=== PATIENT | female | born 2000 | race Caucasian/White ===

== ENCOUNTER → 2019-01-05 12:54 | Outpatient (CLI) | payer MEDICAID, SELFPAY ==
[2019-01-05 15:17] LABS: hCG Titer Quant., Serum 4311 mIU/mL (1-3)
== END ==
PROVIDERS: Nurse Practitioner Women's Health; Referring Provider Obstetrics & Gynecology; Visit Provider Obstetrics & Gynecology
DX: N91.2 Amenorrhea, unspecified (principal)
CPT/HCPCS: 36415; 84702

== ENCOUNTER → 2019-01-07 14:01 | Outpatient (CLI) | payer MEDICAID, SELFPAY ==
[2014-05-16 05:46] VITALS: BMI 29.7
[2019-01-07 16:06] LABS: hCG Titer Quant., Serum 6073 mIU/mL (1-3)
== END ==
PROVIDERS: Nurse Practitioner Women's Health; Referring Provider Obstetrics & Gynecology; Visit Provider Obstetrics & Gynecology
DX: N91.2 Amenorrhea, unspecified (principal)
CPT/HCPCS: 36415; 84702

== ENCOUNTER → 2019-01-09 14:17 | Outpatient (CLI) | payer MEDICAID, SELFPAY ==
[2019-01-09 16:05] LABS: hCG Titer Quant., Serum 8267 mIU/mL (1-3)
== END ==
PROVIDERS: Referring Provider Nurse Practitioner Women's Health; Visit Provider Nurse Practitioner Women's Health
DX: O20.0 Threatened abortion (principal); Z3A.00 Weeks of gestation of pregnancy not specified
CPT/HCPCS: 36415; 84702

== ENCOUNTER → 2019-01-16 16:04 | Outpatient (CLI) | payer MEDICAID, SELFPAY ==
--- NOTE | 2019-01-16 16:08 | US_ITS ---
STUDY: FIRST TRIMESTER OBSTETRICAL ULTRASOUND REASON FOR EXAM: Female, 18 years old evaluate for dates LMP: 12/01/2018 TECHNIQUE: Transvaginal TECHNICAL QUALITY: Adequate. PRIOR ULTRASOUND: None. FINDINGS: There is visualization of a single gestational sac in a normal intrauterine position. The mean sac diameter (MSD) measures 1.5 cm, indicating an estimated gestational age (EGA) of 6 weeks, 3 days. The gestational sac shape is within normal limits. There is a visualized yolk sac. The yolk sac measures 2 mm. The placenta is non-visualized. There is visualization of a live embryo. The crown-rump length (CRL) measures 0.8 cm, indicating an estimated gestational age (EGA) of 6 weeks, 6 days. There is demonstrated cardiac activity with a heart rate of 128 bpm. The estimated gestation age (EGA) by LMP is 6 weeks, 4 days. The estimated date of delivery (HELENE) by LMP is 09/07/2019. The estimated gestation age (EGA) by US is 6 weeks, 5 days. The estimated date of delivery (HELENE) by US is 09/06/2019. The uterus measures 10.3 x 7.1 x 5.1 cm.. There is no demonstrated uterine fibroid. The cervix is closed. The right ovary measures 4.0 x 2.4 x 2.3 cm.. There is no right ovarian cyst. There is no visualized right adnexal mass or complex lesion. The left ovary measures 4.7 x 2.6 x 1.4 cm.. There is no left ovarian cyst. There is no visualized left adnexal mass or complex lesion. There is a minimal amount of free fluid adjacent to the left ovary. US/Transvaginal w/Preg US IMPRESSION: Single viable intrauterine of approximately 6 weeks 5 days gestational age. A heart rate of 128 bpm is noted. There is a minimal amount of free fluid adjacent to the left ovary. Electronically Signed: Colton Mcqueen MD at 17:21 EDT , Service support ,
== END ==
PROVIDERS: Referring Provider Nurse Practitioner Women's Health; Visit Provider Nurse Practitioner Women's Health
DX: Z34.91 Encounter for supervision of normal pregnancy, unspecified, first trimester (principal)
CPT/HCPCS: 76817

== ENCOUNTER → 2019-02-02 16:49 | Outpatient (CLI) | payer MEDICAID, SELFPAY ==
[2019-02-02 15:10] VITALS: BMI 29.7
[2019-02-02 20:34] LABS: Chlamydia Trachomatis by PCR Negative (Negative); Neisserai gonorrhoeae by PCR Negative (Negative); Probe Check PASS; Sample Adequacy Control PASS; Specimen Processing Control PASS
[2019-02-05 16:47] LABS: HPV Reflexed? NOT INDICATED
== END ==
PROVIDERS: Referring Provider Nurse Practitioner Women's Health; Visit Provider Nurse Practitioner Women's Health
DX: Z12.4 Encounter for screening for malignant neoplasm of cervix (principal); Z34.90 Encounter for supervision of normal pregnancy, unspecified, unspecified trimester
CPT/HCPCS: 87086; 87491; 87591; 88175; G0145

== ENCOUNTER → 2019-02-10 15:14 | Outpatient (CLI) | payer MEDICAID, SELFPAY ==
[2019-02-02 15:10] VITALS: BMI 29.7
[2019-02-10 16:26] LABS: Absolute Lymphocyte Count 2.37 X10^3/uL (0.83-4.51); Absolute Neutrophil Count 5.8 X10^3/uL (2.0-7.7); Basophil# 0.03 X10^3/uL; Basophil% 0.3 % (0-1); Eosinophil# 0.03 X10^3/uL; Eosinophils% 0.3 % (0-5); Hematocrit 40.9 % (37-47); Hemoglobin 14.1 g/dL (12.0-15.0); Lymphocyte # 2.37 X10^3/ul (4.0); Lymphocyte % 27.1 % (19-41); Mean Corp Hgb Conc 34.5 g/dL (32-36); Mean Corpuscular Hgb 29.8 pg (27.0-32.0); Mean Corpuscular Volume 86.5 fL (81-99); Mean Platelet Vol. 9.6 fl (6.2-12.0); Monocyte# 0.51 X10^3/uL; Monocyte% 5.8 % (0-10); NRBC Flagged by Analyzer 0 % (0-5); Neutrophil # 5.76 X10^3/uL (2.7-7.7); Neutrophil % 66.2 % (47-70); Platelet Count 216 K/mm3 (150-450); RBC Distribution Width CV 12.1 % (11.6-14.6); RBC Distribution Width SD 38.5 fl (35.1-43.9); Red Blood Count 4.73 M/mm3 (4.2-5.4); White Blood Count 8.7 K/mm3 (4.4-11.0)
[2019-02-10 17:30] LABS: HIV - WCH Non-Reactive (Nonreactive); Rubella IgG 134.8 IU/mL
[2019-02-13 02:37] LABS: Rapid Plasmin Reagin (RPR) NONREACTIVE (NONREACTIVE)
== END ==
PROVIDERS: Referring Provider Nurse Practitioner Women's Health; Visit Provider Nurse Practitioner Women's Health
DX: Z34.81 Encounter for supervision of other normal pregnancy, first trimester (principal); Z31.430 Encounter of female for testing for genetic disease carrier status for procreative management
CPT/HCPCS: 36415; 85025; 86592; 86703; 86762; 86850; 86900; 86901

== ENCOUNTER → 2019-06-04 15:04 | Outpatient (CLI) | payer MEDICAID, SELFPAY ==
[2019-06-04 14:48] VITALS: BMI 29.7
[2019-06-04 15:38] LABS: Absolute Lymphocyte Count 2.12 X10^3/uL (0.83-4.51); Absolute Neutrophil Count 8.5 X10^3/uL (2.0-7.7); Basophil# 0.03 X10^3/uL; Basophil% 0.3 % (0-1); Eosinophil# 0.05 X10^3/uL; Eosinophils% 0.4 % (0-5); Hematocrit 36.4 % (37-47); Hemoglobin 12.5 g/dL (12.0-15.0); Lymphocyte # 2.12 X10^3/ul (4.0); Lymphocyte % 18.1 % (19-41); Mean Corp Hgb Conc 34.3 g/dL (32-36); Mean Corpuscular Hgb 30.4 pg (27.0-32.0); Mean Corpuscular Volume 88.6 fL (81-99); Mean Platelet Vol. 9.7 fl (6.2-12.0); Monocyte# 0.91 X10^3/uL; Monocyte% 7.8 % (0-10); NRBC Flagged by Analyzer 0 % (0-5); Neutrophil # 8.52 X10^3/uL (2.7-7.7); Neutrophil % 72.7 % (47-70); Platelet Count 198 K/mm3 (150-450); RBC Distribution Width CV 13.1 % (11.6-14.6); RBC Distribution Width SD 42.5 fl (35.1-43.9); Red Blood Count 4.11 M/mm3 (4.2-5.4); White Blood Count 11.7 K/mm3 (4.4-11.0)
[2019-06-04 15:48] LABS: Glucose Challenge Gest 1H 50g 109 mg/dL (70-140)
[2019-06-05 09:01] LABS: Hepatitis B Surface Antigen Non-Reactive (Nonreactive)
== END ==
PROVIDERS: Referring Provider Obstetrics & Gynecology; Visit Provider Obstetrics & Gynecology
DX: O09.90 Supervision of high risk pregnancy, unspecified, unspecified trimester (principal); Z3A.00 Weeks of gestation of pregnancy not specified
CPT/HCPCS: 36415; 82950; 85025; 87340

== ENCOUNTER → 2019-08-14 13:11 | Outpatient (CLI) | payer MEDICAID, SELFPAY ==
[2019-07-17 15:43] VITALS: BMI 29.7
--- NOTE | 2019-08-14 13:12 | US_ITS ---
STUDY: SECOND AND THIRD TRIMESTER OBSTETRICAL ULTRASOUND - LIMITED REASON FOR EXAM: Female, 19 years old GROWTH LMP: December 01, 2018. PRIOR ULTRASOUND: Comparison is made with prior study dated January 16, 2019. TECHNIQUE: Transabdominal TECHNICAL QUALITY: Adequate. FINDINGS: There is a single intrauterine fetus. The fetus is in a cephalic presentation. There is demonstrated cardiac activity with a heart rate of 140 bpm. There is a normal amniotic fluid volume. The largest amniotic fluid pocket measures 6.9 cm x 3.3 cm. The amniotic fluid index (VIKA) is 11.08 cm. The placenta is posterior in location and is not low lying. There are Grade 2 placental changes. The cervix was not measured due to position. BIOMETRY: BPD: 8.92 cm: 36 weeks, 1 days HC: 32.14 cm: 36 weeks, 2 days AC: 32.58 cm: 36 weeks, 4 days FL: 7.14 sinus: 36 weeks, 5 days Age by LMP: 36 weeks, 4 days. HELENE by LMP: September 07, 2019. age by prior US: 36 weeks, 5 days. EHLENE by prior US: September 06, 2019. age by current US: 36 weeks, 3 days. HELENE by current US: September 08, 2019. Estimated weight: 2940 grams, +/- 429 grams, 50 percentile. US/OB Limited With Biometrics IMPRESSION: Single live intrauterine gestation with a mean gestational age of 36 weeks and 5 days. The measurements obtained today fall within the normal expected range. Electronically Signed: Nirmal Otero, at 14:50 EDT , Service support ,
== END ==
PROVIDERS: Referring Provider Obstetrics & Gynecology; Visit Provider Obstetrics & Gynecology
DX: O09.93 Supervision of high risk pregnancy, unspecified, third trimester (principal); O09.293 Supervision of pregnancy with other poor reproductive or obstetric history, third trimester; Z3A.36 36 weeks gestation of pregnancy
CPT/HCPCS: 76816; 87081

== ENCOUNTER 2019-08-31 09:30 | Inpatient (IN) | payer MEDICAID, SELFPAY ==
[2019-08-14 14:05] VITALS: BMI 29.7
[2019-08-28 16:36] VITALS: BMI 29.7
[2019-08-31] VITALS (19 sets, daily range): BP systolic 104–126; BP diastolic 48–79; PULSE 66–87; RESP 16–18; TEMP 36.2–36.6; O2SAT 96–100; BMI 36.1
[2019-08-31] MEDS: Lactated Ringers 1,000 ML 999 ML IV (10:00)
[2019-08-31 10:22] LABS: Absolute Lymphocyte Count 2.71 X10^3/uL (0.83-4.51); Absolute Neutrophil Count 9.3 X10^3/uL (2.0-7.7); Basophil# 0.03 X10^3/uL; Basophil% 0.2 % (0-1); Eosinophil# 0.03 X10^3/uL; Eosinophils% 0.2 % (0-5); Hematocrit 39.3 % (37-47); Hemoglobin 13.8 g/dL (12.0-15.0); Lymphocyte # 2.71 X10^3/ul (4.0); Mean Corp Hgb Conc 35.1 g/dL (32-36); Mean Corpuscular Hgb 31.4 pg (27.0-32.0); Mean Corpuscular Volume 89.3 fL (81-99); Mean Platelet Vol. 10.8 fl (6.2-12.0); Monocyte# 0.79 X10^3/uL; Monocyte% 6.1 % (0-10); NRBC Flagged by Analyzer 0 % (0-5); Neutrophil # 9.27 X10^3/uL (2.7-7.7); Neutrophil % 71.9 % (47-70); Platelet Count 145 K/mm3 (150-450); RBC Distribution Width CV 12.9 % (11.6-14.6); RBC Distribution Width SD 42.1 fl (35.1-43.9); White Blood Count 12.9 K/mm3 (4.4-11.0)
[2019-08-31] MEDS: Lactated Ringers 1,000 ML 150 ML IV (11:05)
[2019-08-31 11:28] LABS: Amphetamine Urine VISTA NEGATIVE (<1000 ng/mL); Barbiturate Urine VISTA NEGATIVE (< 200 ng/mL); Benzodiazepine Urine VISTA NEGATIVE (< 200 ng/mL); Cocaine Urine VISTA NEGATIVE (< 300 ng/mL); Ecstacy Urine VISTA NEGATIVE (< 500 ng/mL); Methadone Urine VISTA NEGATIVE (< 300 ng/mL); PCP Urine VISTA NEGATIVE (< 25 ng/mL); THC Urine VISTA NEGATIVE (< 50 ng/mL); Vista UDS pH Range 7
--- NOTE | 2019-08-31 13:35 | PCM.HPOB.BLA ---
- Problem List (1) History of difficult shoulder delivery, resulting in fractured clavicle of , currently Status: Acute Qualifiers: Comment: counseled regarding risk of recurrence, plan growth us at 36 weeks, if smaller patient wishes to proceed with . (2) History of depression Status: Acute Comment: increase celexa, declined counseling (3) Status: Acute Qualifiers: Comment: carrier-neg and nipt-low risk. boy. declines afp screening. Anatomy US normal (4) Supervision of high risk , antepartum Status: Acute Comment: PRR (hep B) HELENE 09/07/19 Boy PC Phong BF Phong (5) Tobacco use Status: Acute Comment: enc cessation History and Physical Date of Admission: 08/31/19 Intake Vital Signs 08/28/19 BMI 29.7 08/28/19 Height 5 ft 5 in 08/28/19 Weight: 217 lb 08/28/19 BMI 36.1 08/28/19 BP 120/82 H Intake Visit Reasons: 38 WK OB Roll On Man Required: No Is patient in pain?: No Allergies No Known Allergies Allergy (Verified 08/28/19 16:32) Medications [id number] fum 28 mg iron-folate no.6 1 mg-dha 300 mg capsule 1 cap PO .daily #90 cap 07/17/19 [Rx Confirmed 08/28/19] citalopram 40 mg tablet 40 mg PO DAILY #30 tab 08/28/19 [Rx Confirmed 08/28/19] Last Menstral Period: 12/01/18 Zika: Zika virus screening: Negative : No PFSH PFSH Surgical History History of tonsillectomy (Acute) Social History (Updated 08/29/19 @ 10:[address] Karlene Gómez MD) number of children: 1 current occupational status: employed current occupation: [employer] Smoking Status: Light Smoker (<10/day) Tobacco: How many years used: 6 alcohol intake: never substance use type: does not use seatbelt use: always do you feel safe at home: Yes additional social history: Jb Currently unemployed Pregancy History 2 Elective abortions Hx Para 1 Spontaneous abortions Hx # Term Pregnancies 1 Ectopic pregnancies Hx # Pregnancies Multiple births # of living children 1 Past Pregnancies Del. Date Name GA/Weeks Outcome Route Bth Weight Gen Labor Lgth Anesthesia Del Locatn Provider FOB 05/16/14 Phong Urban 41 live - full term 8 lbs 8.3 oz. Male 20 hours epidural [facility] Dr. Rico Darling HPI 38 WK OB: Details: REYNA RODRIGEZ is a 19 year old @ 39 weeks presents for primary for history of shoulder dystocia. OB Visit HELENE Calculator Estimated Delivery Date Method Current WG Current Estimate 09/07/19 LMP (Certain) 38w 5d Other Estimates 09/06/19 Ultrasound #1 38w 6d 09/02/19 Ultrasound #2 39w 3d Expected Delivery Route/Plan plan LTCS no matter what due to history of should dystocia Labor Preferences- labor support person: [] pain management options preferred: [] cut cord/dad catch: [] : [] PP control planned: [] discussed possible routes of delivery and associated risks: [] special requests: [] Specific Issue/Plans flu vaccine: declined tdap vaccine: given rhogam: na LARC form signed: declines movement and labor precautions reviewed. Problem list reviewed and updated with the most current plan of care details and appropriate orders placed. Relevant counseling for the gestational age provided. Continue routine care and follow up unless otherwise noted in visit notes/problem list details Initial Weight: 211 lb Date EGA Weight BP Urine Prot Glucose FHR FuHt Pres Dilation Effaced St Visit Note 03/09/19 14w 0d 207 lb 2 oz (-3 lb 14 oz) 115/77 Negative Negative 155 no vb cramping 04/09/19 18w 3d 205 lb 6 oz (-5 lb 10 oz) 118/60 Trace Negative 146 Feeling slight flutters. No VB, LOF. Anatomy US today 05/07/19 22w 3d 206 lb (-5 lb) 114/62 Negative Negative 145 SM- no vb lof good fm no regular ctx. discussed anatomy scan and encouraged tobacco cessation 06/04/19 26w 3d 210 lb 4 oz (-12 oz) 117/76 Negative Negative 145 27 SM- no vb lof good fm no regular ctx. discusseed and plan growth us at 36 weeks, discussed 15%- 20% risk of recurrence, patient wishes to proceed with . 07/02/19 30w 3d 210 lb (-16 oz) 128/76 Negative Negative 140 31 SM- no vb lof good fm no regular ctx 07/17/19 32w 4d 209 lb (-2 lb) 118/62 Negative Negative 140 33 SM- no vb lof fm no regular ctx check growth us 08/14/19 36w 4d 214 lb (+3 lb) 112/76 Negative Negative 140 37 Cephalic 1 SM- had growth us, no vb lof good fm no regulaar ctx discussed and patient wishes to proceed with primary 08/21/19 37w 4d 216 lb (+5 lb) 110/82 Negative Negative 140 39 Cephalic 1 SM- no vb lof good fm no regular ctx 08/28/19 38w 4d 217 lb (+6 lb) 120/82 Negative Negative 140 40 Cephalic SM- plan primary saturday Notes Visit Date: 08/28/19 ??No visit notes to display Visit Date: 08/21/19 ??No visit notes to display Visit Date: 08/14/19 ??No visit notes to display Visit Date: 07/17/19 ??No visit notes to display Visit Date: 07/02/19 ??No visit notes to display Visit Date: 06/04/19 ??No visit notes to display Visit Date: 05/07/19 ??No visit notes to display Visit Date: 04/09/19 ??No visit notes to display Visit Date: 03/09/19 ??no vb cramping ??Karlene Gmóez MD on 03/09/19 ACOG First Trimester First Trimester: Desire for , Alcohol, Tobacco Cessation, Illicit/Recreational Drug/Substance Use, Intimate Partner Violence, Barriers to care, Unstable Housing, Communication Barriers, Environmental/Work Hazards, Anticipated Course of Care, Toxoplasmosis Precations, Use of Any medications, Sexual activity, Exercise, Dental Care, Sauna/Hot tub use, Seat Belt use, Childbirth classes/Hospital facilities, , Travel, Indications for US and Screening for Aneuploidy Second Trimester Second Trimester: Signs and Symptoms of Labor, Selecting a care provider, Reproductive Life Planning, Care Planning, Tobacco Cessation, Depression/Anxiety and Intimate Partner Violence Third Trimester Third Trimester: Pain Management Plans, Labor support person(s), Immediate Larc, Movement Monitoring and Infant Feeding Yes ; discussed Trial of Labor after Counseling or discussed Circumcision preference Diagnostics Diagnostics Diagnostics Blood Type A POSITIVE 02/10/19 Antibody Screen NEGATIVE 02/10/19 Glucose 1 Hr 50 gm 109 mg/dL (70-140) 06/04/19 HIV 1&2 Antibody Non-Reactive (Nonreactive) 02/10/19 Rubella IgG Antibody 134.8 IU/mL 02/10/19 Hgb 12.5 g/dL (12.0-15.0) 06/04/19 Hct 36.4 % (37-47) L 06/04/19 RPR NONREACTIVE (NONREACTIVE) 02/10/19 Details: HIV: Urine Culture: Sequential Screen: NIPT Screen: ROS Const Reports system reviewed and no additional complaints, except as docu Card Reports system reviewed and no additional complaints, except as docu Resp Reports system reviewed and no additional complaints, except as docu GI Reports system reviewed and no additional complaints, except as docu, Reports nausea Reports system reviewed and no additional complaints, except as docu Musc Reports system reviewed and no additional complaints, except as docu Exam Const General: cooperative, healthy appearing, comfortable, anxious [facility] Head: normal to inspection Nose: external nose normal Face and sinus: normal facial exam Neck Neck: normal visual inspection, full ROM, no lymphadenopathy Thyroid: thyroid normal Chest Chest palpation & inspection: normal inspection of the chest Resp Effort & Inspection: normal respiratory effort GI Inspection: normal to inspection Palpation: soft, other (gravid uterus) Other: infant vertex and appropriate size for gestational age Other: Cervical Exam: Extrem General: pedal edema Results POC Urinalysis 2 Dip (Clinic) Office Urine Glucose Negative Last Edit by Claudia Borjas on 08/28/19 16:36 Office Urine Protein Negative Last Edit by Claudia Borjas on 08/28/19 16:36 Assessment & Plan Problems 1. 38 weeks gestation of Z3A.38 2. Tobacco use Z72.0 3. History of shoulder dystocia with result of fractured clavicle of infant in prior , currently in first trimester O09.291 4. Supervision of high risk , antepartum O09.90 5. History of depression Z87.59; Z86.59 plan primary Orders Orders: POC Urinalysis 2 Dip (Clinic) 08/28/19 Medications Refilled: citalopram (Celexa) 40 mg PO DAILY 30 tabs 12RF Coding Level of Care Code Off vis,est,level 3 Diagnoses 38 weeks gestation of Z3A.38 ??Weeks of gestation: 38 weeks Tobacco use Z72.0 History of shoulder dystocia with result of fractured clavicle of infant in prior , currently in first trimester O09.291 ??Trimester: first trimester Supervision of high risk , antepartum O09.90 History of depression Z87.59; Z86.59
[2019-08-31] MEDS: Sodium Citrate/Citric Acid 30 ML UDC PO (14:13)
[2019-08-31] MEDS: Cefazolin 2 GM in 0.9% Normal Saline 100 ML IV (14:13)
[2019-08-31] MEDS: Oxytocin 30 units/NS 500 ml 30 UNITS/500 ML IV.SOLN 167 UNITS IV (15:15)
[2019-08-31] MEDS: DiphenhydrAMINE 25 MG Capsule PO (16:54)
--- NOTE | 2019-08-31 17:10 | OP.PCM_ITS ---
Problem List (1) History of difficult shoulder delivery, resulting in fractured clavicle of , currently Status: Acute Qualifiers: Comment: counseled regarding risk of recurrence, plan growth us at 36 weeks, if smaller patient wishes to proceed with . (2) History of depression Status: Acute Comment: increase celexa, declined counseling (3) Status: Acute Qualifiers: Comment: carrier-neg and nipt-low risk. boy. declines afp screening. Anatomy US normal (4) Supervision of high risk , antepartum Status: Acute Comment: PRR (hep B) HELENE 09/07/19 Boy PC Phong BF Phong (5) Tobacco use Status: Acute Comment: enc cessation Delivery Classification: Scheduled Final HELENE: 09/07/19 Gestational age: 39 Weeks and 0 Days director of strategic communications: Rahul Rogers Type of Anesthesia:: Spinal Special Medications: none Implants Used: none Date of Procedure: 08/31/19 Pre-Operative Diagnosis: history shoulder dystocia Post-Operative Diagnosis: same Description of Procedure: Spinal anesthesia was placed without difficulty. Fowler catheter was placed. The patient was placed in the dorsal supine position with leftward tilt. Patient was prepped and draped in the normal sterile fashion. Pfannenstiel skin incision was made with the scalpel and carried through to the underlying layer of fascia with the scalpel. Fascia was nicked in the midline and the incision extended laterally. The rectus bellies were dissected off superiorly and inferiorly with out complication both sharply and bluntly. The peritoneum was entered digitally. The incision was stretched and a low transverse uterine incision was made with the scalpel. The 's head was delivered atraumatically followed by the anterior and posterior shoulders without complication the rest of the infant delivered. The cord was clamped and cut and the was handed off to awaiting nurse. The placenta was delivered spontaneously immediately following and was noted to be intact and have a three- vessel cord. The uterus was exteriorized cleared of all clots and debris, and the incision was closed in a double layer closure using #1 Monocryl. The ovaries and fallopian tubes were noted to be within normal limits. The uterus was returned to the maternal abdomen and gutters were cleared of all clots and debris. The peritoneum was closed with 3-0 Monocryl in a running fashion. Gloves were changed prior to fascial closure. Fascia was closed with 0 PDS in a running fashion. Subcutaneous tissue was copiously irrigated and the skin was closed with 3-0 Monocryl in a subcuticular fashion. Mepilex dressing was applied without complication. Patient was taken to recovery in stable condition. It was discussed with the patient that based on the clinical information obtained during this encounter, combined with her history, at this time I would recommend cesareans for future deliveries if further pregnancies are desired. Amniotic Membrane Rupture Type: Artificial Amniotic Fluid Description: Clear Placenta Disposition: [facility] Cord Entanglement: None Esitmated Blood Loss (ml): 600 Infant Gender: Male Delayed cord clamping: Yes Antibiotic Given: Ancef 2 grams IV x1 Pt instructed on risks of surgery: Bleeding, Anesthesia Risks, Infection, Injury to surrounding structure(s) including bowel and bladder Complications: None - Admit VTE Documentation VTE Present on Admission: No VTE Mechan Device Prophylaxis: SCD's Multi Select Codes - Urinary/Genital Urinary/Genital CPT Codes: 53114 delivery+ Care([facility])
[2019-08-31] MEDS: Lactated Ringers 1,000 ML 100 ML IV (17:52)
[2019-08-31] MEDS: Ketorolac 30 MG/ML Syringe IV (17:52)
[2019-09-01] VITALS (7 sets, daily range): BP systolic 106–120; BP diastolic 56–72; PULSE 65–97; RESP 14–16; TEMP 35.9–36.4; O2SAT 97–100
[2019-09-01] MEDS: Ketorolac 30 MG/ML Syringe IV ×4 (00:05→18:51)
[2019-09-01] MEDS: 0.9% Saline Lock 10 ML Syringe IV ×2 (06:08→11:58)
[2019-09-01 06:20] LABS: Hematocrit 37.5 % (37-47); Hemoglobin 12.5 g/dL (12.0-15.0); Mean Corp Hgb Conc 33.3 g/dL (32-36); Mean Corpuscular Hgb 30.4 pg (27.0-32.0); Mean Corpuscular Volume 91.2 fL (81-99); Mean Platelet Vol. 10.7 fl (6.2-12.0); Platelet Count 149 K/mm3 (150-450); RBC Distribution Width SD 42.5 fl (35.1-43.9); Red Blood Count 4.11 M/mm3 (4.2-5.4); White Blood Count 15.4 K/mm3 (4.4-11.0)
[2019-09-01 06:27] LABS: Scan Indicated on CBC? Y/N NO
--- NOTE | 2019-09-01 11:14 | PCM.PN.OB ---
Subjective: doing well no complaints pain controlled no CP SOB N V ambulating well tolerating po lochia moderate, going well - Physical Exam Vitals/I&O's: Vital Signs Temp Pulse Resp BP Pulse Ox 96.7 F L 65 16 114/62 100 09/01/19 08:17 09/01/19 08:17 09/01/19 08:17 09/01/19 08:17 09/01/19 04:04 Oxygen Delivery Method Room Air Weight: 216 lb 14.958 oz Body Mass Index (BMI) 36.1 Intake and Output for Last 24 Hours 08/30/19 08/31/19 09/01/19 23:59 23:59 23:59 Intake Total 3344 / 3344 2376.67 / 2376.67 Output Total 500 / 500 1100 / 1100 Balance 2844 / 2844 1276.67 / 1276.67 General: Alert, Oriented x3 Laboratory Results 08/31/19 10:00: Blood Type A POSITIVE, Antibody Screen NEGATIVE 08/31/19 11:05: Urine Opiates Screen NEGATIVE, Urine Methadone Screen NEGATIVE, Ur Barbiturates Screen NEGATIVE, Ur Phencyclidine Scrn NEGATIVE, Ur Amphetamines Screen NEGATIVE, U Methamphetamin-MDMA NEGATIVE, U Benzodiazepines Scrn NEGATIVE, Urine Cocaine Screen NEGATIVE, U Cannabinoids Screen NEGATIVE 09/01/19 06:10: WBC 15.4 H, RBC 4.11 L, Hgb 12.5, Hct 37.5, MCV 91.2, MCH 30.4, MCHC 33.3 D, RDW Std Deviation 42.5, RDW Coeff of Tenisha 13.0, Plt Count 149 L, MPV 10.7 Current Medications Acetaminophen (Tylenol) 1,000 mg PO Q8H PRN PRN Reason: Pain Score 1-3/10 Bisacodyl (Dulcolax) 10 mg RECTAL UD PRN PRN Reason: If no BM Diphenhydramine HCl (Benadryl) 25 mg PO Q6H PRN PRN PRN Reason: ITCHING Stop: 09/01/19 15:19 Last Admin: 08/31/19 16:54 Dose: 25 mg Documented by: Hydrocortisone (Hytone) 1 applic TOPICAL TID PRN PRN; Protocol PRN Reason: Discomfort Naloxone HCl 4 mg/ Dextrose 504 mls @ 0 mls/hr IV .Q0M PRN; Protocol PRN Reason: Respiratory depression Ketorolac Tromethamine (Toradol (Bkc)) 30 mg IV Q6H GREGOR Stop: 09/02/19 12:01 Last Admin: 09/01/19 06:07 Dose: 30 mg Documented by: Methylergonovine Maleate (Methergine) 0.2 mg IM X1 PRN PRN Reason: Uterine Atony Naloxone HCl (Narcan) 0.02 mg IV Q1M PRN PRN Reason: RR <10 and pt unresponsive Naproxen (Naprosyn) 250 - 500 mg PO Q8H PRN PRN PRN Reason: Pain Score 1-3/10 Ondansetron HCl (Zofran) 4 mg IV Q4H PRN PRN PRN Reason: Nausea Oxycodone HCl (Oxyir) 5 - 10 mg PO Q4H PRN PRN PRN Reason: Pain Score 4-10/10 Prochlorperazine Edisylate (Compazine Iv) 10 mg IV Q6H PRN PRN PRN Reason: NAUSEA Senna/Docusate Sodium (Senokot-S, Brina-Colace) 0 tablet PO DAILY PRN PRN Reason: Constipation Simethicone (Mylicon) 80 mg PO PCHS PRN PRN Reason: Indigestion/stomach pain Sodium Chloride () 5 - 15 ml IV UD PRN PRN Reason: SALINE FLUSH Last Admin: 09/01/19 06:08 Dose: 10 ml Documented by: Medical Necessity - Tobacco Use Smoking Status: Current every day smoker Assessment/Plan All Active Problems (Last Reviewed 08/28/19 @ 16:32 by Claudia Borjas) History of depression (Acute) Supervision of high risk , antepartum (Acute) History of difficult shoulder delivery, resulting in fractured clavicle of , currently (Acute) Tobacco use (Acute) (Acute) s/p LTCS PPD # 1 1. routine post care 2. breast feeding- support given 3. rh positive 4. rubella immune
[2019-09-01] MEDS: Senna/Docusate Sodium 1 Tablet PO ×2 (11:58→12:12)
[2019-09-01] MEDS: Acetaminophen 500 MG Tablet 1000 MG PO (16:48)
--- NOTE | 2019-09-01 17:16 | CASEMGMT ---
Social Work Labor and Delivery Unit Consult received and noted. Plan to see patient/mother of baby (MOB) tomorrow, 09.02.2019, planning in the morning as able. -ARIC Cottrell, DIRECTOR OF STRATEGIC PARTNERSHIPS
--- NOTE | 2019-09-01 21:10 | NURSING ---
Report received from Fátima POSADA, taking over pt care at this time.
[2019-09-02] MEDS: 0.9% Saline Lock 10 ML Syringe IV ×2 (00:13→05:32)
[2019-09-02] MEDS: Ketorolac 30 MG/ML Syringe IV ×3 (00:13→12:04)
[2019-09-02 01:45] VITALS: BP 125/82; PULSE 73; RESP 18; TEMP 36; O2SAT 100
[2019-09-02 08:50] VITALS: BP 115/77; PULSE 78; RESP 16; TEMP 37; O2SAT 97
[2019-09-02] MEDS: Acetaminophen 500 MG Tablet 1000 MG PO (09:48)
--- NOTE | 2019-09-02 10:47 | PCM.PN.OB ---
Subjective: doing well no complaints pain controlled no CP SOB N V ambulating well tolerating po lochia moderate, going well - Physical Exam Vitals/I&O's: Vital Signs Temp Pulse Resp BP Pulse Ox 98.6 F 78 16 115/77 97 09/02/19 08:50 09/02/19 08:50 09/02/19 08:50 09/02/19 08:50 09/02/19 08:50 Oxygen Delivery Method Room Air Weight: 216 lb 14.958 oz Body Mass Index (BMI) 36.1 Intake and Output for Last 24 Hours 08/31/19 09/01/19 09/02/19 23:59 23:59 23:59 Intake Total 3344 / 3344 2376.67 / 2376.67 Output Total 500 / 500 1100 / 1100 Balance 2844 / 2844 1276.67 / 1276.67 General: Alert, Oriented x3 Current Medications Acetaminophen (Tylenol) 1,000 mg PO Q8H PRN PRN Reason: Pain Score 1-3/10 Last Admin: 09/02/19 09:48 Dose: 1,000 mg Documented by: Bisacodyl (Dulcolax) 10 mg RECTAL UD PRN PRN Reason: If no BM Hydrocortisone (Hytone) 1 applic TOPICAL TID PRN PRN; Protocol PRN Reason: Discomfort Naloxone HCl 4 mg/ Dextrose 504 mls @ 0 mls/hr IV .Q0M PRN; Protocol PRN Reason: Respiratory depression Ketorolac Tromethamine (Toradol (Bkc)) 30 mg IV Q6H GREGOR Stop: 09/02/19 12:01 Last Admin: 09/02/19 05:33 Dose: 30 mg Documented by: Methylergonovine Maleate (Methergine) 0.2 mg IM X1 PRN PRN Reason: Uterine Atony Naloxone HCl (Narcan) 0.02 mg IV Q1M PRN PRN Reason: RR <10 and pt unresponsive Naproxen (Naprosyn) 250 - 500 mg PO Q8H PRN PRN PRN Reason: Pain Score 1-3/10 Ondansetron HCl (Zofran) 4 mg IV Q4H PRN PRN PRN Reason: Nausea Oxycodone HCl (Oxyir) 5 - 10 mg PO Q4H PRN PRN PRN Reason: Pain Score 4-10/10 Prochlorperazine Edisylate (Compazine Iv) 10 mg IV Q6H PRN PRN PRN Reason: NAUSEA Senna/Docusate Sodium (Senokot-S, Brina-Colace) 0 tablet PO DAILY PRN PRN Reason: Constipation Last Admin: 09/01/19 12:12 Dose: 2 tablet Documented by: Simethicone (Mylicon) 80 mg PO PCHS PRN PRN Reason: Indigestion/stomach pain Sodium Chloride () 5 - 15 ml IV UD PRN PRN Reason: SALINE FLUSH Last Admin: 09/02/19 05:32 Dose: 10 ml Documented by: Medical Necessity - Tobacco Use Smoking Status: Current every day smoker Assessment/Plan All Active Problems (Last Reviewed 08/28/19 @ 16:32 by Claudia Borjas) History of depression (Acute) Supervision of high risk , antepartum (Acute) History of difficult shoulder delivery, resulting in fractured clavicle of infant, currently (Acute) Tobacco use (Acute) (Acute) s/p LTCS PPD # 2 1. routine post care 2. breast feeding- support given 3. rh positive 4. rubella immune
--- NOTE | 2019-09-02 10:48 | DCINST_ITS ---
Discharge Diet: No Restrictions Discharge Activity: May Not Drive - for 2 weeks, May not drive while taking narcotic pain medications., May Shower, May Take a Tub Bath - in 7 days May resume sexual activity in: 4-6 weeks Lifting Restrictions: 20 pounds Additional Activity Instructions:: Nothing in the vagina for 4-6 weeks. You may return to work/school in 6 weeks. Call your doctor if your incision/area has: Continuous Slow Oozing, Sudden Increased Bleeding, Increased Pain/ Swelling, Increased Redness, Foul Smelling Discharge Call your doctor if you observe: Fever of 101 or Higher, Using more than one pad per hour - for 2 hours Suture Line Care: Avoid Pulling/Pushing, Avoid Pinching/Bending Cleanse incision/area with: Keep Dressing Clean & Dry Additional Instructions: If you experience any of the following, contact your healthcare provider. * Bleeding that soaks a pad every hour for 2 hours * Fever 100.4 or higher * Unrelieved incision or abdominal pain * Swelling, redness, discharge or bleeding from your incision or episiotomy site * Your incision begins to separate * Problems urinating (including inability to urinate or burning while urinating). * Visual changes * Severe headache * Flu-like symptoms * Pain or redness in one of both of your breasts * Pain, warmth, tenderness or swelling in your legs, especially the calf area * Frequent nausea and vomiting * Symptoms of depression or anxiety If you experience any of the following, call 911 or go to the nearest Emergency Room. * Chest pain * Problems breathing * Seizure activity * Partial or complete paralysis of a body part, slurred speech, weakness or drooping of the face, or a sudden inability to walk or hold your balance Allergies/Adverse Reactions: Allergies No Known Allergies Allergy (Verified 08/31/19 10:05) Medications to take at Discharge [Prenate DHA] 1 cap PO .daily 08/31/19 Citalopram Hydrobromide [Citalopram HBr] 40 mg PO DAILY 08/31/19 Ondansetron HCl [Zofran] 4 mg PO 08/31/19 Naproxen [Naprosyn] 250 - 500 mg PO Q8H PRN PRN #30 tab 09/02/19 Oxycodone HCl/Acetaminophen [Percocet 5-325] 1 - 2 tablet PO Q6H PRN PRN 7 Days #15 tablet 09/02/19 The following prescriptions were given: Naproxen [Naprosyn] 250 - 500 mg PO Q8H PRN PRN #30 tab PRN Reason: MILD PAIN Transmission Status: Pending to [facility] Oxycodone HCl/Acetaminophen [Percocet 5-325] 1 - 2 tablet PO Q6H PRN PRN 7 Days #15 tablet PRN Reason: Pain Transmission Status: Sent to [facility] Follow-Up: Call to make an appointment with your doctor for an incision check in 1-2 weeks. You will also need a 6 week post- follow up appointment. Test results from this visit will be discussed in further detail at your follow- up appointment, if applicable. Please Follow Up With: Karlene Gómez MD - Call to make an appointment for an incision check in 1-2 [phone] When: You will need a post- check in 6 weeks. Primary Care Physician: Care Physician,No Primary [Primary Care Provider] -
--- NOTE | 2019-09-02 13:00 | CASEMGMT ---
Social Work Assessment Labor and Delivery Unit Patient Address: [address], [address], [place] [address] Phone number: [phone] Date of Referral:08.31.2019 Time of Referral: [id number] Referred By: Dr. Gómez; Dr. eLal Date of Intervention: 09.02.2019 Reason for Referral: maternal use of marijuana during ; History of depression, on Celexa. History obtained from: medical records and mother of baby (MOB) Naty Solis; father of baby (FOB) Phong Santa present for part of conversation. Household composition: MOB, FOB, and their older son Phong Beckett. live in a mobile home they rent. Home situation is reported to be safe and adequate. Patient's parent/guardian status: MOB is age 21, with FOB who is age 24, and have been together since POLINA was in high school. MOB and FOB now have 2 children together. Minor children include; Phong Santa Jr, born 05.16.2014; Ethan Santa, born 08.[birth year].2019. When speaking privately with MOB, MOB denies any form of abuse, control, or neglect in this relationship. Medical History: POLINA is G2, P1 to 2 after delivering Ethan. care started at 8 weeks gestation. MOB with history of shoulder dystocia with first delivery, which prompted delivery of Ethan via caesarian section. Ethan was born at 39 weeks, Apgars 9 and 9, and birthweight 8 pounds 14 ounces. Educational Status: POLINA dropped out of school in the 11th grade. MOB reports she is able to read, write, and understand what she reads. 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 Off on maternity leave at this time. FOB was just hired at [employer]. No voiced concerns about finances at this time. Supplies: MOB reports to have needed baby supplies including bassinet, crib, swing, car seat, diapers, wipes, clothing, and MOB is planning to breast feed baby. Childcare/Caregiver(s): MOB and FOB. Transportation: No reported issues. Programs/Agencies Involved: Active with [facility] for food and medical. Active with [facility]. [employer] [facility] subsidy. Agrees to a Help Me Grow referral. Children Services/Legal Issues: No reported legal issues. MOB had children services involvement as a minor when living [place]. MOB and FOB reports after Phong Urban was born [facility] Children Services got involved due to unsafe home environment with multiple cats and overall neglect of the home. MOB and FOB report that children services tried to work with the family to get the home cleaned up abut MOB's parents did not cooperate, which then forced MOB and FOB to move out and get their own place. MOB reports after moving to current home in [place], children service did a couple of home checks and [facility] way[facility] closed the case. MOB and FOB deny and subsequent children services involvement since leaving POLINA's parental home. Behavioral Health Issues: Mental Health History: POLINA reports feeling she had the baby blues after Phong Urban was born. MOB did start on antidepressant during this and reports to feel this is working, with plan to remain on medication in the period now. No reports of thoughts of suicide. [place] Depression Screen: complete this date on 09.02.2019. Score is 7, which is below the the threshold for depression. MOB endorsed feeling surrounding anxiety and worry. MOB denies any thoughts of harming self in the last week. Did admit to feeling down during the , had fleeting thoughts of . No plan, no intent, no intent. MOB reports talked to Jb and to the doctor and was started on medication. Substance Use History: MOB reports history of marijuana use one time in February. Denies continued use. Denies intent to use marijuana again. Denies history of of other substance use including alcohol. Does smoke tobacco daily. MOB and FOB both report intent to quit as will be moving to a new home soon. Chart indicates MOB did use Benadryl as needed for help with sleep during . Family History: MOB's mother with bipolar disorder. MOB's paternal aunt completed suicide. Drug Screens: no drug screening noted in the record for MOB during the . Drug screen upon admission, 08.21.2019, was negative for MOB. There was no testing performed on baby. Family/Social Stressors: None reported. Support Systems: FOB and FOB's side of the family. Depression/Shaken Baby/Safe Sleeping: Educational material discussed and provided on shaken baby prevention and safe sleeping. Educated to depression, risk factors, and importance of seeking out help and support should symptoms change or worsen for MOB. Broached that fathers can also experience depression. FOB reports he was diagnosed with depression, recommended medication, but guajardo not take as does not like how it makes FOB feel. FOB indicates to have own coping skills. MOB reports that keeps busy and also talks to FOB when feeling down. ASSESSMENT: Met with MOB and FOB together. Both cooperative with social work visit, pleasant, held good eye contact and talkative. When meeting privately with MOB did address depression screening, DV, and substance use history. MOB and FOB report to have needed baby supplies, report to have enough help available from FOB's sides of the family if needed, and deny and concerns with home going. MOB and FOB will be moving into a larger home soon. MOB reports intent to remain in antidepressant medications in the period. Denies any thoughts of harm to self or others. Reports to have a positive connection with the baby. There have been no positive drug screens for MOB during this . MOB and FOB agree to a Help Me Grow referral for added support. Safe Plan of Care for related to substance use: Continue to abstain from marijuana. No future use, no use in the home or around the children. PLAN: MOB and baby will discharge home. [facility] resources list given. depression packet given and reviewed. [facility] referral to be made. No other services requested or indicated. -SAM Cottrell, BRUSH MAKER
[2019-09-02 15:00] VITALS: BP 120/76; PULSE 80; RESP 16; TEMP 36.9
--- NOTE | 2019-09-07 12:59 | CASEMGMT ---
Social Work Labor and Delivery Help Me Grow referral submitted via [facility]'s secure web based referral system. -ARIC Cottrell, EXTRUSION SUPERVISOR
== END 2019-09-02 15:50 | disposition home or self-care (01) | DRG 540 ==
PROVIDERS: Admitting Provider Obstetrics & Gynecology; Referring Provider Obstetrics & Gynecology; Visit Provider Obstetrics & Gynecology
PROC: 10D00Z1 Extraction of Products of Conception, Low, Open Approach (ICD-10-PCS; CPT 59514; principal; 2019-08-31 11:45)
DX: O99.334 Smoking (tobacco) complicating childbirth (principal); F17.200 Nicotine dependence, unspecified, uncomplicated; Z28.21 Immunization not carried out because of patient refusal; Z37.0 Single live birth; Z3A.39 39 weeks gestation of pregnancy; Z87.59 Personal history of other complications of pregnancy, childbirth and the puerperium
CPT/HCPCS: 80307; 85025; 85027; 86850; 86900; 86901; 99218; J7120; A4216; G0378; J2405

== ENCOUNTER → 2022-08-15 | Outpatient (CLI) | payer MEDICAID, SELFPAY ==
[2022-08-22 13:11] LABS: HPV Reflexed? NOT INDICATED
== END | disposition home or self-care (01) ==
PROVIDERS: Referring Provider Nurse Practitioner Women's Health; Visit Provider Nurse Practitioner Women's Health
DX: Z12.4 Encounter for screening for malignant neoplasm of cervix (principal)
CPT/HCPCS: 88175; G0145

== ENCOUNTER → 2022-11-30 | Outpatient (CLI) | payer MEDICAID, SELFPAY ==
[2022-12-04 05:07] LABS: Chlamydia By Nucleic Acid AMP Negative (Negative); Gonococcus By Nucleic Acid AMP Negative (Negative)
== END | disposition home or self-care (01) ==
PROVIDERS: Referring Provider Registered Nurse; Visit Provider Registered Nurse
DX: Z34.90 Encounter for supervision of normal pregnancy, unspecified, unspecified trimester (principal)
CPT/HCPCS: 87086; 87088; 87186; 87491; 87591

== ENCOUNTER → 2022-12-27 | Outpatient (CLI) | payer MEDICAID, SELFPAY ==
[2022-12-27 15:58] LABS: Absolute Lymphocyte Count 2.06 X10^3/uL (0.83-4.51); Absolute Neutrophil Count 6.4 X10^3/uL (2.0-7.7); Basophil# 0.03 X10^3/uL; Basophil% 0.3 % (0-1); Eosinophil# 0.03 X10^3/uL; Eosinophils% 0.3 % (0-5); Hemoglobin 12.8 g/dL (12.0-15.0); Lymphocyte # 2.06 X10^3/ul (0.83-4.51); Mean Corp Hgb Conc 32.8 g/dL (32-36); Mean Corpuscular Hgb 29.4 pg (27.0-32.0); Mean Corpuscular Volume 89.7 fL (81-99); Mean Platelet Vol. 9.6 fl (6.2-12.0); Monocyte# 0.39 X10^3/uL; Monocyte% 4.4 % (0-10); NRBC Flagged by Analyzer 0 % (0-5); Neutrophil # 6.41 X10^3/uL (2.7-7.7); Neutrophil % 71.8 % (47-70); Platelet Count 219 K/mm3 (150-450); RBC Distribution Width SD 39.4 fl (35.1-43.9); Red Blood Count 4.35 M/mm3 (4.2-5.4); White Blood Count 8.9 K/mm3 (4.4-11.0)
[2022-12-27 16:25] LABS: Glucose Challenge Gest 1H 50g 155 mg/dL (70-140)
[2022-12-27 16:56] LABS: NATERA MAILED SPECIMEN
[2022-12-27 17:15] LABS: HIV - WCH Non-Reactive (Nonreactive); Hepatitis B Surface Antigen Non-Reactive (Nonreactive); Hepatitis C Antibody Non-Reactive (Nonreactive); Rubella IgG Reactive (Nonreactive); Syphilis Antibodies Non-reactive
== END | disposition home or self-care (01) ==
LOC: PAVLAB 15:20
PROVIDERS: Referring Provider Registered Nurse; Visit Provider Registered Nurse
DX: Z34.90 Encounter for supervision of normal pregnancy, unspecified, unspecified trimester (principal)
CPT/HCPCS: 36415; 82950; 85025; 86703; 86762; 86780; 86803; 86850; 86900; 86901; 87340

== ENCOUNTER → 2023-01-24 | Outpatient (CLI) | payer MEDICAID, SELFPAY ==
[2023-01-24 15:25] LABS: Hemoglobin A1c 4.7 % (3.8-5.6)
== END | disposition home or self-care (01) ==
LOC: PAVLAB 14:46
PROVIDERS: Referring Provider Advanced Practice Midwife; Visit Provider Advanced Practice Midwife
DX: E66.9 Obesity, unspecified (principal)
CPT/HCPCS: 36415; 83036

== ENCOUNTER → 2023-04-16 | Outpatient (CLI) | payer MEDICAID, SELFPAY ==
[2023-04-16 11:38] LABS: Absolute Lymphocyte Count 1.88 X10^3/uL (0.83-4.51); Basophil# 0.02 X10^3/uL; Basophil% 0.2 % (0-1); Eosinophil# 0.03 X10^3/uL; Eosinophils% 0.3 % (0-5); Hematocrit 37.6 % (37-47); Hemoglobin 12.7 g/dL (12.0-15.0); Lymphocyte # 1.88 X10^3/ul (0.83-4.51); Lymphocyte % 18.1 % (19-41); Mean Corp Hgb Conc 33.8 g/dL (32-36); Mean Corpuscular Hgb 29.6 pg (27.0-32.0); Mean Corpuscular Volume 87.6 fL (81-99); Mean Platelet Vol. 10.2 fl (6.2-12.0); Monocyte# 0.42 X10^3/uL; NRBC Flagged by Analyzer 0 % (0-5); Neutrophil # 7.99 X10^3/uL (2.7-7.7); Neutrophil % 76.9 % (47-70); Platelet Count 181 K/mm3 (150-450); RBC Distribution Width CV 12.9 % (11.6-14.6); RBC Distribution Width SD 40.5 fl (35.1-43.9); Red Blood Count 4.29 M/mm3 (4.2-5.4); White Blood Count 10.4 K/mm3 (4.4-11.0)
[2023-04-16 11:44] LABS: Glucose Challenge Gest 1H 50g 180 mg/dL (70-140)
[2023-04-16 19:27] LABS: HIV - WCH Non-Reactive (Nonreactive); Syphilis Antibodies Non-reactive
== END | disposition home or self-care (01) ==
LOC: PAVLAB 11:06
PROVIDERS: Referring Provider Obstetrics & Gynecology; Visit Provider Obstetrics & Gynecology
DX: O09.90 Supervision of high risk pregnancy, unspecified, unspecified trimester (principal); Z13.1 Encounter for screening for diabetes mellitus; Z3A.00 Weeks of gestation of pregnancy not specified
CPT/HCPCS: 36415; 82950; 85025; 86703; 86780

== ENCOUNTER 2023-04-30 14:45 | Outpatient (RCR) | payer MEDICAID, SELFPAY | END 2023-05-22 23:59 | LOC: DC 14:45 | PROVIDERS: Referring Provider Obstetrics & Gynecology; Visit Provider Obstetrics & Gynecology | DX: O24.419 Gestational diabetes mellitus in pregnancy, unspecified control (principal) | CPT/HCPCS: 97802; 97803 ==

== ENCOUNTER 2023-06-25 12:15 | Inpatient (IN) | payer MEDICAID, SELFPAY ==
[2023-06-25] VITALS (20 sets, daily range): BP systolic 73–138; BP diastolic 45–85; PULSE 71–92; RESP 12–22; TEMP 36.1–37.3; O2SAT 97–98; BMI 42.5
[2023-06-25] MEDS: Lactated Ringers 1,000 ML 999 ML IV (12:34)
[2023-06-25] MEDS: Sodium Citrate/Citric Acid 30 ML UDC PO (12:45)
--- OUTSIDE RECORDS SUMMARY | 2023-06-25 12:47 | XMS RPT_ITS | CCD ---
Author Name Unknown Address [address] [place] [address] Organization [facility] Care Team Providers Care Oil Operator Name Role Phone Unavailable Primary Care Provider UnavailSundar Pablo Attending Unavailable PROVIDER, UNKNOWN Referring Unavailable No, PCP Primary Care Unavailable EDWARD CONRAD Attending Unavailable PROVIDER, UNKNOWN Referring Unavailable No, PCP Primary Care Unavailable PB ROMEO Primary Care Unavailable MILADIS PANDA Referring Unavailable NO PRIMARY CARE, Primary Care Unavailable GUAMAN, JOIE F Attending Unavailable KARLENE HICKEY Referring Unavailabl e NO PRIMARY CARE, Primary Care Unavailable GUAMAN, JOIE F Attending Unavailable ELIZ BRIGGS Attending Unavailable GUAMAN, JOIE F Referring Unavailable DOC, [facility] Primary Care Unavailable EDELMIRA KARLENE E Referring Unavailabl e GUAMAN, JOIE F Attending Unavailable DOC, [facility] [place] Primary Care Unavailable MARCANTHMAIRA KARLENE E Referring Unavailabl e GUAMAN, JOIE F Attending Unavailable DOC, [facility] [place] Primary Care Unavailable ENEDINA GAMBINO Attending Unavailable DOC, [facility] [place] Primary Care Unavailable EDELMIRA KARLENE E Referring Unavailabl e Allergies Allergy Classification Reported Allergen(s) Allergy Type Date of Onset Reaction(s) Facility (1 source) Dust; Translations: [DUST] Propensity to adverse reactions (disorder) 4 [facility] Repository (2 sources) Morphine; Translations: [MORPHINE] Drug Allergy 0 [facility] Repository (1 source) Pollen; Translations: [POLLEN] Propensity to adverse reactions (disorder) 4 [facility] Repository (1 source) RAGWEED; Translations: [RAGWEED] Propensity to adverse reactions (disorder) 4 [facility] Repository (1 source) SOAP; Translations: [SOAP] Propensity to adverse reactions to drug (disorder) 4 [facility] Repository Problems Problem Classification Problem Date Documented Da te Episodic/Chronic Disorders of teeth and jaw (2 sources) Dental caries, unspecified; Translations: [Dental caries, unspecified] Onset: 11-16-2021 Episodic Other skin disorders (2 sources) Localized swelling, mass and lump, head; Translations: [Localized swelling, mass and lump, head] Onset: 11-16-2021 Episodic Results Test Name Value Interpretation Reference Range Facil ity Vital Signs Date Time Vital Sign Value Performing Clinician Faci lity 01-02-2022 16:02-0400 Body temperature 99.1 [degF] [facility] 01-02-2022 16:02-0400 Body weight 89.81 kg [facility] 01-02-2022 16:02-0400 Diastolic blood pressure 83 mm[Hg] [facility] 01-02-2022 16:02-0400 Heart rate 96 /min [facility] 01-02-2022 16:02-0400 Respiratory rate 16 /min [facility] 01-02-2022 16:02-0400 SaO2% (BldA) [Mass fraction] 99 % [facility] 01-02-2022 16:02-0400 Systolic blood pressure 123 mm[Hg] [facility] Encounters Encounter Date Encounter Type Care Provider Facility Start: 05-27-2023 End: 05-27-2023 ambulatory ENEDINA GAMBINO [facility] Start: 05-07-2023 End: 05-07-[address] [facility] Start: 04-09-2023 End: 04-09-[address] [facility] Start: 03-01-2023 End: 03-01-2023 ambulatory ELIZ BRIGGS [facility] Start: 02-26-2023 End: 02-26-[address] [facility] Start: 02-12-2023 End: 02-12-2023 ambulatory MILADIS PANDA [facility] Start: 09-05-2022 Emergency department patient visit PB ROMEO Facility:[facility] Start: 01-02-2022 End: 01-02-2022 Emergency department patient visit Sundar Melara [facility] Start: 01-02-2022 End: 01-02-2022 Emergency department [facility] visit [facility] Start: 11-16-2021 End: 11-16-2021 Emergency department patient visit EDWARD CONRAD [facility] Plan of Treatment Date Care Activity Detail Author Start: 02-18-2024 DTaP/Tdap/Td vaccine (2 - Td or Tdap) DTaP/Tdap/Td vaccine (2 - Td or Tdap) [facility] Start: 12-21-2021 Influenza vaccination Flu vaccine (# 1) [facility] Start: 2000 COVID-19 Vaccine (#1) COVID-19 Vacci ne (#1) [facility] Payers Date Payer Category Payer Medicaid [id number] 2000 Unknown [id number] 2.16. [id number] 2000 Unknown [id number] 2.16. [id number] 2000 Unknown [id number] 2.16. [id number] 1998 Unknown [id number] 2.16. [id number] 1998 Unknown [id number] 2.16. [id number] 1998 Unknown [id number] 2.16. [id number] 1998 Unknown [id number] 2.16. [id number] 1998 Unknown [id number] 2.16. [id number] Unknown Unknown [id number] Social History Date Type Detail Facility Start: 11-16-2021 [facility] History of tobacco use Cigarette Smoker [email or web address] Work Phone: Start: 11-16-2021 Tobacco use and exposure Smokeless tobacco non-user [employer] Work Phone: Start: 01-02-2022 Alcohol intake Lifetime non-d latasha (finding) [facility] [facility] Work Phone: Start: 2000 Sex Assigned At Not on file [email or web address] Work Phone: Start: 12-23-2021 End: 01-02-2022 Exposure to SARS-CoV-2 (event) Not sure [employer] Work Phone: Clinical Note 03-01-2023 Note Date & Type Note Facility 03-01-2023 Note Pediatric Cardiology Echocardiogram Visit: Consultation REASON FOR CONSULTATION: Reyna Roberts is a 23 y.o. old female being seen today in our Cardiology Clinic at the request of Joie Guaman for our opinion or medical advice regarding echocardiogram due to difficulty visualizing the heart. HPI: Reyna Roberts is a 23 y.o. year old female who is referred for echocardiogram today due to difficulty visualizing the heart well on obstetrical ultrasound due to maternal obesity. The patient's chart and all pertinent notes, labs, and studies were reviewed today as part of this visit. Reyna Roberts attended today's visit by herself. The patient is currently 22 1/7 weeks' gestation, with an HELENE of 07/04/2023. This has been complicated by obesity for the patient. She has had no serious illnesses during this , and no hospital stays. Current medications in use during this : vitamins. CURRENT PROBLEM LIST: Patient Active Problem List Diagnosis Anxiety CURRENT MEDICATIONS: Current Outpatient Medications Medication Sig Dispense Refill MV-Min-Fe Fum-FA-DHA ( 1 PO) Take by mouth No current facility-administered medications for this visit. PAST MEDICAL HISTORY: History reviewed. No pertinent past medical history. PAST SURGICAL HISTORY: Past Surgical History: Procedure Laterality Date SECTION, LOW TRANSVERSE TONSILLECTOMY ALLERGIES: Allergies Allergen Reactions Morphine Rash FAMILY/SOCIAL HISTORY: History reviewed. No pertinent family history. The patient has two other children who are healthy. There is no family history of congenital cardiac disease. Social History Socioeconomic History Marital status: Single Spouse name: None Number of children: None Years of education: None Highest education level: None Tobacco Use Smoking status: Never Smokeless tobacco: Current Tobacco comments: Vaping. Quit smoking before becoming . Substance and Sexual Activity Alcohol use: Never Drug use: Never echocardiogram findings: This was a technically challenging echocardiogram due to maternal body habitus. The lie was vertex at the time of this study. biometry matched the current age of approximately 22 1/7 weeks' gestation. Segmental anatomy: Results for orders placed or performed in visit on 03/01/23 Echo New Narrative [place] [address] [email or web address] Echocardiogram Report M-mode, complete 2D, complete spectral Doppler, and color Doppler PATIENT: Reyna Roberts STUDY Mar 01 2023 8:33AM [place] DATE/TIME: HEIGHT: : 2000 WEIGHT: AGE: 23year(s) BSA/BMI: / GENDER: F BP: 117 / 69 LOCATION: [facility] REFERRING PHYSICIAN: Rebecca Guaman Candice F ORDERING PROVIDER: Joie Guaman READING PHYSICIAN: Eliz Briggs MD QUALITY ASSURANCE SUPERVISOR FINAL: Di Stubbs RDCS SUMMARY: No significant congenital heart disease identified. 1. History of present illness: Suboptimal cardiac views on obstetrical ultrasound. 2. Procedure narrative: The study was technically challenging due to maternal body habitus. 3. Left ventricle: There is a small echogenic focus seen in the left ventricle, associated with the papillary muscle apparatus. 4. Otherwise normal echocardiogram within the limits of echocardiography. 5. This study is limited in evaluating minor valve abnormalities, septal defects, partial anomalous pulmonary venous connection, and aortic arch abnormalities. 6. The above findings, including the limitations, were discussed with the patient. Recommendations: follow-up with cardiology if clinically indicated. REASON FOR EXAM: Suboptimal cardiac views on obstetrical ultrasound. : - Maternal age: 23yr. - : 3. - Parity: 2. - Estimated delivery date: 07/04/2023. - Gestational age: 22wk. STUDY AND PROCEDURE DATA: The patient is . Procedure Description: New ([id number]) . Study status: Routine. Location: lab. Procedure: Transabdominal echocardiogram was performed for congenital heart disease evaluation. The study was technically challenging due to maternal body habitus. Patient status: Outpatient. Blood pressure: 117/69 FINDINGS: DESCRIPTION One fetus is present. Normal three vessel view, main pulmo (more content not included)... [facility] Clinical Note 10-18-2020 Note Date & Type Note Facility 10-18-2020 Note Patient Outreach (PAUL TNAV) GLORIAREYNA ABDULLAHI ([id number]) 2000 F Date Time Provider Department 10/18/20 KARLENE HARRINGTON (PSS) GLORIA During your visit today, we recorded the following information about you: Karlene Harrington Pss 10/18/2020 9:33 AM Signed POPULATION HEALTH NAVIGATION OUTREACH Action/ Patient agreed to annual Cervical cancer exam and physical with PCP for 10/26/20. Contact made with patient or family member? YES Pt identified by name and : YES Outreach Outcome/Action Spoke to patient or caregiver: Patient scheduled in Primary Care Reason for Outreach Care Gap or Scheduling/Wellness visits Payer: Payor: [facility] MEDICAID / Plan: [facility] MEDICAID / Product Type: Medicaid / Care Gap Reviewed:: Annual Wellness visit Reminder: Reminder note to check Health Maintenance for items below Health Maintenance items due: MENINGOCOCCAL B: Consider based on risk(1 of 2 - Risk Bexsero 2-dose series) Never done HPV VACCINE(1 - 2-dose series) Never done COVID-19 VACCINE(1) Never done HEPATITIS C SCREENING Never done ONE PNEUMOVAX PRIOR TO AGE 65 Never done GC (GONORRHEA) SCREENING (18-24) due on 01/29/2017 CHLAMYDIA SCREENING (18-24) due on 01/29/2017 PAP TESTING Never done Advanced Directives Completed: Have you ever planned for future healthcare decisions with a power of associate attorney, living will, or advance directives? Referrals: Message Sent to Practice: Navigation Signature: Karlene Harrington Pss October 18, 2020 9:32 AM Allergies As of Date: 10/18/2020 Noted Allergy Reaction DUST 12/04/2013 7 - Swelling MORPHINE 01/14/2020 2 - Rash POLLEN 12/04/2013 7 - Swelling RAGWEED 12/04/2013 7 - Swelling SOAP 12/04/2013 2 - Rash Comments: [employer] Date Reviewed: 01/14/2020 Reviewed by: Samira (Paste Up Copy Camera Operator) Zohra - Fully Assessed Reason for Visit: Population Health Navigation Outreach [3910] Cmt: I ANNUAL EXAM Prescriptions as of 10/18/2020 Sig: CITALOPRAM 40 MG TABLET Take 40 mg by mouth once beto* TRIAMCINOLONE ACETONIDE 0.1 %* Apply 1 application to affect* Problem List As Of Date 10/18/2020 Noted Resolved High risk teen [O09.899] 12/04/2013 High risk due to smoking in second tr*12/04/2013 Drug use complicating [O99.320] 12/04/2013 Late care complicating in se*12/04/2013 Encounter Status:Closed by KARLENE SERRANO on 10/18/20 [facility] Progress note 10-18-2020 Note Date & Type Note Facility 10-18-2020 Note HNO ID: [id number] Author: Karlene Treviño Service: ? Author Type: ? Type: Progress Notes Filed: 10/18/2020 9:33 AM Note Text: POPULATION HEALTH NAVIGATION OUTREACH Action/FYI Patient agreed to annual Cervical cancer exam and physical with PCP for 10/26/20. Contact made with patient or family member? YES Pt identified by name and : YES Outreach Outcome/Action Spoke to patient or caregiver: Patient scheduled in Primary Care Reason for Outreach Care Gap or Scheduling/Wellness visits Payer: Payor: [facility] MEDICAID / Plan: [facility] MEDICAID / Product Type: Medicaid / Care Gap Reviewed:: Annual Wellness visit Reminder: Reminder note to check Health Maintenance for items below Health Maintenance items due: MENINGOCOCCAL B: Consider based on risk(1 of 2 - Risk Bexsero 2-dose series) Never done HPV VACCINE(1 - 2-dose series) Never done COVID-19 VACCINE(1) Never done HEPATITIS C SCREENING Never done ONE PNEUMOVAX PRIOR TO AGE 65 Never done GC (GONORRHEA) SCREENING (18-24) due on 01/29/2017 CHLAMYDIA SCREENING (18-24) due on 01/29/2017 PAP TESTING Never done Advanced Directives Completed: Have you ever planned for future healthcare decisions with a power of associate attorney, living will, or advance directives? Referrals: Message Sent to Practice: Navigation Signature: Karlene Treviño October 18, 2020 9:32 AM [facility] Summary Purpose Family History No Family History Records FoundNo Family History Records FoundNo Family History Records FoundNo Family History Records FoundNo Family History Records Found Advance Directives No Advanced Directives Records FoundNo Advanced Directives Records FoundNo Advanced Directives Records FoundNo Advanced Directives Records FoundNo Advanced Directives Records Found Additional Source Comments INFORMATION SOURCE (unrecogn ized section and content) DATE CREATED AUTHOR AUTHOR'S ORGANIZ ATION 06/13/2021 [facility] DATE CREATED AUTHOR AUTHOR'S ORGANIZ ATION 01/19/2022 [facility] DATE CREATED AUTHOR AUTHOR'S ORGANIZ ATION 09/05/2022 [facility] DATE CREATED AUTHOR AUTHOR'S ORGANIZ ATION 05/28/2023 [facility] Reason for Visit (unrecogniz ed section and content) FOR RECORDS PERTAINING TO PATIENTS WHO ARE OR HAVE BEEN ENROLLED IN A CHEMICAL DEPENDENCY/SUBSTANCEABUSE PROGRAM, SOME INFORMATION MAY BE OMITTED. This clinical summary was aggregated from multiple sources. Caution should be exercised in using it in the provision of clinical care. This summary normalizes information from multiple sources, and as a consequence, information in this document may materially change the coding, format and clinical context of patient data. In addition, data may be omitted in some cases. CLINICAL DECISIONS SHOULD BE BASED ON THE PRIMARY CLINICAL RECORDS. [email or web address] provides no warranty or guarantee of the accuracy or completeness of information in this document.
[2023-06-25 13:06] LABS: Absolute Lymphocyte Count 1.67 X10^3/uL (0.83-4.51); Absolute Neutrophil Count 12.3 X10^3/uL (2.0-7.7); Basophil# 0.04 X10^3/uL; Basophil% 0.3 % (0-1); Eosinophil# 0.01 X10^3/uL; Eosinophils% 0.1 % (0-5); Hematocrit 40.2 % (37-47); Hemoglobin 13.7 g/dL (12.0-15.0); Lymphocyte # 1.67 X10^3/ul (0.83-4.51); Lymphocyte % 11.1 % (19-41); Mean Corp Hgb Conc 34.1 g/dL (32-36); Mean Corpuscular Hgb 29.5 pg (27.0-32.0); Mean Corpuscular Volume 86.6 fL (81-99); Monocyte# 0.97 X10^3/uL; Monocyte% 6.5 % (0-10); NRBC Flagged by Analyzer 0 % (0-5); Neutrophil # 12.25 X10^3/uL (2.7-7.7); Neutrophil % 81.5 % (47-70); Platelet Count 202 K/mm3 (150-450); RBC Distribution Width CV 13.2 % (11.6-14.6); RBC Distribution Width SD 41.2 fl (35.1-43.9); Red Blood Count 4.64 M/mm3 (4.2-5.4)
[2023-06-25 13:32] LABS: Bedside Glucose 73 mg/dL (74-106)
[2023-06-25] MEDS: Lactated Ringers 1,000 ML 150 ML IV (13:44)
[2023-06-25] MEDS: Acetaminophen 500 MG Tablet 1000 MG PO ×2 (13:45→18:56)
[2023-06-25 13:47] LABS: Syphilis Antibodies Non-reactive
[2023-06-25] MEDS: Cefazolin 2 GM in 0.9% Normal Saline (100mL Bag) 100 ML IV (14:00)
[2023-06-25] MEDS: Oxytocin 15 Units/NS 250ml 15 UNITS/250 ML IV.SOLN 83 UNITS IV (15:00)
--- NOTE | 2023-06-25 16:20 | HP.PCM.OB_ITS ---
HPI - General General Date of Admission: 06/25/23 HPI Narrative REYNA RODRIGEZ, is a 23 F who presents for delivery due to dropping VIKA now 5 cm and decreased movement. she was seen by MFM today and scanned, then sent over for delivery. Maternal Data Information HELENE Calculator Estimated Delivery Date Method Current WG Current Estimate 07/04/23 LMP (Certain) 38w 5d PFSH PFSH Medical History Anxiety Obesity (BMI 30-39.9) Home Medications citalopram 20 mg tablet (Celexa) 20 mg PO DAILY #90 tabs 08/15/22 [Rx Last Taken Unknown] ondansetron 4 mg disintegrating tablet 4 mg PO Q8H PRN nausea and vomiting #30 tabs 11/30/22 [Rx Last Taken Unknown] PNV-iron 29 mg-folic acid 1 [id number]-dha 200 mg oral combo pack (Complete DHA) 1 pkg PO DAILY #60 ea 01/10/23 [Rx Last Taken Unknown] famotidine 20 mg tablet (Pepcid) 20 mg PO DAILY #30 tabs 01/24/23 [Rx Last Taken Unknown] blood sugar diagnostic (Blood Glucose Test strips) #120 ea 04/18/23 [Rx Last Taken Unknown] blood-glucose meter #1 ea 04/18/23 [Rx Last Taken Unknown] lancets #200 ea 04/18/23 [Rx Last Taken Unknown] metformin 500 mg tablet 500 mg PO BID #60 tabs 06/06/23 [Rx Last Taken Unknown] amoxicillin 875 mg-potassium clavulanate 125 mg tablet 1 tab PO BID #14 tabs 06/24/23 [Rx Last Taken Unknown] Allergy/AdvReac Type Severity Reaction Status Date / Time morphine Allergy Mild Rash Verified 06/13/23 11:51 Family History Father Diabetes Surgical History History of tonsillectomy Status post Social History number of children: 1 current occupational status: employed current occupation: Works from home Smoking Status: Former smoker Tobacco: How many years used: 6 alcohol intake: never substance use type: does not use seatbelt use: always do you feel safe at home: Yes additional social history: Dontrell- boyfriend History 2 Elective abortions Hx Para 2 Spontaneous abortions Hx # Term Pregnancies 2 Ectopic pregnancies Hx # Pregnancies Multiple births # of living children 2 Past Pregnancies Del. Date Name GA/Weeks Outcome Route Bth Weight Infant Gen Labor Lgth Anes t hesia Del Locatn Provider FOB 05/16/14 Phong [place] 41 live - full term 8 lbs 8.3 oz . Male 20 hours epidural [facility] Dr. Rico Darling 08/31/19 [place] 39 live - full term 8lb 4oz Male spinal [facility] BOYD Delivery Date: 08/31/19 Last Updated by: Claudia Borjas [facility] Visit Details Expected Delivery Route/Plan patient counseled regarding risks/benefits of trial of labor versus repeat . ACOG/uptodate education given to patient. [] % likelihood of success per calculator TOLAC consent form signed: [] Labor Preferences- CB/BF classes: no labor support person: Dontrell labor intervention preferences: [] pain management options preferred: epidural cut cord/dad catch: cord if vaginal delivery : yes PP control planned: discussed: og sin discussed possible routes of delivery and associated risks: [] special requests: [] Plans Covid status: discussed Flu vaccine: given 04/16/23 Tdap vaccine: [] Rhogam: NA LARC form signed: yes Problem list reviewed and updated with the most current plan of care details and appropriate orders placed. Relevant counseling for the gestational age provided. Continue routine care and follow up unless otherwise noted in visit notes/problem list details OB Flowsheet Initial Weight: 231 lb Date -?-?-?-?-?-?-?-?-?-?-?-?- EGA Weight BP Urine Prot -?-?-?-?-?-?-?-?-?-?-?-?- Glucose FHR FuHt Pres Dilation -?-?-?-?-?-?-?-?-?-?-?-?- Effaced St Visit Note 11/30/22 -?-?-?-?-?-?-?-?-?-?-?-?- 9w 1d 231 lb 6 oz (+6 oz) 122/70 -?-?-?-?-?-?-?-?-?-?-?-?- 168 -?-?-?-?-?-?-?-?-?-?-?-?- LC- CRL con with LMP. HELENE 07/04/2023. 1 hr early glucose. nipt. LC- CRL 26mm con with LMP. E DD 07/04/2023. 1 hr early glucose. nipt. 12/28/22 -?--?-?-?-?-?-?-?-?-?-?-?- 13w 1d 232 lb 8 oz (+1 lb 8 oz) 116/68 Negative -?-?-?-?-?-?-?-?-?-?-?-?- Negative 150 -?-?-?-?-?-?-?-?-?-?-?-?- SM- no vb crampi ng needs 3 hr gtt 01/02/23 -?-?-?-?-?-?-?-?-?-?-?-?- 13w 6d 235 lb (+4 lb) 132/78 Negative -?-?-?-?-?-?-?-?--?-?-?-?- Negative 162 -?-?-?-?-?-?-?-?-?-?-?-?- -work in for F HT. Had brown discharge yesterday. None today. Easily note FHT, active IUP with handheld US. M anatomy order sent 01/24/23 -?-?-?-?-?-?-?-?-?-?-?-?- 17w 0d 231 lb 6 oz (+6 oz) 116/78 -?-?-?-?-?-?-?-?-?-?-?-?- 152 -?-?-?-?-?-?-?-?-?-?-?-?- KW- no vb/lof/ct x. good fm. Anatomy scan needs scheduled. does not have phone at this time 02/18/23 -?-?-?-?-?-?-?-?-?-?-?-?- 20w 4d 236 lb 6 oz (+5 lb 6 oz) 110/75 Negative -?-?-?-?-?-?-?-?-?-?-?-?- Negative 143 -?-?-?-?-?-?-?-?-?-?-?-?- JV- no lof, vagi nal bleeding, or dec fm. planning rpt cs. rpt gct at 26-28 weeks 03/20/23 -?-?-?-?-?-?-?-?-?-?-?-?- 24w 6d 237 lb 2 oz (+6 lb 2 oz) 121/76 -?-?-?-?-?-?-?-?-?-?-?-?- 150 29 -?-?-?-?-?-?-?-?-?-?-?-?- JV- no lof, vagi nal bleeding, or dec fm. has rpt cs scheduled 06/28/23 04/16/23 -?-?-?-?-?-?-?-?-?-?-?-?- 28w 5d 240 lb (+9 lb) 120/74 Negative -?-?-?-?-?-?-?-?-?-?-?-?- Negative 132 30 -?-?-?-?-?-?-?-?-?-?-?-?- MH-NO VB, LOF. G ood FM. Planning wkly BPP w MFM at 34 wk, growth US Q4wk. flu. larc. 28 wk labs pending 04/30/23 -?-?-?-?-?-?-?-?-?-?-?-?- 30w 5d 240 lb 6 oz (+9 lb 6 oz) 112/74 Negative -?-?-?-?-?-?-?-?-?-?-?-?- Negative 140 31 -?-?-?-?-?-?-?-?-?-?-?-?- kw-no vb/lof/ctx . good fm. blood sugars remain stable. 05/22/23 -?-?-?-?-?-?-?-?-?-?-?-?- 33w 6d 238 lb 8 oz (+7 lb 8 oz) 112/73 Negative -?-?-?-?-?-?-?-?-?-?-?-?- Negative 144 38 -?-?-?-?-?-?-?-?-?-?-?-?- JV- no lof, vagi nal bleeding, or dec fm. pt is upset that is not on 06/27 (day before her bff's birthday) she states that she does not care who does it, but wants 05/29/23 -?-?-?-?-?-?-?-?-?-?-?-?- 34w 6d 240 lb 8 oz (+9 lb 8 oz) 112/78 Negative -?--?-?-?-?-?-?-?-?-?-?-?- Negative 130 35 -?-?-?-?-?-?-?-?-?-?-?-?- JV- glucose leve ls are only over parameters when she eats something that she knows she should not (this happened 7 times since 05/15 when looking at monitor) today we discussed avoiding those foods for a week and if not sustainable, will recommend metformin as some levels are as high as 150 2 hrs after meal. 06/06/23 -?-?-?-?-?-?-?-?-?-?-?-?- 36w 0d 242 lb 2 oz (+11 lb 2 oz) 111/78 Negative -?-?-?-?-?-?-?-?-?-?-?-?- Negative 120 -?-?-?-?-?-?-?-?-?-?-?-?- KW- NST only ulisses ctive. reports elevated BS even after adjusting meals and avoiding trigger foods. per JV note will start metformin. 06/19/23 -?-?-?-?-?-?-?-?-?-?-?-?- 37w 6d 243 lb 8 oz (+12 lb 8 oz) 119/81 Negative -?-?-?-?-?-?-?-?-?-?-?-?- Negative 130 37.5 -?-?-?-?-?-?-?-?-?-?-?-?- JV- no lof ,vagi nal bleeding, or dec fm. reactive NST. NST FHR Rate Baby A Baseline: 130 Variability:: Moderate Accelerations:: 15 x 15 Decelerations:: Prolonged NST Reactive:: Yes FHR Category:: Category II Uterine Activity:: irregular ROS Constitutional Constitutional: Reports systems reviewed and no addt'l complaints, except as documented Eyes Eyes: Denies change in vision ENT HEENT: Reports systems reviewed and no addt'l complaints, except as documented; Denies headache(s) Cardiovascular Cardiovascular: Reports systems reviewed and no addt'l complaints, except as documented; Denies chest pain or dyspnea Respiratory/Chest Respiratory/Chest: Reports systems reviewed and no addt'l complaints, except as documented Gastrointestinal Gastrointestinal: Reports systems reviewed and no addt'l complaints, except as documented; Denies abdominal pain Genitourinary Genitourinary: Reports systems reviewed and no addt'l complaints, except as documented, contractions Details: present (irregular) and movement Details: present; Denies dysuria or genital lesions Musculoskeletal Musculoskeletal: Reports systems reviewed and no addt'l complaints, except as documented Neurologic Neurologic: Reports systems reviewed and no addt'l complaints, except as documented Endocrine Endocrinology: Reports systems reviewed and no addt'l complaints, except as documented Vital Signs Vital Signs Vital Signs: 06/25/23 12:58 06/25/23 14:56 06/25/23 15:15 Temperature 97.6 F L 97.0 F L 97.1 F L Temperature Source Temporal Temporal Temporal Pulse Rate 90 82 75 Respiratory Rate 17 15 16 Respiratory Pattern Normal Blood Pressure 129/85 H 89/59 L 117/59 L Blood Pressure Mean 99 69 78 Blood Pressure Source Monitor Monitor Monitor Blood Pressure Position Semi-Fowlers Semi-Fowlers Semi-Fowlers Blood Pressure Location Right Arm Right Arm Right Arm Baseline BP 129/85 129/85 Pulse Ox 97 98 98 Oxygen Delivery Method Room Air Room Air Room Air 06/25/23 15:30 06/25/23 15:41 06/25/23 16:03 Temperature 97.0 F L 97.0 F L 97.0 F L Temperature Source Temporal Temporal Temporal Pulse Rate 82 79 80 Respiratory Rate 15 16 16 Respiratory Pattern Blood Pressure 114/74 125/77 H 124/76 H Blood Pressure Mean 87 93 92 Blood Pressure Source Monitor Monitor Blood Pressure Position Semi-Fowlers Semi-Fowlers Blood Pressure Location Right Arm Right Arm Baseline BP 129/85 129/85 129/85 Pulse Ox 97 97 Oxygen Delivery Method Room Air Room Air Room Air 06/25/23 16:11 Temperature 97.0 F L Temperature Source Temporal Pulse Rate 87 Respiratory Rate 16 Respiratory Pattern Blood Pressure 122/81 H Blood Pressure Mean 94 Blood Pressure Source Monitor Blood Pressure Position Semi-Fowlers Blood Pressure Location Right Arm Baseline BP 129/85 Pulse Ox 97 Oxygen Delivery Method Room Air Weight Weight: 240 lb 0.4 oz Body Mass Index (BMI) 42.5 Physical Exam Const alert, oriented x3, no apparent distress and healthy appearing HEENT normocephalic and moist oral mucous membranes Head and Scalp: atraumatic Neck full ROM, no lymphadenopathy, supple and thyroid normal General: trachea midline Lymph Lymphatic: no lymphadenopathy noted Chest inspection of chest normal Resp normal respiratory effort Cardio regular rate GI normal to inspection, nondistended, normoactive bowel sounds, soft to palpation and non-tender Inspection: gravid external exam normal Manual OB Exam: estimated gestational size appropriate, presentation cephalic, dilated, effaced and station Extremity normal to inspection General Extremity: Negative for edema Skin no rashes or lesions noted Neuro no focal motor deficits and deep tendon reflexes 2+ bilaterally Motor Exam: strength 5/5 throughout and clonus absent Psych mental status grossly normal Labs Labs Labs: Blood Type A POSITIVE Antibody Screen NEGATIVE Hct 40.2 % (37-47) Hgb 13.7 g/dL (12.0-15.0) Obstetrics Ultrasound Syphilis Total Ab Non-reactive Rubella IgG Antibody Reactive (Nonreactive) Hep Bs Antigen Non-Reactive (Nonreactive) Hepatitis C Antibody Non-Reactive (Nonreactive) Chlamydia DNA (ELSI) Negative (Negative) N.gonorrhoeae DNA (ELSI) Negative (Negative) HIV 1&2 Antibody Non-Reactive (Nonreactive) Glucose 1 Hr 50 gm 180 mg/dL (70-140) H Rhogam given: No Miscellaneous Test Assessment & Plan (1) Supervision of high-risk : QUALIFIERS: Trimester: second trimester Qualified Code(s): O09.92 - Supervision of high risk , unspecified, second trimester COMMENT: PRR HELENE 07/04/2023. Jai PC: Ethan Darling. BF: DONTRELL (different FOB than previous children) (2) : QUALIFIERS: Weeks of gestation: 37 weeks Qualified Code(s): Z3A.37 - 37 weeks gestation of COMMENT: MFM recommend echo NIPT low risk, RC/S scheduled for 07-01-23 (3) Anxiety: COMMENT: not taking celexa. Stable (4) Obesity (BMI 30-39.9): COMMENT: Per MFM needs growth US Q4wk weekly NST at 34 wk early glucose, Failed 1 hr gtt, 01/03 3 hr: refused. HA1C ordered- normal. repeat at 28 weeks 04/09 74% (5) GBS (group B streptococcus) UTI complicating : QUALIFIERS: Trimester: first trimester Qualified Code(s): O23.41 - Unspecified infection of urinary tract in , first trimester; B95.1 - Streptococcus, group B, as the cause of diseases classified elsewhere COMMENT: low colony count-treat in labor (6) Contraceptive management: QUALIFIERS: Contraceptive encounter type: other general counseling and advice Qualified Code(s): Z30.09 - Encounter for other general counseling and advice on contraception COMMENT: wants merrick IUD No PA required (7) Gestational diabetes: COMMENT: metformin (8) Placental abnormality: COMMENT: placental lakes (9) Decreased movements in third trimester: COMMENT: decreased VIKA proceed with delivery PLAN: Plan RLTCS
--- NOTE | 2023-06-25 16:21 | EX.PCM.OBRPT ---
Maternal Data Information HELENE Calculator Estimated Delivery Date Method Current WG Current Estimate 07/04/23 LMP (Certain) 38w 5d Final HELENE Source: LMP Details Operative Information Date of Procedure: 06/25/23 Pre-Operative Diagnosis: Previous Post-Operative Diagnosis: same Indications for : Repeat Elective Indications Narrative: Surgeon: Karlene Gómez MD Classification: RYNE Procedure Type: low transverse claims configuration analyst #1: Rahul Rogers Type of Anesthesia: Spinal Special Medications: none Antibiotic Given: Ancef 2 grams IV x1 Drain: Fowler to straight drain Estimated Blood Loss: 600 Fluids Replaced: crystalloid Procedure Start Time: 13:50 Procedure Stop Time: 14:50 Findings Description of Procedure: Spinal anesthesia was placed without difficulty. Fowler catheter was placed. The patient was placed in the dorsal supine position with leftward tilt. Patient was prepped and draped in the normal sterile fashion. Pfannenstiel skin incision was made with the scalpel and carried through to the underlying layer of fascia with the scalpel. Fascia was nicked in the midline and the incision extended laterally. The rectus bellies were dissected off superiorly and inferiorly with out complication both sharply and bluntly. The peritoneum was entered digitally. The incision was stretched and a low transverse uterine incision was made with the scalpel. The infant's head was delivered atraumatically followed by the anterior and posterior shoulders without complication the rest of the infant delivered. The cord was clamped and cut and the was handed off to awaiting nurse. The placenta was delivered spontaneously immediately following and was noted to be intact and have a three-vessel cord. The uterus was exteriorized cleared of all clots and debris, and the incision was closed in a double layer closure using #1 Monocryl. The ovaries and fallopian tubes were noted to be within normal limits. The uterus was returned to the maternal abdomen and gutters were cleared of all clots and debris. The peritoneum was closed with 3-0 Monocryl in a running fashion. Gloves were changed prior to fascial closure. Fascia was closed with 0 PDS in a running fashion. Subcutaneous tissue was copiously irrigated and the skin was closed with 3-0 Monocryl in a subcuticular fashion. Mepilex dressing was applied without complication. Amniotic Membrane Rupture Type: Artificial Amniotic Fluid Description: Clear Placenta Disposition: [facility] Cord Vessel Description: 3 Vessels Delayed Cord Clamping: Yes Complications Risks of Surgery Discussed w/Patient: Bleeding, Infection, Need for Future C-Sections and Injury to surrounding structure(s) including bowel and bladder Vaginal Delivery Complication Complications: None Admit VTE Documentation VTE Present on Admission: No VTE Mechan Device Prophylaxis: SCD's Procedures Urinary/Genital [id number]: [id number] delivery+PP Care([facility])
--- NOTE | 2023-06-25 16:22 | DCINST_ITS ---
Discharge Instructions Diet Discharge Diet: No restrictions Activity Discharge Activity: May Not Drive (for 2 weeks or while taking narcotic pain medications.), May Shower and May Take a Tub Bath (in 7 days) May shower in (days): 0 May resume sexual activity in: 4-6 weeks Weight Bearing Status: Full weight bearing Lifting Restrictions: 20 pounds Dressing / Incision Call your doctor if your incision/area has: Continuous Slow Oozing, Sudden Increased Bleeding, Increased Pain/ Swelling, Increased Redness and Foul Smelling Discharge Call your doctor if you observe: Fever of 101 or Higher and Using more than 1 pad per hour (for 2 hours) Suture Line Care: Avoid Pulling/Pushing and Avoid Pinching/Bending Cleanse incision/area with: Soap & Water and Keep Dressing Clean & Dry Follow Up Care Please Follow Up With: Karlene Gómez MD When: Call [phone] to make an appointment for an incision check in 1-2 weeks. Test Results: Test results from this visit will be discussed in further detail at your follow- up appointment, if applicable. Discharge Plan Admission Admit Date/Time: 06/25/23 12:15 Attending Provider: Karlene Gómez Primary Care Provider: Care Physician,Nemo Primary Discharge Orders/Prescriptions Prescriptions: New oxycodone-acetaminophen [Percocet] 5-325 mg tablet 1 tab PO Q6H PRN (Reason: pain) 7 Days Qty: 20 0RF naproxen [naproxen] 500 mg tablet 500 mg PO BID PRN PRN (Reason: Pain) Qty: 30 1RF No Action citalopram [Celexa] 20 mg tablet 20 mg PO DAILY Qty: 90 4RF ondansetron 4 mg tablet,disintegrating 4 mg PO Q8H PRN (Reason: nausea and vomiting) Qty: 30 0RF famotidine [Pepcid] 20 mg tablet 20 mg PO DAILY Qty: 30 3RF metformin 500 mg tablet 500 mg PO BID Qty: 60 0RF Complete Mayra DHA 29 mg iron- 1 mg-200 mg combo pack 1 pkg PO DAILY Qty: 60 12RF (DME) blood-glucose meter Misc See Rx Instructions .MEDSUPPLY Qty: 1 0RF Rx Instructions: As directed- Test fasting and 2 hours after meals (DME) lancets Misc See Rx Instructions .MEDSUPPLY Qty: 200 4RF Rx Instructions: As directed-fasting & 2 hr post meals (DME) Blood Glucose Test Strip See Rx Instructions .Route Qty: 120 4RF Rx Instructions: As directed-fasting & 2 hr post meals amoxicillin-pot clavulanate 875-125 mg tablet 1 tab PO BID Qty: 14 0RF Referrals / Follow Up: Care Physician,No Primary [Primary Care Provider] -
[2023-06-25] MEDS: Ketorolac 30 MG/ML Syringe IV ×2 (16:47→22:02)
[2023-06-25] MEDS: 0.9% Saline Lock 10 ML Syringe IV (16:48)
[2023-06-25 17:22] LABS: Bedside Glucose 90 mg/dL (74-106)
[2023-06-25] MEDS: Lactated Ringers 1,000 ML 100 ML IV (18:01)
[2023-06-25] MEDS: HYDROmorphone 1 MG/ML Syringe IV (18:14)
[2023-06-25] MEDS: Amox/Clavulanate 875 MG Tablet PO (22:02)
[2023-06-26] MEDS: Acetaminophen 500 MG Tablet 1000 MG PO ×3 (00:09→13:03)
[2023-06-26 00:37] VITALS: BP 126/72; PULSE 84; RESP 16; TEMP 36.5; O2SAT 96
[2023-06-26] MEDS: Ketorolac 30 MG/ML Syringe IV ×2 (04:29→10:01)
[2023-06-26] MEDS: Enoxaparin 40 MG/0.4 ML Syringe SC (04:29)
[2023-06-26 04:33] VITALS: BP 129/88; PULSE 81; RESP 16; TEMP 36.4; O2SAT 98
[2023-06-26 06:42] LABS: Hematocrit 35.7 % (37-47); Hemoglobin 11.9 g/dL (12.0-15.0); Mean Corp Hgb Conc 33.3 g/dL (32-36); Mean Corpuscular Hgb 29.2 pg (27.0-32.0); Mean Corpuscular Volume 87.7 fL (81-99); Mean Platelet Vol. 10.7 fl (6.2-12.0); Platelet Count 170 K/mm3 (150-450); RBC Distribution Width CV 13.4 % (11.6-14.6); RBC Distribution Width SD 42.5 fl (35.1-43.9); Red Blood Count 4.07 M/mm3 (4.2-5.4); White Blood Count 13.8 K/mm3 (4.4-11.0)
[2023-06-26 07:43] VITALS: BP 131/85; PULSE 89; RESP 16; TEMP 36.3; O2SAT 97
[2023-06-26 07:44] LABS: Bedside Glucose 78 mg/dL (74-106)
--- NOTE | 2023-06-26 07:53 | PN.OBGYN_ITS ---
Subjective Subjective Patient doing well without complaints. Tolerating PO. Ambulating and voiding without difficulty. Feeding well. Denies chest pain, shortness of breath, calf pain/swelling, fevers, chills, lightheadedness. Objective Data Objective Data Vital Signs: Vital Signs Temp Pulse Resp BP Pulse Ox O2 Del Method 97.3 F L 89 16 131/85 H 97 Room Air 06/26/23 07:43 06/26/23 07:43 06/26/23 07:43 06/26/23 07:43 06/26/23 07:43 06/26/23 07:43 Oxygen Delivery Method Room Air Weight: 240 lb 0.4 oz Body Mass Index (BMI) 42.5 Intake & Output: Intake and Output for Last 24 Hours 06/24/23 06/25/23 06/26/23 23:59 23:59 23:59 Intake Total 1487.5 / 1487.5 1000 / 1000 Output Total 1700 / 1700 850 / 850 Balance -212.5 / -212.5 150 / 150 Lab / Micro Data 06/26/23 06:30 Labs: Laboratory Results - last 24 hr 06/25/23 12:35: WBC 15.0 H, RBC 4.64, Hgb 13.7, Hct 40.2, MCV 86.6, MCH 29.5, MCHC 34.1, RDW Std Deviation 41.2, RDW Coeff of Tenisha 13.2, Plt Count 202, MPV 11.0, Immature Gran % (Auto) 0.500, Neut % (Auto) 81.5 H, Lymph % (Auto) 11.1 L, [place] % (Auto) 6.5, Eos % (Auto) 0.1, Baso % (Auto) 0.3, Absolute Neuts (auto) 12.3 H, Absolute Lymphs (auto) 1.67, Nucleated RBC % 0, Syphilis Total Ab Non- reactive, Blood Type A POSITIVE, Antibody Screen NEGATIVE 06/25/23 13:06: POC Glucose 73 L 06/25/23 17:01: POC Glucose 90 06/26/23 06:30: WBC 13.8 H, RBC 4.07 L, Hgb 11.9 L, Hct 35.7 L, MCV 87.7, MCH 29.2, MCHC 33.3, RDW Std Deviation 42.5, RDW Coeff of Tenisha 13.4, Plt Count 170, MPV 10.7 06/26/23 07:25: POC Glucose 78 Physical Exam Const alert and oriented x3 HEENT normocephalic Eyes PERRL Neck full ROM Resp normal respiratory effort GI soft to palpation GI Narrative: FF below U. Dressing dry and intact Palpation: tender other (appropriately) Assessment & Plan (1) delivery delivered: COMMENT: YOUSIF Vergara (2) History of gestational diabetes: COMMENT: 3rd preg and controlled w metformin PLAN: Plan s/p LTCS PPD # 1 1. routine post care 2. breast feeding- support given 3. rh positive 4. rubella immune 5. glucose stable 6. plans home today
[2023-06-26] MEDS: 0.9% Saline Lock 10 ML Syringe IV (10:01)
[2023-06-26] MEDS: Senna/Docusate Sodium 1 Tablet PO (10:02)
[2023-06-26] MEDS: Amox/Clavulanate 875 MG Tablet PO (10:02)
[2023-06-26 13:08] VITALS: BP 125/85; PULSE 84; RESP 16; TEMP 36.2; O2SAT 95
--- NOTE | 2023-06-26 15:59 | CASEMGMT ---
Social Work Assessment Labor and Delivery Unit Patient Address:[address] [place] [address] Phone number: [phone] Date of Referral: 06/26/23 Time of Referral:? 1031 Referred By: Karlene Gómez Date of Intervention: ??06/26/23 Time of Intervention:? 1100 Reason for Referral:? history of anxiety and PPD Sw completed chart review and acknowledges social work consult entered due to maternal mental health history positive for anxiety and history of depression. Sw presented to bedside and introduced self to mother of baby (MOB- Naty) and father of baby (FOSylvia- Donrtell). Sw explained sw role during hospitalization and completed psychosocial assessment. History obtained from: medical records, MOB and FOB Household composition: Currently residing in the family home is ANITRA FISH, MOB's two older children (Phong, : 05/16/14, and Ethan, : 08/31/19). ANITRA has two older children, and reports that he tries to see them at least once a week. Patient's parent/guardian status:?MOB states that she and ANITRA have been together for two years. MOB states that they met while previously working together, and then reconnected a couple of years ago on Facebook. No concerns at this time regarding domestic violence or intimate partner violence. ? Medical History: POLINA is 23 year old female who is 3, apra 2- now 3 following labor and delivery of . POLINA received routine care during with [facility]. POLINA presented to hospital for repeat on 06/25/23 at 38 weeks gestation. Baby boy, named Jai, was born weighing 7lb 16oz and his apgars were 8 and 9 at one and five minutes of life respectfully. PLOINA states that she is breast feeding and so far it is going ok. MOB states that baby will be followed by Dr. Joya for pediatrics. ? Educational Status:?ANITRA states that he graduated from high school. MOB states that she completed 10th grade, and some of 11th grade before dropping out of school. Parents deny issues with reading, learning or comprehension. Financial Status: ANITRA is gainfully employed outside of the home working in the [employer] He states that he is able to take one week off of work now that baby has been born. MOB is unemployed at this time. Supplies:?? Parents have obtained all necessary baby supplies, including: car seat, safe sleep space, clothes, diapers and wipes. Childcare/Caregiver(s):? MOB will be the primary caregiver to baby along with FOB when he is not at work. Transportation:?Parents have one car at this time. They state that this has not been an issue for them. Programs/Agencies Involved: ???MOB si connected to insurance through [employer], SNAP and [employer] Children Services/Legal Issues:??No history of involvement, no issues or concerns warranting referral to be made at this time. ? Behavioral Health Issues: ??Mental Health History:??FOSylvia denies mental health diagnoses. MOB states that she has been diagnosed with anxiety, and depression/ anxiety. MOB states that she experienced symptoms following the deliveries of both of her older sons. MOB states that she was irritable and was anxious about things that didn't make any sense. MOB states that she has been prescribed Celexa, but did not take it during . MOB states that she has a current prescription and a bottle of celexa at home. MOB states that she will be able to recognize when she is struggling and will start medication and talk to her doctor. ? Substance Use History: MOB denies substance use prior to and during .?? Family History:???Parents deny family history of addiction/ substance use or significant mental health diagnoses. ?? Drug Screens: ??No drug screens observed during chart review. Family/Social Stressors:? None reported/ identified at this time. Support Systems: MOB states that her sister and her best friend are both big supports for her. MOB states that paternal grandma and FOB are also big supports for the family. Depression/Shaken Baby/Safe Sleeping:? Alexus educated parents on signs and symptoms of baby blues and depression and anxiety to be on the lookout for. Alexus provided parents with literature to review that also provides list of healthy and appropriate coping skills to utilize if MOB were to struggle during this period. FOB states that he believes he would be able to recognize if MOB were to struggle and he would know how to help her and support her during that time. Sw educated parents on shaken baby prevention and ABCs of safe sleep. Parents express understanding. ASSESSMENT:?MOB and baby admitted following labor and delivery. MOB and FOB talkative and engaged in completion of psychosocial assessment. MOB has obtained everything she needs for baby and has a lot of natural supports in place. MOB with history of anxiety and depression/ anxiety. She is aware of signs and symptoms to be on the lookout for, reports that at this time she is feeling well and is not concerned. MOB states that she is prescribed celexa and it is availble to her should she start to experience symptoms during this period. MOB appreciative of sw involvement and support. PLAN:? MOB and baby to be discharged when medically ready. ?No other services requested or indicated. Brenden Carreon, APPLIANCE REPAIR TECHNICIAN, EXECUTIVE PERSONAL ASSISTANT
== END 2023-06-26 16:10 | disposition home or self-care (01) | DRG 540 ==
PROVIDERS: Admitting Provider Obstetrics & Gynecology; Visit Provider Obstetrics & Gynecology
DX: O76 Abnormality in fetal heart rate and rhythm complicating labor and delivery (principal); O24.425 Gestational diabetes mellitus in childbirth, controlled by oral hypoglycemic drugs; O99.214 Obesity complicating childbirth; O34.211 Maternal care for low transverse scar from previous cesarean delivery; O36.8130 Decreased fetal movements, third trimester, not applicable or unspecified; O99.824 Streptococcus B carrier state complicating childbirth; O43.893 Other placental disorders, third trimester; Z37.0 Single live birth; Z3A.38 38 weeks gestation of pregnancy; Z87.891 Personal history of nicotine dependence
CPT/HCPCS: 59025; 59050; 82962; 85025; 85027; 86780; 86850; 86900; 86901; 99221; J7120; A4216; G0378; J2405

== ENCOUNTER → 2023-08-09 | Outpatient (CLI) | payer MEDICAID, SELFPAY ==
[2023-08-15 20:18] LABS: HPV Reflexed? NOT INDICATED
== END | disposition home or self-care (01) ==
LOC: LABSPEC 16:30
PROVIDERS: Referring Provider Obstetrics & Gynecology; Visit Provider Obstetrics & Gynecology
DX: Z12.4 Encounter for screening for malignant neoplasm of cervix (principal)
CPT/HCPCS: 88175; G0145

== ENCOUNTER 2023-10-07 13:30 | Outpatient (RCR) | payer MEDICAID, SELFPAY ==
--- NOTE | 2023-08-30 13:51 | HP.PTEVAL ---
Patient's Visit Information Visit Information Visit Information: REYNA RODRIGEZ is a 23 year old F referred to Physical Therapy by Nicolette Guadalupe CNM with a diagnosis of DORSALGIA ,SCIATICA. Date of Evaluation: 08/30/23 Physical Therapist: Eliel Potts, PT, Cert MDT, OCS Visit Plan Frequency: 2x /Week Duration: 4 Weeks Plan: 4 MONTHS AGO AFTER PT INTERVENTIONS PT MAYELA EX'S ,DLS ,POSTURAL EX'S ,ACTIVITY MODIFICATION AND MODIFICATION ,AND MODALITIES Subjective Subjective: This 23 y/o female presents to physical therapy with with left lumbar radiculopathy. Patient has has sciatica pain since 3rd trimester during and never went away after about ~ 4 months bur after pain went away then return. Patient had a caesarean. Seen DR eran PT.a Patient has lumbar pain many years. Pain located left lumbar pain glut to hamstring to calf dull pain then sharp. Aggravating factors bending ,lifting ,sitting -standing transitional movement. Alleviating factors rest. Coughing/sneezing-. Bowel/bladder-. Patient sleeping okay. Patient denies paresthesia/tingling-. No and abnormal night pain. Patient pain affects ADLS and housework tasks. Patient goals to decrease pain in leg . SOCIAL: VOCATION: home Pain Left Back: Pain Intensity (Out of 10): 3 Pain Intensity Range: 10 Left Lower Extremity: Pain Intensity (Out of 10): 5 Pain Intensity Range: 10 Objective Objective: POSTURE: mild forward posture GAIT: ambulates with slight decrease stance time antalgic gait left side NEURO: denies paresthesia/tingling, reflexes L3-4,L4-5,L5-S1 2/3 PALPATION: unremarkable FLEXABILITY: hamstrings WFL LUMBAR ROM: flexion min loss ,extension min/mod loss ,side glides min loss MMT: quads/hams/hip/ankle 4/5 Special Tests L/S Slump test left side: Negative L/S Slump test right side: Negative L/S Left Straight Leg Raise: Negative L/S Right Straight Leg Raise: Negative Lumbar Standing: Flexion - Mechanical Response: No effect Lumbar Standing: Flexion - Symptoms During Testing: Increases Lumbar Standing: Flexion - Symptoms After Testing: Worse Lumbar Standing: Extension - Mechanical Response: No effect Lumbar Standing: Extension - Symptoms During Testing: Increases Lumbar Standing: Extension - Symptoms After Testing: No worse Lumbar Standing: Right Side Glides - Mechanical Response: No effect Lumbar Standing: Right Side [place] - Symptoms During Testing: Increases Lumbar Standing: Right Side [place] - Symptoms After Testing: No worse Lumbar Standing: Left Side [place] - Mechanical Response: No effect Lumbar Standing: Left Side [place] - Symptoms During Testing: No effect Lumbar Standing: Left Side [place] - Symptoms After Testing: No effect Lumbar Lying: Flexion - Mechanical Response: No effect Lumbar Lying: Flexion - Symptoms During Testing: Increases Lumbar Lying: Flexion - Symptoms After Testing: No worse Lumbar Lying: Extension - Mechanical Response: Increases motion Lumbar Lying: Extension - Symptoms During Testing: Decreases Lumbar Lying: Extension - Symptoms After Testing: Better Balance/Special Test Scores Oswestry Low Back Score: 27 Goals Goal 1:: I with HEP for back Goal Time Frame: 4-6 Weeks Goal 2:: Patient to improve posture /body mechanics 90% of the time. Goal Time Frame: 4-6 Weeks Goal 3:: Patient to demonstrate 60% improvement with less pain and improved function with taking care of children Goal Time Frame: 4-6 Weeks Goal 4:: Patient to improve lumbar ROM for function of recovery to lift baby Goal Time Frame: 4-6 Weeks Goal 5:: Patient to improve back oswestry score by 5 points to improve function and ADLS Goal Time Frame: 4-6 Weeks Rehabilitation Potential Physical Therapy Diagnosis: This patient has lumbar radiculopathy with possible disc with symptoms worse with positioning ,motion testing some better with extension and worse with bending and lifting thus benefit from skilled PT Rehabilitation Potential: Good Anticipated Interventions Patient/Client Instruction: Educate patient on: Condition and Plan of Care For the Purpose of:: To decrease pain, To increase ROM, To improve muscle performance and motor function, To improve ability to perform ADL's, To increase tolerance to activity/condition/position, To improve ability of physical actions for home/community/work/leisure, To improve health of tissue, To decrease soft tissue restriction, To increase flexibility/ROM, To reduce risk of recurrence and To prevent re-injury Therapeutic Exercise to Include: Strength training, Body mechanics, Postural training, Flexibilty training, Dynamic Lumbar Stabilization and Mayela Exercises For the Purpose of:: To decrease pain, To increase ROM, To improve muscle performance and motor function, To improve ability to perform ADL's, To increase tolerance to activity/condition/position, To improve ability of physical actions for home/community/work/leisure, To improve health of tissue, To decrease soft tissue restriction, To increase flexibility/ROM, To reduce risk of recurrence and To prevent re-injury TENS: No IF ES: No Cryotherapy (ice pack, ice massage): No Thermo therapy (hot pack): No Ultrasound (thermal/non thermal): No For the Purpose of:: To decrease pain, To improve nutrient delivery to tissue, To increase oxygenation perfusion, To improve health of tissue, To decrease soft tissue restriction and To increase flexibility/ROM Text: Thank you for the opportunity to evaluate your patient. For Medicare and Medicare HMO plans, please review the plan of care and approve it. It will need to be FAXED BACK to us at [phone] for Medicare purposes. For Medicare only, by signing this I certify the plan of care. Please let me know if there are questions or concerns regarding this plan of care. Physician Signature: Date:
--- NOTE | 2023-11-22 14:45 | HP.PT.NRP ---
Patient Information Patient Information: REYNA RODRIGEZ was seen in my office for initial evaluation on 08/30/23. The following Plan of Care was established for this patient: POC Established Initial Frequency: 2x /Week Initial Duration: 4 Weeks Anticipated Interventions Patient/Client Instruction: Educate patient on: Condition and Plan of Care For the Purpose of:: To decrease pain, To increase ROM, To improve muscle performance and motor function, To improve ability to perform ADL's, To increase tolerance to activity/condition/position, To improve ability of physical actions for home/community/work/leisure, To improve health of tissue, To decrease soft tissue restriction, To increase flexibility/ROM, To reduce risk of recurrence and To prevent re-injury Therapeutic Exercise to Include: Strength training, Body mechanics, Postural training, Flexibilty training, Dynamic Lumbar Stabilization and Braeden Exercises For the Purpose of:: To decrease pain, To increase ROM, To improve muscle performance and motor function, To improve ability to perform ADL's, To increase tolerance to activity/condition/position, To improve ability of physical actions for home/community/work/leisure, To improve health of tissue, To decrease soft tissue restriction, To increase flexibility/ROM, To reduce risk of recurrence and To prevent re-injury TENS: No IF ES: No Cryotherapy (ice pack, ice massage): No Thermo therapy (hot pack): No Ultrasound (thermal/non thermal): No For the Purpose of:: To decrease pain, To improve nutrient delivery to tissue, To increase oxygenation perfusion, To improve health of tissue, To decrease soft tissue restriction and To increase flexibility/ROM Last Seen Last Seen: This patient was last seen in our office . Pertinent comments regarding their Physical therapy will appear below: Patient was seen for PT for sciatica doing well with HEP and braeden ex's thus d/c At this point I will be discontinuing this patient from physical therapy. I would be happy to see this patient again in the future if found appropriate by the physician. Thank you! Eliel Potts, PT, Cert MDT, OCS Balance/Gait/Functional tests Balance/Special Test Scores Oswestry Low Back Score: 27
== END 2023-10-07 19:00 | disposition home or self-care (01) ==
LOC: PT 13:30
PROVIDERS: Referring Provider Advanced Practice Midwife; Visit Provider Advanced Practice Midwife
DX: M54.30 Sciatica, unspecified side (principal)
CPT/HCPCS: 97110; 97162

== ENCOUNTER 2024-02-11 02:49 | Emergency (ER) | payer MEDICAID, SELFPAY ==
[2024-02-11 02:50] VITALS: BP 143/93; PULSE 83; RESP 16; TEMP 36.1; O2SAT 100; BMI 41.7
--- NOTE | 2024-02-11 03:17 | RAD_ITS ---
INDICATION: PAINUPPER BACK AND BILATERAL RIB PAIN ON AND OFF X 2 WEEKS EXAMINATION/TECHNIQUE: X-RAY - XR Chest 2 Views COMPARISON: Prior study dated: 03/19/2011 FINDINGS: LINES/DEVICES: None. LUNGS: No consolidation. No pneumothorax. MEDIASTINUM: Unremarkable. CARDIAC SILHOUETTE: Not enlarged. BONES AND SOFT TISSUES: No acute abnormalities. RAD/Chest PA and Lateral IMPRESSION: No evidence of active intrathoracic disease. Electronically Signed: Shasha Croft MD at 4:51 EDT ,
[2024-02-11] MEDS: diazePAM 5 MG Tablet PO (04:08)
[2024-02-11 04:27] LABS: Mucous, Urine 0 SEEN /hpf (<or=2+); White Blood Cells 0 SEEN /hpf (0-5)
[2024-02-11 04:29] LABS: Absolute Lymphocyte Count 2.61 X10^3/uL (0.83-4.51); Absolute Neutrophil Count 7.2 X10^3/uL (2.0-7.7); Basophil# 0.04 X10^3/uL; Basophil% 0.4 % (0-1); Eosinophil# 0.06 X10^3/uL; Eosinophils% 0.6 % (0-5); Hematocrit 41.1 % (37-47); Lymphocyte # 2.61 X10^3/ul (0.83-4.51); Lymphocyte % 24.4 % (19-41); Mean Corp Hgb Conc 34.1 g/dL (32-36); Mean Corpuscular Hgb 29.4 pg (27.0-32.0); Mean Corpuscular Volume 86.3 fL (81-99); Mean Platelet Vol. 9.6 fl (6.2-12.0); Monocyte% 6.5 % (0-10); NRBC Flagged by Analyzer 0 % (0-5); Neutrophil # 7.24 X10^3/uL (2.7-7.7); Neutrophil % 67.7 % (47-70); Platelet Count 242 K/mm3 (150-450); RBC Distribution Width CV 12.3 % (11.6-14.6); RBC Distribution Width SD 38.9 fl (35.1-43.9); Red Blood Count 4.76 M/mm3 (4.2-5.4); White Blood Count 10.7 K/mm3 (4.4-11.0)
[2024-02-11 04:31] LABS: Color, Urine Yellow (Yellow); Glucose, Dipstick Normal (Normal); Ketone-Dipstick Negative (Negative); Leukocyte Esterase-Dipstick Negative /ul (Negative); Nitrite-Dipstick Negative (Negative); Occult Blood-Urine 10 /ul (Negative); Protein-Dipstick 15 mg/dl (Negative); Specific Gravity, Urine 1.025 (1.002-1.030); Urine Bilirubin Dipstick Negative (Negative); Urine Clarity Sl. Cloudy (Clear); Urine Urobilinogen 1 mg/dl (Normal)
[2024-02-11 04:45] LABS: Bacteria RARE /hpf (None Seen); Internal QC Validated? YES +Cl - CLEAR BKGD; Pregnancy, Urine Negative Negative; Red Blood Cells-Urine 0-5 SEEN /hpf (0-5); Squamous Epithelial Cells - UA 0-5 SEEN /hpf (5-10)
[2024-02-11 04:48] LABS: D-Dimer Quantitative (DVT/PE) 0.42 FEU/ug/m (0.27-0.49)
[2024-02-11 04:50] LABS: AST(SGOT) 13 U/L (15-37); Alanine Aminotransfer ALT/SGPT 32 U/L (13-56); Albumin, Serum 3.8 g/dL (3.2-5.0); Alkaline Phosphatase 74 U/L (45-117); Anion Gap 4 (5-15); BUN 10 mg/dL (7-18); BUN/Creat Ratio 14.3 RATIO (10-20); Bilirubin, Direct 0.14 mg/dL (0.00-0.30); Calcium,Total 9.1 mg/dL (8.5-10.1); Chloride 108 mmol/L (98-107); EST Glomerular Filtration Rate 108 mL/min (>60); Est Glom Filt Rate - Afr Amer 130 mL/min (>60); Estimated Creatinine Clearance 142.58 ml/min; Globulin 3.7 g/dL (2.2-4.2); Glucose 104 mg/dL (74-106); Lipase 22 U/L (13-75); Potassium 3.5 mmol/L (3.5-5.1); Protein, Total 7.5 g/dL (6.4-8.2); Sodium Level 137 mmol/L (136-145)
[2024-02-11 04:59] VITALS: BP 142/60; PULSE 90; RESP 16
--- NOTE | 2024-02-11 05:28 | EX.ED.DYSGE1 ---
HPI History of Present Illness Chief Complaint: Chest Other Informant: patient Narrative Narrative: Patient is a 24-year-old female with past medical history of anxiety. She states over the past 2 weeks she has been having intermittent bouts of mid thoracic/back pain that wraps around towards her upper abdomen/chest. She states that she had a delivery roughly 6 months ago and following that had back pain that she underwent physical therapy for. She states the pain feels similar nature to that time but states she has been doing the stretches given to her by the physical therapist and has still not had any symptom improvement. She denies any fevers or chills she denies any cough or congestion any dysuria and she denies any recent travel surgery or history of DVT/PE. She states that she is having difficulty sleeping secondary to the recurrent pain and therefore comes in for evaluation [facility] Medical History Obesity (BMI 30-39.9) Anxiety Home Medications ?Medication ?Instructions ?Recorded ?Last Taken ?Type levonorgestrel 14 mcg/24 hr (up to 1 device intrauterine ONCE 02/07/24 Unknown History 3 yrs) 13.5 mg intrauterine device (Danika) diazepam 5 mg tablet (Valium) 5 mg PO TID PRN muscle spasm 5 02/11/24 Unknown Rx days #15 tabs Allergy/AdvReac Type Severity Reaction Status Date / Time morphine Allergy Mild Rash Verified 02/11/24 02:50 Family History Father Diabetes Surgical History Status post History of tonsillectomy Social History number of children: 2 current occupational status: employed current occupation: Works from home Smoking Status: Current every day smoker tobacco type: e-cigarettes Tobacco: How many years used: 6 alcohol intake: never substance use type: does not use seatbelt use: always do you feel safe at home: Yes additional social history: Dontrell- boyfriend ROS ROS ED Constitutional Constitutional ED: Denies chills or fever(s) Eyes Eyes: Denies blurry vision or change in vision ENT ENT ED: Denies sore throat Cardiovascular Cardiovascular: Denies chest pain, palpitations or racing heartbeat Respiratory/Chest Respiratory/Chest: Denies cough or dyspnea Gastrointestinal Gastrointestinal: Denies abdominal pain, diarrhea, nausea or vomiting Genitourinary Genitourinary ED: Denies dysuria or hematuria Musculoskeletal Musculoskeletal: Reports back pain; Denies myalgias Integumentary Denies rash Neurologic Neurologic: Denies headache(s) Hematologic/Lymphatic Hematologic/Lymphatic: Denies easy bleeding or easy bruising EXAM Physical Exam Const Vital Signs: 02/11/24 02:50 02/11/24 04:59 Temperature 97 F L Temperature Source Oral Pulse Rate 83 90 Respiratory Rate 16 16 Blood Pressure 143/93 H 142/60 H Blood Pressure Mean 109 87 Pulse Ox 100 Positive well nourished, well developed and obese General Appearance ED: well developed; Negative for pallor Nutritional Appearance: obese HEENT Reports moist mucous membranes HEENT Narrative: No signs of infection noted in the posterior pharynx Eyes PERRL and EOMs intact bilaterally General Eye ED: Negative for scleral icterus Neck supple Chest Wall palpation of chest normal Chest Narrative: No bony deformity or crepitance of the chest wall Resp normal respiratory effort and clear to auscultation bilaterally Cardio regular rate and regular rhythm Rate: other Other Details: Heart is regular rate and rhythm without murmurs rubs or gallop Radial and carotid pulses are equal and symmetric GI normal to inspection, nondistended, normoactive bowel sounds, non-tender, non-distended and no masses GI Narrative: No voluntary guarding or rigidity or pulsatile mass Negative Sen sign Auscultation: normoactive bowel sounds Palpation: soft Back/Spine Back/Spine Narrative: No bony deformity or step-off of the thoracic or lumbar spine no midline tenderness to palpation Extremity normal to inspection Extremity Narrative: No asymmetric edema no pitting edema negative Homans' sign bilaterally Neuro oriented x3, CN's II-XII intact bilaterally and no sensory deficits noted Sensorium / Orientation: alert Motor Exam: strength 5/5 throughout Psych mental status grossly normal Skin no rashes or lesions noted and no wounds General Skin Exam: Negative for jaundice or pallor MDM MDM MDM Narrative Medical decision making narrative: Patient arrived to the ER hypertensive but otherwise with stable vitals. She reported intermittent back pain wrapping around towards her upper abdomen/chest over the past 2 weeks without trauma. She denied loss of bowel or bladder control or IV drug use going against cauda equina or epidural abscess. She states she has been no recent travel surgery or history of DVT/PE and denies pain with inspiration going against potential PE or dissection. She also states that the pain radiates from the back towards the abdomen and not vice versa going against potential pancreatitis or biliary colic/acute cholecystitis. As symptoms have been ongoing for multiple weeks I did elect to check basic laboratory studies as well as a chest x-ray. X-ray revealed no signs of pneumonia or pneumothorax or derangement to the thoracic spine. D-dimer was negative going against PE or dissection lipase was normal going against pancreatitis and liver enzymes are normal going against biliary colic or acute cholecystitis. Urine also shows no sign of infection or blood going against pyelonephritis or kidney stone. After patient was given 1 dose of oral Valium she reported improvement of her symptoms indicating this could be anxiety driven and or muscular tension/spasm. However with overall negative workup I do not feel there is need for further evaluation and she is otherwise safe for discharge History & Record Review Discussion w/independent historian: Patient Lab Data Attestation: I reviewed the patient's lab results. Labs: Laboratory Results - last 24 hr 02/11/24 02/11/24 04:15 04:20 WBC 10.7 RBC 4.76 Hgb 14.0 Hct 41.1 MCV 86.3 MCH 29.4 MCHC 34.1 RDW Std Deviation 38.9 RDW Coeff of Tenisha 12.3 Plt Count 242 MPV 9.6 Immature Gran % (Auto) 0.400 Neut % (Auto) 67.7 Lymph % (Auto) 24.4 [place] % (Auto) 6.5 Eos % (Auto) 0.6 Baso % (Auto) 0.4 Absolute Neuts (auto) 7.2 Absolute Lymphs (auto) 2.61 Nucleated RBC % 0 D-Dimer Quant (PE/DVT) 0.42 Sodium 137 Potassium 3.5 Chloride 108 H Carbon Dioxide 26.0 Anion Gap 4 L BUN 10 Creatinine 0.70 Estim Creat Clear Calc 142.58 Est GFR (MDRD) Af Amer 130 Est GFR (MDRD) Non-Af 108 BUN/Creatinine Ratio 14.3 Glucose 104 Calcium 9.1 Total Bilirubin 0.40 Direct Bilirubin 0.14 AST 13 L ALT 32 Alkaline Phosphatase 74 Total Protein 7.5 Albumin 3.8 Globulin 3.7 Lipase 22 Urine Color Yellow Urine Clarity Sl. Cloudy Urine pH 6.0 Ur Specific [place] 1.025 Urine Protein 15 H Urine Glucose (UA) Normal Urine Ketones Negative Urine Occult Blood 10 H Urine Nitrite Negative Urine Bilirubin Negative Urine Urobilinogen 1 H Ur Leukocyte Esterase Negative Urine RBC 0-5 SEEN Urine WBC 0 SEEN Ur Squamous Epith Cells 0-5 SEEN Urine Bacteria RARE Urine Mucus 0 SEEN Urine Test Negative Radiography Diagnostic Testing: Clinical Impression(s) from Imaging Studies Chest X-Ray 02/11/24 03:17 IMPRESSION: No evidence of active intrathoracic disease. Electronically Signed: Shasha Croft MD at 4:51 EDT , Chest x-ray as interpreted by the emergency medicine physician reveals no acute infiltrate pneumothorax or pleural effusion Discharge Plan Triage Chief Complaint: Chest Other ED Provider: Pramod Cast Dx/Rx/DC Orders Clinical Impression: Nonspecific abdominal pain, Spasm of back muscles, Hypertension Instructions: Abdominal Pain, ED Back Spasm, No Trauma Prescriptions: New diazepam [Valium] 5 mg tablet 5 mg PO TID PRN (Reason: muscle spasm) 5 Days Qty: 15 0RF No Action Danika 14 mcg/24 hr (3 yrs) 13.5 mg intrauterine device 1 device intrauterine ONCE Rx Instructions: as a single dose Other Ambulatory Orders: Gallbladder (Routine) Facility: [facility] - Location: [facility] Ordered By: Dr. Pramod Cast Primary Care Provider: Care Physician,No Primary Referrals: Ra Samson MD [Med Staff - Active Staff] - Care Physician,No Primary [Primary Care Provider] - Activity Restrictions/Additional Instructions: Please obtain your outpatient gallbladder ultrasound to further assess for the cause of your abdominal/back pain. If this is normal you may need to talk to your family doctor about a orthopedic referral and/or MRI of your spine to assess for further causes of pain. Return to the ER should you have any further concern Print Language: Amharic Disposition Disposition: Home, Self Care Discharge Date/Time: 02/11/24 05:44
[2024-02-11 05:43] VITALS: BP 155/103; PULSE 70; RESP 18; TEMP 36.6; O2SAT 100
== END 2024-02-11 05:44 | disposition home or self-care (01) ==
PROVIDERS: Emergency Provider Emergency Medicine; Visit Provider Emergency Medicine
DX: M62.830 Muscle spasm of back (principal); I10 Essential (primary) hypertension; M54.6 Pain in thoracic spine; F17.290 Nicotine dependence, other tobacco product, uncomplicated; E66.9 Obesity, unspecified
CPT/HCPCS: 71046; 80048; 80076; 81001; 81025; 83690; 85025; 85379; 99282

== ENCOUNTER → 2024-02-12 | Outpatient (CLI) | payer MEDICAID, SELFPAY ==
--- NOTE | 2024-02-12 09:31 | US_ITS ---
STUDY: ABDOMINAL ULTRASOUND - RIGHT UPPER QUADRANT REASON FOR VISIT: Female, 24 years old RUQ abdominal pain two-week history of right upper quadrant pain. TECHNIQUE: Ultrasound evaluation of the right upper quadrant was performed with real-time and static gallardo-scale imaging. TECHNICAL QUALITY: Adequate. COMPARISON: None. FINDINGS: Liver: The liver is enlarged and measures 18.2 cm. There is increased echogenicity consistent with fatty infiltration. The bile ducts are within normal limits. There is hepatic color flow. The direction of portal flow is hepatopetal. There is no demonstrated mass lesion. Gallbladder: There is a distended gallbladder. The gallbladder wall measures 2.6 mm. There is a positive sonographic Sen''s sign. There is no pericholecystic fluid. There are multiple echogenic structures within the gallbladder, consistent with multiple gallstones. Tumefactive sludge is seen within the gallbladder lumen. Common Bile Duct (C.B.D.): The common bile duct measures 2.5 mm. Pancreas: Normal size of the head, body and tail of the pancreas. There is normal echogenicity of the pancreas. There is no demonstrated pancreatic mass or cyst. Right Kidney: Normal size of the right kidney. The right kidney measures 11.4 cm x 5.8 x 4.6 cm. Normal renal cortex. The right cortex measures 1.4 cm. There is no demonstrated renal mass or cyst. There is no right hydronephrosis. US/Gallbladder IMPRESSION: Mild hepatomegaly and fatty infiltration of the liver. Multiple gallstones. Tumefactive sludge is seen within the gallbladder lumen. Electronically Signed: Nirmal Otero MD at 13:31 EDT ,
== END | disposition home or self-care (01) ==
LOC: US 09:28
PROVIDERS: Referring Provider Emergency Medicine; Visit Provider Emergency Medicine
DX: R10.11 Right upper quadrant pain (principal)
CPT/HCPCS: 76705

== ENCOUNTER → 2024-02-14 | Outpatient (CLI) | payer MEDICAID, SELFPAY ==
--- NOTE | 2024-02-14 12:46 | US_ITS ---
INDICATION: IUD check -- PAINFUL LONG PERIODS EXAMINATION: Ultrasound US Pelvis Non OB Limited With Transvaginal Imaging TECHNIQUE: Transabdominal pelvic ultrasound was performed. Grayscale, spectral waveform, and color flow Doppler evaluation of the adnexa. COMPARISON: No relevant prior comparison study available FINDINGS: UTERUS: Anteverted. The uterus measures 10.6 x 6.2 x 4.8 cm. There is no uterine mass. The endometrial stripe measures 9 mm in AP diameter which is within normal limits. IUD is seen however it appears to be extending posterior to the endometrial canal within the myometrium. Distally, the IUD is seen within the endocervical canal. RIGHT OVARY: 4.3 x 4.3 x 2.3 cm. Non-enlarged, normal echogenicity. There is normal arterial inflow and venous outflow present in the right ovary. LEFT OVARY: 6.2 x 5.5 x 4.8 cm. Complex cyst is seen in the left ovary with debris measuring about 4.5 cm. There is normal arterial inflow and venous outflow present in the left ovary. FREE FLUID: None. US/Pelvic w/ Transvaginal IMPRESSION: Malposition of the IUD appears to be extending posterior to the endometrial canal in the posterior wall of uterus. Complex left ovarian cyst measuring about 4.5 cm. Electronically Signed: Mohinder Alcocer MD at 8:40 EDT ,
--- OUTSIDE RECORDS SUMMARY | 2024-02-14 13:13 | XMS RPT_ITS | CCD ---
Author Organization [facility] Care Team Providers Care Swing Driver Name Role Phone Unavailable Primary Care Provider UnavailSundar Pablo Attending Unavailable PROVIDER, UNKNOWN Referring Unavailable No, PCP Primary Care Unavailable PATRICK WANG Attending Unavailable PROVIDER, UNKNOWN Referring Unavailable No, PCP Primary Care Unavailable PB ROMEO Primary Care Unavailable MILADIS PANDA Referring Unavailable NO PRIMARY CARE, Primary Care Unavailable MIRANDA GUAMANICE F Attending Unavailable LOGAN HICKEY Referring Unavailabl e NO PRIMARY CARE, Primary Care Unavailable GUAMAN, JOIE F Attending Unavailable ELIZ LEIVA Attending Unavailable GUAMAN, JOIE F Referring Unavailable DOC, [facility] Primary Care Unavailable EDELMIRA LOGAN E Referring Unavailabl e GUAMAN, JOIE F Attending Unavailable DOC, [facility] [place] Unavailable EDELMIRA LOGAN E Referring Unavailabl e GUAMAN, JOIE F Attending Unavailable DOC, [facility] [place] Care Unavailable ENEDINA GAMBINO Attending Unavailable DOC, [facility] [place] Care Unavailable LOGAN HICKEY Referring Unavailabl e Unavailable Primary Care Provider Unavailabl e RAUDEL EASLEY Attending Unavailable Allergies Allergy Classification Reported Allergen(s) Allergy Type Date of Onset Reaction(s) Facility (4 sources) Dust; Translations: [DUST] Propensity to adverse reactions (disorder) 4 [facility] Repository (5 sources) Morphine; Translations: [MORPHINE] Drug Allergy 0 [facility] Repository (4 sources) Pollen; Translations: [POLLEN] Propensity to adverse reactions (disorder) 4 [facility] Repository (4 sources) RAGWEED; Translations: [RAGWEED] Propensity to adverse reactions (disorder) 4 [facility] Repository (4 sources) SOAP; Translations: [SOAP] Propensity to adverse reactions to drug (disorder) 4 Rash [facility] Repository Medications Current Medications Medication Drug Class(es) Dates Sig (Normalized) Sig (Original) amoxicillin 875 mg / clavulanate 125 mg oral tablet (1 source) Penicillin-class Antibacterial Start: 07-15-2023 End: 07-25-2023 take 1 tablet by mouth twice daily amoxicillin-clav ulanate potassium (AUGMENTIN) 875-125 mg per tablet Take 1 tablet by mouth two times a day for 10 days. 20 tablet 0 07/15/2023 07/25/2023 Active Comment on above: Take 1 tablet by dirk th two times a day for 10 days. Completed/Discontinued Medications Medication Drug Class(es) Dates Sig (Normalized) Sig (Original) citalopram 40 mg oral tablet (2 sources) Serotonin Reuptake Inhibitor take 1 tablet by mouth once daily citalopram (CELEXA) 40 mg tablet Take 40 mg by mouth once daily. 0 Active Comment on above: Take 40 mg by mouth once daily. triamcinolone acetonide 1 mg/ml topical cream (2 sources) Corticosteroid Start: 01-14-2020 triamcinolone acetonide (KENALOG) 0.1 % cream Apply 1 application to affected area twice daily. Apply to affected area. Location: right hand 15 g 1 01/14/2020 Active Comment on above: Apply 1 application to affected area twice daily. Apply to affected area. Location: right hand Problems Active Problems Problem Classification Problem Date Documented Da te Episodic/Chronic Disorders of teeth and jaw (2 sources) Dental caries, unspecified; Translations: [Dental caries, unspecified] Onset: 11-16-2021 Episodic Other skin disorders (2 sources) Localized swelling, mass and lump, head; Translations: [Localized swelling, mass and lump, head] Onset: 11-16-2021 Episodic Skin and subcutaneous tissue infections (3 sources) Pilonidal cyst; Translations: [Pilonidal cyst without abscess] Onset: 07-15-2023 07-15-2023 Episodic Past or Other Problems Problem Classification Problem Date Documented Da te Episodic/Chronic Other complications of (2 sources) Teenage ; Translations: [Supervision of other high risk pregnancies, unspecified trimester] Onset: 12-04-2013 04-17-2021 Episodic Other complications of (2 sources) High risk ; Translations: [Smoking (tobacco) complicating , second trimester] Onset: 12-04-2013 04-17-2021 Episodic Other complications of (2 sources) Late entry into care; Translations: [Supervision of with insufficient care, second trimester] Onset: 12-04-2013 04-17-2021 Episodic Substance-related disorders (2 sources) Maternal drug use; Translations: [Drug use complicating , unspecified trimester] Onset: 12-04-2013 04-17-2021 Episodic Results Test Name Value Interpretation Reference Range Facil itgayathri TEAGUEOVon 07-15-2023 CNOV Office Visit (VARUN) REYNA ROBERTS ([id number]) 2000 F Date Time Provider Department 07/15/23 3:15 PM RAUDEL EASLEY During your visit today, we recorded the following information about you: Temperature Pulse Blood pressure Weight 97.6 degrees 125/minute 126/72 99.1 kg Height 1.626 m Corazon Henderson RN 07/15/2023 3:40 PM Signed REVIEW OF SYSTEMS: General: The patient denies fatigue, denies weight loss, denies weight gain, denies feeling hot, and denies feelings of cold. Eyes: The patient denies glaucoma, denies eye injury/surgery, does not wear glasses or contacts. Ear/Nose/Throat: The patient NOTES allergies, denies hayfever, denies ear infections, and denies bloody noses. Cardiovascular: The patient denies chest pain, denies heart disease, denies high blood pressure,denies cardiac stent, denies prior heart attack, NOTES irregular heart beat, denies high cholesterol, denies poor circulation, denies heart failure, other cardiac issues, denies claudication, denies cold feet, denies peripheral arterial stent. Respiratory: The patient denies tuberculosis, denies pneumonia, denies frequent cough, denies pulmonary embolism, denies shortness of breath, and denies coughing up blood. Gastrointestinal: The patient denies difficulty swallowing, denies acid reflux, denies ulcers, denies vomiting, denies jaundice/hepatitis, denies gallbladder problems, denies black or tarry stools, denies hemorrhoids, denies bleeding from rectum, denies diverticulitis, denies constipation, denies diarrhea, denies loss of stool control, and denies hernias. Kidney/Bladder: The patient denies kidney stones, denies urine infections, and denies bloody urine. Skin: The patient denies a history of skin cancer, denies bleeding/changing moles, and denies a history of skin rash. Neurologic: The patient denies a history of epilepsy/convulsions , denies headaches, denies head/spinal injuries, and denies stroke/TIA. Psychiatric: The patient denies psychiatric medications, denies depression, and denies voices, NOTES substance abuse. Endocrine: The patient denies thyroid disorders, denies diabetes, and denies hormonal problems. Hematologic: The patient denies a history of bruising, denies bleeding, and denies anemia, denies blood clots. Infections: The patient denies a history of measles and mumps, denies rheumatic fever, and denies sexually transmitted diseases. Musculoskeletal: The patient denies back pain/injury, denies back problems, denies sciatica, denies knee/foot trouble, denies arthritis, or denies gout. When was patient's last Mammogram screening? N/A Last Colonoscopy: NONE ALBINO Houston Daniel P, MD 07/23/2023 7:50 AM Signed HISTORY AND PHYSICAL Reyna T Alejandra 2000 REFERRING PHYSICIAN: Nida Murry APRN.* CHIEF COMPLAINT: Consult (Pilonidal cyst/) HPI: The patient is a 23 year old female with a complaint of pilonidal cyst. She came in with complaints of pain in the coccyx area. Patient says is getting worse over the last couple days. Patient just had a baby several weeks ago. Patient says she does not have any fever chills nausea vomiting. Patient says this is never happened before. The patient is being seen by me today at the request of Dr. Murry for my opinion and advice regarding Pilonidal cyst. PAST MEDICAL HISTORY Diagnosis Date Anemia Antepartum drug dependence (HCC) History of depression Irregular heart beat as infant only PAST SURGICAL HISTORY Procedure Laterality Date TONSILLECTOMY HX 12/07/2014 Current Outpatient Medications Medication Sig amoxicillin-clavulan ate potassium (AUGMENTIN) 875-125 mg per tablet Take 1 tablet by mouth two times a day for 10 days. citalopram (CELEXA) 40 mg tablet Take 40 mg by mouth once daily. (Patient not taking: Reported on 07/15/2023) triamcinolone acetonide (KENALOG) 0.1 % cream Apply 1 application to affected area twice daily. Apply to affected area. Location: right hand (Patient not taking: Reported on 07/15/2023) No current facility-administere d medications for this visit. ALLERGIES: Dust, Morphine, Pollen, Ragweed, and Soap PERSONAL HISTORY: Social History Tobacco Use Smoking status: Former Packs/day: 0.50 Years: 2.00 Additional pack years: 0.00 Total pack years: 1.00 Types: Cigarettes Smokeless tobacco: Never Vaping Use Vaping Use: current everyday user Substances: Nicotine Substance Use Topics Alcohol use: No Drug use: Yes Types: Marijuana Comment: Marijuana-last used 2 weeks ago FAMILY HISTORY: FAMILY HISTORY Problem Relation Age of Onset Diabetes Father Heart Father Hyperlipidemia Father REVIEW OF SYMPTOMS: The review of systems data was entered by the nurse and reviewed by me Nursing Notes: Corazon Henderson RN 07/15/2023 3:40 PM Signed REVIEW O (more content not included)... Normal [facility] CNOV Office Visit (WSTR) REYNA ROBERTS ([id number]) 2000 F Date Time Provider Department 07/15/23 1:15 PM NIDA MURRYTR During your visit today, we recorded the following information about you: Temperature Pulse Respiration Blood pressure 97.6 degrees 109/minute 16/minute 128/76 Weight Last Period 99.1 kg 12/27/14 Nida Murry APRN.FLORES 07/15/2023 2:02 PM Signed Subjective She came in with complaints of pain in the coccyx area. Patient says is getting worse over the last couple days. Patient just had a baby several weeks ago. Patient says she does not have any fever chills nausea vomiting. Patient says this is never happened before. The history is provided by the patient. No bee keeper was used. Review of Systems Constitutional: Negative. Skin: Negative. Objective Physical Exam Constitutional: Appearance: Normal appearance. Pulmonary: Effort: Pulmonary effort is normal. Skin: Comments: Patient is tender in the area marked above. Firm lump noted little larger than a quarter. Mild erythema as well believed to be a pilonidal cyst Neurological: Mental Status: She is alert. PAST MEDICAL HISTORY Diagnosis Date Anemia History of depression Irregular heart beat as only PAST SURGICAL HISTORY Procedure Laterality Date TONSILLECTOMY HX 12/07/2014 ALLERGIES Dust, Morphine, Pollen, Ragweed, and Soap MEDICATIONS citalopram (CELEXA) 40 mg tablet Take 40 mg by mouth once daily. (Patient not taking: Reported on 07/15/2023) triamcinolone acetonide (KENALOG) 0.1 % cream Apply 1 application to affected area twice daily. Apply to affected area. Location: right hand (Patient not taking: Reported on 07/15/2023) FAMILY HISTORY Problem Relation Age of Onset Diabetes Father Heart Father Hyperlipidemia Father Social History Tobacco Use Smoking status: Every Day Packs/day: 0.50 Years: 2.00 Additional pack years: 0.00 Total pack years: 1.00 Types: Cigarettes Smokeless tobacco: Never Substance Use Topics Alcohol use: No Drug use: Yes Comment: Marijuana-last used 2 weeks ago ASSESSMENT/PLAN: 1. Pilonidal cyst - ICD9: 685.1, ICD10: L05.91 - CONSULT TO GENERAL SURGERY -was able to get an appointment today for general surgery. Patient will follow-up with them at 3:00. Patient was okay with this care plan. Nothing was done at express care due to location of cyst. Nida Eliel, [employer] SPECIALIST Allergies As of Date: 07/15/2023 Noted Allergy Reaction DUST 12/04/2013 7 - Swelling MORPHINE 01/14/2020 2 - Rash POLLEN 12/04/2013 7 - Swelling RAGWEED 12/04/2013 7 - Swelling SOAP 12/04/2013 2 - Rash Comments: [employer] Date Reviewed: 09/05/2022 Reviewed by: Sammy Mirza DO - Fully Assessed Reason for Visit: Pain [78] Cmt: Pt reported recent delivery x3 wks, c/o pain rated 4, tailbone with swelling. Primary Visit Diagnosis:Pilonidal cyst [L05.91] Order(s):CONSULT TO GENERAL SURGERY [9011] Order #: [id number]: 1 FUTURE Prescriptions as of 07/15/2023 - citalopram (CELEXA) 40 mg tablet Take 40 mg by mouth once daily. - triamcinolone acetonide (KENALOG) 0.1 % cream Apply 1 application to affected area twice daily. Apply to affected area. Location: right hand Problem List As Of Date 07/15/2023 Noted Resolved High risk teen [O09.899] 12/04/2013 High risk due to smoking in second tr*12/04/2013 Drug use complicating [O99.320] 12/04/2013 Late care complicating in se*12/04/2013 Encounter Status:Closed by NIDA MURRY on 07/15/23 [facility] ED NOTEon 09-05-2022 ED NOTE HNO ID: [id number] Author: Eliel Low DO Service: Emergency Medicine Author Type: Physician Type: ED Notes Filed: 09/05/2022 12:21 AM Note Text: Attending Note I evaluated the patient and personally participated in the haas components. I personally saw the patient and performed a substantive portion of the visit including all aspects of the medical decision making. I agree with the resident's findings and plan as documented and have discussed the case and management of the patient's care with the resident. 22-year-old female presents with sunburn to the bilateral upper shoulders and upper back that occurred on Saturday, which was 3 days ago. She was out in the sun here in [place] for about 4 hours during the day. She states that she has had worsening burning and [id number] sensation to the shoulders and upper back. She has been using aloe gel as well as Tylenol with minimal relief. States that she is not getting much sleep at night due to the pain and has felt generally sluggish from her lack of sleep. No fever. She has no other complaints. On exam, vital signs reviewed. Patient is afebrile and nontoxic appearing. Alert and oriented ?3 answering questions appropriately. Skin is warm and dry with no rash or diaphoresis. No jaundice or scleral icterus. Erythema to the skin consistent with a sunburn to the bilateral upper shoulders and upper back. There is some peeling skin and some very minimal blistering to the left shoulder. No evidence of cellulitis or superinfection. No other skin lesions noted. Neck supple no JVD. Trachea midline. Head atraumatic and normocephalic. PERRLA, EOMI. Heart regular rate and rhythm with no murmurs rubs or gallops. Lungs clear bilaterally with no wheezing rales or rhonchi. Abdomen soft nontender no palpable masses or peritoneal signs. Bowel sounds present. Distal pulses intact and symmetric in all 4 extremities. No lower extremity edema. No unilateral leg swelling. Cranial nerves II through XII intact. Medical decision makin-year-old female presenting with a sunburn. Vital signs stable. She is nontoxic-appearing. Alert and oriented with a normal neurologic exam. Physical exam consistent with a sunburn. Recommended that she continue treatment with topical aloe and also recommended ibuprofen for pain and anti-inflammatory effects. Return precautions discussed. Recommended that she use sunscreen in the future. Return precautions discussed. She is agreeable with plan. Normal [facility] ED Provider Noteon 2 ED Provider Note I did not participate in care of this patient. Alexi Infante PA-C 01/02/22 1731 Normal [facility] ED Provider Noteon 2 ED Provider Note EMERGENCY DEPARTMENT ENCOUNTER Pt Name: Reyna Roberts Birthdate 2000 Date of evaluation: 11/16/2021 Provider: PATRICK WANG MD CHIEF COMPLAINT Chief Complaint Patient presents with Facial Swelling Right side of face near the nose and under eye swelling. Pt states this started yesterday and has increasingly gotten worse. Pt states she is having trouble eating. Pt is alert and oriented HISTORY OF PRESENT ILLNESS HPI Reyna Roberts is a 21 y.o. female with no reported PMH presenting to the emergency department for evaluation of right-sided facial swelling under the right eye. This began yesterday. She states it is from a right upper incisor infection causing mild pain. It has not affected her vision or cause fever or chills. No difficulty swallowing. She is a smoker. She does not have a dentist. Nursing Notes were reviewed. History reviewed. No pertinent past medical history. REVIEW OF SYSTEMS (2+ for level 4; 10+ for level 5) Review of Systems Constitutional: Negative for chills and fever. HENT: Positive for dental problem. Negative for sore throat and trouble swallowing. Eyes: Negative for pain and visual disturbance. Gastrointestinal: Negative for vomiting. Musculoskeletal: Negative for neck pain. Skin: Negative for rash. PHYSICAL EXAM (up to 7 for level 4, 8 or more for level 5) ED Triage Vitals [11/16/21 0743] BP Temp Temp Source Heart Rate Resp SpO2 Height Weight 113/75 97.8 ?F (36.6 ?C) Temporal 74 16 98 % -- -- Physical Exam Constitutional: Appearance: She is not ill-appearing. HENT: Head: Comments: Very slight maxillary facial swelling Mouth/Throat: Mouth: Mucous membranes are moist. Pharynx: No oropharyngeal exudate or posterior oropharyngeal erythema. Comments: Overall poor dentition. She has dental caries of the right upper incisors. No dental abscess or ANUG Eyes: Extraocular Movements: Extraocular movements intact. Pupils: Pupils are equal, round, and reactive to light. Pulmonary: Effort: Pulmonary effort is normal. Skin: General: Skin is warm and dry. Neurological: Mental Status: She is alert. Comments: Normal gait. No gross abnormalities of cranial nerves. Psychiatric: Mood and Affect: Mood normal. EMERGENCY DEPARTMENT COURSE and DIFFERENTIAL DIAGNOSIS/MDM: Vitals: Vitals: 11/16/21 0743 BP: 113/75 Pulse: 74 Resp: 16 Temp: 97.8 ?F (36.6 ?C) TempSrc: Temporal SpO2: 98% Medications - No data to display MDM Explained to her that she needs to see a dentist. She may need a tooth extraction. We will treat for now with pencillin VK. Recommended she find a dentist today to arrange close f/u. I discussed ED return precautions. CONSULTS: None PROCEDURES: Unless otherwise noted below, none Procedures FINAL IMPRESSION 1. Swelling of right side of face 2. Infected dental caries DISPOSITION/PLAN DISPOSITION PATIENT REFERRED TO: No follow-up provider specified. DISCHARGE MEDICATIONS: New Prescriptions No medications on file PATRICK WANG MD (electronically signed) Emergency Medicine Patrick Wang MD 11/16/21 0840 Normal [facility] HCG,Urine Qualon 11-16-2021 Beta HCG ( test) Ql (U) Negative Normal Negative [facility] Comment on above: Result Comment: Plea se note: Very dilute urine specimens, as indicated by a low specific gravity, may not contain agency sales representative levels of hCG. If is still suspected, a first morning urine specimen should be collected 48 hours later and tested. is the most common reason for HCG in urine, although choriocarcinoma, hydatidiform mole, and certain nontropho- blastic malignancies also result in detectable urinary HCG levels. Sensitivity = 20mIU/mL. Performed By: #### H CGUR #### [facility] [address] [place] [address] CURon 02-03-2019 CUR . MICRO - Microbiology PROCEDURE: Urine Culture [*1] SOURCE: Urine, Clean Catch BODY SITE: COLLECTED DATE/TIME: 02/01/2019 07:51 EDT RECEIVED DATE/TIME: 02/01/2019 20:31 EDT START DATE/TIME: 02/01/2019 20:31 EDT FREE TEXT SOURCE: FINAL REPORTS Final Report [] Verified Date/Time/Personnel: 02/03/2019 07:39 EDT 5,000 organisms per mL Mixed without predominant isolate(s). Sensitivity Testing not indicated. Probably contamination. Repeat culture suggested. PRELIMINARY REPORTS Preliminary Report [] Verified Date/Time/Personnel: 02/02/2019 07:35 EDT No growth to date Performing Locations *1: This test was performed at: [facility], [address] [place] [address], [id number] , [facility] ([place]) Comment on above: Performed By: #### C BC, ADIFF, ANEU #### [address] [address] #### BMP, GFR #### [address] [address] UAon 02-01-2019 Color (U) Yellow Normal [facility] ([place]) Comment on above: Performed By: #### C BC, ADIFF, ANEU #### [place] [address] #### BMP, GFR #### [address] [address] Glucose (U) [Mass/Vol] Negative Normal Negative [facility] ([place]) Comment on above: Performed By: #### C BC, ADIFF, ANEU #### [place] [address] #### BMP, GFR #### [address] [address] Ketones Ql (U) Negative Normal Negative [facility] ([place]) Comment on above: Performed By: #### C BC, ADIFF, ANEU #### [place] [address] #### BMP, GFR #### [address] [address] UA Appear Clear Normal Clear [facility] ([place]) Comment on above: Performed By: #### C BC, ADIFF, ANEU #### [place] [address] #### BMP, GFR #### [place] [id number] UA Blood Trace Negative [facility] ([place]) Comment on above: Performed By: #### C BC, ADIFF, ANEU #### [place] [address] #### BMP, GFR #### [address] [address] UA Leuk Est Negative Normal Negative [facility] ([place]) Comment on above: Performed By: #### C BC, ADIFF, ANEU #### [address] [address] #### BMP, GFR #### [address] [address] UA Nitrite Negative Normal Negative [facility] ([place]) Comment on above: Performed By: #### C BC, ADIFF, ANEU #### [address] [address] #### BMP, GFR #### [place] [address] UA pH 6.5 Normal 5.0 - 8.0 [facility] ([place]) Comment on above: Performed By: #### C BC, ADIFF, ANEU #### [place] [address] #### BMP, GFR #### [place] [address] UA Protein Negative Normal Negative [facility] ([place]) Comment on above: Performed By: #### C BC, ADIFF, ANEU #### [place] [address] #### BMP, GFR #### [place] [address] UA Spec Grav 1.025 Normal 1.015-1.025 [facility] ([place]) Comment on above: Performed By: #### C BC, ADIFF, ANEU #### [place] [address] #### BMP, GFR #### [place] [address] UA Specimen Type Clean Catch Normal [facility] ([place]) Comment on above: Performed By: #### C BC, ADIFF, ANEU #### [place] [address] #### BMP, GFR #### [place] [id number] UA Urobilinogen 1.0 E.U./dL Normal 0.2-1.0 [facility] ([place]) Comment on above: Performed By: #### C BC, ADIFF, ANEU #### [place] [address] #### BMP, GFR #### [address] [address] Urobilinogen Qn (U) Negative Normal Negative [facility] ([place]) Comment on above: Performed By: #### C BC, ADIFF, ANEU #### [place] [address] #### BMP, GFR #### [address] [address] .Auto Diffon 01-14-2019 Ammonia (P) [Mass/Vol] 0.50 10 3/mcL Normal 0.15-1.00 [facility] ([place]) Comment on above: Performed By: #### C BC, ADIFF, ANEU #### [place] [address] #### BMP, GFR #### [place] [address] Basophils (Bld) [#/Vol] 0.10 10 3/mcL Normal 0.00-0.19 [facility] ([place]) Comment on above: Performed By: #### C BC, ADIFF, ANEU #### [place] [address] #### BMP, GFR #### [place] [address] Basophils/100 WBC (Bld) 0.9 % Normal 0.0-2.5 [facility] ([place]) Comment on above: Performed By: #### C BC, ADIFF, ANEU #### [place] [address] #### BMP, GFR #### [place] [address] Eosinophils (Bld) [#/Vol] 0.00 10 3/mcL Normal 0.00-0.40 [facility] ([place]) Comment on above: Performed By: #### C BC, ADIFF, ANEU #### [place] [address] #### BMP, GFR #### [address] [address] Eosinophils/100 WBC (Bld) 0.3 % Normal 0.0-7.0 [facility] ([place]) Comment on above: Performed By: #### C BC, ADIFF, ANEU #### [address] [address] #### BMP, GFR #### [address] [address] Lymphocytes (Bld) [#/Vol] 2.50 10 3/mcL Normal 0.77-3.85 [facility] ([place]) Comment on above: Performed By: #### C BC, ADIFF, ANEU #### [address] [address] #### BMP, GFR #### [address] [address] Lymphocytes/100 WBC (Bld) 32.0 % Normal 10.0-50.0 [facility] ([place]) Comment on above: Performed By: #### C BC, ADIFF, ANEU #### [address] [address] #### BMP, GFR #### [address] [address] Monocytes/100 WBC (Bld) 5.9 % Normal 1.7-13.0 [facility] ([place]) Comment on above: Performed By: #### C BC, ADIFF, ANEU #### [address] [address] #### BMP, GFR #### [address] [address] Neutrophils/100 WBC (Bld) 60.9 % Normal 37.0-80.0 [facility] ([place]) Comment on above: Performed By: #### C BC, ADIFF, ANEU #### [address] [address] #### BMP, GFR #### [address] [address] .NEUABSon 01-14-2019 Neutrophils (Bld) [#/Vol] 4.70 10 3/mcL Normal 2.85-6.16 [facility] ([place]) Comment on above: Performed By: #### C BC, ADIFF, ANEU #### [place] [address] #### BMP, GFR #### [address] [address] .Urinalysis Microscopic (AO) on 01-14-2019 RBC (U) [#/Vol] 5-10 None Seen [facility] ([place]) Comment on above: Performed By: #### C BC, ADIFF, ANEU #### [place] [address] #### BMP, GFR #### [place] [address] UA Bacteria Trace [facility] ([place]) Comment on above: Performed By: #### C BC, ADIFF, ANEU #### [place] [address] #### BMP, GFR #### [place] [address] UA Squam Epithelial LOADED None Seen [facility] ([place] Comment on above: Performed By: #### C BC, ADIFF, ANEU #### [place] [address] #### BMP, GFR #### [place] [address] UA WBC 0-5 None Seen [facility] ([place] Comment on above: Performed By: #### C BC, ADIFF, ANEU #### [place] [address] #### BMP, GFR #### [place] [address] CBCon 01-14-2019 Erythrocyte distribution width (RBC) [Ratio] 12.8 % Normal 11.5-14.5 [facility] ([place] Comment on above: Performed By: #### C BC, ADIFF, ANEU #### [address] [address] #### BMP, GFR #### [address] [address] Hematocrit (Bld) [Volume fraction] 40.8 % Normal 37.0-47.0 [facility] ([place] Comment on above: Performed By: #### C BC, ADIFF, ANEU #### [address] [address] #### BMP, GFR #### [address] [address] Hemoglobin (Bld) [Mass/Vol] 14.1 G/dL Normal 12.0-16.0 [facility] ([place]) Comment on above: Performed By: #### C BC, ADIFF, ANEU #### [place] [address] #### BMP, GFR #### [place] [address] MCH (RBC) [Entitic mass] 29.8 pg Normal 27.0-31.2 [facility] ([place]) Comment on above: Performed By: #### C BC, ADIFF, ANEU #### [place] [address] #### BMP, GFR #### [address] [address] MCHC (RBC) [Mass/Vol] 34.6 G/dL Normal 33.0-37.0 [facility] ([place]) Comment on above: Performed By: #### C BC, ADIFF, ANEU #### [address] [address] #### BMP, GFR #### [address] [address] MCV (RBC) [Entitic vol] 86.2 fL Normal 80.0-94.0 [facility] ([place]) Comment on above: Performed By: #### C BC, ADIFF, ANEU #### [place] [address] #### BMP, GFR #### [address] [address] Platelet mean volume (Bld) [Entitic vol] 7.7 fL Normal 7.4-10.4 [facility] ([place] Comment on above: Performed By: #### C BC, ADIFF, ANEU #### [address] [address] #### BMP, GFR #### [address] [address] Platelets (Bld) [#/Vol] 228 10 3/mcL Normal 130-400 [facility] ([place] Comment on above: Performed By: #### C BC, ADIFF, ANEU #### [address] [address] #### BMP, GFR #### [address] [address] RBC (Bld) [#/Vol] 4.74 10 6/mcL Normal 4.20-5.40 [facility] ([place]) Comment on above: Performed By: #### C BC, ADIFF, ANEU #### [address] [address] #### BMP, GFR #### [address] [address] WBC (Bld) [#/Vol] 7.80 10 3/mcL Normal 4.60-10.80 [facility] ([place]) Comment on above: Performed By: #### C BC, ADIFF, ANEU #### [place] [address] #### BMP, GFR #### [address] [address] Gel ABOon 01-14-2019 ABO/Rh Interp Positive [facility] ([place] Comment on above: Performed By: #### C BC, ADIFF, ANEU #### [address] [address] #### BMP, GFR #### [place] [id number] HCGQon 01-14-2019 hCG, quantitative 64616.4 mIU/mL Normal [facility] ([place]) Comment on above: Result Comment: HCG Quantitative 3 Weeks Gestation mIU/mL 5.0 to 12.0 HCG Quantitative 4 Weeks Gestation mIU/mL 10.0 to 708.0 HCG Quantitative 5 Weeks Gestation mIU/mL 217.0 to 8245.0 HCG Quantitative 6 Weeks Gestation mIU/mL 152.0 to 32,177.0 HCG Quantitative 7 Weeks Gestation mIU/mL 4059.0 to 153,767.0 HCG Quantitative 8 Weeks Gestation mIU/mL 31,366.0 to 149,094.0 HCG Quantitative 9 Weeks Gestation mIU/mL 59,109.0 to 135,901.0 HCG Quantitative 10 Weeks Gestation mIU/mL 44,186.0 to 170,409.0 HCG Quantitative 12 Weeks Gestation mIU/mL 27,107.0 to 201,615.0 HCG Quantitative 14 Weeks Gestation mIU/mL 24,302.0 to 93,646.0 Performed By: #### C HARSHA MELENDEZ, ANEU #### [address] [address] #### BMP, GFR #### [address] [address] UAon 01-14-2019 Color (U) Yellow Normal [facility] ([place]) Comment on above: Performed By: #### Guillermo BCHARSHA, ANEU #### [address] [address] #### BMP, GFR #### [address] [address] Glucose (U) [Mass/Vol] Negative Normal Negative [facility] ([place]) Comment on above: Performed By: #### Guillermo BCHARSHA, ANEU #### [place] [address] #### BMP, GFR #### [address] [address] Ketones Ql (U) Negative Normal Negative [facility] ([place]) Comment on above: Performed By: #### Guillermo BCJUDEIFF, ANEU #### [address] [address] #### BMP, GFR #### [address] [address] UA Appear Clear Normal Clear [facility] ([place] Comment on above: Performed By: #### C BC, ADIFF, ANEU #### [address] [address] #### BMP, GFR #### [address] [address] UA Blood Large Negative [facility] ([place] Comment on above: Performed By: #### C BC, ADIFF, ANEU #### [address] [address] #### BMP, GFR #### [address] [address] UA Leuk Est Trace Negative [facility] ([place]) Comment on above: Performed By: #### C BC, ADIFF, ANEU #### [address] [address] #### BMP, GFR #### [address] [address] UA Nitrite Negative Normal Negative [facility] ([place] Comment on above: Performed By: #### C BC, ADIFF, ANEU #### [address] [address] #### BMP, GFR #### [address] [address] UA pH 7.5 Normal 5.0 - 8.0 [facility] ([place] Comment on above: Performed By: #### C BC, ADIFF, ANEU #### [address] [address] #### BMP, GFR #### [address] [address] UA Protein Negative Normal Negative [facility] ([place] Comment on above: Performed By: #### C BC, ADIFF, ANEU #### [address] [address] #### BMP, GFR #### [place] [address] UA Spec Grav 1.020 Normal 1.015-1.025 [facility] ([place] Comment on above: Performed By: #### C BC, ADIFF, ANEU #### [place] [address] #### BMP, GFR #### [place] [address] UA Specimen Type Clean Catch [facility] ([place]) Comment on above: Performed By: #### C BC, ADIFF, ANEU #### [place] [address] #### BMP, GFR #### [place] [address] UA Urobilinogen 0.2 E.U./dL Normal 0.2-1.0 [facility] ([place] Comment on above: Performed By: #### C AL, HARSHA, ANEU #### [place] [address] #### BMP, GFR #### [place] [address] Urobilinogen Qn (U) Negative Normal Negative [facility] ([place]) Comment on above: Performed By: #### C BC, ADIFF, ANEU #### [place] [address] #### BMP, GFR #### [place] [address] UAon 05-30-2018 Color (U) Yellow Normal [facility] ([place]) Comment on above: Performed By: #### U A #### [place] [address] Glucose (U) [Mass/Vol] Negative Normal Negative [facility] ([place] Comment on above: Performed By: #### U A #### [place] [address] Ketones Ql (U) Negative Normal Negative [facility] ([place] Comment on above: Performed By: #### U A #### [place] [address] UA Appear Clear Normal Clear [facility] ([place] Comment on above: Performed By: #### U A #### [place] [id number] UA Blood Trace Negative [facility] ([place] Comment on above: Performed By: #### U A #### [place] [address] UA Leuk Est Negative Normal Negative [facility] ([place] Comment on above: Performed By: #### U A #### [place] [address] UA Nitrite Negative Normal Negative [facility] ([place] Comment on above: Performed By: #### U A #### [place] [address] UA pH 6.0 Normal 5.0 - 8.0 [facility] ([place] Comment on above: Performed By: #### U A #### [place] [address] UA Protein Negative Normal Negative [facility] ([place] Comment on above: Performed By: #### U A #### [place] [address] UA Spec Grav 1.020 Normal 1.015-1.025 [facility] ([place] Comment on above: Performed By: #### U A #### [place] [address] UA Specimen Type Clean Catch Normal [facility] ([place] Comment on above: Performed By: #### U A #### [place] [address] UA Urobilinogen 0.2 E.U./dL Normal 0.2-1.0 [facility] ([place] Comment on above: Performed By: #### U A #### [place] [address] Urobilinogen Qn (U) Negative Normal Negative [facility] ([place]) Comment on above: Performed By: #### U A #### [address] [address] XR CHEST 2 VIEWSon 9 XR CHEST 2 VIEWS ORIGINAL XR CHEST 2 VIEWS CLINICAL STATEMENT: SOB. COMPARISON: 07/22/2017 FINDINGS: The heart and pulmonary vessels are normal. The lungs are clear and there is no pleural fluid seen. No osseous finding. IMPRESSION: No acute process. Interpreted By: Pop Gomez MD Preliminary Report By: Pop Gomez MD Electronically Signed By: Pop Gomez MD Dictated Date: 05/30/2018 1:23:41 PM Prelim Date: 05/30/2018 1:23:41 PM Sign Date: 05/30/2018 1:24:01 PM Normal [facility] ([place]) .Auto Diffon 02-27-2018 Ammonia (P) [Mass/Vol] 0.60 10 3/mcL Normal 0.15-1.00 [facility] ([place] Comment on above: Performed By: #### C HARSHA MELENDEZ ANEU #### [place] [address] #### BMP, GFR #### [address] [address] Basophils (Bld) [#/Vol] 0.10 10 3/mcL Normal 0.00-0.19 [facility] ([place] Comment on above: Performed By: #### HARSHA SALCEDO ANEU #### [place] [address] #### BMP, GFR #### [address] [address] Basophils/100 WBC (Bld) 0.8 % Normal 0.0-2.5 [facility] ([place] Comment on above: Performed By: #### C HARSHA MELENDEZ ANEU #### [place] [address] #### BMP, GFR #### [address] [address] Eosinophils (Bld) [#/Vol] 0.00 10 3/mcL Normal 0.00-0.40 [facility] ([place] Comment on above: Performed By: #### C JUDE MELENDEZIFF, ANEU #### [address] [address] #### BMP, GFR #### [address] [address] Eosinophils/100 WBC (Bld) 0.6 % Normal 0.0-7.0 [facility] ([place]) Comment on above: Performed By: #### C BC, ADIFF, ANEU #### [address] [address] #### BMP, GFR #### [address] [address] Lymphocytes (Bld) [#/Vol] 2.40 10 3/mcL Normal 0.77-3.85 [facility] ([place]) Comment on above: Performed By: #### C BC, ADIFF, ANEU #### [address] [address] #### BMP, GFR #### [address] [address] Lymphocytes/100 WBC (Bld) 29.4 % Normal 10.0-50.0 [facility] ([place]) Comment on above: Performed By: #### C BC, ADIFF, ANEU #### [address] [address] #### BMP, GFR #### [address] [address] Monocytes/100 WBC (Bld) 7.0 % Normal 1.7-13.0 [facility] ([place]) Comment on above: Performed By: #### C BC, ADIFF, ANEU #### [address] [address] #### BMP, GFR #### [address] [address] Neutrophils/100 WBC (Bld) 62.2 % Normal 37.0-80.0 [facility] ([place]) Comment on above: Performed By: #### C BC, ADIFF, ANEU #### [place] [address] [address] #### BMP, GFR #### [address] [address] .GFRon 02-27-2018 GFR Non- 94 ml/min/1.73sqm Normal [facility] ([place]) Comment on above: Result Comment: GFR Population mean for , Non- Americans Ages 20-29 = 116 mL/min/1.73 sq.m. Ages 30-39 = 107 mL/min/1.73 sq.m. Ages 40-49 = 99 mL/min/1.73 sq.m. Ages 50-59 = 93 mL/min/1.73 sq.m. Ages 60-69 = 85 mL/min/1.73 sq.m. Ages 70+ = 75 mL/min/1.73 sq.m. Chronic Kidney Disease: Less than 60 mL/min/1.73 square meters End Stage Renal Disease: Less than 15 mL/min/1.73 square meters Performed By: #### C HARSHA MELENDEZ, ANEU #### [address] [address] #### BMP, GFR #### [address] [address] GFR 114 ml/min/1.73sqm Normal [facility] ([place]) Comment on above: Result Comment: GFR Population mean for , Non- Americans Ages 20-29 = 116 mL/min/1.73 sq.m. Ages 30-39 = 107 mL/min/1.73 sq.m. Ages 40-49 = 99 mL/min/1.73 sq.m. Ages 50-59 = 93 mL/min/1.73 sq.m. Ages 60-69 = 85 mL/min/1.73 sq.m. Ages 70+ = 75 mL/min/1.73 sq.m. Chronic Kidney Disease: Less than 60 mL/min/1.73 square meters End Stage Renal Disease: Less than 15 mL/min/1.73 square meters Performed By: #### C BC, ADIFF, ANEU #### [address] [address] #### BMP, GFR #### [place] [address] .NEUABSon 02-27-2018 Neutrophils (Bld) [#/Vol] 5.10 10 3/mcL Normal 2.85-6.16 [facility] ([place] Comment on above: Performed By: #### C BC, ADIFF, ANEU #### [place] [address] #### BMP, GFR #### [place] [address] .Urinalysis Microscopic (AO) on 02-27-2018 RBC (U) [#/Vol] None Seen Normal None Seen [facility] ([place] Comment on above: Performed By: #### U A, PREGU, UAMICAO #### [place] [address] UA Bacteria 1+ /hpf [facility] ([place] Comment on above: Performed By: #### U A, PREGU, UAMICAO #### [address] [address] UA Mucous Trace Normal [facility] ([place] Comment on above: Performed By: #### U A, PREGU, UAMICAO #### [address] [address] UA Squam Epithelial 10-15 None Seen [facility] ([place] Comment on above: Performed By: #### U A, PREGU, UAMICAO #### [place] [address] UA WBC 0-5 None Seen [facility] ([place] Comment on above: Performed By: #### U A, PREGU, UAMICAO #### [place] [address] BMPon 02-27-2018 Calcium [Mass/Vol] 8.9 mg/dL Normal 8.4-10.2 [facility] ([place]) Comment on above: Performed By: #### C BC, ADIFF, ANEU #### [place] [address] #### BMP, GFR #### [address] [address] Chloride [Moles/Vol] 101 mmol/L Normal 98-107 [facility] ([place] Comment on above: Performed By: #### C BC, ADIFF, ANEU #### [address] [address] #### BMP, GFR #### [address] [address] CO2 [Moles/Vol] 27 mmol/L Normal 22-29 [facility] ([place]) Comment on above: Performed By: #### C BC, ADIFF, ANEU #### [address] [address] #### BMP, GFR #### [address] [address] Creatinine [Mass/Vol] 0.78 mg/dL Normal 0.55-1.02 [facility] ([place] Comment on above: Performed By: #### C BC, ADIFF, ANEU #### [address] [address] #### BMP, GFR #### [address] [address] Electrolyte Balance 12.0 mEq/L Normal [facility] ([place] Comment on above: Performed By: #### C BC, ADIFF, ANEU #### [address] [address] #### BMP, GFR #### [address] [address] Glucose [Mass/Vol] 95 mg/dL Normal 70-105 [facility] ([place]) Comment on above: Performed By: #### C BC, ADIFF, ANEU #### [address] [address] #### BMP, GFR #### [address] [address] Potassium [Moles/Vol] 4.0 mmol/L Normal 3.5-5.1 [facility] ([place] Comment on above: Performed By: #### C BC, ADIFF, ANEU #### [address] [address] #### BMP, GFR #### [address] [address] Sodium [Moles/Vol] 140 mmol/L Normal 136-145 [facility] ([place]) Comment on above: Performed By: #### C BC, ADIFF, ANEU #### [address] [address] #### BMP, GFR #### [address] [address] Urea nitrogen [Mass/Vol] 10 mg/dL Normal 7-18 [facility] ([place] Comment on above: Performed By: #### C BC, ADIFF, ANEU #### [address] [address] #### BMP, GFR #### [address] [address] Urea nitrogen/Creatinine [Mass ratio] 13 ratio Normal 7-27 [facility] ([place]) Comment on above: Performed By: #### C BC, ADIFF, ANEU #### [address] [address] #### BMP, GFR #### [address] [address] CBCon 02-27-2018 Erythrocyte distribution width (RBC) [Ratio] 13.2 % Normal 11.5-14.5 [facility] ([place] Comment on above: Performed By: #### C BC, ADIFF, ANEU #### [address] [address] #### BMP, GFR #### [address] [address] Hematocrit (Bld) [Volume fraction] 45.4 % Normal 37.0-47.0 [facility] ([place] Comment on above: Performed By: #### C BC, ADIFF, ANEU #### [address] [address] #### BMP, GFR #### [address] [address] Hemoglobin (Bld) [Mass/Vol] 15.2 G/dL Normal 12.0-16.0 [facility] ([place] Comment on above: Performed By: #### C BC, ADIFF, ANEU #### [address] [address] #### BMP, GFR #### [address] [address] MCH (RBC) [Entitic mass] 28.8 pg Normal 27.0-31.2 [facility] ([place]) Comment on above: Performed By: #### C BC, ADIFF, ANEU #### [place] [address] #### BMP, GFR #### [address] [address] MCHC (RBC) [Mass/Vol] 33.6 G/dL Normal 33.0-37.0 [facility] ([place]) Comment on above: Performed By: #### C BC, ADIFF, ANEU #### [address] [address] #### BMP, GFR #### [place] [id number] MCV (RBC) [Entitic vol] 85.8 fL Normal 80.0-94.0 [facility] ([place]) Comment on above: Performed By: #### C AL, ADIFF, ANEU #### [place] [address] #### BMP, GFR #### [address] [address] Platelet mean volume (Bld) [Entitic vol] 7.8 fL Normal 7.4-10.4 [facility] ([place]) Comment on above: Performed By: #### C BC, ADIFF, ANEU #### [address] [address] #### BMP, GFR #### [facility] [address] [place], [place] [address] Platelets (Bld) [#/Vol] 234 10 3/mcL Normal 130-400 [facility] ([place] Comment on above: Performed By: #### C BC, ADIFF, ANEU #### [address] [address] #### BMP, GFR #### [address] [address] RBC (Bld) [#/Vol] 5.29 10 6/mcL Normal 4.20-5.40 [facility] ([place]) Comment on above: Performed By: #### C BC, ADIFF, ANEU #### [address] [address] #### BMP, GFR #### [address] [address] WBC (Bld) [#/Vol] 8.30 10 3/mcL Normal 4.60-10.80 [facility] ([place] Comment on above: Performed By: #### C BC, HARSHA, ANEU #### [address] [address] #### BMP, GFR #### [address] [address] PREGUon 02-27-2018 HCG ( test) Ql (U) Negative Normal [facility] ([place] Comment on above: Performed By: #### U A, PREGU, UAMICAO #### [address] [address] test (u) int HCG not detected. [facility] ([place] Comment on above: Performed By: #### U A, PREGU, UAMICAO #### [address] [address] UAon 02-27-2018 Color (U) Yellow Normal [facility] ([place] Comment on above: Performed By: #### U A, PREGU, UAMICAO #### [address] [address] Glucose (U) [Mass/Vol] Negative Normal Negative [facility] ([place] Comment on above: Performed By: #### U A, PREGU, UAMICAO #### [address] [address] Ketones Ql (U) Negative Normal Negative [facility] ([place]) Comment on above: Performed By: #### U A, PREGU, UAMICAO #### [address] [address] UA Appear Slightly Cloudy Clear [facility] ([place]) Comment on above: Performed By: #### U A, PREGU, UAMICAO #### [address] [address] UA Blood Negative Normal Negative [facility] ([place] Comment on above: Performed By: #### U A, PREGU, UAMICAO #### [place] [address] UA Leuk Est Negative Normal Negative [facility] ([place] Comment on above: Performed By: #### U A, PREGU, UAMICAO #### [address] [address] UA Nitrite Negative Normal Negative [facility] ([place] Comment on above: Performed By: #### U A, PREGU, UAMICAO #### [place] [address] UA pH 6.5 Normal [facility] ([place] Comment on above: Performed By: #### U A, PREGU, UAMICAO #### [place] [address] UA Protein Negative Normal Negative [facility] ([place] Comment on above: Performed By: #### U A, PREGU, UAMICAO #### [place] [address] UA Spec Grav 1.015 Normal [facility] ([place]) Comment on above: Performed By: #### U A, PREGU, UAMICAO #### [place] [id number] UA Specimen Type Clean Catch Normal [facility] ([place] Comment on above: Performed By: #### U A, PREGU, UAMICAO #### [facility] [address] [place], [place] [address] UA Urobilinogen 0.2 E.U./dL Normal [facility] ([place]) Comment on above: Performed By: #### U A, PREGU, UAMICAO #### [facility] [address] [place], [place] [address] Urobilinogen Qn (U) Negative Normal Negative [facility] ([place]) Comment on above: Performed By: #### U A, PREGU, UAMICAO #### [facility] [address] [place], [place] [address] Vital Signs Date Time Vital Sign Value Performing Clinician Chantel vega 07-15-2023 15:40-0400 Body height 162.6 cm Raudel Easley MD Work Phone: [facility] 07-15-2023 15:40-0400 Body temperature 97.59 [degF] Raudel Easley MD Work Phone: [facility] 07-15-2023 15:40-0400 Body weight 99.07 kg Raudel Easley MD Work Phone: [facility] 07-15-2023 15:40-0400 Diastolic blood pressure 72 mm[Hg] Raudel Easley MD Work Phone: [facility] 07-15-2023 15:40-0400 Heart rate 125 /min Raudel Easley MD Work Phone: [facility] 07-15-2023 15:40-0400 SaO2% (BldA) [Mass fraction] 98 % Raudel Easley MD Work Phone: [facility] 07-15-2023 15:40-0400 Systolic blood pressure 126 mm[Hg] Raudel Easley MD Work Phone: [facility] 07-15-2023 13:33-0400 Body temperature 97.59 [degF] Nida Murry APRN.CNP Work Phone: [facility] 07-15-2023 13:33-0400 Body weight 99.1 kg Nida Murry GABE.[employer] EVENT [employer]IST Work Phone: [facility] 07-15-2023 13:33-0400 Diastolic blood pressure 76 mm[Hg] Nida Murry [employer] EVENT [employer]IST Work Phone: [facility] 07-15-2023 13:33-0400 Heart rate 109 /min Nidadiogo Murry APRN.[employer] EVENT SPECIALIST Work Phone: [facility] 07-15-2023 13:33-0400 Respiratory rate 16 /min Nida Murry [employer] EVENT SPECIALIST Work Phone: [facility] 07-15-2023 13:33-0400 SaO2% (BldA) [Mass fraction] 99 % Nida Murry [employer] EVENT SPECIALIST Work Phone: [facility] 07-15-2023 13:33-0400 Systolic blood pressure 128 mm[Hg] Nida Eliel BERNAL.DE[employer] EVENT SPECIALIST Work Phone: [facility] 01-02-2022 16:02-0400 Body temperature 99.1 [degF] [facility] 01-02-2022 16:02-0400 Body weight 89.[address] [facility] 01-02-2022 16:02-0400 Diastolic blood pressure 83 mm[Hg] [facility] 01-02-2022 16:02-0400 Heart rate 96 /min [facility] 01-02-2022 16:02-0400 Respiratory rate 16 /min [facility] 01-02-2022 16:02-0400 SaO2% (BldA) [Mass fraction] 99 % [facility] 01-02-2022 16:02-0400 Systolic blood pressure 123 mm[Hg] [facility] Encounters Encounter Date Encounter Type Care Provider Facility Start: 07-15-2023 End: 07-15-2023 ambulatory RAUDEL EASLEY Facility:[facility] Start: 07-15-2023 End: 07-15-2023 ambulatory RAUDEL EASLEY Facility:[facility] Start: 07-15-2023 End: 07-15-2023 Patient encounter procedure Raudel Easley MD Work Phone: General Surgery Comment on above: Pilonidal cyst Start: 07-15-2023 End: 07-15-2023 Patient encounter procedure Nida Murry APRN.[employer] EVENT SPECIALIST Work Phone: [facility] Comment on above: Pilonidal cyst (Prim megan Dx) Start: 05-27-2023 End: 05-27-2023 ambulatory ENEDINA GAMBINO [facility] Start: 05-07-2023 End: 05-07-2023 ambulatory [facility] Start: 04-09-2023 End: 04-09-2023 ambulatory SCURRY Ravi [facility] Start: 03-01-2023 End: 03-01-2023 ambulatory ELIZ LEIVA [facility] Start: 02-26-2023 End: 02-26-2023 ambulatory [facility] Start: 02-12-2023 End: 02-12-2023 ambulatory MILADIS PANDA [facility] Start: 09-05-2022 Emergency department patient visit PB ROMEO Facility:[facility] Start: 01-02-2022 End: 01-02-2022 Emergency department patient visit Sundar [facility] Start: 01-02-2022 End: 01-02-2022 Emergency department patient visit [facility] Start: 11-16-2021 End: 11-16-2021 Emergency department patient visit [facility] Plan of Treatment Date Care Activity Detail Author Start: 06-04-2029 Urine microalbumin profile DTa P,Tdap,Td Vaccine (9 - Td or Tdap) [facility] Start: 02-18-2024 DTaP/Tdap/Td vaccine (2 - Td or Tdap) DTaP/Tdap/Td vaccine (2 - Td or Tdap) [facility] Start: 04-22-2023 Depression Assessment Depression Ass essment [facility] Start: 12-21-2022 Covid-19 Vaccine ( season) Covid-19 Vaccine () [facility] Start: 12-21-2021 Influenza vaccination Flu vaccine (# 1) [facility] Start: 2019 Screening for malign ant neoplasm of cervix Pap Testing [facility] Start: 01-23-2016 Hepatitis C screening Hepatitis C Sc douglas [facility] Start: 2013 HPV Vaccine (1 - 3-d ose series) HPV Vaccine (1 - 3-dose series) [facility] Start: 01-23-2012 Peds To Adult Transi tion Annual Assessment Peds To Adult Transition Annual Assessment [facility] Start: 2010 Peds To Adult Transi tion Initial Discussion Peds To Adult Transition Initial Discussion [facility] Start: 1998 COVID-19 Vaccine (#1) COVID-19 Vacci ne (#1) [facility] Immunizations Immunization Date Immunization Notes Care Provider Fa marlene 02-17-2014 tetanus toxoid, redu phill diphtheria toxoid, and acellular pertussis vaccine, adsorbed Nida Murry APRN.[employer] EVENT SPECIALIST Work Phone: [facility] Payers Date Payer Category Payer Medicaid [id number] 2022 Medicaid [employer] [facility] [place] [id number] 2022-Present [phone] [address] [place] [address] Medicaid [id number] 2022 Unknown [id number] 1998 Unknown [id number] 1998 Unknown [id number] 1998 Unknown [id number] 1998 Unknown [id number] 1998 Unknown [id number] 1998 Unknown [id number] 1998 Unknown [id number] 1998 Unknown [id number] Unknown Social History Date Type Detail Facility Start: 11-16-2021 [facility] tobacco use Cigarette Smoker [facility] Work Phone: Start: 11-16-2021 End: 07-15-2023 Tobacco use and exposure Smokeless tobacco non-user [employer] Work Phone: Start: 01-02-2022 Alcohol intake Lifetime non-d latasha (finding) [employer] Work Phone: Start: 2000 Sex Assigned At Not on file [facility] Work Phone: Start: 12-23-2021 End: 01-02-2022 Exposure to SARS-CoV-2 (event) Not sure [employer] Work Phone: Start: 07-15-2023 Tobacco smoking stat [facility] Ex-smoker [facility] History of tobacco use Current smoker [facility] Start: 04-09-2020 End: 07-15-2023 Cigarettes smoked current (pack per day) - Reported 0.5 [facility] Start: 07-15-2023 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 Yes [facility] How often to you hav e a drink containing alcohol? Monthly or less [facility] How many standard dr inks containing alcohol do you have on a typical day? 1 or 2 [facility] How often do you hav e 6 or more drinks on 1 occasion? Less than monthly [facility] How hard is it for y ou to pay for the very basics like food, housing, medical care, and heating Not very hard [facility] Work Phone: Do you feel stress - tense, restless, nervous, or anxious, or unable to sleep at night because your mind is troubled all the time - these days [OSQ] Rather much [facility] The food that (I/we) bought just didn't last, and (I/we) didn't have money to get more. Never true [facility] In the past 12 month s, was there a time when you were not able to pay the mortgage or rent on time? No [facility] Start: 01-07-2020 Education 11 [facility] Start: 2000 Sex Assigned At Female C [facility] Start: 11-15-2019 Gender identity Identifies as female gender (finding) [facility] Start: 11-15-2019 Sexual orientation Bisexual (finding ) [facility] Progress note 07-23-2023 Note Date & Type Note Facility 07-23-2023 Note HNO ID: [id number] Author: RAUDEL EASLEY MD Service: ? Author Type: Physician Type: Progress Notes Filed: 07/23/2023 07:50 Note Text: HISTORY AND PHYSICAL Reyna Padgett Alejandra 2000 REFERRING PHYSICIAN: Nida Murry APRN.* CHIEF COMPLAINT: Consult (Pilonidal cyst/) HPI: The patient is a 23 year old female with a complaint of pilonidal cyst. She came in with complaints of pain in the coccyx area. Patient says is getting worse over the last couple days. Patient just had a baby several weeks ago. Patient says she does not have any fever chills nausea vomiting. Patient says this is never happened before. The patient is being seen by me today at the request of Dr. Murry for my opinion and advice regarding Pilonidal cyst. PAST MEDICAL HISTORY Diagnosis Date Anemia Antepartum drug dependence (HCC) History of depression Irregular heart beat as infant only PAST SURGICAL HISTORY Procedure Laterality Date TONSILLECTOMY HX 12/07/2014 Current Outpatient Medications Medication Sig amoxicillin-clavulanate potassium (AUGMENTIN) 875-125 mg per tablet Take 1 tablet by mouth two times a day for 10 days. citalopram (CELEXA) 40 mg tablet Take 40 mg by mouth once daily. (Patient not taking: Reported on 07/15/2023) triamcinolone acetonide (KENALOG) 0.1 % cream Apply 1 application to affected area twice daily. Apply to affected area. Location: right hand (Patient not taking: Reported on 07/15/2023) No current facility-administered medications for this visit. ALLERGIES: Dust, Morphine, Pollen, Ragweed, and Soap PERSONAL HISTORY: Social History Tobacco Use Smoking status: Former Packs/day: 0.50 Years: 2.00 Additional pack years: 0.00 Total pack years: 1.00 Types: Cigarettes Smokeless tobacco: Never Vaping Use Vaping Use: current everyday user Substances: Nicotine Substance Use Topics Alcohol use: No Drug use: Yes Types: Marijuana Comment: Marijuana-last used 2 weeks ago FAMILY HISTORY: FAMILY HISTORY Problem Relation Age of Onset Diabetes Father Heart Father Hyperlipidemia Father REVIEW OF SYMPTOMS: The review of systems data was entered by the nurse and reviewed by mt Nursing Notes: Corazon Henderson RN 07/15/2023 3:40 PM Signed REVIEW OF SYSTEMS: General: The patient denies fatigue, denies weight loss, denies weight gain, denies feeling hot, and denies feelings of cold. Eyes: The patient denies glaucoma, denies eye injury/surgery, does not wear glasses or contacts. Ear/Nose/Throat: The patient NOTES allergies, denies hayfever, denies ear infections, and denies bloody noses. Cardiovascular: The patient denies chest pain, denies heart disease, denies high blood pressure,denies cardiac stent, denies prior heart attack, NOTES irregular heart beat, denies high cholesterol, denies poor circulation, denies heart failure, other cardiac issues, denies claudication, denies cold feet, denies peripheral arterial stent. Respiratory: The patient denies tuberculosis, denies pneumonia, denies frequent cough, denies pulmonary embolism, denies shortness of breath, and denies coughing up blood. Gastrointestinal: The patient denies difficulty swallowing, denies acid reflux, denies ulcers, denies vomiting, denies jaundice/hepatitis, denies gallbladder problems, denies black or tarry stools, denies hemorrhoids, denies bleeding from rectum, denies diverticulitis, denies constipation, denies diarrhea, denies loss of stool control, and denies hernias. Kidney/Bladder: The patient denies kidney stones, denies urine infections, and denies bloody urine. Skin: The patient denies a history of skin cancer, denies bleeding/changing moles, and denies a history of skin rash. Neurologic: The patient denies a history of epilepsy/convulsions, denies headaches, denies head/spinal injuries, and denies stroke/TIA. Psychiatric: The patient denies psychiatric medications, denies depression, and denies voices, NOTES substance abuse. Endocrine: The patient denies thyroid disorders, denies diabetes, and denies hormonal problems. Hematologic: The patient denies a history of bruising, denies bleeding, and denies anemia, denies blood clots. Infections: The patient denies a history of measles and mumps, denies rheumatic fever, and denies sexually transmitted diseases. Musculoskeletal: The patient denies back pain/injury, denies back problems, denies sciatica, denies knee/foot trouble, denies arthritis, or denies gout. When was patient's last Mammogram screening? N/A Last Colonoscopy: NONE Corazon Henderson RN PHYSICAL EXAMINATION: General: The patient is 23 year old female, well nourished, well hydrated in no acute distress. The patient is oriented to time, place, and person. VITALS: Blood pressure 126/72, pulse (!) 125, temperature 36.4 ?C (97.6 ?F), height 162.6 cm (5' 4 ), weight 99.1 kg (218 lb 6.4 oz), last menstrual period 12/27/2014, SpO2 98%, (more content not included)... [facility] History of Present illness Narrative 07-23-2023 Raudel Easley MD - 07/23/2023 7:47 AM EDT Note Date & Type Note Facility 07-23-2023 History of Presen t illness Narrative HISTORY AND PHYSICAL Reyna Roberts 2000 REFERRING PHYSICIAN: Nida Murry APRN.* CHIEF COMPLAINT: Consult (Pilonidal cyst/) HPI: The patient is a 23 year old female with a complaint of pilonidal cyst. She came in with complaints of pain in the coccyx area. Patient says is getting worse over the last couple days. Patient just had a baby several weeks ago. Patient says she does not have any fever chills nausea vomiting. Patient says this is never happened before. The patient is being seen by me today at the request of Dr. Murry for my opinion and advice regarding Pilonidal cyst. PAST MEDICAL HISTORY Diagnosis Date Anemia Antepartum drug dependence (HCC) History of depression Irregular heart beat as only PAST SURGICAL HISTORY Procedure Laterality Date TONSILLECTOMY HX 12/07/2014 Current Outpatient Medications Medication Sig amoxicillin-clavulanate potassium (AUGMENTIN) 875-125 mg per tablet Take 1 tablet by mouth two times a day for 10 days. citalopram (CELEXA) 40 mg tablet Take 40 mg by mouth once daily. (Patient not taking: Reported on 07/15/2023) triamcinolone acetonide (KENALOG) 0.1 % cream Apply 1 application to affected area twice daily. Apply to affected area. Location: right hand (Patient not taking: Reported on 07/15/2023) No current facility-administered medications for this visit. ALLERGIES: Dust, Morphine, Pollen, Ragweed, and Soap PERSONAL HISTORY: Social History Tobacco Use Smoking status: Former Packs/day: 0.50 Years: 2.00 Additional pack years: 0.00 Total pack years: 1.00 Types: Cigarettes Smokeless tobacco: Never Vaping Use Vaping Use: current everyday user Substances: Nicotine Substance Use Topics Alcohol use: No Drug use: Yes Types: Marijuana Comment: Marijuana-last used 2 weeks ago FAMILY HISTORY: FAMILY HISTORY Problem Relation Age of Onset Diabetes Father Heart Father Hyperlipidemia Father REVIEW OF SYMPTOMS: The review of systems data was entered by the nurse and reviewed by me Nursing Notes: Corazon Henderson RN 07/15/2023 3:40 PM Signed REVIEW OF SYSTEMS: General: The patient denies fatigue, denies weight loss, denies weight gain, denies feeling hot, and denies feelings of cold. Eyes: The patient denies glaucoma, denies eye injury/surgery, does not wear glasses or contacts. Ear/Nose/Throat: The patient NOTES allergies, denies hayfever, denies ear infections, and denies bloody noses. Cardiovascular: The patient denies chest pain, denies heart disease, denies high blood pressure,denies cardiac stent, denies prior heart attack, NOTES irregular heart beat, denies high cholesterol, denies poor circulation, denies heart failure, other cardiac issues, denies claudication, denies cold feet, denies peripheral arterial stent. Respiratory: The patient denies tuberculosis, denies pneumonia, denies frequent cough, denies pulmonary embolism, denies shortness of breath, and denies coughing up blood. Gastrointestinal: The patient denies difficulty swallowing, denies acid reflux, denies ulcers, denies vomiting, denies jaundice/hepatitis, denies gallbladder problems, denies black or tarry stools, denies hemorrhoids, denies bleeding from rectum, denies diverticulitis, denies constipation, denies diarrhea, denies loss of stool control, and denies hernias. Kidney/Bladder: The patient denies kidney stones, denies urine infections, and denies bloody urine. Skin: The patient denies a history of skin cancer, denies bleeding/changing moles, and denies a history of skin rash. Neurologic: The patient denies a history of epilepsy/convulsions, denies headaches, denies head/spinal injuries, and denies stroke/TIA. Psychiatric: The patient denies psychiatric medications, denies depression, and denies voices, NOTES substance abuse. Endocrine: The patient denies thyroid disorders, denies diabetes, and denies hormonal problems. Hematologic: The patient denies a history of bruising, denies bleeding, and denies anemia, denies blood clots. Infections: The patient denies a history of measles and mumps, denies rheumatic fever, and denies sexually transmitted diseases. Musculoskeletal: The patient denies back pain/injury, denies back problems, denies sciatica, denies knee/foot trouble, denies arthritis, or denies gout. When was patient's last Mammogram screening? N/A Last Colonoscopy: NONE Corazon Henderson RN PHYSICAL EXAMINATION: General: The patient is 23 year old female, well nourished, well hydrated in no acute distress. The patient is oriented to time, place, and person. VITALS: Blood pressure 126/72, pulse (!) 125, temperature 36.4 C (97.6 F), height 162.6 cm (5' 4 ), weight 99.1 kg (218 lb 6.4 oz), last menstrual period 12/27/2014, SpO2 98%, currently . HEENT: Normal cephalic, ataumatic, pupils are equally round, sclera are anicteric, mucous membranes are moist, oropharynx is clear. Neck has no masses, asymmetry or lymphadenopathy. Thyroid is unremarkable. Respiratory: Clear to auscultation and percussion. Normal respiratory excursion and pattern. Cardiac: Examination is regular rate and rhythm. Abdominal exam: Soft, nontender, with no palpable masses. No hepatosplenomegaly. No palpable hernias. Rectal exam: Patient has a firm lump in the left pilonidal area. Minimal erythema. No signs of actual fluctuance. Extremities: no clubbing, cyanosis or edema. No adenopathy. Other: LABORATORY VALUES: As Noted RADIOLOGIC STUDIES: As Noted Assessment IMPRESSION: Pilonidal cyst PLAN: I would like the patient to do warm soaks and Epsom salts for the next 2 weeks I like to see her back in the office at that time for a follow-up to determine whether or not we should be opening this up. She will remain on her Augmentin. Diagnoses: (L05.91) Pilonidal cyst My findings have been communicated to Dr. Murry via shared medical record. This note will be forwarded to Dr. Chester primary care provider on file.. Return to Clinic: The patient is instructed to follow-up with me in 2 weeks. Raudel Easley III, MD documented in this encounter [facility] Progress note 07-15-2023 Note Date & Type Note Facility 07-15-2023 Note HNO ID: [id number] Author: NIDA MURRY APRN.DE[employer] EVENT SPECIALIST Service: ? Author Type: Nurse Practitioner Type: Progress Notes Filed: 07/15/2023 14:02 Note Text: Subjective She came in with complaints of pain in the coccyx area. Patient says is getting worse over the last couple days. Patient just had a baby several weeks ago. Patient says she does not have any fever chills nausea vomiting. Patient says this is never happened before. The history is provided by the patient. No bee keeper was used. Review of Systems Constitutional: Negative. Skin: Negative. Objective Physical Exam Constitutional: Appearance: Normal appearance. Pulmonary: Effort: Pulmonary effort is normal. Skin: Comments: Patient is tender in the area marked above. Firm lump noted little larger than a quarter. Mild erythema as well believed to be a pilonidal cyst Neurological: Mental Status: She is alert. PAST MEDICAL HISTORY Diagnosis Date Anemia History of depression Irregular heart beat as infant only PAST SURGICAL HISTORY Procedure Laterality Date TONSILLECTOMY HX 12/07/2014 ALLERGIES Dust, Morphine, Pollen, Ragweed, and Soap MEDICATIONS citalopram (CELEXA) 40 mg tablet Take 40 mg by mouth once daily. (Patient not taking: Reported on 07/15/2023) triamcinolone acetonide (KENALOG) 0.1 % cream Apply 1 application to affected area twice daily. Apply to affected area. Location: right hand (Patient not taking: Reported on 07/15/2023) FAMILY HISTORY Problem Relation Age of Onset Diabetes Father Heart Father Hyperlipidemia Father Social History Tobacco Use Smoking status: Every Day Packs/day: 0.50 Years: 2.00 Additional pack years: 0.00 Total pack years: 1.00 Types: Cigarettes Smokeless tobacco: Never Substance Use Topics Alcohol use: No Drug use: Yes Comment: Marijuana-last used 2 weeks ago ASSESSMENT/PLAN: 1. Pilonidal cyst - ICD9: 685.1, ICD10: L05.91 - CONSULT TO GENERAL SURGERY -was able to get an appointment today for general surgery. Patient will follow-up with them at 3:00. Patient was okay with this care plan. Nothing was done at [facility] due to location of cyst. Nida Murry APRN.[facility] Nurse Note 07-15-2023 Corazon Henderson RN - 07/15/2023 3:36 PM EDT Note Date & Type Note Facility 07-15-2023 Nurse Note REVIEW OF SYSTEMS: General: The patient denies fatigue, denies weight loss, denies weight gain, denies feeling hot, and denies feelings of cold. Eyes: The patient denies glaucoma, denies eye injury/surgery, does not wear glasses or contacts. Ear/Nose/Throat: The patient NOTES allergies, denies hayfever, denies ear infections, and denies bloody noses. Cardiovascular: The patient denies chest pain, denies heart disease, denies high blood pressure,denies cardiac stent, denies prior heart attack, NOTES irregular heart beat, denies high cholesterol, denies poor circulation, denies heart failure, other cardiac issues, denies claudication, denies cold feet, denies peripheral arterial stent. Respiratory: The patient denies tuberculosis, denies pneumonia, denies frequent cough, denies pulmonary embolism, denies shortness of breath, and denies coughing up blood. Gastrointestinal: The patient denies difficulty swallowing, denies acid reflux, denies ulcers, denies vomiting, denies jaundice/hepatitis, denies gallbladder problems, denies black or tarry stools, denies hemorrhoids, denies bleeding from rectum, denies diverticulitis, denies constipation, denies diarrhea, denies loss of stool control, and denies hernias. Kidney/Bladder: The patient denies kidney stones, denies urine infections, and denies bloody urine. Skin: The patient denies a history of skin cancer, denies bleeding/changing moles, and denies a history of skin rash. Neurologic: The patient denies a history of epilepsy/convulsions, denies headaches, denies head/spinal injuries, and denies stroke/TIA. Psychiatric: The patient denies psychiatric medications, denies depression, and denies voices, NOTES substance abuse. Endocrine: The patient denies thyroid disorders, denies diabetes, and denies hormonal problems. Hematologic: The patient denies a history of bruising, denies bleeding, and denies anemia, denies blood clots. Infections: The patient denies a history of measles and mumps, denies rheumatic fever, and denies sexually transmitted diseases. Musculoskeletal: The patient denies back pain/injury, denies back problems, denies sciatica, denies knee/foot trouble, denies arthritis, or denies gout. When was patient's last Mammogram screening? N/A Last Colonoscopy: NONE Corazon Henderson RN documented in this encounter [facility] History of Present illness Narrative 07-15-2023 Nida Murry APRN.DE[employer] EVENT SPECIALIST - 07/15/2023 1:42 PM EDT Note Date & Type Note Facility 07-15-2023 History of Presen t illness Narrative Images from the original note were not included. Subjective She came in with complaints of pain in the coccyx area. Patient says is getting worse over the last couple days. Patient just had a baby several weeks ago. Patient says she does not have any fever chills nausea vomiting. Patient says this is never happened before. The history is provided by the patient. No bee keeper was used. Review of Systems Constitutional: Negative. Skin: Negative. Objective Physical Exam Constitutional: Appearance: Normal appearance. Pulmonary: Effort: Pulmonary effort is normal. Skin: Comments: Patient is tender in the area marked above. Firm lump noted little larger than a quarter. Mild erythema as well believed to be a pilonidal cyst Neurological: Mental Status: She is alert. PAST MEDICAL HISTORY Diagnosis Date Anemia History of depression Irregular heart beat as only PAST SURGICAL HISTORY Procedure Laterality Date TONSILLECTOMY HX 12/07/2014 ALLERGIES Dust, Morphine, Pollen, Ragweed, and Soap MEDICATIONS citalopram (CELEXA) 40 mg tablet Take 40 mg by mouth once daily. (Patient not taking: Reported on 07/15/2023) triamcinolone acetonide (KENALOG) 0.1 % cream Apply 1 application to affected area twice daily. Apply to affected area. Location: right hand (Patient not taking: Reported on 07/15/2023) FAMILY HISTORY Problem Relation Age of Onset Diabetes Father Heart Father Hyperlipidemia Father Social History Tobacco Use Smoking status: Every Day Packs/day: 0.50 Years: 2.00 Additional pack years: 0.00 Total pack years: 1.00 Types: Cigarettes Smokeless tobacco: Never Substance Use Topics Alcohol use: No Drug use: Yes Comment: Marijuana-last used 2 weeks ago ASSESSMENT/PLAN: 1. Pilonidal cyst - ICD9: 685.1, ICD10: L05.91 - CONSULT TO GENERAL SURGERY -was able to get an appointment today for general surgery. Patient will follow-up with them at 3:00. Patient was okay with this care plan. Nothing was done at [facility] care due to location of cyst. Nida Murry APRN.CNP documented in this encounter [facility] Clinical Note 03-01-2023 Note Date & Type [...] or performed in visit on 03/01/23 [facility] [place] [address] [email or web address] Echocardiogram Report M-mode, complete 2D, complete spectral Doppler, and color Doppler PATIENT: Reyna Roberts STUDY Mar 01 2023 8:33AM [place] DATE/TIME: HEIGHT: : 2000 WEIGHT: AGE: 23year(s) BSA/BMI: / GENDER: F BP: 117 / 69 LOCATION: [facility] REFERRING PHYSICIAN: Rebecca Guaman Candice F ORDERING PROVIDER: Joie Guaman READING PHYSICIAN: Eliz Leiva MD YOUTH LEADER: Di Stubbs RDCS SUMMARY: No significant congenital [...] The patient is . Procedure Description: New ([id number]) . Study status: Routine. Location: lab. Procedure: Transabdominal echocardiogram was performed for congenital heart disease evaluation. The study was technically challenging due to maternal body habitus. Patient status: Outpatient. Blood pressure: 117/69 FINDINGS: DESCRIPTION One fetus is present. Normal three vessel view, main pulmo (more content not included)... [facility] Evaluation note Note Date & Type Note Facility Evaluation note Diagnosis Pilonidal cyst- Primary Pilonidal cyst without mention of abscess documented in this encounter [facility] Evaluation note Note Date & Type Note Facility Evaluation note Diagnosis Pilonidal cyst Pilonidal cyst without mention of abscess documented in this encounter [facility] Summary Purpose Family History No Family History Records FoundNo Family History Records FoundNo Family History Records FoundNo Family History Records FoundNo Family History Records Found Advance Directives No Advanced Directives Records FoundNo Advanced Directives Records FoundNo Advanced Directives Records FoundNo Advanced Directives Records FoundNo Advanced Directives Records Found Reason for Referral Specialty Diagnoses / Procedures Referred By Marco padgett Referred To Contact General Surgery Diagnoses Pilonidal cyst Procedures CONSULT TO GENERAL SURGERY OFFICE/OUTPATIENT [facility] MDM 60 MINUTES Nida Murry APRN.DEMO EVENT SPECIALIST [address] [place] [address] Referral ID Status Reason Start Date Expiration Date V isits Requested Visits Authorized [id number] Closed PCP Requested Referral 07/15/2023 07/14/2024 1 1 Additional Source Comments INFORMATION SOURCE (unrecogn ized section and content) DATE CREATED AUTHOR 02/03/2019 [facility] ([place]) DATE CREATED AUTHOR AUTHOR'S ORGANIZ ATION 01/19/2022 [facility] DATE CREATED AUTHOR AUTHOR'S ORGANIZ ATION 09/05/2022 [facility] DATE CREATED AUTHOR AUTHOR'S ORGANIZ ATION 05/28/2023 [facility] DATE CREATED AUTHOR AUTHOR'S ORGANIZ ATION 07/24/2023 [facility] Reason for Visit (unrecogniz ed section and content) Reason Comments Abdominal Pain Reason Comments Pain Pt reported recent d elivery x3 wks, c/o pain rated 4, tailbone with swelling. Reason Comments Consult Pilonidal cyst Specialty Diagnoses / Procedures Referred By Marco t Referred To Contact General Surgery Diagnoses Pilonidal cyst Procedures CONSULT TO GENERAL SURGERY OFFICE/OUTPATIENT [facility] 60 MINUTES Nida Murry APRN.DEMO EVENT SPECIALIST [address] [place] [address] Referral ID Status Reason Start Date Expiration Date V isits Requested Visits Authorized [id number] Closed PCP Requested Referral 07/15/2023 07/14/2024 1 1 Source Comments (unrecognize d section and content) In the event this informatio n is protected by the Federal Confidentiality of Alcohol and Drug Abuse Patient Records regulations: The Federal rules restrict any use of the information to criminally investigate or prosecute any alcohol or drug abuse patient.[facility] the event this information is protected by the Federal Confidentiality of Alcohol and Drug Abuse Patient Records regulations: The Federal rules restrict any use of the information to criminally investigate or prosecute any alcohol or drug abuse patient.[facility] FOR RECORDS PERTAINING TO PATIENTS WHO ARE [...] BE BASED ON THE PRIMARY CLINICAL RECORDS. [facility] [employer]. provides no warranty or guarantee of the accuracy or completeness of information in this document.
== END | disposition home or self-care (01) ==
LOC: US 12:46
PROVIDERS: Referring Provider Nurse Practitioner Women's Health; Visit Provider Nurse Practitioner Women's Health
DX: N92.1 Excessive and frequent menstruation with irregular cycle (principal); Z30.431 Encounter for routine checking of intrauterine contraceptive device
CPT/HCPCS: 76830; 76856

== ENCOUNTER → 2024-02-28 | Outpatient (CLI) | payer MEDICAID, SELFPAY | END | disposition home or self-care (01) | LOC: US 12:51 | PROVIDERS: Referring Provider Nurse Practitioner Women's Health; Visit Provider Nurse Practitioner Women's Health | DX: N83.202 Unspecified ovarian cyst, left side (principal) | CPT/HCPCS: 76830; 76856 ==

== ENCOUNTER 2024-03-09 09:35 | Day surgery (SDC) | payer MEDICAID, SELFPAY ==
[2024-03-09] VITALS (9 sets, daily range): BP systolic 94–117; BP diastolic 52–77; PULSE 68–96; RESP 14–16; TEMP 36.6–36.9; O2SAT 95–100; BMI 40.1
--- NOTE | 2024-03-09 10:09 | EKG12_ITS ---
Test Reason : PREOP Blood Pressure : */* mmHG Vent. Rate : 83 BPM Atrial Rate : 83 BPM P-R Int : 174 ms QRS Dur : 80 ms QT Int : 372 ms P-R-T Axes : 52 60 44 degrees QTcB Int : 437 ms Normal sinus rhythm Normal ECG When compared with ECG of 1998 09:42, PREVIOUS ECG IS PRESENT Confirmed by LYNNE WAITE, GRACIE ([id number]), clinical editor SHAYY BOLAÑOS ([id number]) on 03/10/2024 1:56:49 PM Referred By: Jyothi Enrique Confirmed By: GRACIE BATISTA MD
--- NOTE | 2024-03-09 10:09 | PCM.PRE.AN2 ---
ASA Classification* ASA Classification ASA Classification: 2 Assessment & Plan Anesthesia* Anesthesia Assessment Anesthesia Assessment: Discussed sedation and/or anesthesia options, risks, benefits, and alternatives with patient/parents/legal guardian/POA. Questions invited. The patient/parents/legal guardian/POA seems to understand and agrees to proceed with anesthesia plan. Reviewed the physical assessment, medical history, allergy history and patient home medications list prior to surgery/procedure/anesthetic and documented any changes. Performed airway and anesthesia risk assessments. Anesthesia Type Anesthesia Type: General Anesthesia Focused Assessment* Airway Assessment Mouth opens: >3 cm Mallampati Score: II Focused Labs Anesthesia Preop lab: CBC WBC 10.7 K/mm3 (4.4-11.0) 02/11/24 04:20 RBC 4.76 M/mm3 (4.2-5.4) 02/11/24 04:20 Hgb 14.0 g/dL (12.0-15.0) 02/11/24 04:20 Hct 41.1 % (37-47) 02/11/24 04:20 Plt Count 242 K/mm3 (150-450) 02/11/24 04:20 CHEMISTRY Potassium 3.5 mmol/L (3.5-5.1) 02/11/24 04:20 Sodium 137 mmol/L (136-145) 02/11/24 04:20 BUN 10 mg/dL (7-18) 02/11/24 04:20 Creatinine 0.70 mg/dL (0.55-1.02) 02/11/24 04:20 Glucose 104 mg/dL (74-106) 02/11/24 04:20 POC Glucose 78 mg/dL (74-106) 06/26/23 07:25 COAG HCG, Quant 8267 mIU/mL (1-3) H 01/09/19 14:21 Urine Test Negative Negative 02/11/24 04:15 Tst Clinic Negative 08/22/23 09:54 Pre-Assessment Diagnosis/Proposed Procedure Planned Operative Procedure(s): LAP CHOLEY WITH GRAMS Anesthesia History Anesthesia History - resident care supervisor: Anesthesia History - resident care supervisor Hx Hospitalization No 02/25/24 14:56 Any Problems With Anesthesia No 02/25/24 14:56 Cholinesterase deficiency No 02/25/24 14:56 You/Your Family Experience No 02/25/24 14:56 fever (hyperthermia) with Relationship Recent Exposure to Contagious Disease Does patient have nerve No 02/25/24 14:56 stimulator Patient instructed to have device shut off --Does patient have Pacemaker or ICD? When Was Last Pacemaker Check QUESTION #4 FULL TEXT: You/Your Family Experience fever (hyperthermia) with Anesthesia Last Oral Intake Last Oral intake: Last Oral Intake NPO since Meds taken in AM with sips of water? Meds patient instructed to take am of surgery PONV PONV - resident care supervisor: PONV - resident care supervisor Female Yes 02/25/24 14:56 HX of Motion Sickness Yes 02/25/24 14:56 HX of N/V After Surgery No 02/25/24 14:56 Non-Smoker No 02/25/24 14:56 Duration of Surgery greater No 02/25/24 14:56 than 60 minutes Number of Risk Factors 2 02/25/24 14:56 PONV Score Moderate Risk 02/25/24 14:56 Height & Weight Height & Weight: Anesthesia: Height & Weight Height 5 ft 3 in 02/18/24 10:54 Respiratory Assessment Respiratory Assessment - resident care supervisor: Respiratory Tract Infection Hx - resident care supervisor Hx Respiratory Tract Infection No 02/25/24 14:56 STOP Sleep Apnea STOP Sleep Apnea - resident care supervisor: STOP Sleep Apnea - resident care supervisor Hx Hypertension No 02/25/24 14:56 Hx Sleep Apnea No 02/25/24 14:56 CPAP BIPAP Do you snore loudly (louder No 02/25/24 14:56 than talking or can be heard Do you often feel tired/ Yes 02/25/24 14:56 fatigued/ sleepy during daytime? Has anyone observed you stop No 02/25/24 14:56 breathing during sleep? STOP Results Negative 02/25/24 14:56 QUESTION #5 FULL TEXT : Do you snore loudly (louder than talking or can be heard through closed doors)? Tobacco Use History Tobacco Use History - resident care supervisor: Tobacco Use History - resident care supervisor Tobacco Use Smoking Status Current every day smoker 02/25/24 14:56 Hx Tobacco Use Yes: VAPES 02/25/24 14:56 Years Smoking Packs Smoked per Day Smoking Cessation Date was within the last 15 years Hx Smoking Cessation Date Hx Smoking Cessation Counseling Hematologic Medial History Hematologic Hx - resident care supervisor: Hematologic Medical Hx - field gauger Hx of Blood Transfusion No 02/25/24 14:56 Hx of Transfusion in last 3 No 02/25/24 14:56 Months Date of Last Transfusion (if within last 3 months) Ever experience any problems No 02/25/24 14:56 with transfusion(s)? Specify any problems Hx of Preganancy in last 3 No 02/25/24 14:56 Months Nurse Filling Out Transfusion DSCHRIBER 02/25/24 14:56 & Questions: Date: 02/25/24 02/25/24 14:56 Time: 14:57 02/25/24 14:56 Patient unable to answer at this time (ie. confused, unrespo /Reproduction History /Reproductive History - resident care supervisor: /Reproductive Hx- resident care supervisor Hx Now No 02/25/24 14:56 Gestational Age (in weeks): EDC: Hx Hx Para Hx Section SAB No 02/25/24 14:56 Active Medications Active Medications: Current Medications Generic Name Dose Route Start Last Admin Trade Name Freq PRN Reason Stop Dose Admin Cefazolin Sodium 2 gm/ N/A 20 mls @ 400 mls/hr 03/09/24 11:30 IV 03/09/24 11:32 PREOP ONE Lactated Ringer's 1,000 mls @ 15 mls/hr 03/09/24 10:15 IV 03/14/24 23:34 .Q48H [facility] Protocol PFSH Medical History Depression Fatty liver Back pain Gastric reflux Vapes nicotine containing substance History of edema Obesity (BMI 30-39.9) Anxiety Home Medications ?Medication ?Instructions ?Recorded ?Last Taken ?Type diazepam 5 mg tablet (Valium) 5 mg PO TID PRN muscle spasm 5 02/11/24 Unknown Rx days #15 tabs medroxyprogesterone 150 mg/mL 150 mg IM [id number] #1 mL 02/18/24 Unknown Rx intramuscular suspension (Depo-Provera) Allergy/AdvReac Type Severity Reaction Status Date / Time morphine Allergy Mild Rash Verified 02/25/24 14:54 Family History Father Diabetes Hypertension Surgical History Status post History of tonsillectomy Social History number of children: 2 current occupational status: employed current occupation: Works from home Smoking Status: Current every day smoker tobacco type: cigarettes Tobacco: How many years used: 6 alcohol intake: never substance use type: does not use seatbelt use: always do you feel safe at home: Yes additional social history: Dontrell- boyfriend Review of Systems (Anesthesia) ROS Narrative System reviewed and no additional complaints, except as documented.
[2024-03-09] MEDS: Lactated Ringers 1,000 ML 15 ML IV (10:24)
[2024-03-09 10:39] LABS: Internal QC Validated? YES +Cl - CLEAR BKGD
[2024-03-09 10:40] LABS: Pregnancy, Urine Negative Negative
--- NOTE | 2024-03-09 10:43 | HP.PCM_ITS ---
History and Physical Date of Admission: 03/09/24 Date of Service: 02/18/24 MR#: [id number] Acct: [id number] Name: REYNA RODRIGEZ Rep #: [id number] : 2000 Provider: Dr. Jyothi Enrique MD Age/Sex: 24/F Location: [facility] Status: Signed Intake Vital Signs 02/11/2414:01 02/17/2409:26 Height 5 ft 3 in 5 ft 3 in Weight: 236 lb BMI 41.8 BP 120/80 Blood Pressure Location Rt brachial Position Sitting Respiration 17 Pulse 88 Pulse Source Monitor Pulse Oximetry (%) 97 Oxygen Delivery Method room air Intake Visit Reasons: GALLBLADDER Chief Complaint: gallbladder Is patient in pain?: Yes Allergies morphine Allergy (Mild, Verified 02/18/24 10:48) Rash Medications ?Medication ?Instructions ?Recorded ?Confirmed ?Type diazepam 5 mg tablet (Valium) 5 mg PO TID PRN muscle spasm 5 02/11/24 02/18/24 Rx days #15 tabs medroxyprogesterone 150 mg/mL 150 mg IM [id number] #1 mL 02/18/24 02/18/24 Rx intramuscular suspension (Depo-Provera) omeprazole 40 mg capsule,delayed 40 mg PO QDAY #30 caps 02/18/24 02/18/24 Rx release PFSH Medical History Obesity (BMI 30-39.9) Anxiety Surgical History Status post History of tonsillectomy Family History Father Diabetes Hypertension Social History number of children: 2 current occupational status: employed current occupation: Works from home Smoking Status: Current every day smoker tobacco type: e-cigarettes Tobacco: How many years used: 6 alcohol intake: never substance use type: does not use seatbelt use: always do you feel safe at home: Yes additional social history: Dontrell- boyfriend HPI HPI HPI: 24-year-old female presents due to gallstones and abdominal pain. Patient states that she did go to the ER on 02/12/2024 as she woke up at 2 AM and her pain was worse, but around her lower ribs. Patient did have an ultrasound showed gallstones normal wall patient's labs were normal at this time as well including LFTs. Patient states she does get pain after eating greasy in the right upper quadrant. Also has some epigastric discomfort with acidic or tomato-based foods. Patient does have known ovarian cyst and is meeting with [employer]STATE AG[employer] to discuss imaging later today. ROS General General: Yes weight change and fatigue; No appetite, colon cancer, breast cancer or weakness HEENT HEENT: No difficulty swallowing, eye injury, eye surgery, swollen glands or hoarseness Endo Endocrine: No thyroid disease, diabetes mellitus, thyroid cancer, Hair loss, heat intolerance or cold intolerance Skin Skin: No rash or changing moles Musc Musculoskeletal: Yes back problems; No arthritis, rheumatoid arthritis, gout or joint pain Cardio Cardiovascular: No murmur, pacemaker, heart disease, atrial fibrillation, high blood pressure, heart attack, heart stent, palpitations, shortness of breat with exertion or chest pain Psych Psychiatric: Yes depression and anxiety; No hearing voices Resp Respiratory: No shortness of breath, No sleep apnea, No cough, No COPD, No asthma, No emphysema and No wheezing Gastro Gastrointestinal: Yes abdominal pain, Yes nausea or vomiting, Yes diarrhea, No constipation, No blood in stool, Yes acid reflux, No hemorrhoids, No ulcers, Yes gallbladder problem and No black,tarry stools [place] Hematologic: No blood thinners, No blood disorders, No bleeding, Yes anemia and No blood clots Neuro Neurologic: No system reviewed and no additional complaints, except as documented, No as per HPI, No abnormal gait, No abnormal hearing, No abnormal movements, No abnormal speech, No behavioral changes, No burning sensations, No confusion, No convulsions, No disequilibrium, No dizziness, No localized weakness, No frequent falls, No headache(s), No lack of coordination, No loss of vision, No memory loss, No numbness, No other visual disturbances, No radicular pain, No restless legs, No sensory deficit, No syncope, No tingling, No tremor(s), No weakness and No other Exam Const General: cooperative, healthy appearing, comfortable and no acute distress [facility] Head: normocephalic and atraumatic Neck Neck: supple Resp Effort & Inspection: normal respiratory effort Cardio Rate: regular rate GI Inspection: non-distended Palpation: soft and tender (Minimal left upper quadrant, mild tenderness bilateral lower quadrants) Skin General: no rashes or lesions noted Neuro General: CN's II-XI intact bilaterally Extrem General: normal to inspection Psych Mental Status: mental status grossly normal Attitude: cooperative Assessment and Plan Assessment and Plan (1) Cholelithiasis: Status: Acute (2) GERD (gastroesophageal reflux disease): Status: Acute Medications: New omeprazole swallow whole; do not crush, chew, dissolve, cut, break 40 mg PO QDAY 30 caps 1RF Plan Patient does states she has a history of reflux since she was about 12. Will have patient take omeprazole as I do think some of her episodes can be related to more gastric etiology likely acidic foods and tomato sauce. However the greasy food be more related to her gallbladder. Patient does have a family trip planned to [facility] mid February we will plan fo r surgery after that and advised patient to stay with many fatty or greasy foods. Reviewed the anatomy with the patient and discussed the procedure: laparoscopic cholecystectomy with possible cholangiograms, possible open. Review risks including but not limited to bleeding, infection, hernia, bile leak, retained gallstones requiring another procedure ERCP- Endoscopic Retrograde Cholangiopancreatography, injury to another organ (bile ducts, common bile duct, small bowel, etc.) may require transfer to a tertiary care facility and conversion to an open procedure. All questions were answered. Jyothi Enrique M.D. Pager: [phone] [facility] [address] [place] [address], [facility], [address] [place] [address] Office: [phone] Coding Level of Care Code Off vis,new,level 3 Diagnoses Cholelithiasis K80.20 GERD (gastroesophageal reflux disease) K21.9 02/19/24 1033 <Electronically signed by Jyothi Enrique MD> Date Jyothi Enrique MD
--- NOTE | 2024-03-09 11:30 | GALL_PTH ---
PATIENT: REYNA RODRIGEZ LOC: [facility] [place] U#:[id number] AGE/SX: 24/F ROOM: RE03/09/[address]: Dr. Jyothi Enrique MD : 2000 BED: DIS: 03/09/2024 SPEC #: [id number] RECD: 03/10/24 11:06 STATUS: SNEHAL REQ #: [id number] ERIK: 03/09/24 11:[address]: Jyothi Enrique DEPT: SURGICAL PATHOLOGY RECD BY: Kinza Mcnally ENTERED: 03/10/24 12:24 SP TYPE: MERARY OSBORNE DR: No Primary Care Phys Tissues: Gallbladder, NOS Procedures: Surgery Specimen Level III HEADER OPERATION: Laparoscopic, cholecystectomy with IOC PRE-OP DIAGNOSIS: TISSUE SUBMITTED: Gallbladder MICROSCOPIC DIAGNOSIS Gallbladder, cholecystectomy: Chronic cholecystitis and cholelithiasis. SJ 03/11/2024 MICROSCOPIC DESCRIPTION Slides are reviewed. GROSS DESCRIPTION Received is one container labeled with the patient's name and designated gallbladder. The specimen consists of a gallbladder measuring 8.0 cm in length and up to 2.5 cm in diameter. The external surface is pink-lord, smooth and glistening for the most part. Focally it is granular, hemorrhagic and contains cautery artifact. The gallbladder contains a small amount of thick green mucoid bile. Present in the gallbladder and also in the container are multiple mulberry greenish-yellow stones and stone fragments measuring in aggregate 4.5 x 3.5 x 0.5cm and 0.3 to 0.8cm in greatest dimension. The mucosa is bile-stained and without any mass lesions. The gallbladder wall measures up to 0.3 cm in thickness. Studio Manager sections from the gallbladder and the cystic duct are submitted in one cassette. / SJ: 03/10/2024 TC:3 CPT: 29659
[2024-03-09] MEDS: Cefazolin 2 GM in Syringe IV (11:34)
--- NOTE | 2024-03-09 12:45 | RAD_ITS ---
STUDY: INTRAOPERATIVE CHOLANGIOGRAM. REASON FOR EXAM: Female, 24 years old. Laparoscopic, cholecystectomy WITH IOC FLUOROSCOPY TIME (if supplied): ( 12 seconds ) minutes/seconds. 8.32 mGy. TECHNIQUE: An intraoperative cholangioma was performed by the surgeon. Imaging was submitted. COMPARISON: None. FINDINGS: Attempted cholangiogram. Non diagnostic study. RAD/Cholangiogram/ O R,Initial IMPRESSION: Non diagnostic study. Electronically Signed: Nirmal Otero MD at 12:30 EST ,
--- NOTE | 2024-03-09 14:23 | PCM.OPRPT ---
Operative Report (Standard) Operative Information Surgery/Procedure Performed: Laparoscopic cholecystectomy with attempted cholangiograms Surgeon: Jyothi Enrique Date of Procedure: 03/09/24 Procedure Start Time: 12:44 Procedure Stop Time: 14:34 Pre-Operative Diagnosis: Cholelithiasis, right upper quadrant pain Post-Operative Diagnosis: Same Select all DRAINS/GRAFTS/IMPLANTS that apply: None Type of Anesthesia: General/Supplemental Special Medications: Ancef 2 g IV x 1 Estimated Blood Loss: 10 cc Specimen collected: Yes Description of specimen(s) removed: Gallbladder and stones Description of surgery: Indications: this is a 24 year-old female who developed abdominal pain/nausea and on workup was found to have cholelithiasis, with a normal common bile duct and normal LFTs. Laparoscopic cholecystectomy was elected. Description procedure: The patient was placed on operating table in supine position. A timeout was completed verifying correct patient, procedure, site, position and special equipment prior to beginning procedure. General Anesthesia was induced. The abdomen was prepped and draped in usual sterile fashion. An incision was made in the natural skin line above the umbilicus. The fascia was elevated and incised. The peritoneum was elevated and incised. Entry into the peritoneum was confirmed visually and no bowel was noted in the vicinity of the incision. Carvalho trocar was placed. The abdomen was insufflated with carbon dioxide to a pressure of 12-15 mmHg. Patient tolerated insufflation well. The laparoscope was then inserted and abdomen inspected. No injuries from initial trocar placement were noted. Additional trochars were then inserted in the following locations 5 mm trocar in the epigastrium and 2 more 5 mm trochars along the right costal margin. The abdomen was inspected no abnormalities were found. The table is placed in reverse Trendelenburg position with the right side up. The dome of the gallbladder was grasped with atraumatic grasper passed through the lateral port and retracted over the dome of the liver. Infundibulum was then grasped with atraumatic grasper through the midclavicular port and retracted to the right lower quadrant. This maneuver exposed Calot's triangle. The peritoneum overlying the gallbladder infundibulum was then incised and cystic duct and artery identified and circumferentially dissected. Arechiga catheter was used attempted to be used for cholangiograms. Due to unseen stones deep in the neck of the gallbladder there was a hole in the neck during cholangiograms. The neck of the gallbladder was noted to be longer than expected or the cystic duct was larger due to stones, dissection was completed distal. There is noted to be some purulent material from the gallbladder as well as stones which were all removed using endoscopic retrieval bag. The cystic duct and artery were then doubly clipped and divided close to the gallbladder. The gallbladder then dissected from its peritoneal attachments by electrocautery. Hemostasis was checked and the gallbladder and contained stones were removed using the endoscopic retrieval bag through the umbilical port. The gallbladder is passed off table as specimen. The gallbladder fossa was irrigated with saline and hemostasis obtained. There is no evidence of bleeding from the gallbladder fossa or cystic artery leakage of bile from the cystic duct stump. Secondary trochars removed under direct vision. No bleeding was noted the trocar sites. The laparoscope was withdrawn and umbilical trocar removed. The abdomen was allowed to collapse. The fascia of the 12 mm trocar was closed with a [id number] 0 Vicryl suture. The skin was closed with sutures of 4-0 Monocryl and Steri-Strips. The patient was extubated. The patient tolerated procedure well and was taken to the postanesthesia care unit in stable condition. Surgical Findings: Long neck of the gallbladder or larger cystic duct with purulent appearing fluid in the gallbladder. Stock Receiver roofing subcontractor: Yes Plastic Surgery Coordinator: Jack Paniagua Tasks completed by special education teaching assistant: Opening & closing and Retracting Complications Complications: No
--- NOTE | 2024-03-09 14:24 | DCINST_ITS ---
Discharge Instructions Diet Discharge Diet: Light diet - advance as tolerated Activity Discharge Activity: May Not Drive (while taking narcotic pain medications.) May shower in (days): 1 Lifting Restrictions: no lifting >20 lbs x 2 wks, no strenuous exercise for 4 wks Dressing / Incision Call your doctor if your incision/area has: Continuous Slow Oozing, Sudden Increased Bleeding, Increased Pain/ Swelling, Increased Redness, Foul Smelling Discharge and Swelling at the incision site Call your doctor if you observe: Fever of 101 or Higher Remove Dressing in: 2 days Cleanse incision/area with: Soap & Water Additional Dressing/Incision Instructions:: Steri-Strips will fall off in 7 to 10 days, if they do not fall off okay to remove after 10 days. Follow Up Care Please Follow Up With: Jyothi Enrique MD When: Call the office for a follow-up appointment 2 weeks; after 5 PM and on the weekends call [phone] with any concerns. Test Results: Test results from this visit will be discussed in further detail at your follow- up appointment, if applicable. Discharge Plan Admission Attending Provider: Jyothi Enrique Primary Care Provider: Care PhysicianNemo Primary Instructions Print Language: Serbian Discharge Orders/Prescriptions Prescriptions: New oxycodone 5 mg capsule 5 mg PO Q6H PRN (Reason: pain) 3 Days Qty: 10 0RF Continued medroxyprogesterone [Depo-Provera] 150 mg/mL suspension 150 mg IM [id number] Qty: 1 3RF diazepam [Valium] 5 mg tablet 5 mg PO TID PRN (Reason: muscle spasm) 5 Days Qty: 15 0RF Referrals / Follow Up: Care PhysicianNemo Primary [Primary Care Provider] - Disposition Disposition (needs filled in before D/C Order can be placed): Home, Self Care
[2024-03-09] MEDS: Bupivacaine Mpf 0.5% 30 ML VIAL (14:30)
--- NOTE | 2024-03-09 14:49 | PCM.POST.ANE ---
Anesthesia: Postop Eval I Current Vital Signs Temperature: 98.5 F Pulse Rate: 96 Blood Pressure: 117/52 Respiratory Rate: 14 Pulse Ox: 98 Oxygen Delivery Method: Room Air Assessment Airway patent: Yes Spontaneous unlabored respirations: Yes Mental status: Awake nausea: No Vomiting: No Anesthesia Complication: No Fluid Hydration Crystalloid volume administer (ml): 600 Total IV fluid infused: 600 Progress Note Anesthesia document: Postop Eval 1 completed: Yes
--- NOTE | 2024-03-10 07:23 | PCM.POSTANE2 ---
Anesthesia Postop Eval I Sum Postop Eval Completion status Anesthesia document: Postop Eval 1 completed: Yes Anesthesia Postop Eval I Summary Anesthesia Postop Eval I Summary: Anesthesia Postop Eval I: Assessment Summary Airway patent Yes 03/09/24 14:50 [email or web address] Spontaneous unlabored Yes 03/09/24 14:50 [email or web address] respirations Mental status Awake 03/09/24 14:50 [email or web address] nausea No 03/09/24 14:50 [email or web address] Vomiting No 03/09/24 14:50 [email or web address] Anesthesia Postop Eval I: Fluid Summary Crystalloid volume administer 600 03/09/24 14:50 [email or web address] (ml) Colloids volume administered ( ml) Blood Product volume administered (ml) Total IV fluid infused 600 03/09/24 14:50 [email or web address] Anesthesia Postop Eval I: Summary Notes Anesthesia Complication No 03/09/24 14:50 [email or web address] Anesthesia Complication Comment: Post-operative progress note Anesthesia: Postop Eval II Evaluation Mental status: Awake Pain Level: 0 nausea: No Vomiting: No
== END 2024-03-09 16:45 | disposition home or self-care (01) ==
LOC: SDC 09:35 → AC 10:16
PROVIDERS: Anesthesiology; Referring Provider Surgery; Visit Provider Surgery
PROC: (CPT 47610; principal; 2024-03-09 11:10)
DX: K80.10 Calculus of gallbladder with chronic cholecystitis without obstruction (principal); K21.9 Gastro-esophageal reflux disease without esophagitis; F17.290 Nicotine dependence, other tobacco product, uncomplicated
CPT/HCPCS: 47563; 00790; 74300; 76000; 81025; 88304; 93005; J7120; J2405

== ENCOUNTER 2024-03-11 22:38 | Emergency (ER) | payer MEDICAID, SELFPAY ==
[2024-03-11 22:40] VITALS: BP 148/86; PULSE 67; RESP 18; TEMP 36.8; O2SAT 100; BMI 39.9
[2024-03-11] MEDS: 0.9% Normal Saline (1000mL) 1,000 ML 999 ML IV (23:35)
[2024-03-11] MEDS: HYDROmorphone 0.5 MG/0.5 ML SYRINGE IV (23:35)
[2024-03-11] MEDS: Ondansetron 4 MG/2 ML Vial IV (23:35)
[2024-03-11 23:48] LABS: Absolute Lymphocyte Count 3.01 X10^3/uL (0.83-4.51); Absolute Neutrophil Count 5.8 X10^3/uL (2.0-7.7); Basophil# 0.04 X10^3/uL; Basophil% 0.4 % (0-1); Eosinophil# 0.07 X10^3/uL; Eosinophils% 0.7 % (0-5); Hematocrit 42.2 % (37-47); Hemoglobin 14.2 g/dL (12.0-15.0); Lymphocyte # 3.01 X10^3/ul (0.83-4.51); Lymphocyte % 32.1 % (19-41); Mean Corp Hgb Conc 33.6 g/dL (32-36); Mean Corpuscular Hgb 29.2 pg (27.0-32.0); Mean Corpuscular Volume 86.7 fL (81-99); Mean Platelet Vol. 9.3 fl (6.2-12.0); Monocyte# 0.44 X10^3/uL; Monocyte% 4.7 % (0-10); NRBC Flagged by Analyzer 0.2 % (0-5); Neutrophil # 5.81 X10^3/uL (2.7-7.7); Neutrophil % 61.9 % (47-70); Platelet Count 231 K/mm3 (150-450); RBC Distribution Width SD 38.4 fl (35.1-43.9); Red Blood Count 4.87 M/mm3 (4.2-5.4); White Blood Count 9.4 K/mm3 (4.4-11.0)
--- NOTE | 2024-03-11 23:50 | RAD_ITS ---
EXAM: XR ABDOMEN, 2 VIEWS AND XR CHEST, 1 VIEW CLINICAL INDICATION: pain TECHNIQUE: Frontal view of the chest, frontal view of the abdomen/pelvis and upright or decubitus view of the abdomen. COMPARISON: Chest x-ray 02/11/2024. FINDINGS: CHEST: LUNGS AND PLEURAL SPACES: Unremarkable. No consolidation or edema. No pneumothorax. No effusion. HEART: Unremarkable. Cardiac silhouette not enlarged. MEDIASTINUM: Central airways and mediastinal contour are unremarkable. ABDOMEN: INTRAPERITONEAL SPACE: No free air. GASTROINTESTINAL TRACT: Unremarkable. Non-obstructive. No bowel or stomach distention. ORGANS: Unremarkable as visualized. No organomegaly. No abnormal calcifications. TUBES, LINES AND DEVICES: None. BONES/JOINTS: No acute findings. SOFT TISSUES: No acute findings. RAD/Acute Abdomen Inc Chest IMPRESSION: Negative chest and abdominal series. Electronically Signed: Pop Eden MD at 1:02 EST ,
[2024-03-12 00:07] LABS: AST(SGOT) 67 U/L (15-37); Alanine Aminotransfer ALT/SGPT 59 U/L (13-56); Albumin, Serum 3.5 g/dL (3.2-5.0); Alkaline Phosphatase 75 U/L (45-117); Anion Gap 7 (5-15); BUN 9 mg/dL (7-18); BUN/Creat Ratio 11.5 RATIO (10-20); Bilirubin, Direct 0.15 mg/dL (0.00-0.30); Calcium,Total 8.7 mg/dL (8.5-10.1); Chloride 108 mmol/L (98-107); Creatinine, Serum 0.78 mg/dL (0.55-1.02); EST Glomerular Filtration Rate 95 mL/min (>60); Est Glom Filt Rate - Afr Amer 115 mL/min (>60); Estimated Creatinine Clearance 129.38 ml/min; Globulin 3.4 g/dL (2.2-4.2); Glucose 112 mg/dL (74-106); Lipase 32 U/L (13-75); Potassium 3.5 mmol/L (3.5-5.1); Protein, Total 6.9 g/dL (6.4-8.2); Sodium Level 139 mmol/L (136-145)
[2024-03-12 00:40] VITALS: RESP 18
--- NOTE | 2024-03-12 01:13 | EDS_ITS ---
HPI History of Present Illness Chief Complaint: Abd Pain Informant: patient and spouse/S.O. Narrative Narrative: Patient is a 24-year-old female with past medical history of anxiety and depression and recent cholecystectomy. She states that procedure was done lap aroscopically just 3 days ago. She reports that she had a procedure recovered in PACU and was discharged home. She reports that she has been taking her prescribed medication and doing well. This evening she felt like she had to have a bowel movement and then developed upper abdominal discomfort. She states she took one of her pain pills without much improvement and with concern for a postoperative complication comes in for evaluation [facility] Medical History Depression Fatty liver Back pain Gastric reflux Vapes nicotine containing substance History of edema Obesity (BMI 30-39.9) Anxiety Home Medications ?Medication ?Instructions ?Recorded ?Last Taken ?Type diazepam 5 mg tablet (Valium) 5 mg PO TID PRN muscle spasm 5 02/11/24 Unknown Rx days #15 tabs medroxyprogesterone 150 mg/mL 150 mg IM [id number] #1 mL 02/18/24 Unknown Rx intramuscular suspension (Depo-Provera) oxycodone 5 mg capsule 5 mg PO Q6H PRN pain 3 days #10 03/09/24 Unknown Rx caps ondansetron 4 mg disintegrating 4 mg PO TID PRN nausea and 03/12/24 Unknown Rx tablet vomiting #21 tabs oxycodone-acetaminophen 5 mg-325 1 tab PO Q6H PRN pain 3 days #12 03/12/24 Unknown Rx mg tablet (Percocet) tabs Allergy/AdvReac Type Severity Reaction Status Date / Time morphine Allergy Mild Rash Verified 03/11/24 22:42 Family History Father Diabetes Hypertension Surgical History Status post History of tonsillectomy Social History number of children: 2 current occupational status: employed current occupation: Works from home Smoking Status: Current every day smoker tobacco type: cigarettes Tobacco: How many years used: 6 alcohol intake: never substance use type: does not use seatbelt use: always do you feel safe at home: Yes additional social history: Dontrell- boyfriend ROS ROS ED Constitutional Constitutional ED: Denies chills or fever(s) ENT ENT ED: Denies sore throat Cardiovascular Cardiovascular: Denies chest pain Respiratory/Chest Respiratory/Chest: Denies cough or dyspnea Gastrointestinal Gastrointestinal: Reports abdominal pain and nausea; Denies diarrhea or vomiting Genitourinary Genitourinary ED: Denies dysuria, hematuria or urinary frequency Musculoskeletal Musculoskeletal: Denies myalgias Integumentary Denies rash Neurologic Neurologic: Denies headache(s) Psychiatric Psychiatric: Reports anxiety and depression Hematologic/Lymphatic Hematologic/Lymphatic: Denies easy bleeding or easy bruising EXAM Physical Exam Const Vital Signs: 03/11/24 22:40 03/12/24 00:40 03/12/24 01:22 Temperature 98.3 F 97.5 F L Temperature Source Temporal Pulse Rate 67 62 Respiratory Rate 18 18 16 Blood Pressure 148/86 H 148/86 H Blood Pressure Mean 106 106 Pulse Ox 100 100 Oxygen Delivery Method Room Air Positive well nourished and well developed General Appearance ED: well developed HEENT HEENT Narrative: Normocephalic atraumatic Eyes PERRL and EOMs intact bilaterally General Eye ED: Negative for scleral icterus Neck supple Resp normal respiratory effort and clear to auscultation bilaterally Cardio regular rate and regular rhythm Rate: other Other Details: Radial and carotid pulses are equal and symmetric GI non-distended and no masses GI Narrative: Abdomen is soft and nondistended with hypoactive bowel sounds. There is mild pain with palpation diffusely in the upper abdomen. No voluntary guarding or rigidity or pulsatile mass. Patient has postoperative wounds that are clean dry and intact without secondary changes to suggest infection. Auscultation: hypoactive bowel sounds Palpation: soft Extremity normal to inspection Extremity Narrative: No asymmetric edema no pitting edema negative Homans' sign bilaterally Neuro oriented x3, CN's II-XII intact bilaterally and no sensory deficits noted Sensorium / Orientation: alert Motor Exam: strength 5/5 throughout Psych mental status grossly normal Skin Skin Narrative: Postoperative wounds to the abdomen that are clean dry and intact without secondary findings to suggest infection General Skin Exam: Negative for jaundice MDM MDM MDM Narrative Medical decision making narrative: Patient arrived to ER mildly hypertensive but otherwise with stable vitals. With her history of recent surgery and generalized upper abdominal pain there is concern for a postoperative ileus versus small bowel obstruction versus postoperative pancreatitis versus potential intestinal perforation or secondary infection. Therefore basic labs were obtained as well as an acute abdominal x- ray. Labs revealed no leukocytosis or left shift. She had no signs of acute kidney injury or clinically significant electrolyte abnormality. Lipase was normal going against postoperative pancreatitis. Acute abdominal x-ray revealed no signs of free air going against perforation and no signs of obstruction or ileus. On reevaluation she is resting comfortably and she has had improvement of her pain with the provided medication. Therefore at this time with overall negative workup and improvement of symptoms I do not feel there is need for further intervention or testing and she is otherwise safe for discharge and can follow-up with her surgeon as an outpatient History & Record Review Discussion w/independent historian: Patient and Significant other Lab Data Attestation: I reviewed the patient's lab results. Labs: Laboratory Results - last 24 hr 03/11/24 23:40 WBC 9.4 RBC 4.87 Hgb 14.2 Hct 42.2 MCV 86.7 MCH 29.2 MCHC 33.6 RDW Std Deviation 38.4 RDW Coeff of Tenisha 12.0 Plt Count 231 MPV 9.3 Immature Gran % (Auto) 0.200 Neut % (Auto) 61.9 Lymph % (Auto) 32.1 [place] % (Auto) 4.7 Eos % (Auto) 0.7 Baso % (Auto) 0.4 Absolute Neuts (auto) 5.8 Absolute Lymphs (auto) 3.01 Nucleated RBC % 0.2 Sodium 139 Potassium 3.5 Chloride 108 H Carbon Dioxide 24.0 Anion Gap 7 BUN 9 Creatinine 0.78 Estim Creat Clear Calc 129.38 Est GFR (MDRD) Af Amer 115 Est GFR (MDRD) Non-Af 95 BUN/Creatinine Ratio 11.5 Glucose 112 H Calcium 8.7 Total Bilirubin 0.30 Direct Bilirubin 0.15 AST 67 H ALT 59 H Alkaline Phosphatase 75 Total Protein 6.9 Albumin 3.5 Globulin 3.4 Lipase 32 Radiography Diagnostic Testing: Clinical Impression(s) from Imaging Studies Acute Abdomen Series 03/11/24 23:50 IMPRESSION: Negative chest and abdominal series. Electronically Signed: Pop Eden MD at 1:02 EST , Acute abdominal series with 1 view chest as interpreted by the emergency medicine physician reveals nonspecific nonobstructive bowel gas pattern without perforation or obstruction and chest x-ray component reveals no acute infiltrate or pneumothorax Discharge Plan Triage Chief Complaint: Abd Pain ED Provider: Pramod Cast Dx/Rx/DC Orders Clinical Impression: Acute postoperative abdominal pain, GERD (gastroesophageal reflux disease), Anxiety and depression Instructions: After Gallbladder Surgery, Pain Management After Surgery Prescriptions: New oxycodone-acetaminophen [Percocet] 5-325 mg tablet 1 tab PO Q6H PRN (Reason: pain) 3 Days Qty: 12 0RF ondansetron 4 mg tablet,disintegrating 4 mg PO TID PRN (Reason: nausea and vomiting) Qty: 21 0RF No Action medroxyprogesterone [Depo-Provera] 150 mg/mL suspension 150 mg IM [id number] Qty: 1 3RF diazepam [Valium] 5 mg tablet 5 mg PO TID PRN (Reason: muscle spasm) 5 Days Qty: 15 0RF oxycodone 5 mg capsule 5 mg PO Q6H PRN (Reason: pain) 3 Days Qty: 10 0RF Primary Care Provider: Care Physician,No Primary Referrals: Jyothi Enrique MD [Med Staff - Active Staff] - Care Physician,No Primary [Primary Care Provider] - Activity Restrictions/Additional Instructions: Please follow-up with your surgeon as previously directed and return to the ER should you have any further concerns Print Language: [place] Disposition Disposition: Home, Self Care Discharge Date/Time: 03/12/24 01:25
[2024-03-12 01:22] VITALS: BP 148/86; PULSE 62; RESP 16; TEMP 36.4; O2SAT 100
== END 2024-03-12 01:25 | disposition home or self-care (01) ==
PROVIDERS: Emergency Provider Emergency Medicine; Visit Provider Emergency Medicine
DX: G89.18 Other acute postprocedural pain (principal); F32.A Depression, unspecified; F17.210 Nicotine dependence, cigarettes, uncomplicated; F41.9 Anxiety disorder, unspecified; K21.9 Gastro-esophageal reflux disease without esophagitis
CPT/HCPCS: 74022; 80048; 80076; 83690; 85025; 96361; 96374; 96375; 99283; J7030; A4216; J2405

== ENCOUNTER 2024-03-15 02:43 | Inpatient (IN) | payer MEDICAID, SELFPAY ==
[2024-03-15] VITALS (8 sets, daily range): BP systolic 110–133; BP diastolic 64–90; PULSE 65–90; RESP 16–19; TEMP 36.6–37.1; O2SAT 97–100; BMI 39.5; BMI 38.7
--- NOTE | 2024-03-15 03:02 | EX.ED.DYSGE1 ---
HPI <Dr. Parth Coffman MD - Last Filed: 03/15/24 12:38> History of Present Illness Chief Complaint: General Illness Detail of Chief Complaint: Itching I think my skin and eyes are yellow Informant: patient Onset/Context/Timing Onset: Today Context: Sudden Onset Timing: Continuous Quality: Itching and yellow skin and eyes Location: Generalized/hepatic Current Severity: Mild Maximum Severity: Mild Worsened by: Nothing Relieved by: Nothing Associated Symptoms Associated Symptoms: Minimal abdominal discomfort also complains of dark urine Narrative Narrative: Patient is a 24-year-old woman who underwent laparoscopic cholecystectomy by Dr. Ziegler on March 09. Significant surgical findings was purulent drainage from the gallbladder. There were multiple stones. This was presumed to be the cause of her right upper quadrant abdominal pain. Patient denies fever, chills night sweats. She denies any significant abdominal pain. She states she is on pain medicine and that alleviates her pain. She presents because of dark-colored urine, yellow skin and eyes and itching all over she has no other complaints. Prior similar symptoms: No Recent Illness/Hospitalization: Yes PFSH <Dr. Parth Coffman MD - Last Filed: 03/15/24 12:38> [facility] Medical History Depression Fatty liver Back pain Gastric reflux Vapes nicotine containing substance History of edema Obesity (BMI 30-39.9) Anxiety Home Medications ?Medication ?Instructions ?Recorded ?Last Taken ?Type medroxyprogesterone 150 mg/mL 150 mg IM [id number] #1 mL 02/18/24 Unknown Rx intramuscular suspension (Depo-Provera) ondansetron 4 mg disintegrating 4 mg PO TID PRN nausea and 03/12/24 Unknown Rx tablet vomiting #21 tabs oxycodone-acetaminophen 5 mg-325 1 tab PO Q6H PRN pain 3 days #12 03/12/24 Unknown Rx mg tablet (Percocet) tabs Allergy/AdvReac Type Severity Reaction Status Date / Time morphine Allergy Mild Rash Verified 03/15/24 02:45 Family History Father Diabetes Hypertension Surgical History Status post History of tonsillectomy Social History number of children: 2 current occupational status: employed current occupation: Works from home Smoking Status: Current every day smoker tobacco type: cigarettes Tobacco: How many years used: 6 alcohol intake: never substance use type: does not use seatbelt use: always do you feel safe at home: Yes additional social history: Dontrell- boyfriend ROS <Dr. Parth Coffman MD - Last Filed: 03/15/24 12:38> ROS ED Constitutional Constitutional ED: Denies chills, fever(s), subjective or sweats Eyes Eyes: Denies blurry vision or change in vision ENT ENT ED: Denies ear pain, rhinorrhea or sore throat Cardiovascular Cardiovascular: Denies chest pain or palpitations Respiratory/Chest Respiratory/Chest: Denies cough, dyspnea or dyspnea on exertion Gastrointestinal Gastrointestinal: Reports abdominal pain; Denies nausea or vomiting Genitourinary Genitourinary ED: Denies dysuria, hematuria or urinary frequency Musculoskeletal Musculoskeletal: Denies arthralgias or myalgias Integumentary Reports other Details: Generalized itching ; Denies rash Neurologic Neurologic: Denies headache(s) or paresthesias Hematologic/Lymphatic Hematologic/Lymphatic: Reports systems reviewed and no addt'l complaints, except as documented EXAM <Dr. Parth Coffman MD - Last Filed: 03/15/24 12:38> Physical Exam Const Vital Signs: 03/15/24 02:45 03/15/24 04:45 03/15/24 06:00 Temperature 98.7 F Temperature Source Oral Pulse Rate 90 78 79 Respiratory Rate 18 19 H 18 Blood Pressure 130/81 H 133/84 H 124/90 H Blood Pressure Mean 97 100 101 Pulse Ox 97 98 Oxygen Delivery Method Room Air Room Air 03/15/24 08:00 Temperature Temperature Source Pulse Rate 69 Respiratory Rate 16 Blood Pressure 124/90 H Blood Pressure Mean 101 Pulse Ox 99 Oxygen Delivery Method Positive well nourished and well developed General Appearance ED: well developed and NAD; Negative for cyanotic, diaphoretic or pallor HEENT Reports moist mucous membranes HEENT Narrative: Has atraumatic normocephalic. Ears normal. Eyes PERRL and EOMs intact bilaterally General Eye ED: Yes scleral icterus; Negative for pale conjunctiva Neck no lymphadenopathy, supple and no JVD Resp normal respiratory effort and clear to auscultation bilaterally Cardio regular rate, regular rhythm, S1 normal heart sound, S2 normal heart sound and no murmurs GI normal to inspection, nondistended, normoactive bowel sounds and non-distended; Negative for non-tender, hepatosplenomegaly or no masses GI Narrative: Tenderness along the port sites. There is no erythema, warmth, induration or drainage from the port sites. There is no guarding or peritoneal findings. Bowel sounds are diminished. Palpation: soft Back/Spine no CVA tenderness Neuro oriented x3 and CN's II-XII intact bilaterally Sensorium / Orientation: alert Psych mental status grossly normal Skin no rashes or lesions noted and no wounds General Skin Exam: jaundice; Negative for pallor <Dr. Gretchen Delcid DO - Last Filed: 03/15/24 09:13> Physical Exam Const Vital Signs: 03/15/24 02:45 03/15/24 04:45 03/15/24 06:00 Temperature 98.7 F Temperature Source Oral Pulse Rate 90 78 79 Respiratory Rate 18 19 H 18 Blood Pressure 130/81 H 133/84 H 124/90 H Blood Pressure Mean 97 100 101 Pulse Ox 97 98 Oxygen Delivery Method Room Air Room Air 03/15/24 08:00 Temperature Temperature Source Pulse Rate 69 Respiratory Rate 16 Blood Pressure 124/90 H Blood Pressure Mean 101 Pulse Ox 99 Oxygen Delivery Method MDM <Dr. Parth Coffman MD - Last Filed: 03/15/24 12:38> [facility] Narrative Medical decision making narrative: Patient with jaundice. Need to be concerned of possible obstruction. Will obtain appropriate blood work once that is back we will contact Dr. Santiago who is on for surgery. We discussed with what imaging he may want since ultrasound is not available at this time History & Record Review Additional record(s) reviewed:: Prior outpatient record (Dr. Ziegler's surgical note) and Prior labs Lab Data Attestation: I reviewed the patient's lab results. Lab results narrative: CBC is unremarkable. Electrolyte panel is unremarkable. Liver enzymes reveal a total bili of 3.1 with a direct bili of 2.52. AST and ALT are 104 and 485 respectively. All of these are elevated compared to her preoperative labs. Alkaline phosphatase is elevated to 26. This was not elevated on prior lab. Her AST is doubled and her ALT has increased approximately 8 fold. Labs: Laboratory Results - last 24 hr 03/15/24 03:00 WBC 6.3 RBC 4.95 Hgb 14.5 Hct 42.6 MCV 86.1 MCH 29.3 MCHC 34.0 RDW Std Deviation 39.1 RDW Coeff of Tenisha 12.5 Plt Count 251 MPV 9.5 Immature Gran % (Auto) 0.200 Neut % (Auto) 48.1 Lymph % (Auto) 38.7 [place] % (Auto) 9.7 Eos % (Auto) 2.5 Baso % (Auto) 0.8 Absolute Neuts (auto) 3.0 Absolute Lymphs (auto) 2.44 Nucleated RBC % 0 Sodium 137 Potassium 3.5 Chloride 105 Carbon Dioxide 24.0 Anion Gap 7 BUN 5 L Creatinine 0.87 Estim Creat Clear Calc 115.43 Est GFR (MDRD) Af Amer 101 Est GFR (MDRD) Non-Af 84 BUN/Creatinine Ratio 5.7 L Glucose 126 H Calcium 9.3 Total Bilirubin 3.10 H Direct Bilirubin 2.52 H AST 104 H ALT 485 H Alkaline Phosphatase 226 H Total Protein 7.7 Albumin 3.7 Globulin 4.0 Lipase 27 Radiography Diagnostic Testing: Clinical Impression(s) from Imaging Studies Gallbladder Ultrasound 03/15/24 05:17 IMPRESSION: 1. Mild intra and extrahepatic biliary dilatation. This may be chronic post cholecystectomy. Correlate with laboratory values. Consider MR cholangiograms clinically indicated. 2. Fatty liver. 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 Santiago who is on-call. Will wait till morning when medical chief technician comes in to have ultrasound performed since patient is not tachycardic, febrile and white count is normal. When patient was informed of plan she states she has had some intermittent cramping mid right-sided back pain. At 0555 I was informed by nurse that she is requesting pain medicine. Because of her allergy to morphine Dilaudid was ordered. She had Dilaudid during her hospitalization. She also was given Zofran. <Dr. Gretchen Delcid, DO - Last Filed: 03/15/24 09:13> [facility] Narrative Medical decision making narrative: Patient with jaundice. Need to be concerned of possible obstruction. Will obtain appropriate blood work once that is back we will contact Dr. Santiago who is on for surgery. We discussed with what imaging he may want since ultrasound is not available at this time Bhavin: Patient signed out to me pending ultrasound results. Ultrasound is concerning for choledocholithiasis with mild intra and extrahepatic biliary dilation. Case discussed with general surgery, Dr. Santiago. He spoke with Dr. Kunz and patient will be admitted for ERCP for concern of choledocholithiasis. Patient started on Zosyn and kept n.p.o. in anticipation of ERCP later today. Put on maintenance fluid. Patient agreeable plan of care. Patient remains hemodynamically stable at this time. Lab Data Labs: Laboratory Results - last 24 hr 03/15/24 03:00 WBC 6.3 RBC 4.95 Hgb 14.5 Hct 42.6 MCV 86.1 MCH 29.3 MCHC 34.0 RDW Std Deviation 39.1 RDW Coeff of Tenisha 12.5 Plt Count 251 MPV 9.5 Immature Gran % (Auto) 0.200 Neut % (Auto) 48.1 Lymph % (Auto) 38.7 [place] % (Auto) 9.7 Eos % (Auto) 2.5 Baso % (Auto) 0.8 Absolute Neuts (auto) 3.0 Absolute Lymphs (auto) 2.44 Nucleated RBC % 0 Sodium 137 Potassium 3.5 Chloride 105 Carbon Dioxide 24.0 Anion Gap 7 BUN 5 L Creatinine 0.87 Estim Creat Clear Calc 115.43 Est GFR (MDRD) Af Amer 101 Est GFR (MDRD) Non-Af 84 BUN/Creatinine Ratio 5.7 L Glucose 126 H Calcium 9.3 Total Bilirubin 3.10 H Direct Bilirubin 2.52 H AST 104 H ALT 485 H Alkaline Phosphatase 226 H Total Protein 7.7 Albumin 3.7 Globulin 4.0 Lipase 27 Radiography Diagnostic Testing: Clinical Impression(s) from Imaging Studies Gallbladder Ultrasound 03/15/24 05:17 IMPRESSION: 1. Mild intra and extrahepatic biliary dilatation. This may be chronic post cholecystectomy. Correlate with laboratory values. Consider MR cholangiograms clinically indicated. 2. Fatty liver. Electronically Signed: Pop Eden MD at 7:33 EST , <Dr. Parth Coffman MD - Last Filed: 03/15/24 12:38> Critical Care Time Critical Care Time: Yes Critical care time (excluding procedures): 30-74 minutes (32), Including time spent: (History, physical, documentation, review of prior records, treatment for hypotension due to infection) and Discussing w/Patient &/or Family/Dot Etcher Discharge Plan Dx/Rx/DC Orders Clinical Impression: Choledocholithiasis with obstruction, Jaundice Disposition Disposition: Acute Care Hospital [facility] Discharge Date/Time: 03/15/24 09:49
[2024-03-15 03:09] LABS: Absolute Lymphocyte Count 2.44 X10^3/uL (0.83-4.51); Basophil# 0.05 X10^3/uL; Basophil% 0.8 % (0-1); Eosinophil# 0.16 X10^3/uL; Eosinophils% 2.5 % (0-5); Hematocrit 42.6 % (37-47); Hemoglobin 14.5 g/dL (12.0-15.0); Lymphocyte # 2.44 X10^3/ul (0.83-4.51); Lymphocyte % 38.7 % (19-41); Mean Corpuscular Hgb 29.3 pg (27.0-32.0); Mean Corpuscular Volume 86.1 fL (81-99); Mean Platelet Vol. 9.5 fl (6.2-12.0); Monocyte# 0.61 X10^3/uL; Monocyte% 9.7 % (0-10); NRBC Flagged by Analyzer 0 % (0-5); Neutrophil # 3.04 X10^3/uL (2.7-7.7); Neutrophil % 48.1 % (47-70); Platelet Count 251 K/mm3 (150-450); RBC Distribution Width CV 12.5 % (11.6-14.6); RBC Distribution Width SD 39.1 fl (35.1-43.9); Red Blood Count 4.95 M/mm3 (4.2-5.4); White Blood Count 6.3 K/mm3 (4.4-11.0)
[2024-03-15 03:26] LABS: AST(SGOT) 104 U/L (15-37); Alanine Aminotransfer ALT/SGPT 485 U/L (13-56); Albumin, Serum 3.7 g/dL (3.2-5.0); Alkaline Phosphatase 226 U/L (45-117); Anion Gap 7 (5-15); BUN 5 mg/dL (7-18); BUN/Creat Ratio 5.7 RATIO (10-20); Bilirubin, Direct 2.52 mg/dL (0.00-0.30); Calcium,Total 9.3 mg/dL (8.5-10.1); Chloride 105 mmol/L (98-107); Creatinine, Serum 0.87 mg/dL (0.55-1.02); EST Glomerular Filtration Rate 84 mL/min (>60); Est Glom Filt Rate - Afr Amer 101 mL/min (>60); Estimated Creatinine Clearance 115.43 ml/min; Glucose 126 mg/dL (74-106); Lipase 27 U/L (13-75); Potassium 3.5 mmol/L (3.5-5.1); Protein, Total 7.7 g/dL (6.4-8.2); Sodium Level 137 mmol/L (136-145)
--- NOTE | 2024-03-15 05:17 | US_ITS ---
EXAM: US ABDOMEN LIMITED, RIGHT UPPER QUADRANT CLINICAL INDICATION: Jaundice s/p cholecystectomy, eval retained stone TECHNIQUE: Real-time ultrasound of the right upper quadrant with image documentation. COMPARISON: No relevant prior studies available. FINDINGS: LIVER: Increased echogenicity of the liver. GALLBLADDER: Cholecystectomy. COMMON BILE DUCT: Common bile duct measures 8 mm. Mild intrahepatic biliary dilatation. No ductal stone identified. PANCREAS: Unremarkable as visualized. No focal abnormality is demonstrated in the pancreas. No pancreatic ductal dilatation. RIGHT KIDNEY: Unremarkable. There is no hydronephrosis. No shadowing calculus. No focal lesion or perinephric collection is demonstrated. US/Gallbladder IMPRESSION: 1. Mild intra and extrahepatic biliary dilatation. This may be chronic post cholecystectomy. Correlate with laboratory values. Consider MR cholangiograms clinically indicated. 2. Fatty liver. Electronically Signed: Pop Eden MD at 7:33 EST ,
[2024-03-15] MEDS: HYDROmorphone 0.5 MG/0.5 ML SYRINGE IV (06:47)
[2024-03-15] MEDS: Ondansetron 4 MG/2 ML Vial IV (06:47)
--- NOTE | 2024-03-15 08:55 | PCM.HP.STD ---
HPI - General General Date of Admission: 03/15/24 Chief Complaint: Itchiness and yellowing of the skin HPI Narrative REYNA RODRIGEZ, is a 24 F, who presents to [facility] with complaints of persistent diffuse itchiness and new observation of yellowing of her skin. I actually spoke with patient last evening when she called into the hospital pulping machine operator questioning whether she could safely begin use of a stool softener for some postoperative constipation. During the course of the conversation she related that she had experienced some darkening of her urine and they had asked her about any itchiness. When she answered in the affirmative I suggested we work to resolve her constipation but also informed her to be on the look out for any signs of jaundice. When she noted this at approximately 230 this morning she decided to present for further evaluation. Patient's emergency room workup initially included CBC and CMP?the latter showing evidence of transaminitis and a cholestatic pattern with hyperbilirubinemia. Right upper quadrant ultrasound was obtained later this morning which showed dilation of the common bile duct but no discrete evidence of a obstructing stone. Patient is postoperative day 6 from a laparoscopic cholecystectomy with aborted cholangiogram reviewed by Dr. Enrique. She had 1 postoperative ER visit on 03/12/2024 where workup was conducted but she was advised her postoperative pain complaints at that time were most likely related to trapped gas. [facility] Medical History Depression Fatty liver Back pain Gastric reflux Vapes nicotine containing substance History of edema Obesity (BMI 30-39.9) Anxiety Home Medications ?Medication ?Instructions ?Recorded ?Last Taken ?Type medroxyprogesterone 150 mg/mL 150 mg IM [id number] #1 mL 02/18/24 Unknown Rx intramuscular suspension (Depo-Provera) ondansetron 4 mg disintegrating 4 mg PO TID PRN nausea and 03/12/24 Unknown Rx tablet vomiting #21 tabs oxycodone-acetaminophen 5 mg-325 1 tab PO Q6H PRN pain 3 days #12 03/12/24 Unknown Rx mg tablet (Percocet) tabs Allergy/AdvReac Type Severity Reaction Status Date / Time morphine Allergy Mild Rash Verified 03/15/24 02:45 Family History Father Diabetes Hypertension Surgical History Status post History of tonsillectomy Social History number of children: 2 current occupational status: employed current occupation: Works from home Smoking Status: Current every day smoker tobacco type: cigarettes Tobacco: How many years used: 6 alcohol intake: never substance use type: does not use seatbelt use: always do you feel safe at home: Yes additional social history: Dontrell- boyfriend Vital Signs Vital Signs Vital Signs: 03/15/24 02:45 03/15/24 04:45 03/15/24 06:00 Temperature 98.7 F Temperature Source Oral Pulse Rate 90 78 79 Respiratory Rate 18 19 H 18 Blood Pressure 130/81 H 133/84 H 124/90 H Blood Pressure Mean 97 100 101 Pulse Ox 97 98 Oxygen Delivery Method Room Air Room Air 03/15/24 08:00 Temperature Temperature Source Pulse Rate 69 Respiratory Rate 16 Blood Pressure 124/90 H Blood Pressure Mean 101 Pulse Ox 99 Oxygen Delivery Method Weight Weight: 230 lb 6.129 oz Body Mass Index (BMI) 39.5 Physical Exam Const alert, oriented x3 and well nourished Resp normal respiratory effort GI GI Narrative: Operative port sites are examined and Steri-Strips remain intact. There is no ny-incisional erythema or drainage. Patient's abdomen is soft, nondistended, and nontender to palpation Skin General Skin Exam: jaundice Results Lab / Micro Data 03/15/24 03:00 03/15/24 03:00 Labs: Laboratory Results - last 24 hr 03/15/24 03:00: WBC 6.3, RBC 4.95, Hgb 14.5, Hct 42.6, MCV 86.1, MCH 29.3, MCHC 34.0, RDW Std Deviation 39.1, RDW Coeff of Tenisha 12.5, Plt Count 251, MPV 9.5, Immature Gran % (Auto) 0.200, Neut % (Auto) 48.1, Lymph % (Auto) 38.7, Armstrong % (Auto) 9.7, Eos % (Auto) 2.5, Baso % (Auto) 0.8, Absolute Neuts (auto) 3.0, Absolute Lymphs (auto) 2.44, Nucleated RBC % 0, Sodium 137, Potassium 3.5, Chloride 105, Carbon Dioxide 24.0, Anion Gap 7, BUN 5 L, Creatinine 0.87, Estim Creat Clear Calc 115.43, Est GFR (MDRD) Af Amer 101, Est GFR (MDRD) Non-Af 84, BUN/Creatinine Ratio 5.7 L, Glucose 126 H, Calcium 9.3, Total Bilirubin 3.10 H, Direct Bilirubin 2.52 H, AST 104 H, ALT 485 H, Alkaline Phosphatase 226 H, Total Protein 7.7, Albumin 3.7, Globulin 4.0, Lipase 27 Imaging Radiology Impression Gallbladder Ultrasound 03/15/24 05:17 IMPRESSION: 1. Mild intra and extrahepatic biliary dilatation. This may be chronic post cholecystectomy. Correlate with laboratory values. Consider MR cholangiograms clinically indicated. 2. Fatty liver. Electronically Signed: Pop Eden MD at 7:33 EST , Assessment & Plan Assessment/Plan (1) Choledocholithiasis with obstruction: PLAN: Patient 24-year-old female who is 6 days status post laparoscopic cholecystectomy with aborted cholangiography, who presents with signs and symptoms of postoperative choledocholithiasis. Physically, this is manifest as jaundice and pruritus while her laboratories do show a cholestatic pattern and right upper quadrant ultrasound shows common bile duct dilatation. Case was discussed with gastroenterology and they will plan to see patient in consultation with probable ERCP later today. This plan was conveyed to patient and she is made aware that she will need to remain n.p.o. in the event of a procedure today. For the interim she will be admitted for IV fluid support and initiation with empiric IV antibiotic therapy. Pop Santiago MD General Surgery Endocrine Surgery Pager: [facility] [address] [place] [address], [facility], [address] [place] [address] Office: [phone] (2) Jaundice: (3) Status post laparoscopic cholecystectomy: Charges/Coding Visit Charges Inpatient E&M: 06537 Init Hosp L2
[2024-03-15] MEDS: Piperacil/Tazobactam 3.375 GM in 0.9% Normal Saline (50mL MB+) 50 ML IV ×3 (10:18→22:29)
[2024-03-15] MEDS: 0.9% Normal Saline (1000mL) 1,000 ML 125 ML IV (10:18)
[2024-03-15] MEDS: Acetaminophen 500 MG Tablet PO ×2 (14:30→21:05)
[2024-03-15 16:48] LABS: Internal QC Validated? YES +Cl - CLEAR BKGD; Pregnancy, Urine Negative Negative
[2024-03-15] MEDS: Ensure Plus High Protein 120 ML LIQUID PO ×2 (17:59→22:30)
[2024-03-15] MEDS: Ibuprofen 400 MG Tablet PO ×2 (17:59→23:38)
--- NOTE | 2024-03-15 21:24 | CON.PCM.GI_ITS ---
HPI Consult Data Date of Consult: 03/15/24 HPI Narrative Reason for Consultation: Possible choledocholithiasis with cholestatic hepatitis and jaundice HPI Narrative: REYNA RODRIGEZ, is a 24 F who presented to the ED with intermittent abdominal pain on 03/12/2024. With past medical history of anxiety and depression and recent cholecystectomy. She states that procedure was done laparoscopically just 3 days ago. She reports that she had a procedure recovered in PACU and was discharged home. She reports that she has been taking her prescribed medication and doing well. This evening she felt like she had to have a bowel movement and then developed upper abdominal discomfort. She states she took one of her pain pills without much improvement and with concern for a postoperative complication comes in for evaluation. Her bilirubin was 0.3, AST 21, ALT of 25 and alk phos of 150. She presented to the ED on 03/15/2024 with itching and jaundice. Her labs were as follows : WBC 5.3, RBC 4.66, Hgb 13.7, Hct 41.2, MCV 88.4, MCH 29.4, MCHC 33.3, RDW Std Deviation 42.1, RDW Coeff of Tenisha 13.1, Plt Count 246, Sodium 136, Potassium 4.0, Chloride 107, Carbon Dioxide 24.0, Anion Gap 6, BUN 4 L, Creatinine 0.83 Total Bilirubin 3.00 H, AST 61 H, ALT 352 H, Alkaline Phosphatase 205 H, Total Protein 7.2, Albumin 3.6, Globulin 3.6, Albumin/Globulin Ratio 1.0 She got ultrasound right upper quadrant that displayed: Mild intra and extrahepatic biliary dilatation. This may be chronic post cholecystectomy. Correlate with laboratory values. Consider MR cholangiograms clinically indicated. [facility] Medical History Depression Fatty liver Back pain Gastric reflux Vapes nicotine containing substance History of edema Obesity (BMI 30-39.9) Anxiety Home Medications ?Medication ?Instructions ?Recorded ?Last Taken ?Type medroxyprogesterone 150 mg/mL 150 mg IM [id number] #1 mL 02/18/24 Unknown Rx intramuscular suspension (Depo-Provera) ondansetron 4 mg disintegrating 4 mg PO TID PRN nausea and 03/12/24 Unknown Rx tablet vomiting #21 tabs oxycodone-acetaminophen 5 mg-325 1 tab PO Q6H PRN pain 3 days #12 03/12/24 Unknown Rx mg tablet (Percocet) tabs Allergy/AdvReac Type Severity Reaction Status Date / Time morphine Allergy Mild Rash Verified 03/15/24 02:45 Family History Father Diabetes Hypertension Surgical History Status post History of tonsillectomy Social History number of children: 2 current occupational status: employed current occupation: Works from home Smoking Status: Current every day smoker tobacco type: cigarettes Tobacco: How many years used: 6 alcohol intake: never substance use type: does not use seatbelt use: always do you feel safe at home: Yes additional social history: Dontrell- boyfriend ROS Constitutional Constitutional: Reports systems reviewed and no addt'l complaints, except as documented Eyes Eyes: Denies change in vision ENT HEENT: Reports systems reviewed and no addt'l complaints, except as documented; Denies headache(s) Cardiovascular Cardiovascular: Reports systems reviewed and no addt'l complaints, except as documented; Denies chest pain or dyspnea Respiratory/Chest Respiratory/Chest: Reports systems reviewed and no addt'l complaints, except as documented Gastrointestinal Gastrointestinal: Reports systems reviewed and no addt'l complaints, except as documented; Denies abdominal pain Genitourinary Genitourinary: Reports systems reviewed and no addt'l complaints, except as documented, contractions Details: present (irregular) and movement Details: present; Denies dysuria or genital lesions Musculoskeletal Musculoskeletal: Reports systems reviewed and no addt'l complaints, except as documented Neurologic Neurologic: Reports systems reviewed and no addt'l complaints, except as documented Endocrine Endocrinology: Reports systems reviewed and no addt'l complaints, except as documented Physical Exam Const oriented x3 and no apparent distress Resp normal respiratory effort Cardio regular rate GI soft to palpation GI Narrative: Tender epigastric incisions healing well clean dry intact with Steri-Strips Medical Records Data Medical Nutrition Assessment Dietitian: Malnutrition Criteria Met Start: 03/15/24 16:48 Freq: Status: Active Protocol: Document 03/15/24 16:48 [facility] (Rec: 03/15/24 16:48 [facility] [id number]) Nutrition Malnutrition Evidence of Malnutrition Exists Yes Malnutrition (severe): Acute Illness/Injury Evidenced By Suboptimal Energy Intake ( Severe),Weight Loss (Severe) Clinical Problem Acute Disease or Injury Related Malnutrition Etiology related to physiological changes limiting oral intakes Signs/Symptoms as evidenced by significant weight loss of 9lb or 3.8% in less than 1 week based upon wt of 234lb as well as oral intakes meeting less than 50% of estimated nutrient needs for ~1 week. Status Active Problem Recommendation Dietitian Recommendations/Changes Recommend diet advancement following ERCP to a Low Fat diet as appropriate for in line with Gallbladder Nutrition Therapy recommendations. Will order EPHP 120mL 4x/day with medpass to help increase oral intakes at this time. Will continue to follow, monitor oral intakes and modify nutrition interventions as needed. Lab / Micro Data 03/16/24 05:22 03/16/24 05:22 Labs: Laboratory Results - last 24 hr 03/15/24 16:00: Urine Test Negative 03/16/24 05:22: WBC 5.3, RBC 4.66, Hgb 13.7, Hct 41.2, MCV 88.4, MCH 29.4, MCHC 33.3, RDW Std Deviation 42.1, RDW Coeff of Tenisha 13.1, Plt Count 246, MPV 9.5, Immature Gran % (Auto) 0.400, Neut % (Auto) 47.2, Lymph % (Auto) 36.9, Troup % (Auto) 10.3 H, Eos % (Auto) 4.3, Baso % (Auto) 0.9, Absolute Neuts (auto) 2.5, Absolute Lymphs (auto) 1.97, Nucleated RBC % 0, Sodium 136, Potassium 4.0, Chloride 107, Carbon Dioxide 24.0, Anion Gap 6, BUN 4 L, Creatinine 0.83, Estim Creat Clear Calc 119.56, Est GFR (MDRD) Af Amer 107, Est GFR (MDRD) Non-Af 88, B UN/Creatinine Ratio 4.8 L, Glucose 118 H, Calcium 9.1, Total Bilirubin 3.00 H, A ST 61 H, ALT 352 H, Alkaline Phosphatase 205 H, Total Protein 7.2, Albumin 3.6, Globulin 3.6, Albumin/Globulin Ratio 1.0 Assessment & Plan Assessment/Plan (1) Choledocholithiasis with obstruction: PLAN: 24-year-old with appears to be possible obstructive jaundice status post laparoscopic cholecystectomy. Differential diagnosis also includes bile leak, cholestatic hepatitis secondary to medications, less likely autoimmune disease. She will undergo ERCP. she was explained alternatives, risk, benefits including not withstanding bleeding, infection, sepsis, perforation, need for emergent urgent . She will have an ASA of 3. (2) Jaundice: Charges/Coding Visit Charges Inpatient E&M: 14471 Init Hosp L3
[2024-03-15] MEDS: 0.9% Saline Lock 10 ML Syringe IV (23:38)
[2024-03-16] VITALS (11 sets, daily range): BP systolic 110–132; BP diastolic 59–88; PULSE 67–89; RESP 14–18; TEMP 36.6–36.9; O2SAT 97–100; BMI 38.7
[2024-03-16 05:41] LABS: Absolute Lymphocyte Count 1.97 X10^3/uL (0.83-4.51); Absolute Neutrophil Count 2.5 X10^3/uL (2.0-7.7); Basophil# 0.05 X10^3/uL; Basophil% 0.9 % (0-1); Eosinophil# 0.23 X10^3/uL; Eosinophils% 4.3 % (0-5); Hematocrit 41.2 % (37-47); Hemoglobin 13.7 g/dL (12.0-15.0); Lymphocyte # 1.97 X10^3/ul (0.83-4.51); Lymphocyte % 36.9 % (19-41); Mean Corp Hgb Conc 33.3 g/dL (32-36); Mean Corpuscular Hgb 29.4 pg (27.0-32.0); Mean Corpuscular Volume 88.4 fL (81-99); Mean Platelet Vol. 9.5 fl (6.2-12.0); Monocyte# 0.55 X10^3/uL; Monocyte% 10.3 % (0-10); NRBC Flagged by Analyzer 0 % (0-5); Neutrophil # 2.52 X10^3/uL (2.7-7.7); Neutrophil % 47.2 % (47-70); Platelet Count 246 K/mm3 (150-450); RBC Distribution Width CV 13.1 % (11.6-14.6); RBC Distribution Width SD 42.1 fl (35.1-43.9); Red Blood Count 4.66 M/mm3 (4.2-5.4); White Blood Count 5.3 K/mm3 (4.4-11.0)
--- NOTE | 2024-03-16 06:00 | EKG12_ITS ---
Test Reason : PRE-OP Blood Pressure : */* mmHG Vent. Rate : 64 BPM Atrial Rate : 64 BPM P-R Int : 178 ms QRS Dur : 88 ms QT Int : 394 ms P-R-T Axes : 32 32 26 degrees QTcB Int : 406 ms Normal sinus rhythm with sinus arrhythmia Normal ECG When compared with ECG of 09-Mar-2024 10:19, No significant change was found Confirmed by Pop Wakefield ([id number]), newspaper editor managing SHAYY BOLAÑOS ([id number]) on 03/16/2024 9:58:14 AM Referred By: KERRY Confirmed By: Pop Wakefield
[2024-03-16 06:08] LABS: AST(SGOT) 61 U/L (15-37); Alanine Aminotransfer ALT/SGPT 352 U/L (13-56); Albumin, Serum 3.6 g/dL (3.2-5.0); Alkaline Phosphatase 205 U/L (45-117); Anion Gap 6 (5-15); BUN 4 mg/dL (7-18); BUN/Creat Ratio 4.8 RATIO (10-20); Calcium,Total 9.1 mg/dL (8.5-10.1); Chloride 107 mmol/L (98-107); Creatinine, Serum 0.83 mg/dL (0.55-1.02); EST Glomerular Filtration Rate 88 mL/min (>60); Est Glom Filt Rate - Afr Amer 107 mL/min (>60); Estimated Creatinine Clearance 119.56 ml/min; Globulin 3.6 g/dL (2.2-4.2); Glucose 118 mg/dL (74-106); Protein, Total 7.2 g/dL (6.4-8.2); Sodium Level 136 mmol/L (136-145)
[2024-03-16] MEDS: Piperacil/Tazobactam 3.375 GM in 0.9% Normal Saline (50mL MB+) 50 ML IV ×2 (06:08→16:01)
[2024-03-16] MEDS: Ibuprofen 400 MG Tablet PO (07:53)
--- NOTE | 2024-03-16 08:25 | PCM.PN.SRG ---
Subjective Subjective Plan for ERCP today. Patient states pain is improved Objective Data Objective Data Vital Signs: Vital Signs Temp Pulse Resp BP Pulse Ox O2 Del Method 98.0 F 67 18 132/77 H 99 Room Air 03/16/24 03:30 03/16/24 03:30 03/16/24 03:30 03/16/24 03:30 03/16/24 03:30 03/16/24 03:30 Oxygen Delivery Method Room Air Weight: 225 lb 8 oz Body Mass Index (BMI) 38.7 Intake & Output: Intake and Output for Last 24 Hours 03/14/24 03/15/24 03/16/24 23:59 23:59 23:59 Intake Total 1077.08 / 1427.08 400 / 400 Balance 1077.08 / 1427.08 400 / 400 Medical Nutrition Assessment Dietitian: Malnutrition Criteria Met Start: 03/15/24 16:48 Freq: Status: Active Protocol: Document 03/15/24 16:48 [facility] (Rec: 03/15/24 16:48 [facility] [id number]) Nutrition Malnutrition Evidence of Malnutrition Exists Yes Malnutrition (severe): Acute Illness/Injury Evidenced By Suboptimal Energy Intake ( Severe),Weight Loss (Severe) Clinical Problem Acute Disease or Injury Related Malnutrition Etiology related to physiological changes limiting oral intakes Signs/Symptoms as evidenced by significant weight loss of 9lb or 3.8% in less than 1 week based upon wt of 234lb as well as oral intakes meeting less than 50% of estimated nutrient needs for ~1 week. Status Active Problem Recommendation Dietitian Recommendations/Changes Recommend diet advancement following ERCP to a Low Fat diet as appropriate for in line with Gallbladder Nutrition Therapy recommendations. Will order EPHP 120mL 4x/day with medpass to help increase oral intakes at this time. Will continue to follow, monitor oral intakes and modify nutrition interventions as needed. Lab / Micro Data 03/16/24 05:22 03/16/24 05:22 Labs: Laboratory Results - last 24 hr 03/15/24 16:00: Urine Test Negative 03/16/24 05:22: WBC 5.3, RBC 4.66, Hgb 13.7, Hct 41.2, MCV 88.4, MCH 29.4, MCHC 33.3, RDW Std Deviation 42.1, RDW Coeff of Tenisha 13.1, Plt Count 246, MPV 9.5, Immature Gran % (Auto) 0.400, Neut % (Auto) 47.2, Lymph % (Auto) 36.9, Amite % (Auto) 10.3 H, Eos % (Auto) 4.3, Baso % (Auto) 0.9, Absolute Neuts (auto) 2.5, Absolute Lymphs (auto) 1.97, Nucleated RBC % 0, Sodium 136, Potassium 4.0, Chloride 107, Carbon Dioxide 24.0, Anion Gap 6, BUN 4 L, Creatinine 0.83, Estim Creat Clear Calc 119.56, Est GFR (MDRD) Af Amer 107, Est GFR (MDRD) Non-Af 88, BUN/Creatinine Ratio 4.8 L, Glucose 118 H, Calcium 9.1, Total Bilirubin 3.00 H, AST 61 H, ALT 352 H, Alkaline Phosphatase 205 H, Total Protein 7.2, Albumin 3.6, Globulin 3.6, Albumin/Globulin Ratio 1.0 Physical Exam Const oriented x3 and no apparent distress Resp normal respiratory effort Cardio regular rate GI soft to palpation GI Narrative: Tender epigastric incisions healing well clean dry intact with Steri-Strips Assessment & Plan Assessment/Plan (1) Choledocholithiasis with obstruction: (2) Jaundice: (3) Status post laparoscopic cholecystectomy: (4) Malnutrition of moderate degree: PLAN: moderate malnutrition with 3.8% weight loss in one week and less than 50% of estimate needs during that time due to cholelithasis/choledocholithiasis. PLAN: Plan ERCP today. will advance diet after ERCP. continue obed Enrique M.D. Pager: [phone] [facility] [address] [place] [address], [facility], [address] [place] [address] Office: [phone]
--- NOTE | 2024-03-16 11:41 | PCM.PRE.AN2 ---
ASA Classification* ASA Classification ASA Classification: 3 Assessment & Plan Anesthesia* Anesthesia Assessment Anesthesia Assessment: Discussed sedation and/or anesthesia options, risks, benefits, and alternatives with patient/parents/legal guardian/POA. Questions invited. The patient/parents/legal guardian/POA seems to understand and agrees to proceed with anesthesia plan. Reviewed the physical assessment, medical history, allergy history and patient home medications list prior to surgery/procedure/anesthetic and documented any changes. Performed airway and anesthesia risk assessments. Anesthesia Type Anesthesia Type: General Anesthesia Focused Assessment* Temperature: 98.4 F Pulse Rate: 75 Blood Pressure: 121/69 Respiratory Rate: 16 Pulse Ox: 98 Airway Assessment Mouth opens: >3 cm Mallampati Score: II Focused Labs Anesthesia Preop lab: CBC WBC 5.3 K/mm3 (4.4-11.0) 03/16/24 05:22 RBC 4.66 M/mm3 (4.2-5.4) 03/16/24 05:22 Hgb 13.7 g/dL (12.0-15.0) 03/16/24 05:22 Hct 41.2 % (37-47) 03/16/24 05:22 Plt Count 246 K/mm3 (150-450) 03/16/24 05:22 CHEMISTRY Potassium 4.0 mmol/L (3.5-5.1) 03/16/24 05:22 Sodium 136 mmol/L (136-145) 03/16/24 05:22 BUN 4 mg/dL (7-18) L 03/16/24 05:22 Creatinine 0.83 mg/dL (0.55-1.02) 03/16/24 05:22 Glucose 118 mg/dL (74-106) H 03/16/24 05:22 POC Glucose 78 mg/dL (74-106) 06/26/23 07:25 COAG HCG, Quant 8267 mIU/mL (1-3) H 01/09/19 14:21 Urine Test Negative Negative 03/15/24 16:00 Tst Clinic Negative 08/22/23 09:54 Pre-Assessment Diagnosis/Proposed Procedure Planned Operative Procedure(s): ERCP Anesthesia History Anesthesia History - political research scientist: Anesthesia History - political research scientist Hx Hospitalization No 02/25/24 14:56 Any Problems With Anesthesia No 03/15/24 22:37 Cholinesterase deficiency No 03/15/24 22:37 You/Your Family Experience No 03/15/24 22:37 fever (hyperthermia) with Relationship Recent Exposure to Contagious Yes: 2 year old has virus 03/15/24 22:37 Disease Does patient have nerve No 03/15/24 22:37 stimulator Patient instructed to have device shut off --Does patient have Pacemaker No 03/16/24 11:09 or ICD? When Was Last Pacemaker Check QUESTION #4 FULL TEXT: You/Your Family Experience fever (hyperthermia) with Anesthesia Last Oral Intake Last Oral intake: Last Oral Intake NPO since 00:00 03/16/24 11:09 Meds taken in AM with sips of Yes 03/16/24 11:09 water? Meds patient instructed to see mar 03/16/24 11:09 take am of surgery PONV PONV - political research scientist: PONV - political research scientist Female HX of Motion Sickness HX of N/V After Surgery Non-Smoker Duration of Surgery greater than 60 minutes Number of Risk Factors PONV Score Height & Weight Height & Weight: Anesthesia: Height & Weight Height 5 ft 4 in 03/16/24 11:09 Weight: 102.285 kg 03/16/24 11:09 Body Mass Index (BMI) 38.7 03/16/24 11:09 Respiratory Assessment Respiratory Assessment - political research scientist: Respiratory Tract Infection Hx - political research scientist Hx Respiratory Tract Infection Yes 03/15/24 22:37 STOP Sleep Apnea STOP Sleep Apnea - political research scientist: STOP Sleep Apnea - political research scientist Hx Hypertension No 03/15/24 09:53 Hx Sleep Apnea No 03/15/24 09:53 CPAP BIPAP Do you snore loudly (louder No 03/15/24 09:53 than talking or can be heard Do you often feel tired/ No 03/15/24 09:53 fatigued/ sleepy during daytime? Has anyone observed you stop No 03/15/24 09:53 breathing during sleep? STOP Results Negative 03/15/24 09:53 QUESTION #5 FULL TEXT : Do you snore loudly (louder than talking or can be heard through closed doors)? Tobacco Use History Tobacco Use History - political research scientist: Tobacco Use History - political research scientist Tobacco Use Smoking Status Current every day smoker 03/15/24 11:33 Hx Tobacco Use Yes: VAPES 03/15/24 09:53 Years Smoking Packs Smoked per Day Smoking Cessation Date was within the last 15 years Hx Smoking Cessation Date Hx Smoking Cessation Counseling Hematologic Medial History Hematologic Hx - political research scientist: Hematologic Medical Hx - printing table hand Hx of Blood Transfusion No 03/15/24 09:53 Hx of Transfusion in last 3 No 03/15/24 09:53 Months Date of Last Transfusion (if within last 3 months) Ever experience any problems No 03/15/24 09:53 with transfusion(s)? Specify any problems Hx of Preganancy in last 3 No 03/15/24 09:53 Months Nurse Filling Out Transfusion [id number] 03/15/24 09:53 & Questions: Date: 03/15/24 03/15/24 09:53 Time: 10:08 03/15/24 09:53 Patient unable to answer at this time (ie. confused, unrespo /Reproduction History /Reproductive History - political research scientist: /Reproductive Hx- political research scientist Hx Now No 03/15/24 22:37 Gestational Age (in weeks): EDC: Hx Hx Para Hx Section SAB No 03/15/24 22:37 Active Medications Active Medications: Current Medications Generic Name Dose Route Start Last Admin Trade Name Freq PRN Reason Stop Dose Admin Acetaminophen 500 mg 03/15/24 08:56 03/15/24 21:05 Acetaminophen 500 Mg Tablet PO 500 mg Q6H PRN PRN Administration Pain Score 1-10 Piperacillin Sod/Tazobactam 50 mls @ 12.5 mls/hr 03/15/24 10:00 03/16/24 10:18 Sod 3.375 gm/ Sodium Chloride IV Infused Q8 GREGOR Infusion Sodium Chloride 500 mls @ 15 mls/hr 03/15/24 10:05 IV .[id number] PRN Saline Flush Sodium Chloride 500 mls @ 15 mls/hr 03/15/24 10:05 IV .[id number] PRN Additional IVPB Infusion Sodium Chloride 500 mls @ 15 mls/hr 03/15/24 10:10 IV .[id number] PRN Saline Flush Sodium Chloride 500 mls @ 15 mls/hr 03/15/24 10:10 IV .[id number] PRN Additional IVPB Infusion Ibuprofen 400 mg 11/24/24 18:00 03/16/24 07:53 Ibuprofen 400 Mg Tablet PO 400 mg Q6 GREGOR Administration Nutritional Formula (Lactose Free) 120 ml 03/15/24 18:00 03/16/24 10:19 Ensure Plus High Protein 120 Ml Liquid PO Not Given 4X/DAY GREGOR Ondansetron HCl 4 mg 03/15/24 08:56 Ondansetron 4 Mg/2 Ml Vial IV Q6H PRN PRN NAUSEA/VOMITING Oxycodone HCl 5 mg 03/15/24 16:33 Oxycodone 5 Mg Tablet PO Q8H PRN PRN Pain Score 6-10 Sodium Chloride 10 - 40 ml 03/15/24 10:05 03/15/24 23:38 0.9% Saline Lock 10 Ml Syringe IV 10 ml UD PRN Administration SALINE FLUSH Sodium Chloride 10 - 40 ml 03/15/24 10:10 0.9% Saline Lock 10 Ml Syringe IV UD PRN SALINE FLUSH PFSH Medical History Depression Fatty liver Back pain Gastric reflux Vapes nicotine containing substance History of edema Obesity (BMI 30-39.9) Anxiety Home Medications ?Medication ?Instructions ?Recorded ?Last Taken ?Type medroxyprogesterone 150 mg/mL 150 mg IM [id number] #1 mL 02/18/24 Unknown Rx intramuscular suspension (Depo-Provera) ondansetron 4 mg disintegrating 4 mg PO TID PRN nausea and 03/12/24 Unknown Rx tablet vomiting #21 tabs oxycodone-acetaminophen 5 mg-325 1 tab PO Q6H PRN pain 3 days #12 03/12/24 Unknown Rx mg tablet (Percocet) tabs Allergy/AdvReac Type Severity Reaction Status Date / Time morphine Allergy Mild Rash Verified 03/15/24 02:45 Family History Father Diabetes Hypertension Surgical History Status post History of tonsillectomy Social History number of children: 2 current occupational status: employed current occupation: Works from home Smoking Status: Current every day smoker tobacco type: cigarettes Tobacco: How many years used: 6 alcohol intake: never substance use type: does not use seatbelt use: always do you feel safe at home: Yes additional social history: Dontrell- boyfriend Review of Systems (Anesthesia) ROS Narrative System reviewed and no additional complaints, except as documented.
[2024-03-16] MEDS: Lactated Ringers 1,000 ML 15 ML IV (11:50)
--- NOTE | 2024-03-16 13:10 | CASEMGMT ---
RN CM to pt room at this time for initial assessment. Pt is off of the floor at this time. CM to follow.
--- NOTE | 2024-03-16 13:50 | RAD_ITS ---
Fluoroscopic-guided ERCP followed by pancreatic and biliary duct stent placement INDICATION: Choledocholithiasis TECHNIQUE:: Fluoroscopic guided ERCP was performed by central office worker followed by placement of pancreatic and common duct stent. 136.2 seconds of fluoroscopic guided time were utilized during the study. DLP was 50.39 Findings During the examination, 10 fluoroscopic guided images were obtained in the anterior projection for correlation purposes For more complete information recommend correlation with procedural notes. RAD/ERCP Biliary/Pancreas IMPRESSION: Fluoroscopic-guided ERCP, pancreatic and biliary stent placement Electronically Signed: Edin Charles MD at 16:08 EST ,
--- NOTE | 2024-03-16 14:35 | PCM.POST.ANE ---
Anesthesia: Postop Eval I Current Vital Signs Temperature: 98.2 F Pulse Rate: 88 Blood Pressure: 123/59 Respiratory Rate: 14 Pulse Ox: 100 Oxygen Delivery Method: Room Air Assessment Airway patent: Yes Spontaneous unlabored respirations: Yes Mental status: Asleep nausea: No Vomiting: No Anesthesia Complication: No Fluid Hydration Crystalloid volume administer (ml): 700 Total IV fluid infused: 700 Progress Note Anesthesia document: Postop Eval 1 completed: Yes
--- NOTE | 2024-03-16 14:47 | OP.ERCP_ITS ---
Patient Name: Naty Solis Procedure Date: 03/16/2024 1:24 PM Date of : 2000 Age: 24 Procedure: ERCP Indications: Common bile duct stone(s), Jaundice, Elevated liver enzymes Providers: Dallas Kunz DO Medicines: Monitored Anesthesia Care Patient Profile: This is a 24 year old female. Refer to note in patient chart for documentation of history and physical. Patient has symptoms of acute right upper quadrant abdominal pain and acute jaundice. Complications: No immediate complications. Procedure: Pre-Anesthesia Assessment: - Prior to the procedure, a History and Physical was performed, and patient medications and allergies were reviewed. The patient is competent. The risks and benefits of the procedure and the sedation options and risks were discussed with the patient. All questions were answered and informed consent was obtained. Patient identification and proposed procedure were verified by the physician in the pre-procedure area. Mental Status Examination: alert and oriented. Airway Examination: normal oropharyngeal airway and neck mobility. Respiratory Examination: clear to auscultation. CV Examination: normal. Prophylactic Antibiotics: The patient does not require prophylactic antibiotics. Prior Anticoagulants: The patient has taken no anticoagulant or antiplatelet agents. ASA Grade Assessment: II - A patient with mild systemic disease. After reviewing the risks and benefits, the patient was deemed in satisfactory condition to undergo the procedure. The anesthesia plan was to use general anesthesia. Immediately prior to administration of medications, the patient was re-assessed for adequacy to receive sedatives. The heart rate, respiratory rate, oxygen saturations, blood pressure, adequacy of pulmonary ventilation, and response to care were monitored throughout the procedure. The physical status of the patient was re-assessed after the procedure. After obtaining informed consent, the scope was passed under direct vision. Throughout the procedure, the patient's blood pressure, pulse, and oxygen saturations were monitored continuously. The Duodenoscope was introduced through the mouth, and advanced to the duodenum and used to inject contrast into the bile duct and ventral pancreatic duct. The ERCP was accomplished without difficulty. The patient tolerated the procedure well. Scope In: 1:52:00 PM Scope Out: 2:12:12 PM Total Procedure Duration Time 0 hours 20 minutes 12 seconds Findings: The machine shorthand teacher film was normal. The esophagus was successfully intubated under direct vision. The scope was advanced to a normal major papilla in the descending duodenum without detailed examination of the pharynx, larynx and associated structures, and upper GI tract. The upper GI tract was grossly normal. A long 0.025 inch Jagwire was passed into the ventral pancreatic duct. The ventral pancreatic duct was then deeply cannulated with the short-nosed traction sphincterotome. Contrast was injected. Opacification of the entire pancreatic ductal system was successful. The maximum diameter of the ducts was 3 mm. The entire opacified area was normal. A 5 mm ventral pancreatic sphincterotomy was made with a braided traction (standard) sphincterotome using ERBE electrocautery. There was no post-sphincterotomy bleeding. To find object(s) the ventral pancreatic duct was swept with a 6 mm balloon starting at the pancreatic duct in the tail of the pancreas. Nothing was found. One 5 Fr by 7 cm temporary stent with a full internal pigtail was placed 5 cm into the ventral pancreatic duct. Clear fluid flowed through the stent. The stent was in good position. A long 0.025 inch Jagwire was passed into the biliary tree. The short-nosed traction sphincterotome was passed over the guidewire and the bile duct was then deeply cannulated. Contrast was injected. Opacification of the entire biliary tree was successful. The maximum diameter of the ducts was 10 mm. The lower third of the main bile duct and middle third of the main bile duct contained multiple stones, the largest of which was 6 mm in diameter. The entire biliary tree was diffusely dilated, with a stone causing an obstruction. The largest diameter was 10 mm. A cholecystectomy had been performed. A 5 mm biliary sphincterotomy was made with a braided traction (standard) sphincterotome using ERBE electrocautery. There was no post-sphincterotomy bleeding. To discover objects, the biliary tree was swept with a 12 mm balloon starting at the bifurcation, left intrahepatic duct(s) and right intrahepatic duct(s). Sludge was swept from the duct. All stones were removed. Three 10 Fr by 7 cm temporary stents were placed 5 cm into the common bile duct. Bile flowed through the stents. The stents were in good position. Impression: - The entire biliary tree was dilated, with a stone causing an obstruction. - The patient has had a cholecystectomy. - Choledocholithiasis was found. Complete removal was accomplished by biliary sphincterotomy and balloon extraction. - A pancreatic sphincterotomy was performed. - The ventral pancreatic duct was swept and nothing was found. - One temporary stent was placed into the ventral pancreatic duct. - A biliary sphincterotomy was performed. - The biliary tree was swept. - Three temporary stents were placed into the common bile duct. Procedure Code(s): --- Professional --- 37590, Endoscopic retrograde cholangiopancreatography (ERCP); with placement of endoscopic stent into biliary or pancreatic duct, including pre- and post-dilation and guide wire passage, when performed, including sphincterotomy, when performed, each stent [id number], 59, Endoscopic retrograde cholangiopancreatography (ERCP); with placement of endoscopic stent into biliary or pancreatic duct, including pre- and post-dilation and guide wire passage, when performed, including sphincterotomy, when performed, each stent [id number], 59, Endoscopic retrograde cholangiopancreatography (ERCP); with placement of endoscopic stent into biliary or pancreatic duct, including pre- and post-dilation and guide wire passage, when performed, including sphincterotomy, when performed, each stent [id number], 59, Endoscopic retrograde cholangiopancreatography (ERCP); with placement of endoscopic stent into biliary or pancreatic duct, including pre- and post-dilation and guide wire passage, when performed, including sphincterotomy, when performed, each stent [id number], Endoscopic retrograde cholangiopancreatography (ERCP); with removal of calculi/debris from biliary/pancreatic duct(s) CPT copyright 2022 [employer]. All rights reserved. The codes documented in this report are preliminary and upon clinical coder review may be revised to meet current compliance requirements. Dallas Kunz DO 03/16/2024 2:47:13 PM This report has been signed electronically. Number of Addenda: 0 Note Initiated On: 03/16/2024 1:24 PM
--- NOTE | 2024-03-16 14:47 | OP.CCLET_ITS ---
03/16/2024 No Primary Care Physician Re : ERCP procedure for Naty Solis Dear Care Physician This procedure was performed on Saturday, March 16, 2024. My impressions and recommendations are as follows: Impressions : - The entire biliary tree was dilated, with a stone causing an obstruction. - The patient has had a cholecystectomy. - Choledocholithiasis was found. Complete removal was accomplished by biliary sphincterotomy and balloon extraction. - A pancreatic sphincterotomy was performed. - The ventral pancreatic duct was swept and nothing was found. - One temporary stent was placed into the ventral pancreatic duct. - A biliary sphincterotomy was performed. - The biliary tree was swept. - Three temporary stents were placed into the common bile duct. Recommendations : My findings are described in the full procedure note, which is enclosed. If I can be of further assistance, please feel free to contact me at . Sincerely, Dallas Kunz, 03/16/2024 2:47:13 PM This report has been signed electronically.
--- NOTE | 2024-03-16 15:40 | PCM.DC.SUM ---
Providers Date of Admission: 03/15/24 Primary Care Physician: Nemo Primary Care Phys Consultations 03/15/24 08:58 Consult: Gastroenterology Routine Consulting Provider: Paul Gastroenterjulisa Reason for Consult: need for ERCP EMERGENT Consult: Yes MD Notified: Yes Date Notified: 03/15/24 Time Notified: 08:58 Method of Notification: Verbal Reason For Visit: CHOLEDOCHOLITHIASIS Diagnosis Discharge Diagnosis (1) Choledocholithiasis with obstruction: Status: Acute Code(s): K80.51 - Calculus of bile duct without cholangitis or cholecystitis with obstruction (2) Jaundice: Status: Acute Code(s): R17 - Unspecified jaundice (3) Status post laparoscopic cholecystectomy: Status: Acute Code(s): Z90.49 - Acquired absence of other specified parts of digestive tract (4) Malnutrition of moderate degree: Status: Acute Code(s): E44.0 - Moderate protein-calorie malnutrition Plan: moderate malnutrition with 3.8% weight loss in one week and less than 50% of estimate needs during that time due to cholelithasis/choledocholithiasis. Plan ERCP today. will advance diet after ERCP. continue zosyn Jyothi Enrique M.D. Pager: [phone] [facility] [address] [place] [address], [facility], [address] [place] [address] Office: [phone] Medications at Discharge Home Medications medroxyprogesterone 150 mg/mL intramuscular suspension (Depo-Provera) 150 mg IM [id number] #1 mL 02/18/24 ondansetron 4 mg disintegrating tablet 4 mg PO TID PRN nausea and vomiting #21 tabs 03/12/24 oxycodone-acetaminophen 5 mg-325 mg tablet (Percocet) 1 tab PO Q6H PRN pain 3 days #12 tabs 03/12/24 Hospital Course Operations ERCP (With temporary stent placement and removal of 3 stones) Summary of Care Provided Minutes Spent on Discharge: 15 Hospital Course: Patient came to the ER due to jaundice 03/15. Labs are consistent with biliary obstruction. Ultrasound was done which showed some dilated mild intra and extrahepatic ducts- no obvious choledocholithiasis was seen. Patient was kept n.p.o. started on Zosyn IV. Patient underwent ERCP on 03/16/2024?sphincterotomy and temporary stent was placed and 3 stones removed. Patient will was able to have her diet advanced to full liquids if able to tolerate patient would be able to be DC'd home. Medical Records Data Medical Nutrition Assessment Dietitian: Malnutrition Criteria Met Start: 03/15/24 16:48 Freq: Status: Active Protocol: Document 03/15/24 16:48 RANJANA (Rec: 03/15/24 16:48 [facility] [id number]) Nutrition Malnutrition Evidence of Malnutrition Exists Yes Malnutrition (severe): Acute Illness/Injury Evidenced By Suboptimal Energy Intake ( Severe),Weight Loss (Severe) Clinical Problem Acute Disease or Injury Related Malnutrition Etiology related to physiological changes limiting oral intakes Signs/Symptoms as evidenced by significant weight loss of 9lb or 3.8% in less than 1 week based upon wt of 234lb as well as oral intakes meeting less than 50% of estimated nutrient needs for ~1 week. Status Active Problem Recommendation Dietitian Recommendations/Changes Recommend diet advancement following ERCP to a Low Fat diet as appropriate for in line with Gallbladder Nutrition Therapy recommendations. Will order EPHP 120mL 4x/day with medpass to help increase oral intakes at this time. Will continue to follow, monitor oral intakes and modify nutrition interventions as needed. Weight / BMI Weight Weight: 225 lb 8 oz Body Mass Index (BMI) 38.7 ABG / Lab / Microbiology Data 03/16/24 05:22 03/16/24 05:22 Laboratory: Laboratory Results - last 24 hr 03/15/24 16:00: Urine Test Negative 03/16/24 05:22: WBC 5.3, RBC 4.66, Hgb 13.7, Hct 41.2, MCV 88.4, MCH 29.4, MCHC 33.3, RDW Std Deviation 42.1, RDW Coeff of Tenisha 13.1, Plt Count 246, MPV 9.5, Immature Gran % (Auto) 0.400, Neut % (Auto) 47.2, Lymph % (Auto) 36.9, Stokes % (Auto) 10.3 H, Eos % (Auto) 4.3, Baso % (Auto) 0.9, Absolute Neuts (auto) 2.5, Absolute Lymphs (auto) 1.97, Nucleated RBC % 0, Sodium 136, Potassium 4.0, Chloride 107, Carbon Dioxide 24.0, Anion Gap 6, BUN 4 L, Creatinine 0.83, Estim Creat Clear Calc 119.56, Est GFR (MDRD) Af Amer 107, Est GFR (MDRD) Non-Af 88, BUN/Creatinine Ratio 4.8 L, Glucose 118 H, Calcium 9.1, Total Bilirubin 3.00 H, AST 61 H, ALT 352 H, Alkaline Phosphatase 205 H, Total Protein 7.2, Albumin 3.6, Globulin 3.6, Albumin/Globulin Ratio 1.0 D/C Instructions Discharge Diet: Light diet - advance as tolerated DC O2, CPAP, BIPAP Needs Additional Home O2 Discharge instructions: No DC home with Oxygen: No Meaningful Use Info Meaningful Use Meaningful Use Diagnoses (Choose all that apply): None applicable Ischemic Stroke Statin Dosing Therapy Reference: STATIN DOSE THERAPY REFERENCE: * Patients > 75 years receive moderate or high dose statin therapy. * Patients 75 years or YOUNGER should receive HIGH intensity statin dose unless contraindicated. You will be required to document reason for non-treatment if statin daily dose does not meet guidelines. HIGH DOSE STATIN THERAPY DAILY Atorvastatin > than or = to 40 mg Rosuvastatin > than or = to 20 mg Amlodipine + Atorvastatin > than or = to 2.5/40 mg Ezetimibe + Simvastatin 10/80 mg Simvastatin 80mg Discharge Plan Admission Admit Date/Time: 03/15/24 14:24 Attending Provider: Pop Santiago Primary Care Provider: Care Physician,Nemo Primary Discharge Orders/Prescriptions Prescriptions: Continued medroxyprogesterone [Depo-Provera] 150 mg/mL suspension 150 mg IM [id number] Qty: 1 3RF oxycodone-acetaminophen [Percocet] 5-325 mg tablet 1 tab PO Q6H PRN (Reason: pain) 3 Days Qty: 12 0RF ondansetron 4 mg tablet,disintegrating 4 mg PO TID PRN (Reason: nausea and vomiting) Qty: 21 0RF Referrals / Follow Up: Care Physician,No Primary [Primary Care Provider] - Disposition Disposition (needs filled in before D/C Order can be placed): Home, Self Care
--- NOTE | 2024-03-16 15:53 | CASEMGMT ---
ALBINO CASE Assessment Face to Face with patient for initial transition planning/care coordination assessment. ALBINO CASE introduced self and role at [facility], pt voices understanding. Pt is A&Ox4 and is resting comfortably in bed and is calm. Care providers, pharmacy, and demographics verified. Admitting dx: Choledocholithiasis LACE Strata: 2 PCP: No PCP. Provider list given Specialists: Denies Preferred Pharmacy:[facility] Insurance: [facility]/[employer] Paymentse Prescription Benefit: Yes LNOK: Dontrell Fredi (SO) Living Arrangements: Pt lives with her SO and 3 children (Ages 9, 4, and 1) in a single story home with 2 steps to enter ADLs/IADLs: Ind Transportation: Self, SO DME: Denies HHC/SNF: Denies Pt?s goal: Home Plan: Home no needs. 6-Click is 24. Pt states that she feels safe returning home with her family and denies further concerns at this time. Sylvia Noe RN, CM
--- NOTE | 2024-03-16 15:57 | PCM.POSTANE2 ---
Anesthesia Postop Eval I Sum Postop Eval Completion status Anesthesia document: Postop Eval 1 completed: Yes Anesthesia Postop Eval I Summary Anesthesia Postop Eval I Summary: Anesthesia Postop Eval I: Assessment Summary Airway patent Yes 03/16/24 14:35 [email or web address] Spontaneous unlabored Yes 03/16/24 14:35 [email or web address] respirations Mental status Asleep 03/16/24 14:35 [email or web address] nausea No 03/16/24 14:35 [email or web address] Vomiting No 03/16/24 14:35 [email or web address] Anesthesia Postop Eval I: Fluid Summary Crystalloid volume administer 700 03/16/24 14:35 [email or web address] (ml) Colloids volume administered ( ml) Blood Product volume administered (ml) Total IV fluid infused 700 03/16/24 14:35 [email or web address] Anesthesia Postop Eval I: Summary Notes Anesthesia Complication No 03/16/24 14:35 [email or web address] Anesthesia Complication Comment: Post-operative progress note Anesthesia: Postop Eval II Evaluation Mental status: Awake Pain Level: 0 nausea: No Vomiting: No
== END 2024-03-16 17:39 | disposition home or self-care (01) ==
LOC: ED 09:13 → MS3 09:52
PROVIDERS: Anesthesiology; Internal Medicine Gastroenterology; Admitting Provider Surgery; Emergency Provider Emergency Medicine; Visit Provider Surgery
PROC: 0FC98ZZ Extirpation of Matter from Common Bile Duct, Via Natural or Artificial Opening Endoscopic (ICD-10-PCS; CPT 43260; principal; 2024-03-16 12:40)
DX: K80.51 Calculus of bile duct without cholangitis or cholecystitis with obstruction (principal); F17.210 Nicotine dependence, cigarettes, uncomplicated; Z68.38 Body mass index [BMI] 38.0-38.9, adult; K83.8 Other specified diseases of biliary tract
CPT/HCPCS: 36415; 74330; 76000; 76705; 80048; 80053; 80076; 81025; 83690; 85025; 93005; 96361; 97802; 99282; 99406; A4216; J2405

== ENCOUNTER → 2024-03-23 | Outpatient (CLI) | payer MEDICAID, SELFPAY ==
[2024-03-23 14:07] LABS: AST(SGOT) 38 U/L (15-37); Alanine Aminotransfer ALT/SGPT 134 U/L (13-56); Albumin, Serum 3.9 g/dL (3.2-5.0); Alkaline Phosphatase 127 U/L (45-117); Bilirubin, Direct 0.39 mg/dL (0.00-0.30); Protein, Total 7.9 g/dL (6.4-8.2)
== END | disposition home or self-care (01) ==
LOC: PAVLAB 13:29
PROVIDERS: Referring Provider Physician Assistant; Visit Provider Physician Assistant
DX: Z90.49 Acquired absence of other specified parts of digestive tract (principal)
CPT/HCPCS: 36415; 80076

== ENCOUNTER 2024-06-03 10:52 | Day surgery (SDC) | payer MEDICAID, SELFPAY ==
[2024-06-03] VITALS (8 sets, daily range): BP systolic 110–124; BP diastolic 72–87; PULSE 70–87; RESP 12–18; TEMP 36.1–36.8; O2SAT 97–100; BMI 38.6
--- NOTE | 2024-06-03 11:21 | PCM.PRE.AN2 ---
ASA Classification* ASA Classification ASA Classification: 3 Assessment & Plan Anesthesia* Anesthesia Assessment Anesthesia Assessment: Discussed sedation and/or anesthesia options, risks, benefits, and alternatives with patient/parents/legal guardian/POA. Questions invited. The patient/parents/legal guardian/POA seems to understand and agrees to proceed with anesthesia plan. Reviewed the physical assessment, medical history, allergy history and patient home medications list prior to surgery/procedure/anesthetic and documented any changes. Performed airway and anesthesia risk assessments. Anesthesia Type Anesthesia Type: General Anesthesia Focused Assessment* Temperature: 98.3 F Pulse Rate: 87 Blood Pressure: 110/72 Respiratory Rate: 16 Pulse Ox: 99 Airway Assessment Mouth opens: >3 cm Mallampati Score: II Focused Labs Anesthesia Preop lab: CBC WBC 5.3 K/mm3 (4.4-11.0) 03/16/24 05:22 03/16/24 RBC 4.66 M/mm3 (4.2-5.4) 03/16/24 05:22 03/16/24 Hgb 13.7 g/dL (12.0-15.0) 03/16/24 05:22 03/16/24 Hct 41.2 % (37-47) 03/16/24 05:22 03/16/24 Plt Count 246 K/mm3 (150-450) 03/16/24 05:22 03/16/24 CHEMISTRY Potassium 4.0 mmol/L (3.5-5.1) 03/16/24 05:22 03/16/24 Sodium 136 mmol/L (136-145) 03/16/24 05:22 03/16/24 BUN 4 mg/dL (7-18) L 03/16/24 05:22 03/16/24 Creatinine 0.83 mg/dL (0.55-1.02) 03/16/24 05:22 03/16/24 Glucose 118 mg/dL (74-106) H 03/16/24 05:22 03/16/24 POC Glucose 78 mg/dL (74-106) 06/26/23 07:25 06/26/23 COAG HCG, Quant 8267 mIU/mL (1-3) H 01/09/19 14:21 01/09/19 Urine Test Negative Negative 03/15/24 16:00 03/15/24 Tst Clinic Negative 08/22/23 09:54 08/22/23 Pre-Assessment Diagnosis/Proposed Procedure Planned Operative Procedure(s): ERCP Anesthesia History Anesthesia History - inspecting machine adjuster: Anesthesia History - inspecting machine adjuster Hx Hospitalization No 06/02/24 10:52 Any Problems With Anesthesia No 06/02/24 10:52 Cholinesterase deficiency No 06/02/24 10:52 You/Your Family Experience No 06/02/24 10:52 fever (hyperthermia) with Relationship Recent Exposure to Contagious No 06/03/24 11:08 Disease Does patient have nerve No 06/02/24 10:52 stimulator Patient instructed to have device shut off --Does patient have Pacemaker No 06/03/24 11:08 or ICD? When Was Last Pacemaker Check QUESTION #4 FULL TEXT: You/Your Family Experience fever (hyperthermia) with Anesthesia Last Oral Intake Last Oral intake: Last Oral Intake NPO since 23:00 06/03/24 11:08 Meds taken in AM with sips of No 06/03/24 11:08 water? Meds patient instructed to take am of surgery PONV PONV - inspecting machine adjuster: PONV - inspecting machine adjuster Female Yes 06/02/24 10:52 HX of Motion Sickness Yes 06/02/24 10:52 HX of N/V After Surgery No 06/02/24 10:52 Non-Smoker No 06/02/24 10:52 Duration of Surgery greater No 06/02/24 10:52 than 60 minutes Number of Risk Factors 2 06/02/24 10:52 PONV Score Moderate Risk 06/02/24 10:52 Height & Weight Height & Weight: Anesthesia: Height & Weight Height 5 ft 4 in 06/03/24 11:08 Weight: 102 kg 06/03/24 11:08 Body Mass Index (BMI) 38.6 06/03/24 11:08 Respiratory Assessment Respiratory Assessment - inspecting machine adjuster: Respiratory Tract Infection Hx - inspecting machine adjuster Hx Respiratory Tract Infection No 06/02/24 10:52 STOP Sleep Apnea STOP Sleep Apnea - inspecting machine adjuster: STOP Sleep Apnea - inspecting machine adjuster Hx Hypertension No 06/02/24 10:52 Hx Sleep Apnea No 06/02/24 10:52 CPAP BIPAP Do you snore loudly (louder No 06/02/24 10:52 than talking or can be heard Do you often feel tired/ No 06/02/24 10:52 fatigued/ sleepy during daytime? Has anyone observed you stop No 06/02/24 10:52 breathing during sleep? STOP Results Negative 06/02/24 10:52 QUESTION #5 FULL TEXT : Do you snore loudly (louder than talking or can be heard through closed doors)? Tobacco Use History Tobacco Use History - inspecting machine adjuster: Tobacco Use History - inspecting machine adjuster Tobacco Use Smoking Status Current every day smoker 06/02/24 10:52 Hx Tobacco Use Yes: VAPES 06/02/24 10:52 Years Smoking Packs Smoked per Day Smoking Cessation Date was within the last 15 years Hx Smoking Cessation Date Hx Smoking Cessation Counseling Hematologic Medial History Hematologic Hx - inspecting machine adjuster: Hematologic Medical Hx - mathematical technician Hx of Blood Transfusion No 06/02/24 10:52 Hx of Transfusion in last 3 No 06/02/24 10:52 Months Date of Last Transfusion (if within last 3 months) Ever experience any problems No 06/02/24 10:52 with transfusion(s)? Specify any problems Hx of Preganancy in last 3 No 06/02/24 10:52 Months Nurse Filling Out Transfusion VCHRISTIN 06/02/24 10:52 & Questions: Date: 06/02/24 06/02/24 10:52 Time: 10:53 06/02/24 10:52 Patient unable to answer at this time (ie. confused, unrespo /Reproduction History /Reproductive History - inspecting machine adjuster: /Reproductive Hx- inspecting machine adjuster Hx Now No 06/02/24 10:52 Gestational Age (in weeks): EDC: Hx Hx Para Hx Section SAB No 06/02/24 10:52 PFSH Medical History History of biliary stent insertion Depression Fatty liver Back pain Gastric reflux Vapes nicotine containing substance History of edema Obesity (BMI 30-39.9) Anxiety Home Medications ?Medication ?Instructions ?Recorded ?Last Taken ?Type medroxyprogesterone 150 mg/mL 150 mg IM [id number] #1 mL 05/19/24 Unknown Rx intramuscular suspension (Depo-Provera) Allergy/AdvReac Type Severity Reaction Status Date / Time morphine Allergy Mild Rash Verified 06/03/24 11:07 Family History Father Diabetes Hypertension Surgical History Hx laparoscopic cholecystectomy History of ERCP Status post History of tonsillectomy Social History number of children: 2 current occupational status: employed current occupation: Works from home Smoking Status: Current every day smoker tobacco type: cigarettes Tobacco: How many years used: 6 alcohol intake: never substance use type: does not use seatbelt use: always do you feel safe at home: Yes additional social history: Dontrell- boyfriend Review of Systems (Anesthesia) ROS Narrative System reviewed and no additional complaints, except as documented.
[2024-06-03 11:33] LABS: Internal QC Validated? YES +Cl - CLEAR BKGD; Pregnancy, Urine Negative Negative
[2024-06-03 11:34] LABS: Record Kit Lot#,Urine Preg 856586
--- NOTE | 2024-06-03 11:58 | PCM.HP.STD ---
HPI - General General Date of Admission: 06/03/24 Date of Service: 06/03/24 HPI Narrative REYNA RODRIGEZ, is a 24 F who presents for ercp with stent removal. She is s/p laparoscopic cholecystectomy with attempted intraoperative cholangiograms by Dr. Enrique on 03/09/24. Patient tolerated the procedure well. Patient returned to the ED twice post-operatively due to increased abdominal pain and noticing her eyes turned Jaundice. Patient had an ERCP performed and two stents were placed at that time. She notes today feeling very well. She denies any nausea, vomiting, fever. She notes appetite is slowly returning to normal. She notes bowel habits have returned to normal. Pathology demonstrated chronic cholecystitis and cholelithiasis. [facility] Medical History History of biliary stent insertion Depression Fatty liver Back pain Gastric reflux Vapes nicotine containing substance History of edema Obesity (BMI 30-39.9) Anxiety Home Medications ?Medication ?Instructions ?Recorded ?Last Taken ?Type medroxyprogesterone 150 mg/mL 150 mg IM [id number] #1 mL 05/19/24 Unknown Rx intramuscular suspension (Depo-Provera) Allergy/AdvReac Type Severity Reaction Status Date / Time morphine Allergy Mild Rash Verified 06/03/24 11:07 Family History Father Diabetes Hypertension Surgical History Hx laparoscopic cholecystectomy History of ERCP Status post History of tonsillectomy Social History number of children: 2 current occupational status: employed current occupation: Works from home Smoking Status: Current every day smoker tobacco type: cigarettes Tobacco: How many years used: 6 alcohol intake: never substance use type: does not use seatbelt use: always do you feel safe at home: Yes additional social history: Dontrell- boyfriend ROS Constitutional Constitutional: Reports systems reviewed and no addt'l complaints, except as documented Eyes Eyes: Denies change in vision ENT HEENT: Reports systems reviewed and no addt'l complaints, except as documented; Denies headache(s) Cardiovascular Cardiovascular: Reports systems reviewed and no addt'l complaints, except as documented; Denies chest pain or dyspnea Respiratory/Chest Respiratory/Chest: Reports systems reviewed and no addt'l complaints, except as documented Gastrointestinal Gastrointestinal: Reports systems reviewed and no addt'l complaints, except as documented; Denies abdominal pain Genitourinary Genitourinary: Reports systems reviewed and no addt'l complaints, except as documented, contractions Details: present (irregular) and movement Details: present; Denies dysuria or genital lesions Musculoskeletal Musculoskeletal: Reports systems reviewed and no addt'l complaints, except as documented Neurologic Neurologic: Reports systems reviewed and no addt'l complaints, except as documented Endocrine Endocrinology: Reports systems reviewed and no addt'l complaints, except as documented Vital Signs Vital Signs Vital Signs: 06/03/24 11:08 06/03/24 11:08 06/03/24 11:21 Temperature 98.3 F 98.3 F Temperature Source Temporal Pulse Rate 87 87 Respiratory Rate 16 16 Respiratory Pattern Normal Blood Pressure 110/72 110/72 Blood Pressure Mean 84 Blood Pressure Source Monitor Blood Pressure Position Sitting Blood Pressure Location Left Arm Pulse Ox 99 99 Oxygen Delivery Method Room Air Weight Weight: 224 lb 13.944 oz Body Mass Index (BMI) 38.6 Physical Exam Const oriented x3 and no apparent distress Resp normal respiratory effort Cardio regular rate GI soft to palpation GI Narrative: Tender epigastric incisions healing well clean dry intact with Steri-Strips Results Lab / Micro Data Labs: Laboratory Results - last 24 hr 06/03/24 11:00: Urine Test Negative Assessment & Plan Assessment/Plan (1) Status post laparoscopic cholecystectomy: (2) Encounter for removal of biliary stent: PLAN: Plan She will undergo ERCP with stent removal. She was explained alternatives, risk and benefits include not withstanding bleeding, infection, sepsis, perforation, need for surgery . She will have an ASA of 3.
--- NOTE | 2024-06-03 12:00 | FLU_PTH ---
PATIENT: REYNA RODRIGEZ LOC: EN U#:[id number] AGE/SX: 24/F ROOM: RE06/03/[address]: Dr. Dallas Kunz DO : 2000 BED: DIS: 06/03/2024 SPEC #: [id number] RECD: 06/03/24 13:11 STATUS: SNEHAL RECarlos #: [id number] ERIK: 06/03/24 12:[address]: Dallas Kunz DEPT: CYTOLOGY RECD BY: Kinza Mcnally ENTERED: 06/03/24 13:35 SP TYPE: Fluid DYLON DR: No Primary Care Phys Tissues: Bile duct, NOS Procedures: Special Stain Group II Surgery Specimen Level III Surgery Specimen Level IV Cytospin Fluid HEADER OPERATION: ERCP, biliary stent removal, balloon sweep PRE-OP DIAGNOSIS: Status post laparoscopic cholecystectomy, encounter for removal of biliary stent TISSUE SUBMITTED: Biliary stent fluid for cytology DIAGNOSIS CYTOLOGY Biliary stent fluid for cytology (cytospins and cellblock): Negative for malignant cells. See comment. 06/04/2024 COMMENT Clinical correlation and appropriate follow up are necessary. CYTOLOGY STUDY Slides are reviewed. CYTOLOGY GROSS Received is 10 blue stent with 0.2 ml of yellow-brownish thick material labeled with the patient's name and and designated per the requisition as Biliary stent. Submitted for cytology preparation including cell block. Mr 06/03/2024 TC:5 CPT: 82647,79647
--- NOTE | 2024-06-03 12:25 | RAD_ITS ---
PROCEDURE: ERCP BILIARY/PANCREAS; O.R. FLUORO FOR C-ARM REASON FOR EXAM: Pain. TECHNIQUE: Intraoperative fluoroscopy was performed during ERCP, along with 5 fluoroscopic images. COMPARISON: None. RAD/ERCP Biliary/Pancreas IMPRESSION: During ERCP, intraoperative fluoroscopy was performed, along with 5 fluoroscopi c images. No retained stone is identified on the presented images. Reading Location: [id number]
--- NOTE | 2024-06-03 12:25 | RAD_ITS ---
PROCEDURE: ERCP BILIARY/PANCREAS; O.R. FLUORO FOR C-ARM REASON FOR EXAM: Pain. TECHNIQUE: Intraoperative fluoroscopy was performed during ERCP, along with 5 fluoroscopic images. COMPARISON: None. RAD/O.R. Fluoro for C-Arm IMPRESSION: During ERCP, intraoperative fluoroscopy was performed, along with 5 fluoroscopi c images. No retained stone is identified on the presented images. Reading Location: [id number]
--- NOTE | 2024-06-03 13:08 | OP.ERCP_ITS ---
Patient Name: Naty Solis Procedure Date: 06/03/2024 12:15 PM Date of : 2000 Age: 24 Procedure: ERCP Indications: Bile duct stone(s), Biliary stent removal, Pancreatic stent removal Providers: Dallas Kunz DO Referring MD: Dallas Kunz DO Medicines: Monitored Anesthesia Care Patient Profile: This is a 24 year old female. Refer to note in patient chart for documentation of history and physical. Patient has symptoms. Her most recent ERCP for stent and ERCP for stone removal was within the past three months. Complications: No immediate complications. Procedure: Pre-Anesthesia Assessment: - Prior to the procedure, a History and Physical was performed, and patient medications and allergies were reviewed. The patient is competent. The risks and benefits of the procedure and the sedation options and risks were discussed with the patient. All questions were answered and informed consent was obtained. Patient identification and proposed procedure were verified by the physician in the pre-procedure area. Mental Status Examination: alert and oriented. Airway Examination: normal oropharyngeal airway and neck mobility. Respiratory Examination: clear to auscultation. CV Examination: normal. Prophylactic Antibiotics: The patient does not require prophylactic antibiotics. Prior Anticoagulants: The patient has taken no anticoagulant or antiplatelet agents except for NSAID medication. ASA Grade Assessment: II - A patient with mild systemic disease. After reviewing the risks and benefits, the patient was deemed in satisfactory condition to undergo the procedure. The anesthesia plan was to use monitored anesthesia care (MAC). Immediately prior to administration of medications, the patient was re-assessed for adequacy to receive sedatives. The heart rate, respiratory rate, oxygen saturations, blood pressure, adequacy of pulmonary ventilation, and response to care were monitored throughout the procedure. The physical status of the patient was re-assessed after the procedure. After obtaining informed consent, the scope was passed under direct vision. Throughout the procedure, the patient's blood pressure, pulse, and oxygen saturations were monitored continuously. The Duodenoscope was introduced through the mouth, and advanced to the duodenum and used to inject contrast into the bile duct and ventral pancreatic duct. The ERCP was accomplished without difficulty. The patient tolerated the procedure well. Scope In: 12:39:59 PM Scope Out: 12:49:56 PM Total Procedure Duration Time 0 hours 9 minutes 57 seconds Findings: The testing consultant film was normal. A biliary stent was visible on the testing consultant film. The esophagus was successfully intubated under direct vision. The scope was advanced to a normal major papilla in the descending duodenum without detailed examination of the pharynx, larynx and associated structures, and upper GI tract. The upper GI tract was grossly normal. The ventral pancreatic duct was deeply cannulated with the short-nosed traction sphincterotome. Contrast was injected. I personally interpreted the pancreatic duct images. There was brisk flow of contrast through the ducts. Image quality was adequate. Contrast extended to the pancreatic duct. Opacification of the entire pancreatic ductal system was successful. The maximum diameter of the ducts was 3 mm. The entire opacified area was normal. The pancreatic duct in the body of the pancreas contained one temporary stent. This was found to be visibly patent. A long 0.025 inch Jagwire was passed into the ventral pancreatic duct. A 5 mm ventral pancreatic sphincterotomy was made with a traction (standard) sphincterotome using ERBE electrocautery. There was no post-sphincterotomy bleeding. To discover objects, the biliary tree was swept with a 6 mm balloon starting at the main pancreatic duct. Debris was swept from the duct. One stent was removed from the pancreatic duct using a snare and sent for cytology. The stent was found to be patent via the water column test. One stent was removed from the biliary tree using a snare and sent for cytology. The stent was found to be partially occluded via the water column test. A long 0.025 inch Jagwire was passed into the biliary tree. The short-nosed traction sphincterotome was passed over the guidewire and the bile duct was then deeply cannulated. Contrast was injected. The upper third of the main bile duct contained filling defect(s) thought to be a stone. Opacification of the entire biliary tree was successful. The maximum diameter of the ducts was 7 mm. The entire opacified area and entire biliary tree contained one stone, which was 4 mm in diameter. The main bile duct was mildly dilated and diffusely dilated, with a stone causing an obstruction. The largest diameter was 9 mm. A cholecystectomy had been performed. A 5 mm biliary sphincterotomy was made with a traction (standard) sphincterotome using ERBE electrocautery. There was no post-sphincterotomy bleeding. The biliary tree was swept with a 12 mm balloon starting at the left intrahepatic duct(s). Sludge was swept from the duct. All stones were removed. Impression: - A filling defect consistent with a stone was seen on the cholangiogram. - The entire main bile duct was mildly dilated, with a stone causing an obstruction. - The patient has had a cholecystectomy. - Presence of pancreatic stent. This was found to be patent. - Choledocholithiasis was found. Complete removal was accomplished by biliary sphincterotomy and balloon extraction. - A pancreatic sphincterotomy was performed. - The biliary tree was swept and debris was found. - One stent was removed from the pancreatic duct. - One stent was removed from the biliary tree. - A biliary sphincterotomy was performed. - The biliary tree was swept. Procedure Code(s): --- Professional --- 02455, Endoscopic retrograde cholangiopancreatography (ERCP); with removal of foreign body(s) or stent(s) from biliary/pancreatic duct(s) 87081, Endoscopic retrograde cholangiopancreatography (ERCP); with removal of calculi/debris from biliary/pancreatic duct(s) 64246, Endoscopic retrograde cholangiopancreatography (ERCP); with sphincterotomy/papillotomy 05047, Endoscopic retrograde cholangiopancreatography (ERCP); with sphincterotomy/papillotomy 76469, 26, Endoscopic catheterization of the pancreatic ductal system, radiological supervision and interpretation CPT copyright 2021 [employer]. All rights reserved. The codes documented in this report are preliminary and upon line crewman review may be revised to meet current compliance requirements. Dallas Kunz DO 06/03/2024 1:08:31 PM This report has been signed electronically. Number of Addenda: 0 Note Initiated On: 06/03/2024 12:15 PM
--- NOTE | 2024-06-03 13:08 | OP.CCLET_ITS ---
06/03/2024 No Primary Care Physician Re : ERCP procedure for Naty Solis Dear Care Physician This procedure was performed on Monday, June 03, 2024. My impressions and recommendations are as follows: Impressions : - A filling defect consistent with a stone was seen on the cholangiogram. - The entire main bile duct was mildly dilated, with a stone causing an obstruction. - The patient has had a cholecystectomy. - Presence of pancreatic stent. This was found to be patent. - Choledocholithiasis was found. Complete removal was accomplished by biliary sphincterotomy and balloon extraction. - A pancreatic sphincterotomy was performed. - The biliary tree was swept and debris was found. - One stent was removed from the pancreatic duct. - One stent was removed from the biliary tree. - A biliary sphincterotomy was performed. - The biliary tree was swept. Recommendations : My findings are described in the full procedure note, which is enclosed. If I can be of further assistance, please feel free to contact me at . Sincerely, Dallas Kunz, 06/03/2024 1:08:31 PM This report has been signed electronically.
--- NOTE | 2024-06-03 13:08 | PCM.POST.ANE ---
Anesthesia: Postop Eval I Current Vital Signs Temperature: 98.1 F Pulse Rate: 78 Blood Pressure: 124/76 Respiratory Rate: 16 Pulse Ox: 100 Oxygen Delivery Method: Room Air Assessment Airway patent: Yes Spontaneous unlabored respirations: Yes Mental status: Awake and Calm nausea: No Vomiting: No Anesthesia Complication: No Fluid Hydration Crystalloid volume administer (ml): 60 Total IV fluid infused: 60 Progress Note Anesthesia document: Postop Eval 1 completed: Yes
--- NOTE | 2024-06-03 13:17 | PCM.POSTANE2 ---
Anesthesia Postop Eval I Sum Postop Eval Completion status Anesthesia document: Postop Eval 1 completed: Yes Anesthesia Postop Eval I Summary Anesthesia Postop Eval I Summary: Anesthesia Postop Eval I: Assessment Summary Airway patent Yes 06/03/24 13:09 [email or web address] Spontaneous unlabored Yes 06/03/24 13:09 [email or web address] respirations Mental status Awake,Calm 06/03/24 13:09 [email or web address] nausea No 06/03/24 13:09 [email or web address] Vomiting No 06/03/24 13:09 [email or web address] Anesthesia Postop Eval I: Fluid Summary Crystalloid volume administer 60 06/03/24 13:09 [email or web address] (ml) Colloids volume administered ( ml) Blood Product volume administered (ml) Total IV fluid infused 60 06/03/24 13:09 [email or web address] Anesthesia Postop Eval I: Summary Notes Anesthesia Complication No 06/03/24 13:09 [email or web address] Anesthesia Complication Comment: Post-operative progress note Anesthesia: Postop Eval II Evaluation Mental status: Awake Pain Level: 0 nausea: No Vomiting: No
== END 2024-06-03 13:43 | disposition home or self-care (01) ==
LOC: EN 10:53 → AC 10:55
PROVIDERS: Anesthesiology; Visit Provider Internal Medicine Gastroenterology
PROC: (CPT 43260; principal; 2024-06-03 11:40)
DX: K80.51 Calculus of bile duct without cholangitis or cholecystitis with obstruction (principal); K83.8 Other specified diseases of biliary tract; F17.290 Nicotine dependence, other tobacco product, uncomplicated; F17.210 Nicotine dependence, cigarettes, uncomplicated
CPT/HCPCS: 43275; 43264; 43262 ×2; 74330; 76000; 81025; 88108; 88304; 88305; 88313; A4216; J2405

== ENCOUNTER → 2024-10-08 | Outpatient (CLI) | payer MEDICAID, SELFPAY ==
[2024-10-08 12:53] LABS: Absolute Neutrophil Count 4.2 X10^3/uL (2.0-7.7); Basophil# 0.05 X10^3/uL; Basophil% 0.6 % (0-1); Eosinophil# 0.04 X10^3/uL; Eosinophils% 0.5 % (0-5); Hematocrit 40.8 % (37-47); Hemoglobin 13.8 g/dL (12.0-15.0); Lymphocyte % 38.9 % (19-41); Mean Corp Hgb Conc 33.8 g/dL (32-36); Mean Corpuscular Hgb 29.1 pg (27.0-32.0); Mean Corpuscular Volume 85.9 fL (81-99); Monocyte# 0.42 X10^3/uL; Monocyte% 5.4 % (0-10); NRBC Flagged by Analyzer 0 % (0-5); Neutrophil # 4.19 X10^3/uL (2.7-7.7); Neutrophil % 54.3 % (47-70); Platelet Count 264 K/mm3 (150-450); RBC Distribution Width CV 12.2 % (11.6-14.6); RBC Distribution Width SD 38.6 fl (35.1-43.9); Red Blood Count 4.75 M/mm3 (4.2-5.4); White Blood Count 7.7 K/mm3 (4.4-11.0)
== END | disposition home or self-care (01) ==
LOC: LAB 12:05
PROVIDERS: Referring Provider Advanced Practice Midwife; Visit Provider Advanced Practice Midwife
DX: N93.9 Abnormal uterine and vaginal bleeding, unspecified (principal)
CPT/HCPCS: 36415; 84443; 85025

== ENCOUNTER → 2024-10-12 | Outpatient (CLI) | payer MEDICAID, SELFPAY ==
--- NOTE | 2024-10-12 09:50 | US_ITS ---
PROCEDURE: TRANSVAGINAL NON- 10/12/2024 REASON FOR EXAM: IUD PLACEMENT TECHNIQUE: TRANSVAGINAL NON- COMPARISON: None FINDINGS: LMP: August 20, 2024. Measurements: Uterus: 9.2 cm x 5.2 cm x 4.4 cm with a volume of 109.24 mL Endometrial Thickness: 5 mm. IUD is seen within the fundal portion of the uterus. Right Ovary: 4.1 cm x 2.1 cm x 2.2 cm with a volume of 10.04 mL. Left Ovary: 2.8 cm x 1.8 cm x 1.7 cm with a volume of 4.59 mL. Uterus: Normal size, myometrial echotexture, and contour. Endometrium: Unremarkable.. The IUD is seen within the fundal portion of the endometrium. Right ovary: Normal size and echotexture. Left ovary: Normal size and echotexture. Other: No large pelvic mass identified. US/Transvaginal Non- IMPRESSION: The IUD is seen within the fundal portion of the endometrium. Reading Location: [id number]
== END | disposition home or self-care (01) ==
LOC: US 09:48
PROVIDERS: Referring Provider Advanced Practice Midwife; Visit Provider Advanced Practice Midwife
DX: N93.9 Abnormal uterine and vaginal bleeding, unspecified (principal)
CPT/HCPCS: 76830

== ENCOUNTER 2025-01-02 11:48 | Emergency (ER) | payer MEDICAID, SELFPAY ==
[2025-01-02 11:48] VITALS: BP 146/99; PULSE 96; RESP 14; TEMP 36.6; O2SAT 98; BMI 39.4
--- NOTE | 2025-01-02 12:10 | ED.VIS.BACK ---
HPI History of Present Illness Chief Complaint: Lower Extremity Injury Informant: patient Narrative Narrative: 24-year-old female states that a month ago she started having pain in her low back and her left buttock when she bent over something heavy. She felt a pop in her back. Pain has not gone away. But a week ago she had some tingling go down into her left leg when she got up, but it went away, she saw a new PCP recently who put her on Naprosyn and cyclobenzaprine that she started yesterday. She took those again this morning. Yesterday she started having a tingling again and it is more prominent today all the way down to her left foot and the pain radiates all the way down her thigh and calf to her foot, and she is having significant pain whenever she tries to get up or sit down on the toilet for instance. She denies weakness. She denies bowel or bladder dysfunction or saddle anesthesia. She denies any other injury or fall. [facility] Medical History delivery delivered History of gestational diabetes History of biliary stent insertion Depression Fatty liver Back pain Gastric reflux Vapes nicotine containing substance History of edema Obesity (BMI 30-39.9) Anxiety Home Medications ?Medication ?Instructions ?Recorded ?Last Taken ?Type levonorgestrel 14 mcg/24 hr (up to 1 device intrauterine ONCE 10/08/24 Unknown History 3 yrs) 13.5 mg intrauterine device (Danika) estradiol 1 mg tablet (Estrace) 1 mg PO QDAY #30 tabs 10/12/24 Unknown Rx tramadol 50 mg tablet 50 mg PO Q6H PRN pain 3 days #10 01/02/25 Unknown Rx tabs Allergy/AdvReac Type Severity Reaction Status Date / Time morphine Allergy Mild Rash Verified 01/02/25 11:49 Family History Father Diabetes Hypertension Surgical History Hx laparoscopic cholecystectomy History of ERCP Status post History of tonsillectomy Social History number of children: 2 current occupational status: employed current occupation: Works from home Smoking Status: Current every day smoker tobacco type: cigarettes Tobacco: How many years used: 6 alcohol intake: never substance use type: does not use seatbelt use: always do you feel safe at home: Yes additional social history: Dontrell- boyfriend ROS ROS ED Constitutional Constitutional ED: Denies chills or fever(s) Gastrointestinal Gastrointestinal: Denies abdominal pain, constipation, fecal incontinence, nausea or vomiting Genitourinary Genitourinary ED: Reports other Details: no urinary retention ; Denies abdominal discomfort or urinary incontinence Musculoskeletal Musculoskeletal: Reports as per HPI and back pain; Denies neck pain Integumentary Denies rash or wounds Neurologic Neurologic: Denies headache(s), paresthesias or weakness EXAM Physical Exam Const Vital Signs: 01/02/25 11:48 Temperature 98 F Temperature Source Temporal Pulse Rate 96 Respiratory Rate 14 Blood Pressure 146/99 H Blood Pressure Mean 114 Pulse Ox 98 Oxygen Delivery Method Room Air Positive well nourished and well developed General Appearance ED: well developed and NAD HEENT Negative for trauma or tenderness Eyes PERRL and EOMs intact bilaterally Neck full ROM and supple GI normal to inspection, nondistended, normoactive bowel sounds, soft to palpation and non-tender Back/Spine normal to inspection Back/Spine Narrative: Negative cross straight leg raise Lumbar Spine / Lower Back: paraspinal muscle tenderness left (Into left buttock and sciatic notch only) and straight leg raise positive - left at 50 degrees; Negative for ROM limited, lumbar spinal tenderness or straight leg raise positive right Extremity normal to inspection, full ROM and no pedal edema Neuro oriented x3 and no sensory deficits noted Sensorium / Orientation: alert Motor Exam: strength 5/5 throughout and clonus absent Deep Tendon Reflexes: Rt Patellar (L4): 1+, Lt Patellar (L4): 1+, Rt Ankle (S1): 1+ and Lt Ankle (S1): 1+ Deep Tendon Reflexes Back: Rt Patellar (L4): 1+, Lt Patellar (L4): 1+, Rt Ankle (S1): 1+ and Lt Ankle (S1): 1+ Plantar Reflex: Downgoing: bilateral Psych mental status grossly normal and thought process normal Skin no rashes or lesions noted and no wounds MDM MDM MDM Narrative Medical decision making narrative: This patient is having symptoms of sciatica. She came in saying that her left hip is hurting, but when I asked her about her low back she agrees that she was lifting about a month or more ago and felt a pop and has been having pain there ever since. I think this is all related to that, as when internally and externally rotating at the hip she does not have any groin pain to suggest a problem with the joint there. She just started NSAIDs yesterday, which is the initial treatment for this. I do not think she needs any changes in prescriptions, but I did obtain lumbosacral x-rays to rule out compression fracture, 3 views on my interpretation are unremarkable showing preserved disc spaces no obvious fractures. She drove today so not giving her any narcotics but she mostly stays at home with children and is asking for something stronger for pain so we will give her a short course of some tramadol to use in addition to the NSAID which I recommend continuing. Discharge Plan Triage Chief Complaint: Lower Extremity Injury ED Provider: Tio Szymanski Dx/Rx/DC Orders Clinical Impression: Acute left-sided low back pain with left-sided sciatica Instructions: ED Sciatica Prescriptions: New tramadol 50 mg tablet 50 mg PO Q6H PRN (Reason: pain) 3 Days Qty: 10 0RF No Action Danika 14 mcg/24 hr (3 yrs) 13.5 mg intrauterine device 1 device intrauterine ONCE Rx Instructions: as a single dose estradiol [Estrace] 1 mg tablet 1 mg PO QDAY Qty: 30 0RF Primary Care Provider: Suni Mendez Referrals: Doctor,Your [Non-Staff] - 10-14 Days if not better Print Language: Omani Disposition Disposition: Home, Self Care
--- OUTSIDE RECORDS SUMMARY | 2025-01-02 12:19 | XMS RPT_ITS | CCD ---
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 Name Role Phone Unavailable Primary Care Provider Unavailabl e Sundar Melara Attending Unavailable PROVIDER, UNKNOWN Referring Unavailable No, PCP Primary Care Unavailable EDWARD WANG Attending Unavailable PROVIDER, UNKNOWN Referring Unavailable No, PCP Primary Care Unavailable Care Physician, No Primary Primary Care Provider Unavailable Care Physician, No Primary Referring Provider Un available Silvia DEPUTY OF COUNTER INTELLIGENCE, DEPUTY OF COUNTER INTELLIGENCE-C Miladis Attending Provider [phone] PB ROMEO Primary Care Unavailable FÉLIX Zarco Attending Provider [phone] Care Physician, No Primary Primary Care Provider Unavailable Care Physician, No Primary Referring Provider Un available Dr. Karlene Hickey Attending Provider [phone] Care Physician, No Primary Primary Care Provider Unavailable Care Physician, No Primary Referring Provider Un available Dr. Karlene Hickey Attending Provider [phone] Silvia DEPUTY OF COUNTER INTELLIGENCE, DEPUTY OF COUNTER INTELLIGENCE-C Miladis Attending Provider [phone] FÉLIX Guadalupe Attending Provider [phone] Dr. Makeda Kerr Attending Provider [phone] Care Physician, No Primary Primary Care Provider Unavailable Care Physician, No Primary Referring Provider Un available Silvia DEPUTY OF COUNTER INTELLIGENCE, DEPUTY OF COUNTER INTELLIGENCE-C Miladis Attending Provider MILADIS VEGA Referring Unavailable NO PRIMARY CARE, MD Primary Care Unavailable TONYA GUAMAN Attending Unavailable KARLENE HICKEY Referring Unavailabl e NO PRIMARY CARE, MD Primary Care Unavailable TONYA GUAMAN F Attending Unavailable ELIZ BRIGGS Attending Unavailable TONYA GUAMAN F Referring Unavailable DOC, MISC Primary Care Unavailable KARLENE HICKEY Referring Unavailabl e TONYA GUAMAN F Attending Unavailable DOC, [facility] [place] Primary Care Unavailable KARLENE HICKEY Referring Unavailabl e TONYA GUAMAN F Attending Unavailable DOC, [facility] [place] Primary Care Unavailable ENEDINA GAMBINO Attending Unavailable DOC, [facility] [place] Primary Care Unavailable KARLENE HICKEY Referring Unavailabl e Care Physician, No Primary Primary Care Provider Unavailable Care Physician, No Primary Referring Provider Un available Dr. Makeda Kerr Attending Provider [phone] FÉLIX Guadalupe Attending Provider [phone] Dr. Karlene Hickey Attending Provider [phone] Dr. Karlene Hickey Admit Provider [phone] Dr. Karlene Hickey Other Provider [phone] Unavailable Primary Care Provider Unavailabl e Care Physician, No Primary Primary Care Provider Unavailable Care Physician, No Primary Referring Provider Un available FÉLIX Guadalupe Attending Provider [phone] Dr. Makeda Kerr Attending Provider [phone] Dr. Karlene Hickey Attending Provider [phone] Dr. Karlene Hickey Admit Provider [phone] Dr. Karlene Hickey Other Provider [phone] Silvia DEPUTY OF COUNTER INTELLIGENCE, DEPUTY OF COUNTER INTELLIGENCE-Guillerom Foster Attending Provider [phone] FÉLIX Zarco Attending Provider Unavailable Primary Care Provider Unavailabl e Care Physician, No Primary Primary Care Provider Unavailable Care Physician, No Primary Referring Provider Un available Nicolette Guadalupe CNM Attending Provider [phone] Nicolette Guadalupe CNM Referring Provider [phone] Dallas Kunz Consulting Unavailable Dallas Kunz Attending Unavailable Care Physician, No Primary Referring Unava ilable Care Physician, No Primary Primary Care Unava ilable Robotham, Jyothi Attending Unavailable Robotham, Yjothi Referring Unavailable Robotham, Jyothi Consulting Unavailable Care Physician, No Primary Primary Care Unava ilable Dallas Kunz Attending Unavailable Pop Santiago Consulting Unavailable Pop Santiago Referring Unavailable Pop Santiago Admitting Unavailable Care Physician, No Primary Primary Care Unava ilable Robotham, Jyothi Attending Unavailable Care Physician, No Primary Primary Care Unava ilable Nicolette Guadalupe Attending Unavailable Nicolette Guadalupe Referring Unavailable Fátima Duggan Attending Unavailable Care Physician, No Primary Referring Unava ilable Care Physician, No Primary Primary Care Unava ilable Miladis Vega Attending Unavailable Care Physician, No Primary Primary Care Unava ilable Care Physician, No Primary Referring Unava ilable Care Physician, No Primary Referring Unava ilable Nicolette Guadalupe Attending Unavailable Care Physician, No Primary Primary Care Unava ilable Robotham, Jyothi Referring Unavailable Familia Cardozo Attending Unavailable Care Physician, No Primary Primary Care Unava ilable Pop Santiago Consulting Unavailable Jack, Pop Attending Unavailable Pop Santiago Admitting Unavailable Care Physician, No Primary Primary Care Unava ilable Dallas Kunz Attending Unavailable Pop Santiago Referring Unavailable Care Physician, No Primary Primary Care Unava ilable Care Physician, No Primary Referring Unava ilable Nicolette Guadalupe Attending Unavailable Care Physician, No Primary Primary Care Unava ilable Care Physician, No Primary Referring Unava ilable Nicolette Guadalupe Attending Unavailable Care Physician, No Primary Primary Care Unava ilable Fátima Duggan Attending Unavailable Fátima Duggan Referring Unavailable Robotparvez, Jyothi Consulting Unavailable Care Physician, No Primary Primary Care Unava ilable Care Physician, No Primary Primary Care Unava ilable Pramod Cast Attending Unavailable Pramod Cast Referring Unavailable SilviaMiladis rader Attending Unavailable Care Physician, No Primary Primary Care Unava ilable Miladis Vega Referring Unavailable Care Physician, No Primary Primary Care Unava ilable Pramod Cast Attending Unavailable Pop Santiago Attending Unavailable Pop Santiago Admitting Unavailable Care Physician, No Primary Primary Care Unava ilable Dallas Kunz Attending Unavailable Care Physician, No Primary Primary Care Unava ilable Care Physician, No Primary Referring Unava ilable Pramod Cast Attending Unavailable Care Physician, No Primary Primary Care Unava ilable Care Physician, No Primary Primary Care Unava ilable Nicolette Guadalupe Attending Unavailable Nicolette Guadalupe Referring Unavailable Robotparvez, Jyothi Attending Unavailable Robotparvez, Jyothi Referring Unavailable Care Physician, No Primary Primary Care Unava ilable Miladis Vega Attending Unavailable SilviaMiladis Referring Unavailable Care Physician, No Primary Primary Care Unava ilable Care Physician, No Primary Referring Unava ilable Care Physician, No Primary Primary Care Unava ilable Miladis Vega Attending Unavailable Jyothi Enrique Attending Unavailable Care Physician, No Primary Referring Unava ilable Care Physician, No Primary Primary Care Unava ilable Miladis Vega Attending Unavailable Care Physician, No Primary Referring Unava ilable Care Physician, No Primary Primary Care Unava ilable Pop [place] Attending Unavailable Alberto Peña Referring Unavailable Care Physician, No Primary Primary Care Unava ilable Suni Mendez MD Primary Care Provider SUNI MENDEZ Attending Unavailable Allergies Allergy Classification Reported Allergen(s) Allergy Type Date of Onset Reaction(s) Facility (17 sources) Morphine; Translations: [MORPHINE] Drug Allergy 0 [facility] (6 sources) Dust; Translations: [DUST] Propensity to adverse reactions (disorder) 4 [facility] (6 sources) Pollen; Translations: [POLLEN] Propensity to adverse reactions (disorder) 4 [facility] (6 sources) RAGWEED; Translations: [RAGWEED] Propensity to adverse reactions (disorder) 4 [facility] (5 sources) SOAP; Translations: [SOAP] Propensity to adverse reactions to drug (disorder) 4 [facility] (1 source) Morphine Drug Allergy 5 [facility] Medications Current Medications Medication Drug Class(es) Dates Sig (Normalized) Sig (Original) amoxicillin 875 mg oral tablet (1 source) Penicillin-class Antibacterial Start: 03-22-2024 End: 03-29-2024 take 1 tablet by mouth twice daily amoxicillin (AMOXIL) 875 mg tablet Indications: Otitis media with effusion, right Take 1 tablet by mouth two times a day for 7 days. 14 tablet 03/22/2024 03/29/2024 Active cyclobenzaprine hydrochloride 10 mg oral tablet (1 source) Muscle Relaxant Start: 12-30-2024 take 1 tablet by mouth every eight hours as needed cyclobenzaprine (FLEXERIL) 10 mg tablet Take 1 tablet by mouth three times a day as needed. 30 tablet 12/30/2024 Active estradiol 1 mg oral tablet (2 sources) Estrogen Start: 10-12-2024 take 1 tablet by mouth once daily Estradiol (Estrace) 1 mg tablet Active 1 mg PO daily October 12, 2024 12:00am levonorgestrel 0.151724 mg/hr intrauterine system (16 sources) Progestin, Progestin-containi ng Intrauterine Device Start: 10-08-2024 Levonorgestrel (Danika) 14 mcg/24 hr (3 yrs) 13.5 mg intrauterine device Active 1 NMA INTRA-UTER ONCE October 08, 2024 12:00am as a single dose Start: 02-07-2024 End: 02-18-2024 Levonorgestrel (Danika) 14 mc g/24 hr (3 yrs) 13.5 mg intrauterine device Discontinued 1 NMA INTRA-UTER ONCE February 07, 2024 12:00am February 18, 2024 10:54am as a single dose Start: 12-03-2019 End: 08-15-2022 Levonorgestrel (Liletta) 20. 1 mcg/24 hrs (6 yrs) 52 mg intrauterine device Discontinued 1 NMA INTRA-UTER ONCE December 03, 2019 12:00am August 15, 2022 1:24pm as a single dose Start: 12-03-2019 End: 08-15-2022 Levonorgestrel (Liletta) 20. 1 mcg/24 hrs (6 yrs) 52 mg intrauterine device Discontinued 1 DEVICE INTRA-UTER ONCE December 03, 2019 12:00am August 15, 2022 1:24pm as a single dose naproxen 250 mg oral tablet (20 sources) Nonsteroidal Anti-inflammatory Drug Start: 12-30-2024 take 1 tablet by mouth every twelve hours as needed naproxen (NAPROSYN) 250 mg tablet Take 1 tablet by mouth two times a day as needed. 30 tablet 1 12/30/2024 Active Start: 06-25-2023 End: 08-09-2023 take 1 tablet by mouth twice daily as needed for pain Naproxen 500 mg tablet Discontinued 500 mg PO TWICE DAILY NEEDED as needed for Pain June 25, 2023 1:00am August 09, 2023 10:07am Start: 09-02-2019 End: 10-15-2019 take 250-500 mg by mouth every eight hours as needed for pain Naproxen 250 MG tablet Discontinued 250 - 500 mg PO EVERY 8 HOURS NEEDED as needed for MILD PAIN September 02, 2019 12:00am October 15, 2019 10:08am Start: 05-17-2014 End: 02-02-2019 take 250-500 mg by mouth every eight hours as needed for pain Naproxen 250 MG tablet Discontinued 250 - 500 mg PO EVERY 8 HOURS NEEDED as needed for MILD PAIN May 17, 2014 1:00am February 02, 2019 3:03pm Completed/Discontinued Medications Medication Drug Class(es) Dates Sig (Normalized) Sig (Original) acetaminophen 325 mg / oxyCODONE hydrochloride 5 mg oral tablet (18 sources) Opioid Agonist Start: 03-12-2024 End: 03-23-2024 Oxycodone-Acetamino phen (Percocet) 5-325 mg tablet Discontinued 1 {tbl} PO EVERY 6 HOURS as needed for pain 03 24March 12, 2024 March 23, 2024 2:15pm Start: 06-25-2023 End: 08-09-2023 Oxycodone-Acetaminophen (Per cocet) 5-325 mg tablet Discontinued 1 {tbl} PO EVERY 6 HOURS as needed for pain 08 11June 25, 2023 August 09, 2023 10:07am Start: 09-02-2019 End: 09-09-2019 Oxycodone-Acetaminophen 1 TA BLET tablet Discontinued 1 - 2 {tbl} PO EVERY 6 HOURS NEEDED as needed for Pain 03 11September 02, 2019 September 08, 2019 12:00am September 09, 2019 12:02am Start: 09-02-2019 End: 09-09-2019 take 1 tablet by mouth every six hours as needed Oxycodone-Acetaminophen Discontinued 1 - 2 TABLET PO EVERY 6 HOURS NEEDED 03 11September 02, 2019 September 09, 2019 12:02am amoxicillin 875 mg / clavulanate 125 mg oral tablet (6 sources) Penicillin-class Antibacterial Start: 06-24-2023 End: 08-09-2023 Amoxicillin-Pot Clavulanate 875-125 mg tablet Discontinued 1 {tbl} PO TWICE A DAY June 24, 2023 1:00am August 09, 2023 10:07am Start: 06-24-2023 End: 08-09-2023 take 1 tablet by mouth twice daily Amoxicillin-Pot Clavulanate Discontinued 1 TABLET PO TWICE A DAY June 24, 2023 1:00am August 09, 2023 10:07am Comment on above: Take 1 tablet by dirk two times a day for 10 days. Blood-Glucose Meter (4 sources) Start: 04-18-2023 End: 08-09-2023 Blood-Glucose Meter Discontinued 0 .MEDSUPPLY April 18, 2023 1:00am August 09, 2023 10:08am As directed- Test fasting and 2 hours after meals Start: 04-18-2023 Blood-Glucose Meter Active 0 .MEDSUPPLY April 18, 2023 12:00am As directed- Test fasting and 2 hours after meals Blood-Glucose Meter misc (3 sources) Start: 04-18-2023 End: 08-09-2023 Blood-Glucose Meter misc Discontinued 0 .MEDSUPPLY April 18, 2023 1:00am August 09, 2023 10:08am As directed- Test fasting and 2 hours after meals citalopram 20 mg oral tablet (20 sources) Serotonin Reuptake Inhibitor Start: 08-15-2022 End: 08-22-2023 take 1 tablet by mouth once daily Citalopram (Celexa) 20 mg tablet Discontinued 20 mg PO DAILY August 15, 2022 12:00am August 22, 2023 9:46am Start: 06-04-2019 End: 12-30-2024 take 1 tablet by mouth once daily Citalopram 40 MG tablet Discontinued 40 mg PO DAILY August 31, 2019 10:07am October 15, 2019 10:33am Start: 03-09-2019 End: 06-04-2019 take 1 tablet by mouth once daily Citalopram (Celexa) 20 mg tablet Discontinued 20 mg PO DAILY March 09, 2019 1:00am June 04, 2019 3:44pm Comment on above: Take 40 mg by mouth once daily. Desogestrel / Ethinyl Estradiol (3 sources) Progestin, Estrogen Start : 08-13 End: 08-13 take 0.15 tablet by mouth once daily Desogestrel-Ethinyl Estradiol (Apri) 0.15-0.03 mg tablet Discontinued 1 {tbl} PO DAILY 84 August 13, 2024 12:00am Keerthi 24th, 2025 2:22pm diazePAM 5 mg oral tablet (3 sources) Benzodiazepine Start : 02-10 End: 03-15 take 1 tablet by mouth three times daily as needed for muscle spasms Diazepam (Valium) 5 mg tablet Discontinued 5 mg PO THREE TIMES A DAY as needed for muscle spasm 03 09February 11, 2024 12:00am March 15, 2024 4:02am famotidine 20 mg oral tablet (7 sources) Histamine-2 Receptor Antagonist Start : 01-24 End: 08-21 take 1 tablet by mouth once daily Famotidine (Pepcid) 20 mg tablet Discontinued 20 mg PO DAILY January 24, 2023 12:00am August 22, 2023 9:46am fluticasone propionate 0.05 mg/actuat metered dose nasal spray (2 sources) Corticosteroid Start : 03-22 End: 12-30 take 2 spray(s) by mouth once daily fluticasone (FLONASE) 50 mcg/actuation nasal spray Indications: Otitis media with effusion, right Use 2 Sprays in each nostril once daily. Rinse mouth after use. 1 Each 03/22/2024 12/30/2024 Discontinued 1 ml medroxyPROGESTERone acetate 150 mg/ml injection (8 sources) Progestin Start : 02-17 End: 12-30 medroxyPROGESTERone (DEPO-PROVERA) 150 mg/mL injection Inject 150 mg intramuscularly every 12 weeks. 02/18/2024 12/30/2024 Discontinued Start: 02-18-2024 End: 08-13-2024 inject 150 mg by intramuscular injection every three months Medroxyprogesterone (Depo-Provera) 150 mg/mL suspension Discontinued 150 mg IM every 3 months May 19, 2024 3:52pm August 13, 2024 1:53pm metFORMIN hydrochloride 500 mg oral tablet (5 sources) Biguanide Start: 06-06-2023 End: 08-09-2023 take 1 tablet by mouth twice daily Metformin 500 mg tablet Discontinued 500 mg PO TWICE A DAY June 06, 2023 1:00am August 09, 2023 10:07am metroNIDAZOLE 500 mg oral tablet (9 sources) Nitroimidazole Antimicrobial Start: 08-22-2022 End: 08-29-2022 take 1 tablet by mouth twice daily Metronidazole 500 mg tablet Discontinued 500 mg PO TWICE A DAY 14 August 22, 2022 12:00am August 28, 2022 12:00am August 29, 2022 12:04am Multivit 87-Tywk-Iadfba 6-Dha (Prenate Dha) 28 mg iron-1 mg -300 mg capsule (20 sources) Start: 08-31-2019 End: 08-15-2022 Multivit 14-Dbqc-Ftmokf 6-Dha (Prenate Dha) 28 mg iron-1 mg -300 mg capsule Discontinued 1 NMA PO .daily August 31, 2019 10:07am August 15, 2022 1:06pm Start: 08-31-2019 End: 08-15-2022 take 1 capsule by mouth once daily Multivit 94-Ywkv-Ryizga 6-Dha (Prenate Dha) 28 mg iron-1 mg -300 mg capsule Discontinued 1 CAP PO .daily August 31, 2019 9:07am August 15, 2022 12:06pm Start: 08-31-2019 End: 08-15-2022 take 1 capsule by mouth once daily Multivit 73-Wdcn-Tecswx 6-Dha (Prenate Dha) 28 mg iron-1 mg -300 mg capsule Discontinued 1 CAP PO .daily August 31, 2019 10:07am August 15, 2022 1:06pm Start: 07-17-2019 End: 08-31-2019 Multivit 58-Fxwx-Ualyal 6-Dh a (Prenate Dha) 28 mg iron-1 mg -300 mg capsule Discontinued 1 NMA PO .daily July 17, 2019 3:43pm August 31, 2019 10:07am Start: 06-04-2019 End: 07-17-2019 Multivit 38-Onoy-Knquea 6-Dh a (Prenate Dha) 28 mg iron-1 mg -300 mg capsule Discontinued 1 NMA PO .daily June 04, 2019 3:44pm July 17, 2019 3:44pm Start: 05-07-2019 End: 06-04-2019 Multivit 72-Vlkn-Ezvymq 6-Dh a (Prenate Dha) 28 mg iron-1 mg -300 mg capsule Discontinued 1 NMA PO .daily May 07, 2019 3:19pm June 04, 2019 3:45pm Start: 02-02-2019 End: 05-07-2019 Multivit 12-Qevy-Aratoc 6-Dh a (Prenate Dha) 28 mg iron-1 mg -300 mg capsule Discontinued 1 NMA PO .daily February 02, 2019 12:00am May 07, 2019 3:20pm hdumzbblzxcs10-inlw fum 28 mg iron-folate no.6 1 mg-dha 300 mg capsule (20 sources) Start: 07-17-2019 End: 08-31-2019 take 1 capsule by mouth once daily rscbwyowtsgv94-vswk fum 28 mg iron-folate no.6 1 mg-dha 300 mg capsule Discontinued 1 CAP PO .daily July 17, 2019 2:43pm August 31, 2019 9:07am Start: 07-17-2019 End: 08-31-2019 take 1 capsule by mouth once daily xkcyjkgadotz00-otru fum 28 mg iron-folate no.6 1 mg-dha 300 mg capsule Discontinued 1 CAP PO .daily July 17, 2019 3:43pm August 31, 2019 10:07am Start: 06-04-2019 End: 07-17-2019 take 1 capsule by mouth once daily vlgkgnggofed98-gsif fum 28 mg iron-folate no.6 1 mg-dha 300 mg capsule Discontinued 1 CAP PO .daily June 04, 2019 2:44pm July 17, 2019 2:44pm Start: 06-04-2019 End: 07-17-2019 take 1 capsule by mouth once daily cvdjbvrpbkin40-uauf fum 28 mg iron-folate no.6 1 mg-dha 300 mg capsule Discontinued 1 CAP PO .daily June 04, 2019 3:44pm July 17, 2019 3:44pm Start: 05-07-2019 End: 06-04-2019 take 1 capsule by mouth once daily vvanttfdehxt81-rotl fum 28 mg iron-folate no.6 1 mg-dha 300 mg capsule Discontinued 1 CAP PO .daily May 07, 2019 2:19pm June 04, 2019 2:45pm Start: 05-07-2019 End: 06-04-2019 take 1 capsule by mouth once daily aplxbuzzuppo56-mpbf fum 28 mg iron-folate no.6 1 mg-dha 300 mg capsule Discontinued 1 CAP PO .daily May 07, 2019 3:19pm June 04, 2019 3:45pm omeprazole 40 mg delayed release oral capsule (3 sources) Proton Pump Inhibitor Start: 02-18-2024 End: 02-25-2024 take 1 capsule by mouth once daily Omeprazole 40 mg capsule,delayed release(DR/EC) Discontinued 40 mg PO daily February 18, 2024 12:00am February 25, 2024 3:54pm swallow whole; do not crush, chew, dissolve, cut, break ondansetron 4 mg disintegrating oral tablet (20 sources) Serotonin-3 Receptor Antagonist Start: 03-12-2024 End: 03-23-2024 take 1 tablet by mouth three times daily as needed for nausea and vomiting Ondansetron 4 mg tablet,disintegratin g Discontinued 4 mg PO THREE TIMES A DAY as needed for nausea and vomiting March 12, 2024 2:14am March 23, 2024 2:15pm Start: 11-30-2022 End: 08-09-2023 take 1 tablet by mouth every eight hours as needed for nausea and vomiting Ondansetron 4 mg tablet,disintegrating Discontinued 4 mg PO Q8H as needed for nausea and vomiting November 30, 2022 12:00am August 09, 2023 10:07am Start: 08-31-2019 End: 10-15-2019 Ondansetron Hcl 4 MG tablet Discontinued 4 mg PO August 31, 2019 12:00am October 15, 2019 10:08am Start: 02-02-2019 End: 08-20-2019 take 1 tablet by mouth every four hours as needed for nausea and vomiting Ondansetron 4 mg tablet,disintegrating Discontinued 4 mg PO Q4H as needed for nausea and vomiting March 09, 2019 3:20pm July 17, 2019 3:44pm oxyCODONE hydrochloride 5 mg oral capsule (3 sources) Opioid Agonist Start: 03-09-2024 End: 03-15-2024 take 1 capsule by mouth every six hours as needed for pain Oxycodone 5 mg capsule Discontinued 5 mg PO EVERY 6 HOURS as needed for pain 10 March 09, 2024 March 15, 2024 4:00am Pnv Cmb 45-Ysok-Up-[place]-3-Dh a (Complete Mayra Dha) 29 mg iron- 1 mg-200 mg combo pack (15 sources) Start: 01-10-2023 End: 08-09-2023 take 29 mg by mouth once daily Pnv Cmb 02-Stpb-Jn-[place]-3- Dha (Complete Mayra Dha) 29 mg iron- 1 mg-200 mg combo pack Discontinued 1 NMA PO DAILY 60 January 10, 2023 8:13am August 09, 2023 10:08am Start: 01-10-2023 End: 08-09-2023 take 29 mg by mouth once daily Pnv Cmb 74-Hoez-Qo-[place]-3-Dha (Complete Mayra Dha) 29 mg iron- 1 mg-200 mg combo pack Discontinued 1 PKG PO DAILY 60 January 10, 2023 8:13am August 09, 2023 10:08am Start: 01-10-2023 take 29 mg by mouth once daily Pnv Cmb 42-Kzgw-Pw-[place]-3-Dha (Complete Dha) 29 mg iron- 1 mg-200 mg combo pack Active 1 PKG PO DAILY 60 January 10, 2023 7:13am Start: 12-28-2022 End: 01-10-2023 take 29 mg by mouth once daily Pnv Cmb 97-Rxba-Nx-[place]-3-Dha (Complete Mayra Dha) 29 mg iron- 1 mg-200 mg combo pack Discontinued 1 NMA PO DAILY 60 December 28, 2022 12:00am January 10, 2023 8:13am Start: 12-28-2022 End: 01-10-2023 take 29 mg by mouth once daily Pnv Cmb 65-Yeej-Rm-[place]-3-Dha (Complete Mayra Dha) 29 mg iron- 1 mg-200 mg combo pack Discontinued 1 PKG PO DAILY 60 December 28, 2022 12:00am January 10, 2023 8:13am Start: 12-28-2022 End: 01-10-2023 take 29 mg by mouth once daily Pnv Cmb 33-Nczm-Hs-[place]-3-Dha (Complete Dha) 29 mg iron- 1 mg-200 mg combo pack Discontinued 1 PKG PO DAILY 60 December 27, 2022 11:00pm January 10, 2023 7:13am Start: 12-28-2022 take 29 mg by mouth once daily Pnv Cmb 48-Oyyh-Re-[place]-3-Dha (Complete Dha) 29 mg iron- 1 mg-200 mg combo pack Active 1 PKG PO DAILY 60 December 28, 2022 12:00am Vit,Dnra92-Hmxp-Glpff (7 sources) Start: 05-15-2014 End: 02-02-2019 take 1 tablet by mouth once daily Vit,Koac56-Iqui-Ovbhu Discontinued 1 TABLET PO DAILY May 15, 2014 12:00am February 02, 2019 2:04pm Start: 05-15-2014 End: 02-02-2019 take 1 tablet by mouth once daily Vit,Zdod59-Rost-Jsspr Discontinued 1 TABLET PO DAILY May 15, 2014 1:00am February 02, 2019 3:04pm Vit,Sfey40-Ewxn-Uppqg 1 TABLET tablet (3 sources) Start: 05-15-2014 End: 02-02-2019 take 1 tablet by mouth once daily Vit,Reqg02-Sgty-Kzsov 1 TABLET tablet Discontinued 1 {tbl} PO DAILY May 15, 2014 1:00am February 02, 2019 3:04pm yqn61-muyz fum 28 mg iron-folate no.6 1 mg-dha 300 mg capsule (7 sources) Start: 02-02-2019 End: 05-07-2019 take 1 capsule by mouth once daily mce23-capu fum 28 mg iron-folate no.6 1 mg-dha 300 mg capsule Discontinued 1 CAP PO .daily February 01, 2019 11:00pm May 07, 2019 2:20pm Start: 02-02-2019 End: 05-07-2019 take 1 capsule by mouth once daily orp30-amoh fum 28 mg iron-folate no.6 1 mg-dha 300 mg capsule Discontinued 1 CAP PO .daily February 02, 2019 12:00am May 07, 2019 3:20pm sertraline 100 mg oral tablet (20 sources) Serotonin Reuptake Inhibitor Start: 10-15-2019 End: 08-15-2022 take 1 tablet by mouth once daily Sertraline (Zoloft) 100 mg tablet Discontinued 100 mg PO DAILY October 15, 2019 2:07pm August 15, 2022 1:07pm triamcinolone acetonide 1 mg/ml topical cream (4 sources) Corticosteroid Start: 01-14-2020 End: 12-30-2024 triamcinolone acetonide (KENALOG) 0.1 % cream Apply 1 application to affected area twice daily. Apply to affected area. Location: right hand 15 g 1 01/14/2020 12/30/2024 Discontinued Comment on above: Apply 1 application to affected area twice daily. Apply to affected area. Location: right hand Problems Active Problems Problem Classification Problem Date Documented Date Episodic/Chronic Anxiety disorders (20 sources) Anxiety; Translations: [Anxiety disorder, unspecified] 08-15-2022 Chronic Comment on above: NO MEDS Contraceptive and procreative management (20 sources) Patient encounter status; Translations: [Encounter for contraceptive management, unspecified] Onset: 02-12-2024 12-04-2019 Episodic Comment on above: IUD Diabetes or abnormal glucose tolerance complicating ; childbirth; or the puerperium (20 sources) Gestational diabetes mellitus; Translations: [Gestational diabetes mellitus in , unspecified control] 04-17-2023 Episodic Comment on above: metformin 3rd preg and control led w metformin Disorders of teeth and jaw (2 sources) Dental caries, unspecified; Translations: [Dental caries, unspecified] Onset: 11-16-2021 Episodic Esophageal disorders (3 sources) Gastroesophageal reflux disease; Translations: [Gastro-esophageal reflux disease without esophagitis] 02-19-2024 Chronic Essential hypertension (3 sources) Hypertensive disorder; Translations: [Essential (primary) hypertension] 02-19-2024 Chronic Hemorrhage during ; abruptio placenta; placenta previa (12 sources) Low lying placenta; Translations: [Low lying placenta NOS or without hemorrhage, unspecified trimester] 03-20-2023 Episodic Comment on above: resolved Menstrual disorders (4 sources) Menometrorrhagia; Translations: [Excessive and frequent menstruation with irregular cycle] Onset: 03-05-2024 05-19-2024 Chronic Comment on above: depoprovera Mood disorders (3 sources) Depressive disorder; Translations: [Depression, unspecified depression type] 12-30-2024 Chronic Nutritional deficiencies (4 sources) Malnutrition (calorie); Translations: [Moderate protein-calorie malnutrition] Onset: 03-27-2024 03-16-2024 Chronic Other complications of ; puerperium affecting management of mother (10 sources) Delivered by section - at term; Translations: [Encounter for delivery without indication] 12-04-2019 Episodic Other complications of ; puerperium affecting management of mother (5 sources) Deliveries by ; Translations: [Encounter for delivery without indication] 06-25-2023 Episodic Comment on above: YOUSIF gabriel Vergara Other complications of ; puerperium affecting management of mother (3 sources) Encounter for delivery without indication; Translations: [ delivery, without mention of indication, delivered, with or without mention of antepartum condition] 06-26-2023 Episodic Other complications of (10 sources) History of shoulder dystocia; Translations: [Supervision of with other poor reproductive or obstetric history, unspecified trimester] 12-04-2019 Episodic Comment on above: counseled regarding risk of recurrence, plan growth us at 36 weeks, if smaller patient wishes to proceed with . Other complications of (6 sources) Nausea and vomiting; Translations: [Vomiting of , unspecified] 11-30-2022 Episodic Other complications of (9 sources) Urinary tract infection in ; Translations: [Unspecified infection of urinary tract in , unspecified trimester] 12-04-2022 Episodic Comment on above: low colony count-eliazar at in labor Other complications of (5 sources) Vomiting of , unspecified; Translations: [Unspecified vomiting of , unspecified as to episode of care or not applicable] 11-30-2022 Episodic Other complications of (20 sources) Supervision of high risk , unspecified, unspecified trimester; Translations: [Supervision of unspecified high-risk ] 11-30-2022 Episodic Other complications of (2 sources) Supervision of with other poor reproductive or obstetric history, unspecified trimester; Translations: [ with other poor obstetric history] 11-30-2022 Episodic Other complications of (20 sources) Unspecified infection of urinary tract in , unspecified trimester; Translations: [Infections of genitourinary tract in , unspecified as to episode of care or not applicable] 12-28-2022 Episodic Other complications of (7 sources) Anomaly of placenta; Translations: [Malformation of placenta, unspecified, unspecified trimester] 04-17-2023 Episodic Comment on above: placental lakes Other complications of (16 sources) Malformation of placenta, unspecified, unspecified trimester; Translations: [Other placental conditions, affecting management of mother, unspecified as to episode of care or not applicable] 04-30-2023 Episodic Other complications of (5 sources) Reduced movement; Translations: [Decreased movements, third trimester, not applicable or unspecified] 06-25-2023 Episodic Comment on above: decreased VIKA procee d with delivery Other complications of (2 sources) Decreased movements, third trimester, not applicable or unspecified; Translations: [Decreased movements, affecting management of mother, antepartum condition or complication] 06-26-2023 Episodic Other female genital disorders (6 sources) Abnormal uterine bleeding; Translations: [Abnormal uterine and vaginal bleeding, unspecified] 10-08-2024 Chronic Other female genital disorders (1 source) Abnormal uterine and vaginal bleeding, unspecified; Translations: [Abnormal uterine and vaginal bleeding, unspecified] Onset: 10-15-2024 Chronic Other injuries and conditions due to external causes (3 sources) Impaired wound healing 07-10-2023 Episodic Comment on above: 0.5 dermal layer ope n. no drainage. reinforced with steri strips 07/09 rto in 1 week . s/sx of infection reviewed and when to call. Other liver diseases (3 sources) Jaundice; Translations: [Unspecified jaundice] 03-17-2024 Episodic Other nervous system disorders (1 source) Acute abdominal pain; Translations: [Other acute postprocedural pain] 03-12-2024 Episodic Other nutritional; endocrine; and metabolic disorders (9 sources) Body mass index 30+ - obesity; Translations: [Obesity, unspecified] 11-30-2022 Chronic Comment on above: Per MFM needs growth Q4wk weekly NST at 34 wkearly glucose, Failed 1 hr gtt, 01/03 3 hr: refused. HA1C ordered- normal. repeat at 28 weeks 04/09 74% Other nutritional; endocrine; and metabolic disorders (20 sources) Obesity, unspecified; Translations: [Obesity, unspecified] 11-30-2022 Chronic Other and delivery including normal (20 sources) ; Translations: [Encounter for supervision of normal , unspecified, unspecified trimester] 12-04-2019 Episodic Comment on above: nipt MFM recommend echo NIPT low risk, RC/S scheduled for 07-01-23 Other skin disorders (2 sources) Localized swelling, mass and lump, head; Translations: [Localized swelling, mass and lump, head] Onset: 11-16-2021 Episodic Otitis media and related conditions (1 source) Otitis media; Translations: [Unspecified nonsuppurative otitis media, right ear] 03-22-2024 Episodic Rehabilitation care; fitting of prostheses; and adjustment of devices (4 sources) Patient encounter status; Translations: [Encounter for fitting and adjustment of other specified devices] Onset: 06-15-2024 06-03-2024 Chronic Residual codes; unclassified (10 sources) H/O: depression; Translations: [Personal history of other complications of , childbirth and the puerperium] 12-04-2019 Episodic Comment on above: increase celexa neelima red at 12 week, declined counseling Residual codes; unclassified (10 sources) Tobacco use and exposure - finding; Translations: [Tobacco use] 12-04-2019 Episodic Comment on above: enc cessation Residual codes; unclassified (20 sources) History of uterine scar from previous surgery; Translations: [Other postprocedural status] 11-30-2022 Episodic Residual codes; unclassified (2 sources) Personal history of other complications of , childbirth and the puerperium; Translations: [Personal history of other genital system and obstetric disorders] 11-30-2022 Episodic Skin and subcutaneous tissue infections (2 sources) Pilonidal cyst; Translations: [Pilonidal cyst without abscess] 07-15-2023 Episodic Spondylosis; intervertebral disc disorders; other back problems (7 sources) Spasm of back muscles; Translations: [Muscle spasm of back] Onset: 03-03-2024 02-19-2024 Episodic Unclassified (2 sources) Impaired wound healing; Translations: [Impaired wound healing] 07-10-2023 Past or Other Problems Problem Classification Problem Date Documented Date Episodic/Chronic Abdominal pain (6 sources) Nonspecific abdominal pain; Translations: [Unspecified abdominal pain] Onset: 03-04-2024 02-19-2024 Episodic Biliary tract disease (7 sources) Biliary calculus; Translations: [Calculus of gallbladder without cholecystitis without obstruction] Onset: 04-07-2024 02-19-2024 Episodic Other complications of (20 sources) High risk ; Translations: [Supervision of high risk , unspecified, unspecified trimester] Onset: 12-04-2013 12-04-2019 Episodic Comment on above: PRR HELENE 07/04/19 22. Jai PC: Ethan Darling. BF: DONTRELL (different FOB than previous children) PRR (hep B) HELENE 09/07/19 Boy PC Phong Darling Other complications of (4 sources) Teenage ; Translations: [Supervision of other high risk pregnancies, unspecified trimester] Onset: 12-04-2013 04-17-2021 Episodic Other complications of (4 sources) Late entry into care; Translations: [Supervision of with insufficient care, second trimester] Onset: 12-04-2013 04-17-2021 Episodic Other liver diseases (1 source) Unspecified jaundice; Translations: [Unspecified jaundice] Onset: 05-19-2024 Episodic Ovarian cyst (4 sources) Cyst of ovary; Translations: [Unspecified ovarian cyst, left side] Onset: 03-24-2024 02-18-2024 Episodic Comment on above: Repeat US Residual codes; unclassified (2 sources) Acquired absence of other specified parts of digestive tract; Translations: [Acquired absence of other specified parts of digestive tract] Onset: 04-23-2024 Episodic Substance-related disorders (4 sources) Maternal drug use; Translations: [Drug use complicating , unspecified trimester] Onset: 12-04-2013 04-17-2021 Episodic Results Test Name Value Interpretation Reference Range Facility [facility] 12-30-2024 CNOV Office Visit (FAMPWS ) NATY ROBERTS ([id number]) 2000 F Date Time Provider Department 12/30/24 9:40 AM SUNI MENDEZ During your visit today, we recorded the following information about you: Temperature Pulse Respiration Blood pressure 98.7 degrees 92/minute 16/minute 112/78 Weight Height Last Period 100.9 kg 1.613 m 06/25/23 Suni Mendez MD 12/30/2024 12:36 PM Addendum Family Medicine OUTPATIENT VISIT December 30, 2024 CC: Annual physical HPI: 24 year old female patient with a history of Obesity Tobacco use Depression Anxiety Gestational diabetes Here to establish care Anxiety and depression are both poorly controlled right now. [place], but states she did not fully engage with it as she was at the time and so was handling a lot of competing responsibilities at the time. She thinks that she might have had manic episodes in the past. She was on celexa before and reports it was helpful. Reports when she was on celexa she reports she felt she could do everything and everything. She reports mom has bipolar. She reports she has episodes of persistent elevated high mood, decreased sleep, racing thoughts, grandiose thoughts, hyperactivity for prolonged periods of time. Not currently endorsing manic symptoms. Some TSH. Some SI without planning. Thoughts of driving her car off a road but no actual planning, just passive fleeting thoughts. Does not think she would follow through on that, saying I have three beautiful boys so she would never carry through on these thoughts. If thoughts became planning, she would seek help by talking to someone, close friend or family Back pain since 2-1.5 years since delivery her last child. Stiffness and shooting pains down left leg. Some leg weakness. No stool changes, urine incontinence or genital numbness. No hx of trauma. She did do PT before which helped. She kept up with the home PT. No wt loss or fevers. Taking tylenol OTC for her back pain. 2500mg-3,000mg for her back pain for last 2 months. Thinks she had thyroid tested a few months ago at [place] and was WNL. No hx of IVDU Review of Systems PAIN ASSESSMENT: as above GENERAL: No weight loss, or fevers HEENT: Negative for frequent or significant headaches RESPIRATORY: Negative for cough, wheezing, shortness of breath CARDIOVASCULAR: Negative for chest pain, palpitations, PND or orthopnea GI: No nausea, vomiting, or diarrhea or abdominal pain. No HI bleeding or melana : No history of dysuria, frequency, urgency, or change in urine appearance NEURO:As above Health maintenance: HPV Vaccine(1 - 3-dose series) Never done Hepatitis C Screening Never done Cervical Cancer Screening Never done Allergies: ALLERGIES Allergen Reactions Dust Swelling Morphine Rash Pollen Swelling Ragweed Swelling Medications: cyclobenzaprine (FLEXERIL) 10 mg tablet Take 1 tablet by mouth three times a day as needed. naproxen (NAPROSYN) 250 mg tablet Take 1 tablet by mouth two times a day as needed. Past Medical History: PAST MEDICAL HISTORY Diagnosis Date Anemia Antepartum drug dependence (HCC) Generalized anxiety disorder History of depression Irregular heart beat as only Obesity Social History: SOCIAL HISTORY[1] Family History: Family History Problem Relation Age of Onset Colon Cancer Mother Hypertension Father Diabetes Father Heart Father Hyperlipidemia Father Dementia Maternal Grandmother Heart disease Maternal Grandfather Hypertension Maternal Grandfather Parkinson?s Disease Maternal Grandfather Stroke Maternal Grandfather Hypertension Paternal Grandmother BP 112/78 Pulse 92 Temp 37.1 ?C (98.7 ?F) (Temporal) Resp 16 Ht 161.3 cm (5' 3.5) Wt 100.9 kg (222 lb 6.4 oz) LMP 06/25/2023 (Approximate) SpO2 96% No BMI 38.78 kg/m? General: Awake, alert, not in acute distress CRUSHER: Answering questions appropriately. No abnormal posturing or positioning. Speech is normal. Strength grossly intact. She has no midline tenderness along entire spine. Gait is normal. No saddle anesthesia. She has pain on palpation to left of her lumbar spine. Straight leg test positive on left. Normal LE reflexes RESP: Clear lungs bilateral with good air entry, No increased work of breathing CVS: RRR, No murmur. Pulses 2+. GI: Abdomen is soft, non distended, non tender. No masses or hepatomegaly appreciated. Skin/Other: No rashes or lesions. HEENT: pupils equal Extremities: No peripheral edema, swelling or erythema of lower extremities. Labs: Reviewed the following: No recent pertinent Imaging: Reviewed the following: No recent pertinent Assessment/Plan: ASSESSMENT/PLAN: 1. Annual physical exam - ICD9: V70.0, ICD10: Z00.00 (primary diagnosis) - Counseled on healt (more content not included)... Normal [facility] Transvaginal Non-on 10-12-2024 Transvaginal Non- [facility] Imaging Services [address] [place] [address] Transvaginal Non- MR#: [id number] Acct: [id number] Name: GLORIANATY ABDULLAHI Rep #: [id number] : 2000 F 24 From: Nirmal gonzalez MD PCP: Care Physician,No Primary Status: REG CLI Study: Transvaginal Non- Date of Exam: Exam# [id number] Ordering Dr: Nicolette Guadalupe CNM PROCEDURE: TRANSVAGINAL NON- 10/12/2024 REASON FOR EXAM: IUD PLACEMENT TECHNIQUE: TRANSVAGINAL NON- COMPARISON: None FINDINGS: LMP: August 20, 2024. Measurements: Uterus: 9.2 cm x 5.2 cm x 4.4 cm with a volume of 109.24 mL Endometrial Thickness: 5 mm. IUD is seen within the fundal portion of the uterus. Right Ovary: 4.1 cm x 2.1 cm x 2.2 cm with a volume of 10.04 mL. Left Ovary: 2.8 cm x 1.8 cm x 1.7 cm with a volume of 4.59 mL. Uterus: Normal size, myometrial echotexture, and contour. Endometrium: Unremarkable.. The IUD is seen within the fundal portion of the endometrium. Right ovary: Normal size and echotexture. Left ovary: Normal size and echotexture. Other: No large pelvic mass identified. US/Transvaginal Non- IMPRESSION: The IUD is seen within the fundal portion of the endometrium. Reading Location: [id number] CC: FÉLIX Guadalupe; No Primary Care Physician Maintenance Scheduler: Signed Normal [facility] Absolute lymphocyte countOrd ered By: Nicolette Guadalupe on 10-08-2024 Lymphocytes Auto (Unsp spec) [#/Vol] 3.00 10*3/uL 0.83-4.51 [facility] Absolute neutrophil countOrd ered By: Nicolette Guadalupe on 10-08-2024 Neutrophils (Bld) [#/Vol] 4.2 10*3/uL 2.0-7.7 [facility] Automated lymphocyte count a s percentage of total leukocytesOrdered By: Nicolette Guadalupe on 10-08-2024 Lymphocytes/100 WBC Auto (Unsp spec) 38.9 % 19-41 [facility] Basophil percentageOrdered B y: Nicolette Guadalupe on 10-08-2024 Basophils/100 WBC (Bld) 0.6 % 0-1 [facility] CBC W/Diff, Automatedon 09-20 Absolute Lymph 3.00 X10 3/uL Normal 0.83-4.51 [facility] Comment on above: Performed By: #### L 501.9520, L100.0100 ####[facility] [address] [place], [address] Absolute Neut 4.2 X10 3/uL Normal 2.0-7.7 [facility] Comment on above: Performed By: #### L 501.9520, L100.0100 ####[facility] [address] [place], [address] Basophils/100 WBC (Bld) 0.6 % Normal 0-1 [facility] Comment on above: Performed By: #### L 501.9520, L100.0100 ####[facility] [address] [place], [address] Eosinophils/100 WBC (Bld) 0.5 % Normal 0-5 [facility] Comment on above: Performed By: #### L 501.9520, L100.0100 ####[facility] [address] [place], [address] Erythrocyte distribution width (RBC) [Ratio] 12.2 % Normal 11.6-14.6 [facility] Comment on above: Performed By: #### L 501.9520, L100.0100 ####[facility] [address] [place], [address] Hematocrit (Bld) [Volume fraction] 40.8 % Normal 37-47 [facility] Comment on above: Performed By: #### L 501.9520, L100.0100 ####[facility] [address] [place], [address] Hemoglobin (Bld) [Mass/Vol] 13.8 g/dL Normal 12.0-15.0 [facility] Comment on above: Performed By: #### L 501.9519, L100.0100 ####[facility] [address] [place], [address] IG% 0.300 Normal 0.0-0.9 [facility] Comment on above: Result Comment: IG% - Immature Granulocytes (promyelocytes, myelocytes and metamyelocytes) > 1% indicates that a LEFT SHIFT is Present. Performed By: #### L 501.9519, L100.0100 ####[facility] [address] [place], [address] Lymphocytes/100 WBC (Bld) 38.9 % Normal 19-41 [facility] Comment on above: Performed By: #### L 501.9519, L100.0100 ####[facility] [address] [place], [address] MCH (RBC) [Entitic mass] 29.1 pg Normal 27.0-32.0 [facility] Comment on above: Performed By: #### L 501.9519, L100.0100 ####[facility] [address] [place], [address] MCHC (RBC) [Mass/Vol] 33.8 g/dL Normal 32-36 [facility] Comment on above: Performed By: #### L 501.9519, L100.0100 ####[facility] [address] [place], [address] MCV (RBC) [Entitic vol] 85.9 fL Normal 81-99 [facility] Comment on above: Performed By: #### L 501.9520, L100.0100 ####[facility] [address] [place], [address] Monocytes/100 WBC (Bld) 5.4 % Normal 0-10 [facility] Comment on above: Performed By: #### L 501.9520, L100.0100 ####[facility] [address] [place], [address] Neutrophils/100 WBC (Bld) 54.3 % Normal 47-70 [facility] Comment on above: Performed By: #### L 501.9520, L100.0100 ####[facility] [address] [place], [address] Nucleated RBC (Bld) [#/Vol] 0 10*3/uL Normal 0-5 [facility] Comment on above: Performed By: #### L 501.20, L100.0100 ####[facility] [address] [place], [address] Platelet mean volume (Bld) [Entitic vol] 10.0 fL Normal 6.2-12.0 [facility] Comment on above: Performed By: #### L 501.20, L100.0100 ####[facility] [address] [place], [address] Platelets (Bld) [#/Vol] 264 10*3/uL Normal 150-450 [facility] Comment on above: Performed By: #### L 501.9519, L100.0100 ####[facility] [address] [place], [address] RBC (Bld) [#/Vol] 4.75 10*6/uL Normal 4.2-5.4 [facility] Comment on above: Performed By: #### L 501.9520, L100.0100 ####[facility] [address] [place], [address] RDW SD 38.6 fl Normal 35.1-43.9 [facility] Comment on above: Performed By: #### L 501.9520, L100.0100 ####[facility] [address] [place], [place], [address] WBC (Bld) [#/Vol] 7.7 10*3/uL Normal 4.4-11.0 [facility] Comment on above: Performed By: #### L 501.9520, L100.0100 ####[facility] [address] [place], [address] Eosinophil percentageOrdered By: Nicolette Guadalupe on 10-08-2024 Eosinophils/100 WBC (Bld) 0.5 % 0-5 [facility] Erythrocyte distribution wid th ratioOrdered By: Nicolette Guadalupe on 10-08-2024 Erythrocyte distribution width (RBC) [Ratio] 12.2 % 11.6-14.6 [facility] Erythrocyte distribution wid th standard deviationOrdered By: Nicolette Guadalupe on 10-08-2024 Erythrocyte distribution width (RBC) [Ratio] 38.6 fl 35.1-43.9 [facility] Hematocrit Auto (Bld) [Volum e fraction]Ordered By: Nicolette Guadalupe on 10-08-2024 Hematocrit (Bld) [Volume fraction] 40.8 % 37-47 [facility] Hemoglobin measurementOrdere d By: Nicolette Guadalupe on 10-08-2024 Hemoglobin (Bld) [Mass/Vol] 13.8 g/dL 12.0-15.0 [facility] Immature granulocytes/100 WB C Auto (Bld)Ordered By: Nicolette Guadalupe on 10-08-2024 Immature granulocytes/100 WBC (Bld) 0.300 % 0.0-0.9 [facility] Comment on above: IG% - Immature Granu locytes (promyelocytes, myelocytes and metamyelocytes) > 1% indicates that a LEFT SHIFT is Present. MCV (mean corpuscular volume ) determinationOrdered By: Nicolette Guadalupe on 10-08-2024 MCV (RBC) [Entitic vol] 85.9 fL 81-99 [facility] Mean corpuscular hemoglobin (MCH) determinationOrdered By: Nicolette Guadalupe on 10-08-2024 MCH (RBC) [Entitic mass] 29.1 pg 27.0-32.0 [facility] Mean corpuscular hemoglobin concentration (MCHC) determinationOrdered By: Nicolette Guadalupe on 10-08-2024 MCHC (RBC) [Mass/Vol] 33.8 g/dL 32-36 [facility] Mean platelet volume determi nationOrdered By: Nicolette Guadalupe on 10-08-2024 Platelet mean volume (Bld) [Entitic vol] 10.0 fL 6.2-12.0 [facility] Monocyte percentageOrdered B y: Nicolette Guadalupe on 10-08-2024 Monocytes/100 WBC (Bld) 5.4 % 0-10 [facility] Neutrophil percentageOrdered By: Nicolette Guadalupe on 10-08-2024 Neutrophils/100 WBC (Bld) 54.3 % 47-70 [facility] Nucleated red blood cell per centageOrdered By: Nicolette Guadalupe on 10-08-2024 Nucleated RBC/100 WBC (Bld) [Ratio] 0 % 0-5 [facility] Telephone Technician Office Visit Reporton 10-08-2024 Telephone Technician Office Visit Report [facility] [address], [address] [place] [address] OFFICE VISIT Date of Service: 10/08/24 MR#: [id number] Acct: [id number] Name: NATY ROBERTS Rep #: [id number] : 2000 Provider: FÉLIX Jade ams Age/Sex: 24/F Location: [facility] Status: Signed Intake Vital Signs 08/20/24 11:43 10/08/24 11:20 10/08/24 11:27 Height 5 ft 4 in 5 ft 4 in 5 ft 4 in Weight: 215 lb 6 oz 212 lb 6 oz BMI 36.9 36.4 BP 125/79 H 108/74 Intake Visit Reasons: 6wk string check Chief Complaint: 6 Week String check Inner Layer Scrubber Tender Required: No Is patient in pain?: No Allergies morphine Allergy (Mild, Verified 10/08/24 11:19) Rash Medications ???Medication ???Instructions ???Recorded ???Confirmed ???Type levonorgestrel 14 mcg/24 hr (up to 1 device intrauterine ONCE 10/0810/08/24 History 3 yrs) 13.5 mg intrauterine device (Danika) Is last menstrual period known: No Post menopausal: No Patient : No : No Control Method: Danika [facility] Medical History History of biliary stent insertion Depression Fatty liver Back pain Gastric reflux Vapes nicotine containing substance History of edema Obesity (BMI 30-39.9) Anxiety Surgical History Hx laparoscopic cholecystectomy History of ERCP Status post History of tonsillectomy Family History Father Diabetes Hypertension Social History number of children: 2 current occupational status: employed current occupation: Works from home Smoking Status: Current every day smoker tobacco type: cigarettes Tobacco: How many years used: 6 alcohol intake: never substance use type: does not use seatbelt use: always do you feel safe at home: Yes additional social history: Dontrell- boyfriend HPI 6wk string check Details: NATY ROBERTS is a 24 year old who presents for IUD string check. not having any pain but having daily bleeding-occasional clots with bowel movements. Was on the depo previously. is feeling fatigued with the daily bleeding. History 3 Elective abortions Hx Para 3 Spontaneous abortions Hx # Term Pregnancies 3 Ectopic pregnancies Hx # Pregnancies Multiple births # of living children 3 Past Pregnancies Del. Date Name GA/Weeks Outcome Route Bth Weight Gen Labor Lgth Anesthesia Del Locatn Provider FOB 05/16/14 Phong Urban 41 live - full term 8 lbs 8.3 oz. Male 20 hours epidural [facility] Dr. Rico Darling 08/31/19 Ethan 39 live - full term 8lb 4oz Male spinal [facility] S EM 06/25/23 Jai 38 live - full term Male [facility] SE M Dontrell Delivery Date: 08/31/19 Last Updated by: Claudia Borjas [facility] ROS Const Constitutional: Reports system reviewed and no additional complaints, except as documented Cardio Card: Reports system reviewed and no additional complaints, except as documented Resp Resp: Reports system reviewed and no additional complaints, except as documented GI GI: Reports system reviewed and no additional complaints, except as documented : Reports system reviewed and no additional complaints, except as documented; Denies difficulty voiding, dysuria or urinary frequency Skin Skin/Breast: Reports system reviewed and no additional complaints, except as documented Neuro Neuro: Reports system reviewed and no additional complaints, except as documented Psych Psych: Reports system reviewed and no additional complaints, except as documented; Denies anhedonia, anxiety or depression Exam Const General: cooperative, healthy appearing, comfortable and no acute distress Orientation: alert, awake and oriented x3 Resp Effort Inspection: normal respiratory effort, able to speak in complete sentences and symmetric chest movement GI Inspection: normal to inspection Palpation: soft Rectal Exam: visual inspection normal External Female Exam: normal external appearance and normal appearance of the urethra Urethra: normal appearance of the urethra Speculum Exam - Vagina: normal appearance of the vagina and normal vaginal discharge Speculum Exam - Cervix: normal appearance of the cervix (strings noted) and nontender Bimanual Exam- Vagina Uterus: normal bimanual exam, normal palpation and No tender Bimanual Exam- Adnexa, other: normal Pelvic Support: normal Skin General: no rashes or lesions noted Neuro General: patient alert, patient awake and patient oriented x3 Cognition: normal cognition Speech: speech normal Gait: normal gait Extrem General: normal to inspect (more content not included)... Normal [facility] Platelet countOrdered By: Ron Guadalupe on 10-08-2024 Platelets (Bld) [#/Vol] 264 10*3/uL 150-450 [facility] RBC Auto (Bld) [#/Vol]Ordere d By: Nicolette Guadalupe on 10-08-2024 RBC (Bld) [#/Vol] 4.75 10*6/uL 4.2-5.4 [facility] TSH DL <= 0.005 mIU/L QnOrde red By: Nicolette Guadalupe on 10-08-2024 TSH Qn 1.540 uIU/mL 0.300-4.200 [facility] Thyroid Stim Hormone (TSH)on 10-08-2024 TSH 1.540 uIU/mL Normal 0.300-4.200 [facility] Comment on above: Performed By: #### L [id number], L100.0100 ####[facility] [id number] [place], [place], [id number] White blood cell (WBC) count Ordered By: Nicolette Guadalupe on 10-08-2024 WBC (Bld) [#/Vol] 7.7 10*3/uL 4.4-11.0 [facility] Laboratory - Chemistry and C hemistry - challengeOrdered By: Nicolette Guadalupe on 08-20-2024 HCG ( test) Ql (U) Negative [facility] Telephone Technician Office Visit Reporton 08-20-2024 Telephone Technician Office Visit Report [facility] [address], [address] [place] [address] OFFICE VISIT Date of Service: 08/20/24 MR#: [id number] Acct: [id number] Name: NATY ROBERTS Rep #: [id number] : 2000 Provider: FÉLIX Jade ams Age/Sex: 24/F Location: [facility] Status: Signed Intake Vital Signs 08/13/24 13:51 08/20/24 11:43 Height 5 ft 4 in 5 ft 4 in Weight: 216 lb 8 oz 215 lb 6 oz BMI 37.1 36.9 BP 114/81 H 125/79 H Intake Visit Reasons: Danika Insertion Chief Complaint: Danika Insertion Inner Layer Scrubber Tender Required: No Is patient in pain?: No Allergies morphine Allergy (Mild, Verified 08/20/24 11:42) Rash Medications ???Medication ???Instructions ???Recorded ???Confirmed ???Type NK 08/20/24 08/20/24 History Is last menstrual period known: No Post menopausal: No Control Method: IUD Insertion PFSH PFSH Medical History History of biliary stent insertion Depression Fatty liver Back pain Gastric reflux Vapes nicotine containing substance History of edema Obesity (BMI 30-39.9) Anxiety Surgical History Hx laparoscopic cholecystectomy History of ERCP Status post History of tonsillectomy Family History Father Diabetes Hypertension Social History number of children: 2 current occupational status: employed current occupation: Works from home Smoking Status: Current every day smoker tobacco type: cigarettes Tobacco: How many years used: 6 alcohol intake: never substance use type: does not use seatbelt use: always do you feel safe at home: Yes additional social history: Dontrell- boyfriend History 3 Elective abortions Hx Para 3 Spontaneous abortions Hx # Term Pregnancies 3 Ectopic pregnancies Hx # Pregnancies Multiple births # of living children 3 Past Pregnancies Del. Date Name GA/Weeks Outcome Route Bth Weight Infant Gen Labor Lgth Anesthesia Del Locatn Provider FOB 05/16/14 Phong Urban 41 live - full term 8 lbs 8.3 oz. Male 20 hours epidural [facility] Dr. Rico Darling 08/31/19 Ethan 39 live - full term 8lb 4oz Male spinal [facility] S EM 06/25/23 Fenton 38 live - full term Male [facility] SE M Dontrell Delivery Date: 08/31/19 Last Updated by: Caludia Borjas [facility] HPI Danika Insertion Details: NATY ROBERTS is a 24 year old who presents for IUD insertion. risks and benefits reviewed ROS Const Constitutional: Reports system reviewed and no additional complaints, except as documented Cardio Card: Reports system reviewed and no additional complaints, except as documented Resp Resp: Reports system reviewed and no additional complaints, except as documented GI GI: Reports system reviewed and no additional complaints, except as documented : Reports system reviewed and no additional complaints, except as documented; Denies difficulty voiding, dysuria or urinary frequency Skin Skin/Breast: Reports system reviewed and no additional complaints, except as documented Neuro Neuro: Reports system reviewed and no additional complaints, except as documented Psych Psych: Reports system reviewed and no additional complaints, except as documented Exam Const General: cooperative, healthy appearing, comfortable and no acute distress Resp Effort Inspection: normal respiratory effort, able to speak in complete sentences and symmetric chest movement GI Inspection: normal to inspection Palpation: soft External Female Exam: normal external appearance and normal appearance of the urethra Urethra: normal appearance of the urethra Speculum Exam - Vagina: normal appearance of the vagina and normal vaginal discharge Speculum Exam - Cervix: normal appearance of the cervix and nontender Bimanual Exam- Vagina Uterus: normal bimanual exam, normal palpation, uterine size normal, No tender and non-tender Bimanual Exam- Adnexa, other: normal Pelvic Support: normal Neuro General: patient alert, patient awake and patient oriented x3 Cognition: normal cognition Speech: speech normal Gait: normal gait Psych Appearance: grossly normal and well kempt Mental Status: mental status grossly normal Affect: normal affect Speech and Movement: speech and movement normal Attitude: cooperative Thought Process: normal Thought Content: normal Judgment: judgment good Office Procedures IUD Insertion IUD GC/Chlamydia:: not done Test: Yes Negative Consent Signed: Yes Time out checklist: patient, procedure, site marked/identified, positioning of patient, supplies available, allergies conf (more content not included)... Normal [facility] Telephone Technician Office Visit Reporton 08-13-2024 Telephone Technician Office Visit Report [facility] [address], [address] [place] [address] OFFICE VISIT Date of Service: 08/13/24 MR#: [id number] Acct: [id number] Name: NATY ROBERTS Rep #: [id number] : 2000 Provider: FÉLIX Jade ams Age/Sex: 24/F Location: [facility] Status: Signed with Addenda ADDENDUM by FÉLIX Guadalupe on 08/24/24 at 0835 Assessment and Plan Assessment and Plan (1) Encounter for well woman exam with routine gynecological exam: Status: Acute 08/24/24 0835 Date Nicolette Guadalupe CNM cc: * Signed Intake Vital Signs 03/16/24 11:09 06/03/24 11:08 08/13/24 13:51 Height 5 ft 4 in 5 ft 4 in 5 ft 4 in Weight: 216 lb 8 oz BMI 37.1 BP 114/81 H 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 Chief Complaint: Annual Inner Layer Scrubber Tender Required: No Is patient in pain?: No Allergies morphine Allergy (Mild, Verified 08/13/24 13:53) Rash Is last menstrual period known: No Post menopausal: No : [facility] Medical History History of biliary stent insertion Depression Fatty liver Back pain Gastric reflux Vapes nicotine containing substance History of edema Obesity (BMI 30-39.9) Anxiety Surgical History Hx laparoscopic cholecystectomy History of ERCP Status post History of tonsillectomy Family History Father Diabetes Hypertension Social History number of children: 2 current occupational status: employed current occupation: Works from home Smoking Status: Current every day smoker tobacco type: cigarettes Tobacco: How many years used: 6 alcohol intake: never substance use type: does not use seatbelt use: always do you feel safe at home: Yes additional social history: Dontrell- boyfriend History 3 Elective abortions Hx Para 3 Spontaneous abortions Hx # Term Pregnancies 3 Ectopic pregnancies Hx # Pregnancies Multiple births # of living children 3 Past Pregnancies Del. Date Name GA/Weeks Outcome Route Bth Weight Gen Labor Lgth Anesthesia Del Locatn Provider FOB 05/16/14 Phong Urban 41 live - full term 8 lbs 8.3 oz. Male 20 hours epidural [facility] Dr. Rico Darling 08/31/19 Ethan 39 live - full term 8lb 4oz Male spinal [facility] S EM 06/25/23 Jai 38 live - full term Male 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 would like to come off of depo and would like to have Danika IUD placed. Last PAP: 08/09/23 History of abnormal PAP: No Last mammogram: Due at 38 History of abnormal mammogram: [] Colon cancer screening: Due at 43 Other preventative health care screenings: GI- Female Reproductive History Last Menstrual Period: 07/07/24 Bleeding Duration: 1 Questions: metorrhagia: No, sexually active: Yes, dyspareunia: No and PCB: No ROS Const Constitutional: Reports system reviewed and no additional complaints, except as documented Cardio Card: Reports system reviewed and no additional complaints, except as documented Resp Resp: Reports system reviewed and no additional complaints, except as documented GI GI: Reports system reviewed and no additional complaints, except as documented : Reports system reviewed and no additional complaints, except as documented; Denies difficulty voiding, dysuria or urinary frequency Skin Skin/Breast: Reports system reviewed and no additional complaints, except as documented Neuro Neuro: Reports system reviewed and no additional complaints, except as documented Psych Psych: Reports system reviewed and no additional complaints, except as documented; Denies anhedonia, anxiety or depression Exam Const General: cooperative, healthy appearing, comfortable and no acute distress Orientation: alert, awake and oriented x3 Neck Neck: normal visual inspection and full ROM Thyroid: thyroid normal Chest Breast inspection: normal inspection of the breasts and normal inspection of the axillae Breast palpation: normal palpation of the breasts and normal palpation of the axillae Resp Effort Inspection: normal respiratory effort, able to speak in complete sentences and symmetric chest movement GI Inspection: normal to inspection Palpation: soft Rectal Exam: visual inspection normal External Female Exam: normal external appearance and normal appearance of the urethra Urethra: normal appearance of the urethra Speculum Exam - Vagina: normal (more content not included)... Normal [facility] ERCP Biliary/Pancreason 05-23 ERCP Biliary/Pancreas [facility] Imaging Services [address] [place] [id number] ERCP Biliary/Pancreas MR#: [id number] Acct: [id number] Name: NATY ROBERTS Rep #: [id number] : 2000 F 24 From: Sundar Jordan PCP: Care Physician,No Primary Status: [facility] Study: ERCP Biliary/Pancreas Date of Exam: 06/03/24 Exam# [id number] Ordering Dr: Dallas Kunz DO PROCEDURE: ERCP BILIARY/PANCREAS; O.R. FLUORO FOR C-ARM REASON FOR EXAM: Pain. TECHNIQUE: Intraoperative fluoroscopy was performed during ERCP, along with 5 fluoroscopic images. COMPARISON: None. RAD/ERCP Biliary/Pancreas IMPRESSION: During ERCP, intraoperative fluoroscopy was performed, along with 5 fluoroscopic images. No retained stone is identified on the presented images. Reading Location: [id number] CC: No Primary Care Physician; Dallas Kunz DO Maintenance Scheduler: Signed Normal [facility] ERCP Reporton 06-03-2024 ERCP Report [facility] Medical Records Department [address] [place] [address] ERCP Report MR#: [id number] Acct: [id number] Name: NATY ROBERTS Rep #: [id number] : 2000 24 From: Dallas Kunz DO PCP: Care Physician,No Primary Status:REG [facility] Patient Name: Naty Roberts Procedure Date: 06/03/2024 12:15 PM Date of : 2000 Age: 24 Procedure: ERCP Indications: Bile duct stone(s), Biliary stent removal, Pancreatic stent removal Providers: Dallas Kunz DO Referring MD: Dallas Kunz DO Medicines: Monitored Anesthesia Care Patient Profile: This is a 24 year old female. Refer to note in patient chart for documentation of history and physical. Patient has symptoms. Her most recent ERCP for stent and ERCP for stone removal was within the past three months. Complications: No immediate complications. Procedure: Pre-Anesthesia Assessment: - Prior to the procedure, a History and Physical was performed, and patient medications and allergies were reviewed. The patient is competent. The risks and benefits of the procedure and the sedation options and risks were discussed with the patient. All questions were answered and informed consent was obtained. Patient identification and proposed procedure were verified by the physician in the pre-procedure area. Mental Status Examination: alert and oriented. Airway Examination: normal oropharyngeal airway and neck mobility. Respiratory Examination: clear to auscultation. CV Examination: normal. Prophylactic Antibiotics: The patient does not require prophylactic antibiotics. Prior Anticoagulants: The patient has taken no anticoagulant or antiplatelet agents except for NSAID medication. ASA Grade Assessment: II - A patient with mild systemic disease. After reviewing the risks and benefits, the patient was deemed in satisfactory condition to undergo the procedure. The anesthesia plan was to use monitored anesthesia care (MAC). Immediately prior to administration of medications, the patient was re-assessed for adequacy to receive sedatives. The heart rate, respiratory rate, oxygen saturations, blood pressure, adequacy of pulmonary ventilation, and response to care were monitored throughout the procedure. The physical status of the patient was re-assessed after the procedure. After obtaining informed consent, the scope was passed under direct vision. Throughout the procedure, the patient's blood pressure, pulse, and oxygen saturations were monitored continuously. The Duodenoscope was introduced through the mouth, and advanced to the duodenum and used to inject contrast into the bile duct and ventral pancreatic duct. The ERCP was accomplished without difficulty. The patient tolerated the procedure well. Scope In: 12:39:59 PM Scope Out: 12:49:56 PM Total Procedure Duration Time 0 hours 9 minutes 57 seconds Findings: The flying ii instructor film was normal. A biliary stent was visible on the flying ii instructor film. The esophagus was successfully intubated under direct vision. The scope was advanced to a normal major papilla in the descending duodenum without detailed examination of the pharynx, larynx and associated structures, and upper GI tract. The upper GI tract was grossly normal. The ventral pancreatic duct was deeply cannulated with the short-nosed traction sphincterotome. Contrast was injected. I personally interpreted the pancreatic duct images. There was brisk flow of contrast through the ducts. Image quality was adequate. Contrast extended to the pancreatic duct. Opacification of the entire pancreatic ductal system was successful. The maximum diameter of the ducts was 3 mm. The entire opacified area was normal. The pancreatic duct in the body of the pancreas contained one temporary stent. This was found to be visibly patent. A long 0.025 inch Jagwire was passed into the ventral pancreatic duct. A 5 mm ventral pancreatic sphincterotomy was made with a traction (standard) sphincterotome using ERBE electrocautery. There was no post-sphincterotomy bleeding. To discover objects, the biliary tree was swept with a 6 mm balloon starting at the main pancreatic duct. Debris was swept from the duct. One stent was removed from the pancreatic duct using a snare and sent for cytology. The stent was found to be patent via the water column test. One stent was removed from the biliary tree using a snare and sent for cytology. The stent was found to be partially occluded via the water column test. A long 0.025 inch Jagwire was passed into the biliary tree. The short-nosed traction sphincterotome was passed over the guidewire and the bile duct was then deeply cannulated. Contrast was injected. The upper third of the main bile duct contained filling defect(s) thought to be a stone. Opacification of the entire biliary tree was s (more content not included)... Normal [facility] MR/POSTOP.ANEon 06-03-2024 MR/POSTOP.ANE [facility] Medical Records Department [address] [place] [address] Anesthesia Postop Eval I 06/03/24 1308 MR#: [id number] Acct: [id number] Name: NATY ROBERTS Rep #: [id number] : 2000 24 From: Marcos Almanzar PCP: Care Physician,No Primary Status:REG SDC Y Race: C Location: [place] [address] Anesthesia: Postop Eval I Current Vital Signs Temperature: 98.1 F Pulse Rate: 78 Blood Pressure: 124/76 Respiratory Rate: 16 Pulse Ox: 100 Oxygen Delivery Method: Room Air Assessment Airway patent: Yes Spontaneous unlabored respirations: Yes Mental status: Awake and Calm nausea: No Vomiting: No Anesthesia Complication: No Fluid Hydration Crystalloid volume administer (ml): 60 Total IV fluid infused: 60 Progress Note Anesthesia document: Postop Eval 1 completed: Yes 06/03/24 1309 Date Marcos Barrera Signature: Date CC: Signed [facility] MR/[id number] 06-03-2024 MR/POSTOPAN2 [facility] Medical Records Department [address] [place] [address] Anesthesia Postop Eval II 06/03/24 1317 MR#: [id number] Acct: [id number] Name: NATY ROBERTS Rep #: [id number] : 2000 24 From: Alberto Peña MD PCP: Care Physician,No Primary Status:REG SDC Y Race: C Location: [place] [address] Anesthesia Postop Eval I Sum Postop Eval Completion status Anesthesia document: Postop Eval 1 completed: Yes Anesthesia Postop Eval I Summary Anesthesia Postop Eval I Summary: Anesthesia Postop Eval I: Assessment Summary Airway patent Yes 06/03/24 13:09 [email or web address] Spontaneous unlabored Yes 06/03/24 13:09 [email or web address] respirations Mental status Awake,Calm 06/03/24 13:09 [email or web address] nausea No 06/03/24 13:09 [email or web address] Vomiting No 06/03/24 13:09 [email or web address] Anesthesia Postop Eval I: Fluid Summary Crystalloid volume administer 60 06/03/24 13:09 [email or web address] (ml) Colloids volume administered ( ml) Blood Product volume administered (ml) Total IV fluid infused 60 06/03/24 13:09 [email or web address] Anesthesia Postop Eval I: Summary Notes Anesthesia Complication No 06/03/24 13:09 [email or web address] Anesthesia Complication Comment: Post-operative progress note Anesthesia: Postop Eval II Evaluation Mental status: Awake Pain Level: 0 nausea: No Vomiting: No 06/03/24 1317 Date Alberto Barrera Signature: Date CC: Signed Normal [facility] O.R. Fluoro for C-Rick 05-23 O.R. Fluoro for C-Arm [facility] Imaging Services [address] [place] [id number] O.R. Fluoro for C-Arm MR#: [id number] Acct: [id number] Name: ALEJANDRANATYAUGUST العلي Rep #: [id number] : 2000 F 24 From: Sundar Jordan PCP: Care Physician,No Primary Status: [facility] Study: O.R. Fluoro for C-Arm Date of Exam: 06/03/24 Exam# [id number] Ordering Dr: Dallas Kunz DO PROCEDURE: ERCP BILIARY/PANCREAS; O.R. FLUORO FOR C-ARM REASON FOR EXAM: Pain. TECHNIQUE: Intraoperative fluoroscopy was performed during ERCP, along with 5 fluoroscopic images. COMPARISON: None. RAD/O.R. Fluoro for C-Arm IMPRESSION: During ERCP, intraoperative fluoroscopy was performed, along with 5 fluoroscopic images. No retained stone is identified on the presented images. Reading Location: [id number] CC: No Primary Care Physician; Dallas Kunz DO Maintenance Scheduler: Signed Normal [facility] ,Urineon 06-03-2024 Beta HCG ( test) Ql (U) Negative Normal [facility] Comment on above: Result Comment: Very dilute urine specimens, as indicated by a low specific gravity, may not contain outbound sales representative levels of hCG. If is still suspected, a first morning urine specimen should be collected 48 hours later and tested. Performed By: #### L [id number] #### [facility] Laboratory [address] [place], [address] Special Stain Group IIon Special Stain Group II ---- -------- Patient Age/Sex Location Account Attending Physician -------- NATY ROBERTS / EN [id number] Dallas Kunz DO -------- Specimen: [id number] Received: 06/03/24-131 Status: SNEHAL Wong Num: [id number] Spec Type: Fluid Subm Dr: Dallas Kunz DO HEADER OPERATION: ERCP, biliary stent removal, balloon sweep PRE-OP DIAGNOSIS: Status post laparoscopic cholecystectomy, encounter for removal of biliary stent TISSUE SUBMITTED: Biliary stent fluid for cytology -------- DIAGNOSIS CYTOLOGY Biliary stent fluid for cytology (cytospins and cellblock): Negative for malignant cells. See comment. JOSE LUIS.mr 06/04/2024 COMMENT Clinical correlation and appropriate follow up are necessary. CYTOLOGY STUDY Slides are reviewed. CYTOLOGY GROSS Received is 10 blue stent with 0.2 ml of yellow-brownish thick material labeled with the patient's name and and designated per the requisition as Biliary stent. Submitted for cytology preparation including cell block. Mr 06/03/2024 TC:5 CPT: 05759,17317 Signed (signature on file) Dr. Felix Pena MD 06/04/24 1337 -------- [facility] Comment on above: Performed By: #### P SSII ####[facility] [address] [place], [address] Office Visit Reporton 2024 Office Visit Report [facility] [address] [address] OFFICE VISIT Date of Service: 05/19/24 MR#: [id number] Acct: [id number] Patient: NATY ROBERTS Rep #: [id number] : 2000 Provider: CELIO valenzuela Age/Sex: 24/F Location: [facility] Status: Signed Intake Vital Signs 03/16/24 11:09 05/19/24 14:26 Height 5 ft 4 in 5 ft 4 in Weight: 230 lb 2 oz BMI 39.4 BP 130/82 H Intake Visit Reasons: DEPO Chief Complaint: lap shar 03-09 Allergies morphine Allergy (Mild, Verified 05/19/24 14:27) Rash Medications ???Medication ???Instructions ???Recorded ???Confirmed ???Type medroxyprogesterone 150 mg/mL 150 mg IM [id number] #1 mL 02/18/24 05/19/24 Rx intramuscular suspension (Depo-Provera) Office Meds Depo-Provera 150 mg/mL intramuscular syringe Performing Provider: Miladis Vega NP, CELIO Performing Location: [facility] Administered by: Iliana Cooley on 05/19/24 14:25 Dose Route Admin Location Dispensed Lot Number Expiration Date [facility] Man ufacturer 150 mg IM rt gluteal 1 mL [id number] 09/19/25 [address]-2 [employer] Assessment and Plan Assessment and Plan (1) Menorrhagia with irregular cycle: Status: Acute Comment: depoprovera (2) Contraceptive management: Status: Acute Qualifiers: Contraceptive encounter type: other general counseling and advice Qualified Code(s): Z30.09 - Encounter for other general counseling and advice on contraception Comment: depoprovera Orders: Orders Depo-Provera Injection - Home Med Today Z30.9 - Encounter for contraceptive management, unspecified 05/19/24 1443 Date Miladis Barbers [employer] COUNTER INTELL[employer] DE[employer] COUNTER INTELLIGENCE-C Cosigner Signature: Date (if applicable) CC: Normal [facility] Liver Profileon 03-23-2024 Albumin [Mass/Vol] 3.9 g/dL Normal 3.2-5.0 [facility] Comment on above: Performed By: #### L 500.3400 #### [facility] Laboratory [address] [place], [address] ALK P 127 U/L High 45-117 [facility] Comment on above: Performed By: #### L 500.3400 #### [facility] [address] [place], [address] ALT [Catalytic activity/Vol] 134 U/L High 13-56 [facility] Comment on above: Performed By: #### L 500.3400 #### [facility] [address] [place], [address] AST [Catalytic activity/Vol] 38 U/L High 15-37 [facility] Comment on above: Performed By: #### L 500.3400 #### [facility] Laboratory [address] [place], [address] Bilirubin [Mass/Vol] 0.60 mg/dL Normal 0.20-1.00 [facility] Comment on above: Result Comment: For patients on eltrombopag therapy, use of Dimension [place] TBIL is not recommended. Performed By: #### L 500.3400 #### [facility] Laboratory [address] [place], [address] Bilirubin.direct [Mass/Vol] 0.39 mg/dL High 0.00-0.30 [facility] Comment on above: Performed By: #### L 500.3400 #### [facility] Laboratory [address] [place], [place], [address] Globulin (S) [Mass/Vol] 4.0 g/dL Normal 2.2-4.2 [facility] Comment on above: Performed By: #### L 500.3400 #### [facility] Laboratory [address] [place], [place], [id number] T PROT 7.9 g/dL Normal 6.4-8.2 [facility] Comment on above: Performed By: #### L 500.3400 #### [facility] Laboratory [address] [place], [place], [id number] Surgery Visit Reporton 03-23 Surgery Visit Report [facility] [address] [place], [place] [address] OFFICE VISIT Date of Service: 03/23/24 MR#: [id number] Acct: [id number] Name: NATY ROBERTS Rep #: [id number] : 2000 Provider: ABBE wilhelm Age/Sex: 24/F Location: [facility] Status: Signed with Addenda ADDENDUM by ABBE Colon on 03/24/24 at 1412 Assessment and Plan (No Qualifiers) Assessment and Plan (1) S/P cholecystectomy: Status: Acute Plan: Recheck liver profile Will contact patient with the results Patient wanted to be sure her liver enzymes returned to normal 03/24/24 1412 Date Fátima Colon PA-C cc: * Signed Intake Vital Signs 02/18/24 10:54 03/16/24 11:09 Height 5 ft 3 in 5 ft 4 in Intake Visit Reasons: LAP SHAR 03-09 Chief Complaint: lap shar 03-09 Accompanied by: Friend Is patient in pain?: No Allergies morphine Allergy (Mild, Verified 03/23/24 13:15) Rash Medications ???Medication ???Instructions ???Recorded ???Confirmed ???Type medroxyprogesterone 150 mg/mL 150 mg IM [id number] #1 mL 02/18/24 03/15/24 Rx intramuscular suspension (Depo-Provera) Subjective Details: Patient is a 24 y/o F I am following s/p laparoscopic cholecystectomy with attempted intraoperative cholangiograms by Dr. Enrique on 03/09/24. Patient tolerated the procedure well. Patient returned to the ED twice post-operatively due to increased abdominal pain and noticing her eyes turned Jaundice. Patient had an ERCP performed by Dr. kunz and two stents were placed at that time. She notes today feeling very well. She denies any nausea, vomiting, fever. She notes appetite is slowly returning to normal. She notes bowel habits have returned to normal. Pathology demonstrated chronic cholecystitis and cholelithiasis. Objective Details: Abdomen- soft, nontender. Incisions c/d/i. Slight erythema noted at the epigastric incision otherwise incisions are healing well. No infections noted. Coding Level of Care Code Global Post Op Diagnoses S/P cholecystectomy Z90.49 [facility] Medical History Depression Fatty liver Back pain Gastric reflux Vapes nicotine containing substance History of edema Obesity (BMI 30-39.9) Anxiety Surgical History Status post History of tonsillectomy Family History Father Diabetes Hypertension Social History number of children: 2 current occupational status: employed current occupation: Works from home Smoking Status: Current every day smoker tobacco type: cigarettes Tobacco: How many years used: 6 alcohol intake: never substance use type: does not use seatbelt use: always do you feel safe at home: Yes additional social history: Dontrell- boyfriend Assessment and Plan (No Qualifiers) Assessment and Plan (1) S/P cholecystectomy: Status: Acute Plan: Recommend no strenuous activity for 2 additional weeks Follow-up with Dr. Kunz's office (card provided) for timing of stent removal Follow-up as needed with our office 03/24/24 1411 Date Fátima Barrera Signature: Date (if applicable) CC: [facility] Visit (UCW[facility] ) OMAIRA ROBERTSAUGUST Mukherjee ([id number]) 2000 F Date Time Provider Department 03/22/24 11:00 AM LISA SUE [facility] During your visit today, we recorded the following information about you: Temperature Pulse Respiration Blood pressure 98.8 degrees 92/minute 16/minute 110/80 Weight 103 kg Lisa Sue APRN.[facility] 03/22/2024 11:06 AM Signed Subjective HPI Naty Lonny Roberts is a 24 year old female who presents with right ear pain for the past 5 days. She has had nasal congestion and drainage for the past week. She has not had a fever. She rates her ear pain 3 out of 10. She states her ear pops occasionally and the pain is worse and her hearing seems different. The has been taking tylenol for pain. Review of Systems Constitutional: Negative for chills, fever and malaise/fatigue. HENT: Positive for congestion, ear pain, hearing loss and tinnitus. Negative for sore throat. Respiratory: Negative for cough. Cardiovascular: Negative for chest pain. Gastrointestinal: Negative for diarrhea, nausea and vomiting. Musculoskeletal: Negative for myalgias. BP 110/80 Pulse 92 Temp 37.1 ?C (98.8 ?F) (Left Tympanic) Resp 16 Wt 103 kg (227 lb 1.2 oz) LMP 12/27/2014 (Approximate) SpO2 99% BMI 38.98 kg/m? PAST MEDICAL HISTORY Diagnosis Date Anemia Antepartum drug dependence (HCC) History of depression Irregular heart beat as infant only PAST SURGICAL HISTORY Procedure Laterality Date TONSILLECTOMY HX 12/07/2014 ALLERGIES Dust, Morphine, Pollen, Ragweed, and Soap MEDICATIONS medroxyPROGESTERone (DEPO-PROVERA) 150 mg/mL injection Inject 150 mg intramuscularly every 12 weeks. citalopram (CELEXA) 40 mg tablet Take 40 [...] Father Social History Tobacco Use Smoking status: Former Current packs/day: 0.50 Average packs/day: 0.5 packs/day for 2.0 years (1.0 ttl pk-yrs) Types: Cigarettes Smokeless tobacco: Never Vaping Use Vaping status: current everyday user Substances: Nicotine Substance Use Topics Alcohol use: No Drug use: Yes Types: Marijuana Comment: Marijuana-last used 2 weeks ago Objective Physical Exam Vitals and nursing note reviewed. Constitutional: General: She is not in acute distress. Appearance: Normal appearance. She is not ill-appearing. HENT: Right Ear: Ear canal and external ear normal. A middle ear effusion is present. Tympanic membrane is injected. Left Ear: Tympanic membrane, ear canal and external ear normal. Nose: Nose normal. Mouth/Throat: Pharynx: Uvula midline. No oropharyngeal exudate or posterior oropharyngeal erythema. Cardiovascular: Rate and Rhythm: Normal rate and regular rhythm. Heart sounds: Normal heart sounds. Pulmonary: Effort: Pulmonary effort is normal. No respiratory distress. Breath sounds: Normal breath sounds. No wheezing or rales. Musculoskeletal: Cervical back: Neck supple. Lymphadenopathy: Cervical: No cervical adenopathy. Skin: General: Skin is warm and dry. Findings: No erythema or rash. Neurological: Mental Status: She is alert. ASSESSMENT/PLAN: 1. Otitis media with effusion, right - ICD9: 381.4, ICD10: H65.91 - Will begin treatment with as per antibiotic as written, see orders - Supportive care with plenty of fluids, rest, and analgesia prn. - AMOXICILLIN 875 MG TABLET - Follow-up with your PCP in 3-5 days if symptoms have not improved or sooner if symptoms worsen - Discussed red flags and need for immediate medical evaluation if any occur. - Discussed supportive care treatment with fluids, rest and analgesia. - Discussed expected course of illness Lisa Sue APRN.Lisa Hazel APRN.CNP 03/22/2024 11:06 AM Signed ASSESSMENT/PLAN: 1. Otitis media with effusion, right - ICD9: 381.4, ICD10: H65.91 - Will begin treatment with as per antibiotic as written, see orders - Supportive care with plenty of fluids, rest, and analgesia prn. - AMOXICILLIN 875 MG TABLET - Follow-up with your PCP in 3-5 days if symptoms have not improved or sooner if symptoms worsen - Discussed red flags and need for immediate medical evaluation if any occur. - Discussed supportive care treatment with fluids, rest and analgesia. - Discussed expected course of illness Lisa Sue APRN.CNP OTITIS MEDIA GENERAL INFORMATION: Otitis media is an infection of the middle ear. The middle ear sits behind the eardrum. This infection may be caused by a virus or bacteria and often follows a cold. Children oft (more content not included)... Normal [facility] 12 Lead EKGon 03-16-2024 12 Lead EKG [facility] [address] [place] [address] 12 Lead EKG 03/16/24 0541 MR#: [id number] Acct: [id number] Name: NATY ROBERTS Rep #: [id number] : 2000 24 From: Pop Wakefield MD Attending Dr: Dr. Pop Santiago MD Status: ADM IN Ordering Dr: Alberto Peña MD Date: 03/16/24 Location: [facility] Sex: F C Admitted: 03/15/24 Test Reason : PRE-OP Blood Pressure : */* mmHG Vent. Rate : 64 BPM Atrial Rate : 64 BPM P-R Int : 178 ms QRS Dur : 88 ms QT Int : 394 ms P-R-T Axes : 32 32 26 degrees QTcB Int : 406 ms Normal sinus rhythm with sinus arrhythmia Normal ECG When compared with ECG of 09-Mar-2024 10:19, No significant change was found Confirmed by Pop Wakefield ([id number]), sports editor FÁTIMA BOLAÑOS ([id number]) on 03/16/2024 9:58:14 AM Referred By: KERRY Confirmed By: Pop Wakefield 03/16/24 0958 Date Pop Wakefield MD CC: Dr. Alberto Peña MD; Dr. Pop Santiago MD; No Primary Care Physician Signed Normal [facility] CBC W/Diff, Automatedon 02-21 Absolute Lymph 1.97 X10 3/uL Normal 0.83-4.51 [facility] Comment on above: Performed By: #### L 100.0100, L500.4050 #### [facility] Laboratory [address] [place], [address] Absolute Neut 2.5 X10 3/uL Normal 2.0-7.7 [facility] Comment on above: Performed By: #### L 100.0100, L500.4050 #### [facility] [address] [place], [address] Basophils/100 WBC (Bld) 0.9 % Normal 0-1 [facility] Comment on above: Performed By: #### L 100.0100, L500.4050 #### [facility] [address] [place], [address] Eosinophils/100 WBC (Bld) 4.3 % Normal 0-5 [facility] Comment on above: Performed By: #### L 100.0100, L500.4050 #### [facility] [address] [place], [address] Erythrocyte distribution width (RBC) [Ratio] 13.1 % Normal 11.6-14.6 [facility] Comment on above: Performed By: #### L 100.0100, L500.4050 #### [facility] [address] [place], [address] Hematocrit (Bld) [Volume fraction] 41.2 % Normal 37-47 [facility] Comment on above: Performed By: #### L 100.0100, L500.4050 #### [facility] [address] [place], [address] Hemoglobin (Bld) [Mass/Vol] 13.7 g/dL Normal 12.0-15.0 [facility] Comment on above: Performed By: #### L 100.0100, L500.4050 #### [facility] [address] [place], [address] IG% 0.400 Normal 0.0-0.9 [facility] Comment on above: Result Comment: IG% - Immature Granulocytes (promyelocytes, myelocytes and metamyelocytes) > 1% indicates that a LEFT SHIFT is Present. Performed By: #### L 100.0100, L500.4050 #### [facility] [address] [place], [address] Lymphocytes/100 WBC (Bld) 36.9 % Normal 19-41 [facility] Comment on above: Performed By: #### L 100.0100, L500.4050 #### [facility] [address] [place], [address] MCH (RBC) [Entitic mass] 29.4 pg Normal 27.0-32.0 [facility] Comment on above: Performed By: #### L 100.0100, L500.4050 #### [facility] [address] [place], [address] MCHC (RBC) [Mass/Vol] 33.3 g/dL Normal 32-36 [facility] Comment on above: Performed By: #### L 100.0100, L500.4050 #### [facility] [address] [place], [address] MCV (RBC) [Entitic vol] 88.4 fL Normal 81-99 [facility] Comment on above: Performed By: #### L 100.0100, L500.4050 #### [facility] [address] [place], [address] Monocytes/100 WBC (Bld) 10.3 % High 0-10 [facility] Comment on above: Performed By: #### L 100.0100, L500.4050 #### [facility] [address] [place], [address] Neutrophils/100 WBC (Bld) 47.2 % Normal 47-70 [facility] Comment on above: Performed By: #### L 100.0100, L500.4050 #### [facility] [address] [place], [address] Nucleated RBC (Bld) [#/Vol] 0 10*3/uL Normal 0-5 [facility] Comment on above: Performed By: #### L 100.0100, L500.4050 #### [facility] [address] [place], [address] Platelet mean volume (Bld) [Entitic vol] 9.5 fL Normal 6.2-12.0 [facility] Comment on above: Performed By: #### L 100.0100, L500.4050 #### [facility] [address] [place], [address] Platelets (Bld) [#/Vol] 246 10*3/uL Normal 150-450 [facility] Comment on above: Performed By: #### L 100.0100, L500.4050 #### [facility] [address] [place], [address] RBC (Bld) [#/Vol] 4.66 10*6/uL Normal 4.2-5.4 [facility] Comment on above: Performed By: #### L 100.0100, L500.4050 #### [facility] [address] [place], [address] RDW SD 42.1 fl Normal 35.1-43.9 [facility] Comment on above: Performed By: #### L 100.0100, L500.4050 #### [facility] [address] [place], [address] WBC (Bld) [#/Vol] 5.3 10*3/uL Normal 4.4-11.0 [facility] Comment on above: Performed By: #### L 100.0100, L500.4050 #### [facility] [address] [place], [address] [facility] 03-16-2024 Albumin [Mass/Vol] 3.6 g/dL Normal 3.2-5.0 [facility] Comment on above: Performed By: #### L 100.0100, L500.4050 ####[facility] [address] [place], [address] Albumin/Globulin [Mass ratio] 1.0 {ratio} Normal 0.9-2.4 [facility] Comment on above: Performed By: #### L 100.0100, L500.4050 ####[facility] [address] [place], [address] ALK P 205 U/L High 45-117 [facility] Comment on above: Performed By: #### L 100.0100, L500.4050 ####[facility] [address] [place], [address] ALT [Catalytic activity/Vol] 352 U/L High 13-56 [facility] Comment on above: Performed By: #### L 100.0100, L500.4050 ####[facility] [address] [place], [address] AST [Catalytic activity/Vol] 61 U/L High 15-37 [facility] Comment on above: Performed By: #### L 100.0100, L500.4050 ####[facility] [address] [place], [address] Bilirubin [Mass/Vol] 3.00 mg/dL High 0.20-1.00 [facility] Comment on above: Result Comment: For patients on eltrombopag therapy, use of Dimension [place] TBIL is not recommended. Performed By: #### L 100.0100, L500.4050 ####[facility] [address] [place], [address] BUN/CRE 4.8 RATIO Low 10-20 [facility] Comment on above: Performed By: #### L 100.0100, L500.4050 ####[facility] [address] [place], [address] CA,Total 9.1 mg/dL Normal 8.5-10.1 [facility] Comment on above: Performed By: #### L 100.0100, L500.4050 ####[facility] [address] [place], [address] Chloride [Moles/Vol] 107 mmol/L Normal 98-107 [facility] Comment on above: Performed By: #### L 100.0100, L500.4050 ####[facility] [address] [place], [address] CO2 [Moles/Vol] 24.0 mmol/L Normal 21.0-32.0 [facility] Comment on above: Performed By: #### L 100.0100, L500.4050 ####[facility] [address] [place], [address] Creatinine [Mass/Vol] 0.83 mg/dL Normal 0.55-1.02 [facility] Comment on above: Result Comment: The validity of the calculated GFR GFRAA in patients over 70 years has not been determined. Clinical correlation is essential. Performed By: #### L 100.0100, L500.4050 ####[facility] [address] [place], [address] ECRCL 119.56 ml/min Normal [facility] Comment on above: Performed By: #### L 100.0100, L500.4050 ####[facility] [address] [place], [address] EST GFR - AA 107 mL/min Normal >60 [facility] Comment on above: Result Comment: Afri can Chinese GFR Calc Performed By: #### L 100.0100, L500.4050 ####[facility] [address] [place], [address] GAP 6 Normal 5-15 [facility] Comment on above: Performed By: #### L 100.0100, L500.4050 ####[facility] [address] [place], [address] GFR/1.73 sq M.predicted among non-blacks MDRD (S/P/Bld) [Vol rate/Area] 88 mL/min/{1.73_m2} Normal >60 [facility] Comment on above: Result Comment: Non- GFR Calc Performed By: #### L 100.0100, L500.4050 ####[facility] [address] [place], [address] Globulin (S) [Mass/Vol] 3.6 g/dL Normal 2.2-4.2 [facility] Comment on above: Performed By: #### L 100.0100, L500.4050 ####[facility] [address] [place], [address] Glucose [Mass/Vol] 118 mg/dL High 74-106 [facility] Comment on above: Result Comment: Fast ing Glucose result from 100 to 125 mg/dL suggests IMPAIRED HOMEOSTASIS per A.D.A. criteria. Performed By: #### L 100.0100, L500.4050 ####[facility] [address] [place], [address] Potassium [Moles/Vol] 4.0 mmol/L Normal 3.5-5.1 [facility] Comment on above: Performed By: #### L 100.0100, L500.4050 ####[facility] [address] [place], [address] Sodium [Moles/Vol] 136 mmol/L Normal 136-145 [facility] Comment on above: Performed By: #### L 100.0100, L500.4050 ####[facility] [address] [place], [address] T PROT 7.2 g/dL Normal 6.4-8.2 [facility] Comment on above: Performed By: #### L 100.0100, L500.4050 ####[facility] [address] [place], [address] Urea nitrogen [Mass/Vol] 4 mg/dL Low 7-18 [facility] Comment on above: Performed By: #### L 100.0100, L500.4050 ####[facility] [address] [place], [address] ERCP Biliary/Pancreason 11-2 ERCP Biliary/Pancreas [facility] Imaging Services [address] [place] [address] ERCP Biliary/Pancreas MR#: [id number] Acct: [id number] Name: NATY ROBERTS Rep #: [id number] : 2000 F 24 From: Edin Charles MD PCP: Care Physician,No Primary Status: ADM IN Study: ERCP Biliary/Pancreas Date of Exam: 03/16/24 Exam# [id number] Ordering Dr: Dallas Kunz DO [id number] Fluoroscopic-guided ERCP followed by pancreatic and biliary duct stent placement INDICATION: Choledocholithiasis TECHNIQUE:: Fluoroscopic guided ERCP was performed by diamond selector followed by placement of pancreatic and common duct stent. 136.2 seconds of fluoroscopic guided time were utilized during the study. DLP was 50.39 Findings During the examination, 10 fluoroscopic guided images were obtained in the anterior projection for correlation purposes For more complete information recommend correlation with procedural notes. RAD/ERCP Biliary/Pancreas IMPRESSION: Fluoroscopic-guided ERCP, pancreatic and biliary stent placement Electronically Signed: Edin Charles MD at 16:08 EST , CC: No Primary Care Physician; Dallas Kunz DO Maintenance Scheduler: Signed Normal [facility] ERCP Reporton 03-16-2024 ERCP Report [facility] Medical Records Department [address] [place] [address] ERCP Report MR#: [id number] Acct: [id number] Name: NATY ROBERTS Rep #: [id number] : 2000 24 From: Dallas Kunz DO PCP: Care Physician,No Primary Status:ADM IN Patient Name: Naty Roberts Procedure Date: 03/16/2024 1:24 PM Date of : 2000 Age: 24 Procedure: ERCP Indications: Common bile duct stone(s), Jaundice, Elevated liver enzymes Providers: Dallas Friend, DO Medicines: Monitored Anesthesia Care Patient Profile: This is a 24 year old female. Refer to note in patient chart for documentation of history and physical. Patient has symptoms of acute right upper quadrant abdominal pain and acute jaundice. Complications: No immediate complications. Procedure: Pre-Anesthesia Assessment: - Prior to the procedure, a History and Physical was performed, and patient medications and allergies were reviewed. The patient is competent. The risks and benefits of the procedure and the sedation options and risks were discussed with the patient. All questions were answered and informed consent was obtained. Patient identification and proposed procedure were verified by the physician in the pre-procedure area. Mental Status Examination: alert and oriented. Airway Examination: normal oropharyngeal airway and neck mobility. Respiratory Examination: clear to auscultation. CV Examination: normal. Prophylactic Antibiotics: The patient does not require prophylactic antibiotics. Prior Anticoagulants: The patient has taken no anticoagulant or antiplatelet agents. ASA Grade Assessment: II - A patient with mild systemic disease. After reviewing the risks and benefits, the patient was deemed in satisfactory condition to undergo the procedure. The anesthesia plan was to use general anesthesia. Immediately prior to administration of medications, the patient was re-assessed for adequacy to receive sedatives. The heart rate, respiratory rate, oxygen saturations, blood pressure, adequacy of pulmonary ventilation, and response to care were monitored throughout the procedure. The physical status of the patient was re-assessed after the procedure. After obtaining informed consent, the scope was passed under direct vision. Throughout the procedure, the patient's blood pressure, pulse, and oxygen saturations were monitored continuously. The Duodenoscope was introduced through the mouth, and advanced to the duodenum and used to inject contrast into the bile duct and ventral pancreatic duct. The ERCP was accomplished without difficulty. The patient tolerated the procedure well. Scope In: 1:52:00 PM Scope Out: 2:12:12 PM Total Procedure Duration Time 0 hours 20 minutes 12 seconds Findings: The flying ii instructor film was normal. The esophagus was successfully intubated under direct vision. The scope was advanced to a normal major papilla in the descending duodenum without detailed examination of the pharynx, larynx and associated structures, and upper GI tract. The upper GI tract was grossly normal. A long 0.025 inch Jagwire was passed into the ventral pancreatic duct. The ventral pancreatic duct was then deeply cannulated with the short-nosed traction sphincterotome. Contrast was injected. Opacification of the entire pancreatic ductal system was successful. The maximum diameter of the ducts was 3 mm. The entire opacified area was normal. A 5 mm ventral pancreatic sphincterotomy was made with a braided traction (standard) sphincterotome using ERBE electrocautery. There was no post-sphincterotomy bleeding. To find object(s) the ventral pancreatic duct was swept with a 6 mm balloon starting at the pancreatic duct in the tail of the pancreas. Nothing was found. One 5 Fr by 7 cm temporary stent with a full internal pigtail was placed 5 cm into the ventral pancreatic duct. Clear fluid flowed through the stent. The stent was in good position. A long 0.025 inch Jagwire was passed into the biliary tree. The short-nosed traction sphincterotome was passed over the guidewire and the bile duct was then deeply cannulated. Contrast was injected. Opacification of the entire biliary tree was successful. The maximum diameter of the ducts was 10 mm. The lower third of the main bile duct and middle third of the main bile duct contained multiple stones, the largest of which was 6 mm in diameter. The entire biliary tree was diffusely dilated, with a stone causing an obstruction. The largest diameter was 10 mm. A cholecystectomy had been performed. A 5 mm biliary sphincterotomy was made with a braided traction (standard) sphincterotome using ERBE electrocautery. There was no post-sphincterotomy bleeding. To discover objects, the biliary tree was swept with a 12 mm balloon starting at the bifurcation, left intr (more content not included)... Normal [facility] MR/POSTOP.[facility] 03-16-2024 MR/POSTOP.[facility] Medical Records Department [address] [place] [address] Anesthesia Postop Eval I 03/16/24 1435 MR#: [id number] Acct: [id number] Name: NATY ROBERTS Rep #: [id number] : 2000 24 From: Marcos Almanzar PCP: Care Physician,No Primary Status:ADM IN Y Race: C Location: [facility] [place] QV591-5 Anesthesia: Postop Eval I Current Vital Signs Temperature: 98.2 F Pulse Rate: 88 Blood Pressure: 123/59 Respiratory Rate: 14 Pulse Ox: 100 Oxygen Delivery Method: Room Air Assessment Airway patent: Yes Spontaneous unlabored respirations: Yes Mental status: Asleep nausea: No Vomiting: No Anesthesia Complication: No Fluid Hydration Crystalloid volume administer (ml): 700 Total IV fluid infused: 700 Progress Note Anesthesia document: Postop Eval 1 completed: Yes 03/16/24 1435 Date Marcos Sifuentesreynazeyad Signature: Date CC: Signed Normal [facility] MR/[id number] 03-16-2024 [facility] Medical Records Department [address] [facility] [address] Anesthesia Postop Eval II 03/16/24 1557 MR#: [id number] Acct: [id number] Name: AGUSTÍNNATY ORTIZ SEVERIANO Rep #: [id number] : 2000 24 From: Alberto Peña MD PCP: Care Physician,No Primary Status:ADM IN Y Race: C Location: [place] [address] Anesthesia Postop Eval I Sum Postop Eval Completion status Anesthesia document: Postop Eval 1 completed: Yes Anesthesia Postop Eval I Summary Anesthesia Postop Eval I Summary: Anesthesia Postop Eval I: Assessment Summary Airway patent Yes 03/16/24 14:35 [email or web address] Spontaneous unlabored Yes 03/16/24 14:35 [email or web address] respirations Mental status Asleep 03/16/24 14:35 [email or web address] nausea No 03/16/24 14:35 [email or web address] Vomiting No 03/16/24 14:35 [email or web address] Anesthesia Postop Eval I: Fluid Summary Crystalloid volume administer 700 03/16/24 14:35 [email or web address] (ml) Colloids volume administered ( ml) Blood Product volume administered (ml) Total IV fluid infused 700 03/16/24 14:35 [email or web address] Anesthesia Postop Eval I: Summary Notes Anesthesia Complication No 03/16/24 14:35 [email or web address] Anesthesia Complication Comment: Post-operative progress note Anesthesia: Postop Eval II Evaluation Mental status: Awake Pain Level: 0 nausea: No Vomiting: No 03/16/24 1557 Date Alberto Barrera Signature: Date CC: Signed Normal [facility] Basic Metabolic Profile (BMP )on 03-15-2024 BUN/CRE 5.7 RATIO Low 02-08 [facility] Comment on above: Performed By: #### L 500.3400, L501.2450, L100.0100, L500.2500 ####[facility] [address] [place], [address] CA,Total 9.3 mg/dL Normal 8.5-10.1 [facility] Comment on above: Performed By: #### L 500.3400, L501.2450, L100.0100, L500.2500 ####[facility] [address] [place], [address] Chloride [Moles/Vol] 105 mmol/L Normal 98-107 [facility] Comment on above: Performed By: #### L 500.3400, L501.2450, L100.0100, L500.2500 ####[facility] [address] [place], [address] CO2 [Moles/Vol] 24.0 mmol/L Normal 21.0-32.0 [facility] Comment on above: Performed By: #### L 500.3400, L501.2450, L100.0100, L500.2500 ####[facility] [address] [place], [address] Creatinine [Mass/Vol] 0.87 mg/dL Normal 0.55-1.02 [facility] Comment on above: Result Comment: The validity of the calculated GFR GFRAA in patients over 70 years has not been determined. Clinical correlation is essential. Performed By: #### L 500.3400, L501.2450, L100.0100, L500.2500 ####[facility] [address] [place], [address] ECRCL 115.43 ml/min Normal [facility] Comment on above: Performed By: #### L 500.3400, L501.2450, L100.0100, L500.2500 ####[facility] [address] [place], [address] EST GFR - AA 101 mL/min Normal >60 [facility] Comment on above: Result Comment: Afri can Chinese GFR Calc Performed By: #### L 500.3400, L501.2450, L100.0100, L500.2500 ####[facility] [address] [place], [address] GAP 7 Normal 5-15 [facility] Comment on above: Performed By: #### L 500.3400, L501.2450, L100.0100, L500.2500 ####[facility] [address] [place], [address] GFR/1.73 sq M.predicted among non-blacks MDRD (S/P/Bld) [Vol rate/Area] 84 mL/min/{1.73_m2} Normal >60 [facility] Comment on above: Result Comment: Non- GFR Calc Performed By: #### L 500.3400, L501.2450, L100.0100, L500.2500 ####[facility] [address] [place], [address] Glucose [Mass/Vol] 126 mg/dL High 74-106 [facility] Comment on above: Result Comment: Fast ing Glucose result greater than or equal to 126 mg/dL suggests DIABETES MELLITUS per A.D.A. criteria. Performed By: #### L 500.3400, L501.2450, L100.0100, L500.2500 ####[facility] [address] [place], [address] Potassium [Moles/Vol] 3.5 mmol/L Normal 3.5-5.1 [facility] Comment on above: Performed By: #### L 500.3400, L501.2450, L100.0100, L500.2500 ####[facility] [address] [place], [address] Sodium [Moles/Vol] 137 mmol/L Normal 136-145 [facility] Comment on above: Performed By: #### L 500.3400, L501.2450, L100.0100, L500.2500 ####[facility] [address] [place], [address] Urea nitrogen [Mass/Vol] 5 mg/dL Low 7-18 [facility] Comment on above: Performed By: #### L 500.3400, L501.2450, L100.0100, L500.2500 ####[facility] [address] [place], [address] CBC W/Diff, Automatedon 11 Absolute Lymph 2.44 X10 3/uL Normal 0.83-4.51 [facility] Comment on above: Performed By: #### L 500.3400, L501.2450, L100.0100, L500.2500 ####[facility] [address] [place], [address] Absolute Neut 3.0 X10 3/uL Normal 2.0-7.7 [facility] Comment on above: Performed By: #### L 500.3400, L501.2450, L100.0100, L500.2500 ####[facility] [address] [place], [address] Basophils/100 WBC (Bld) 0.8 % Normal 0-1 [facility] Comment on above: Performed By: #### L 500.3400, L501.2450, L100.0100, L500.2500 ####[facility] [address] [place], [address] Eosinophils/100 WBC (Bld) 2.5 % Normal 0-5 [facility] Comment on above: Performed By: #### L 500.3400, L501.2450, L100.0100, L500.2500 ####[facility] [address] [place], [address] Erythrocyte distribution width (RBC) [Ratio] 12.5 % Normal 11.6-14.6 [facility] Comment on above: Performed By: #### L 500.3400, L501.2450, L100.0100, L500.2500 ####[facility] [address] [place], [address] Hematocrit (Bld) [Volume fraction] 42.6 % Normal 37-47 [facility] Comment on above: Performed By: #### L 500.3400, L501.2450, L100.0100, L500.2500 ####[facility] [address] [place], [address] Hemoglobin (Bld) [Mass/Vol] 14.5 g/dL Normal 12.0-15.0 [facility] Comment on above: Performed By: #### L 500.3400, L501.2450, L100.0100, L500.2500 ####[facility] [address] [place], [address] IG% 0.200 Normal 0.0-0.9 [facility] Comment on above: Result Comment: IG% - Immature Granulocytes (promyelocytes, myelocytes and metamyelocytes) > 1% indicates that a LEFT SHIFT is Present. Performed By: #### L 500.3400, L501.2450, L100.0100, L500.2500 ####[facility] [address] [place], [address] Lymphocytes/100 WBC (Bld) 38.7 % Normal 19-41 [facility] Comment on above: Performed By: #### L 500.3400, L501.2450, L100.0100, L500.2500 ####[facility] [address] [place], [address] MCH (RBC) [Entitic mass] 29.3 pg Normal 27.0-32.0 [facility] Comment on above: Performed By: #### L 500.3400, L501.2450, L100.0100, L500.2500 ####[facility] [address] [place], [address] MCHC (RBC) [Mass/Vol] 34.0 g/dL Normal 32-36 [facility] Comment on above: Performed By: #### L 500.3400, L501.2450, L100.0100, L500.2500 ####[facility] [address] [place], [address] MCV (RBC) [Entitic vol] 86.1 fL Normal 81-99 [facility] Comment on above: Performed By: #### L 500.3400, L501.2450, L100.0100, L500.2500 ####[facility] [address] [place], [address] Monocytes/100 WBC (Bld) 9.7 % Normal 0-10 [facility] Comment on above: Performed By: #### L 500.3400, L501.2450, L100.0100, L500.2500 ####[facility] [address] [place], [address] Neutrophils/100 WBC (Bld) 48.1 % Normal 47-70 [facility] Comment on above: Performed By: #### L 500.3400, L501.2450, L100.0100, L500.2500 ####[facility] [address] [place], [address] Nucleated RBC (Bld) [#/Vol] 0 10*3/uL Normal 0-5 [facility] Comment on above: Performed By: #### L 500.3400, L501.2450, L100.0100, L500.2500 ####[facility] [address] [place], [address] Platelet mean volume (Bld) [Entitic vol] 9.5 fL Normal 6.2-12.0 [facility] Comment on above: Performed By: #### L 500.3400, L501.2450, L100.0100, L500.2500 ####[facility] [address] [place], [address] Platelets (Bld) [#/Vol] 251 10*3/uL Normal 150-450 [facility] Comment on above: Performed By: #### L 500.3400, L501.2450, L100.0100, L500.2500 ####[facility] [address] [place], [address] RBC (Bld) [#/Vol] 4.95 10*6/uL Normal 4.2-5.4 [facility] Comment on above: Performed By: #### L 500.3400, L501.2450, L100.0100, L500.2500 ####[facility] [address] [place], [address] RDW SD 39.1 fl Normal 35.1-43.9 [facility] Comment on above: Performed By: #### L 500.3400, L501.2450, L100.0100, L500.2500 ####[facility] [address] [place], [address] WBC (Bld) [#/Vol] 6.3 10*3/uL Normal 4.4-11.0 [facility] Comment on above: Performed By: #### L 500.3400, L501.2450, L100.0100, L500.2500 ####[facility] [address] [place], [address] Emergency Department Summary on 03-15-2024 Emergency Department Summary [facility] Medical Records Department [address] [facility] [place] [address] Emergency Department Summary 03/15/24 MR#: [id number] Acct: [id number] Name: NATY ROBERTS Rep #: [id number] : 2000 24 From: Parth Coffman MD PCP: Care Physician,No Primary Status:ADM KATHARINA Location: [address] History of Present Illness Chief Complaint: General Illness Detail of Chief Complaint: Itching I think my skin and eyes are yellow Informant: patient Onset/Context/Timing Onset: Today Context: Sudden Onset Timing: Continuous Quality: Itching and yellow skin and eyes Location: Generalized/hepatic Current Severity: Mild Maximum Severity: Mild Worsened by: Nothing Relieved by: Nothing Associated Symptoms Associated Symptoms: Minimal abdominal discomfort also complains of dark urine Narrative Narrative: Patient is a 24-year-old woman who underwent laparoscopic cholecystectomy by Dr. Ziegler on March 09. Significant surgical findings was purulent drainage from the gallbladder. There were multiple stones. This was presumed to be the cause of her right upper quadrant abdominal pain. Patient denies fever, chills night sweats. She denies any significant abdominal pain. She states she is on pain medicine and that alleviates her pain. She presents because of dark-colored urine, yellow skin and eyes and itching all over she has no other complaints. Prior similar symptoms: No Recent Illness/Hospitalizati on: Yes PFSH PFS Medical History Depression Fatty liver Back pain Gastric reflux Vapes nicotine containing substance History of edema Obesity (BMI 30-39.9) Anxiety Home Medications ???Medication ???Instructions ???Recorded ???Last Taken ???Type medroxyprogesterone 150 mg/mL 150 mg IM [id number] #1 mL 02/18/24 Unknown Rx intramuscular suspension (Depo-Provera) ondansetron 4 mg disintegrating 4 mg PO TID PRN nausea and 03/12/24 Unknown Rx tablet vomiting #21 tabs oxycodone-acetaminoph en 5 mg-325 1 tab PO Q6H PRN pain 3 days #12 03/12/24 Unknown Rx mg tablet (Percocet) tabs Allergy/AdvReac Type Severity Reaction Status Date / Time morphine Allergy Mild Rash Verified 03/15/24 02:45 Family History Father Diabetes Hypertension Surgical History Status post History of tonsillectomy Social History number of children: 2 current occupational status: employed current occupation: Works from home Smoking Status: Current every day smoker tobacco type: cigarettes Tobacco: How many years used: 6 alcohol intake: never substance use type: does not use seatbelt use: always do you feel safe at home: Yes additional social history: Dontrell- boyfriend ROS ROS ED Constitutional Constitutional ED: Denies chills, fever(s), subjective or sweats Eyes Eyes: Denies blurry vision or change in vision ENT ENT ED: Denies ear pain, rhinorrhea or sore throat Cardiovascular Cardiovascular: Denies chest pain or palpitations Respiratory/Chest Respiratory/Chest: Denies cough, dyspnea or dyspnea on exertion Gastrointestinal Gastrointestinal: Reports abdominal pain; Denies nausea or vomiting Genitourinary Genitourinary ED: Denies dysuria, hematuria or urinary frequency Musculoskeletal Musculoskeletal: Denies arthralgias or myalgias Integumentary Reports other Details: Generalized itching ; Denies rash Neurologic Neurologic: Denies headache(s) or paresthesias Hematologic/Lymphatic Hematologic/Lymphatic : Reports systems reviewed and no addt'l complaints, except as documented EXAM Physical Exam Const Vital Signs: 03/15/24 02:45 03/15/24 04:45 03/15/24 06:00 Temperature 98.7 F Temperature Source Oral Pulse Rate 90 78 79 Respiratory Rate 18 19 H 18 Blood Pressure 130/81 H 133/84 H 124/90 H Blood Pressure Mean 97 100 101 Pulse Ox 97 98 Oxygen Delivery Method Room Air Room Air 03/15/24 08:00 Temperature Temperature Source Pulse Rate 69 Respiratory Rate 16 Blood Pressure 124/90 H Blood Pressure Mean 101 Pulse Ox 99 Oxygen Delivery Method Positive well nourished and well developed General Appearance ED: well developed and NAD; Negative for cyanotic, diaphoretic or pallor HEENT Reports moist mucous membranes HEENT Narrative: Has atraumatic normocephalic. Ears normal. Eyes PERRL and EOMs intact bilaterally General Eye ED: Yes scleral icterus; Negative for pale conjunctiva Neck no lymphadenopathy, supple and no JVD Resp normal respiratory effort and clear to auscultation bilaterally Cardio regular rate, regular rhythm, S1 (more content not included)... Normal [facility] Gallbladderon 03-15-2024 Gallbladder [facility] Imaging Services [address], [place] [address] Gallbladder MR#: [id number] Acct: [id number] Name: NATY ROBERTS Rep #: [id number] : 2000 F 24 From: Pop Jordan PCP: Care Physician,No Primary Status: REG ER Study: Gallbladder Date of Exam: 03/15/24 Exam# [id number] Ordering Dr: Parth Coffman MD [id number] EXAM: US ABDOMEN LIMITED, RIGHT UPPER QUADRANT CLINICAL INDICATION: Jaundice s/p cholecystectomy, eval retained stone TECHNIQUE: Real-time ultrasound of the right upper quadrant with image documentation. COMPARISON: No relevant prior studies available. FINDINGS: LIVER: Increased echogenicity of the liver. GALLBLADDER: Cholecystectomy. COMMON BILE DUCT: Common bile duct measures 8 mm. Mild intrahepatic biliary dilatation. No ductal stone identified. PANCREAS: Unremarkable as visualized. No focal abnormality is demonstrated in the pancreas. No pancreatic ductal dilatation. RIGHT KIDNEY: Unremarkable. There is no hydronephrosis. No shadowing calculus. No focal lesion or perinephric collection is demonstrated. US/Gallbladder IMPRESSION: 1. Mild intra and extrahepatic biliary dilatation. This may be chronic post cholecystectomy. Correlate with laboratory values. Consider MR cholangiograms clinically indicated. 2. Fatty liver. Electronically Signed: Pop Eden MD at 7:33 EST , CC: Dr. Parth Coffman MD; No Primary Care Physician Maintenance Scheduler: Signed Normal [facility] Lipaseon 03-15-2024 Lipase [Catalytic activity/Vol] 27 U/L Normal 13-75 [facility] Comment on above: Result Comment: Violetta gonzalez note: LIPASE revised reference range effective 22. New Lipase methodology. Expected to produce lower values than the previous assay method. NEW Reference Range: 13 - 75 U/L Performed By: #### L 500.3400, L501.2450, L100.0100, L500.2500 ####[facility] [address] [place], [address] Liver Profileon 03-15-2024 Albumin [Mass/Vol] 3.7 g/dL Normal 3.2-5.0 [facility] Comment on above: Performed By: #### L 500.3400, L501.2450, L100.0100, L500.2500 ####[facility] [address] [place], [address] ALK P 226 U/L High 45-117 [facility] Comment on above: Performed By: #### L 500.3400, L501.2450, L100.0100, L500.2500 ####[facility] [address] [place], [address] ALT [Catalytic activity/Vol] 485 U/L High 13-56 [facility] Comment on above: Performed By: #### L 500.3400, L501.2450, L100.0100, L500.2500 ####[facility] [address] [place], [address] AST [Catalytic activity/Vol] 104 U/L High 15-37 [facility] Comment on above: Performed By: #### L 500.3400, L501.2450, L100.0100, L500.2500 ####[facility] [address] [place], [address] Bilirubin [Mass/Vol] 3.10 mg/dL High 0.20-1.00 [facility] Comment on above: Result Comment: For patients on eltrombopag therapy, use of Dimension [place] TBIL is not recommended. Performed By: #### L 500.3400, L501.2450, L100.0100, L500.2500 ####[facility] [address] [place], [address] Bilirubin.direct [Mass/Vol] 2.52 mg/dL High 0.00-0.30 [facility] Comment on above: Performed By: #### L 500.3400, L501.2450, L100.0100, L500.2500 ####[facility] [address] [place], [address] Globulin (S) [Mass/Vol] 4.0 g/dL Normal 2.2-4.2 [facility] Comment on above: Performed By: #### L 500.3400, L501.2450, L100.0100, L500.2500 ####[facility] [address] [place], [address] T PROT 7.7 g/dL Normal 6.4-8.2 [facility] Comment on above: Performed By: #### L 500.3400, L501.2450, L100.0100, L500.2500 ####[facility] [address] [place], [address] MR/CONDino 03-15-2024 MR/CON.PCM.[facility] Medical Records Department [address] [place] [address] Consultation - GI 03/15/242123 MR#: [id number] Acct: [id number] Name: NATY ROBERTS Rep #: [id number] : 2000 24 From: Dallas Friend DO PCP: Care Physician,No Primary Status:ADM IN Location: [place] [id number] HPI Consult Data Date of Consult: 03/15/24 HPI Narrative Reason for Consultation: Possible choledocholithiasis with cholestatic hepatitis and jaundice HPI Narrative: NATY ROBERTS, is a 24 F who presented to the ED with intermittent abdominal pain on 03/12/2024. With past medical history of anxiety and depression and recent cholecystectomy. She states that procedure was done laparoscopically just 3 days ago. She reports that she had a procedure recovered in PACU and was discharged home. She reports that she has been taking her prescribed medication and doing well. This evening she felt like she had to have a bowel movement and then developed upper abdominal discomfort. She states she took one of her pain pills without much improvement and with concern for a postoperative complication comes in for evaluation. Her bilirubin was 0.3, AST 21, ALT of 25 and alk phos of 150. She presented to the ED on 03/15/2024 with itching and jaundice. Her labs were as follows : WBC 5.3, RBC 4.66, Hgb 13.7, Hct 41.2, MCV 88.4, MCH 29.4, MCHC 33.3, RDW Std Deviation 42.1, RDW Coeff of Tenisha 13.1, Plt Count 246, Sodium 136, Potassium 4.0, Chloride 107, Carbon Dioxide 24.0, Anion Gap 6, BUN 4 L, Creatinine 0.83 Total Bilirubin 3.00 H, AST 61 H, ALT 352 H, Alkaline Phosphatase 205 H, Total Protein 7.2, Albumin 3.6, Globulin 3.6, Albumin/Globulin Ratio 1.0 She got ultrasound right upper quadrant that displayed: Mild intra and extrahepatic biliary dilatation. This may be chronic post cholecystectomy. Correlate with laboratory values. Consider MR cholangiograms clinically indicated. [facility] Medical History Depression Fatty liver Back pain Gastric reflux Vapes nicotine containing substance History of edema Obesity (BMI 30-39.9) Anxiety Home Medications ???Medication ???Instructions ???Recorded ???Last Taken ???Type medroxyprogesterone 150 mg/mL 150 mg IM [id number] #1 mL 02/18/24 Unknown Rx intramuscular suspension (Depo-Provera) ondansetron 4 mg disintegrating 4 mg PO TID PRN nausea and 03/12/24 Unknown Rx tablet vomiting #21 tabs oxycodone-acetaminoph en 5 mg-325 1 tab PO Q6H PRN pain 3 days #12 03/12/24 Unknown Rx mg tablet (Percocet) tabs Allergy/AdvReac Type Severity Reaction Status Date / Time morphine Allergy Mild Rash Verified 03/15/24 02:45 Family History Father Diabetes Hypertension Surgical History Status post History of tonsillectomy Social History number of children: 2 current occupational status: employed current occupation: Works from home Smoking Status: Current every day smoker tobacco type: cigarettes Tobacco: How many years used: 6 alcohol intake: never substance use type: does not use seatbelt use: always do you feel safe at home: Yes additional social history: Dontrell- boyfriend ROS Constitutional Constitutional: Reports systems reviewed and no addt'l complaints, except as documented Eyes Eyes: Denies change in vision ENT HEENT: Reports systems reviewed and no addt'l complaints, except as documented; Denies headache(s) Cardiovascular Cardiovascular: Reports systems reviewed and no addt'l complaints, except as documented; Denies chest pain or dyspnea Respiratory/Chest Respiratory/Chest: Reports systems reviewed and no addt'l complaints, except as documented Gastrointestinal Gastrointestinal: Reports systems reviewed and no addt'l complaints, except as documented; Denies abdominal pain Genitourinary Genitourinary: Reports systems reviewed and no addt'l complaints, except as documented, contractions Details: present (irregular) and movement Details: present; Denies dysuria or genital lesions Musculoskeletal Musculoskeletal: Reports systems reviewed and no addt'l complaints, except as documented Neurologic Neurologic: Reports systems reviewed and no addt'l complaints, except as documented Endocrine Endocrinology: Reports systems reviewed and no addt'l complaints, except as documented Physical Exam Const oriented x3 and no apparent distress Resp normal respiratory effort Cardio regular rate GI soft to palpation GI Narrative: Tender epigastric incisions healing well clean dry intact with Steri-Strips Medical Records Data Medical Nutrition Assessment Dietitian: Malnutrition Criteria Met (more content not included)... Normal [facility] ,Urineon 03-15-2024 Beta HCG ( test) Ql (U) Negative Normal [facility] Comment on above: Result Comment: Very dilute urine specimens, as indicated by a low specific gravity, may not contain outbound sales representative levels of hCG. If is still suspected, a first morning urine specimen should be collected 48 hours later and tested. Performed By: #### L 500.2500, L501.2450, L500.3400 #### [facility] Laboratory [address] [place], [address] Basic Metabolic Profile (BMP )on 03-12-2024 BUN/CRE 11.5 RATIO Normal 10-20 [facility] Comment on above: Performed By: #### L 500.2500, L501.2450, L500.3400 #### [facility] Laboratory [address] [place], [address] CA,Total 8.7 mg/dL Normal 8.5-10.1 [facility] Comment on above: Performed By: #### L 500.2500, L501.2450, L500.3400 #### [facility] Laboratory [address] [place], [address] Chloride [Moles/Vol] 108 mmol/L High 98-107 [facility] Comment on above: Performed By: #### L 500.2500, L501.2450, L500.3400 #### [facility] Laboratory [address] [place], [address] CO2 [Moles/Vol] 24.0 mmol/L Normal 21.0-32.0 [facility] Comment on above: Performed By: #### L 500.2500, L501.2450, L500.3400 #### [facility] Laboratory [address] [place], [address] Creatinine [Mass/Vol] 0.78 mg/dL Normal 0.55-1.02 [facility] Comment on above: Result Comment: The validity of the calculated GFR GFRAA in patients over 70 years has not been determined. Clinical correlation is essential. Performed By: #### L 500.2500, L501.2450, L500.3400 #### [facility] Laboratory [address] [place], [address] ECRCL 129.38 ml/min Normal [facility] Comment on above: Performed By: #### L 500.2500, L501.2450, L500.3400 #### [facility] Laboratory [address] [place], [address] EST GFR - AA 115 mL/min Normal >60 [facility] Comment on above: Result Comment: Afri can Chinese GFR Calc Performed By: #### L 500.2500, L501.2450, L500.3400 #### [facility] Laboratory [address] [place], [address] GAP 7 Normal 5-15 [facility] Comment on above: Performed By: #### L 500.2500, L501.2450, L500.3400 #### [facility] Laboratory [address] [place], [address] GFR/1.73 sq M.predicted among non-blacks MDRD (S/P/Bld) [Vol rate/Area] 95 mL/min/{1.73_m2} Normal >60 [facility] Comment on above: Result Comment: Non- GFR Calc Performed By: #### L 500.2500, L501.2450, L500.3400 #### [facility] Laboratory [address] [place], [address] Glucose [Mass/Vol] 112 mg/dL High 74-106 [facility] Comment on above: Result Comment: Fast ing Glucose result from 100 to 125 mg/dL suggests IMPAIRED HOMEOSTASIS per A.D.A. criteria. Performed By: #### L 500.2500, L501.2450, L500.3400 #### [facility] Laboratory [address] [place], [address] Potassium [Moles/Vol] 3.5 mmol/L Normal 3.5-5.1 [facility] Comment on above: Result Comment: Slig ht Hemolysis, Result may be falsely increased. Performed By: #### L 500.2500, L501.2450, L500.3400 #### [facility] Laboratory [address] [place], [address] Sodium [Moles/Vol] 139 mmol/L Normal 136-145 [facility] Comment on above: Performed By: #### L 500.2500, L501.2450, L500.3400 #### [facility] Laboratory [address] [place], [address] Urea nitrogen [Mass/Vol] 9 mg/dL Normal 7-18 [facility] Comment on above: Performed By: #### L 500.2500, L501.2450, L500.3400 #### [facility] Laboratory [address] [place], [address] Emergency Department Summary on 03-12-2024 Emergency Department Summary [facility] Medical Records Department [address] [place] [address] Emergency Department Summary 03/12/24 MR#: [id number] Acct: [id number] Name: NATY ROBERTS Rep #: [id number] : 2000 24 From: Pramod Cast DO PCP: Care Physician,No Primary Status:DEP ER Location: ED HPI History of Present Illness Chief Complaint: Abd Pain Informant: patient and spouse/S.O. Narrative Narrative: Patient is a 24-year-old female with past medical history of anxiety and depression and recent cholecystectomy. She states that procedure was done laparoscopically just 3 days ago. She reports that she had a procedure recovered in PACU and was discharged home. She reports that she has been taking her prescribed medication and doing well. This evening she felt like she had to have a bowel movement and then developed upper abdominal discomfort. She states she took one of her pain pills without much improvement and with concern for a postoperative complication comes in for evaluation [facility] Medical History Depression Fatty liver Back pain Gastric reflux Vapes nicotine containing substance History of edema Obesity (BMI 30-39.9) Anxiety Home Medications ???Medication ???Instructions ???Recorded ???Last Taken ???Type diazepam 5 mg tablet (Valium) 5 mg PO TID PRN muscle spasm 5 02/11/24 Unknown Rx days #15 tabs medroxyprogesterone 150 mg/mL 150 mg IM [id number] #1 mL 02/18/24 Unknown Rx intramuscular suspension (Depo-Provera) oxycodone 5 mg capsule 5 mg PO Q6H PRN pain 3 days #10 03/09/24 Unknown Rx caps ondansetron 4 mg disintegrating 4 mg PO TID PRN nausea and 03/12/24 Unknown Rx tablet vomiting #21 tabs oxycodone-acetaminoph en 5 mg-325 1 tab PO Q6H PRN pain 3 days #12 03/12/24 Unknown Rx mg tablet (Percocet) tabs Allergy/AdvReac Type Severity Reaction Status Date / Time morphine Allergy Mild Rash Verified 03/11/24 22:42 Family History Father Diabetes Hypertension Surgical History Status post History of tonsillectomy Social History number of children: 2 current occupational status: employed current occupation: Works from home Smoking Status: Current every day smoker tobacco type: cigarettes Tobacco: How many years used: 6 alcohol intake: never substance use type: does not use seatbelt use: always do you feel safe at home: Yes additional social history: Dontrell- boyfriend ROS ROS ED Constitutional Constitutional ED: Denies chills or fever(s) ENT ENT ED: Denies sore throat Cardiovascular Cardiovascular: Denies chest pain Respiratory/Chest Respiratory/Chest: Denies cough or dyspnea Gastrointestinal Gastrointestinal: Reports abdominal pain and nausea; Denies diarrhea or vomiting Genitourinary Genitourinary ED: Denies dysuria, hematuria or urinary frequency Musculoskeletal Musculoskeletal: Denies myalgias Integumentary Denies rash Neurologic Neurologic: Denies headache(s) Psychiatric Psychiatric: Reports anxiety and depression Hematologic/Lymphatic Hematologic/Lymphatic : Denies easy bleeding or easy bruising EXAM Physical Exam Const Vital Signs: 03/11/24 22:40 03/12/24 00:40 03/12/24 01:22 Temperature 98.3 F 97.5 F L Temperature Source Temporal Pulse Rate 67 62 Respiratory Rate 18 18 16 Blood Pressure 148/86 H 148/86 H Blood Pressure Mean 106 106 Pulse Ox 100 100 Oxygen Delivery Method Room Air Positive well nourished and well developed General Appearance ED: well developed HEENT HEENT Narrative: Normocephalic atraumatic Eyes PERRL and EOMs intact bilaterally General Eye ED: Negative for scleral icterus Neck supple Resp normal respiratory effort and clear to auscultation bilaterally Cardio regular rate and regular rhythm Rate: other Other Details: Radial and carotid pulses are equal and symmetric GI non-distended and no masses GI Narrative: Abdomen is soft and nondistended with hypoactive bowel sounds. There is mild pain with palpation diffusely in the upper abdomen. No voluntary guarding or rigidity or pulsatile mass. Patient has postoperative wounds that are clean dry and intact without secondary changes to suggest infection. Auscultation: hypoactive bowel sounds Palpation: soft Extremity normal to inspection Extremity Narrative: No asymmetric edema no pitting edema negative Homans' sign bilaterally Neuro oriented x3, CN's II-XII intact bilaterally and no sensory deficits noted Sensorium / Orientation: alert Motor Exam: strength 5/5 throughout Psych mental status grossly normal Skin Skin Na (more content not included)... Normal [facility] Lipaseon 03-12-2024 Lipase [Catalytic activity/Vol] 32 U/L Normal 13-75 [facility] Comment on above: Result Comment: Pleginger gonzalez note: LIPASE revised reference range effective 22. New Lipase methodology. Expected to produce lower values than the previous assay method. NEW Reference Range: 13 - 75 U/L Performed By: #### L 500.2500, L501.2450, L500.3400 #### [facility] Laboratory [address] [place], [address] Liver Profileon 03-12-2024 Albumin [Mass/Vol] 3.5 g/dL Normal 3.2-5.0 [facility] Comment on above: Performed By: #### L 500.2500, L501.2450, L500.3400 #### [facility] Laboratory [address] [place], [address] ALK P 75 U/L Normal 45-117 [facility] Comment on above: Performed By: #### L 500.2500, L501.2450, L500.3400 #### [facility] Laboratory [address] [place], [address] ALT [Catalytic activity/Vol] 59 U/L High 13-56 [facility] Comment on above: Performed By: #### L 500.2500, L501.2450, L500.3400 #### [facility] Laboratory [address] [place], [address] AST [Catalytic activity/Vol] 67 U/L High 15-37 [facility] Comment on above: Result Comment: Slig ht Hemolysis, Result may be falsely increased. Performed By: #### L 500.2500, L501.2450, L500.3400 #### [facility] Laboratory [address] [place], [address] Bilirubin [Mass/Vol] 0.30 mg/dL Normal 0.20-1.00 [facility] Comment on above: Result Comment: For patients on eltrombopag therapy, use of Dimension [place] TBIL is not recommended. Performed By: #### L 500.2500, L501.2450, L500.3400 #### [facility] Laboratory [address] [place], [address] Bilirubin.direct [Mass/Vol] 0.15 mg/dL Normal 0.00-0.30 [facility] Comment on above: Performed By: #### L 500.2500, L501.2450, L500.3400 #### [facility] Laboratory [address] [place], [address] Globulin (S) [Mass/Vol] 3.4 g/dL Normal 2.2-4.2 [facility] Comment on above: Performed By: #### L 500.2500, L501.2450, L500.3400 #### [facility] Laboratory [address] [place], [address] T PROT 6.9 g/dL Normal 6.4-8.2 [facility] Comment on above: Performed By: #### L 500.2500, L501.2450, L500.3400 #### [facility] Laboratory [address] [place], [address] [facility] Cheston [facility] Chest [facility] Imaging Services [address] [place] [address] [facility] Chest MR#: [id number] Acct: [id number] Name: NATY ROBERTS Rep #: [id number] : 2000 F 24 From: Pop Jordan PCP: Care Physician,No Primary Status: REG ER Study: [facility] Chest Date of Exam: 03/11/24 Exam# [id number] Ordering Dr: Pramod Cast DO [id number] EXAM: XR ABDOMEN, 2 VIEWS AND XR CHEST, 1 VIEW CLINICAL INDICATION: pain TECHNIQUE: Frontal view of the chest, frontal view of the abdomen/pelvis and upright or decubitus view of the abdomen. COMPARISON: Chest x-ray 02/11/2024. FINDINGS: CHEST: LUNGS AND PLEURAL SPACES: Unremarkable. No consolidation or edema. No pneumothorax. No effusion. HEART: Unremarkable. Cardiac silhouette not enlarged. MEDIASTINUM: Central airways and mediastinal contour are unremarkable. ABDOMEN: INTRAPERITONEAL SPACE: No free air. GASTROINTESTINAL TRACT: Unremarkable. Non-obstructive. No bowel or stomach distention. ORGANS: Unremarkable as visualized. No organomegaly. No abnormal calcifications. TUBES, LINES AND DEVICES: None. BONES/JOINTS: No acute findings. SOFT TISSUES: No acute findings. RAD/Acute [facility] Chest IMPRESSION: Negative chest and abdominal series. Electronically Signed: Pop Eden MD at 1:02 EST , CC: Pramod Cast DO; No Primary Care Physician Maintenance Scheduler: Signed Normal [facility] CBC W/Diff, Automatedon 11-2 0-2023 Absolute Lymph 3.01 X10 3/uL Normal 0.83-4.51 [facility] Comment on above: Performed By: #### L 100.0100 #### [facility] Laboratory [address] [place], [address] Absolute Neut 5.8 X10 3/uL Normal 2.0-7.7 [facility] Comment on above: Performed By: #### L 100.0100 #### [facility] Laboratory [address] [place], [address] Basophils/100 WBC (Bld) 0.4 % Normal 0-1 [facility] Comment on above: Performed By: #### L 100.0100 #### [facility] Laboratory [address] [place], [address] Eosinophils/100 WBC (Bld) 0.7 % Normal 0-5 [facility] Comment on above: Performed By: #### L 100.0100 #### [facility] Laboratory [address] [place], [address] Erythrocyte distribution width (RBC) [Ratio] 12.0 % Normal 11.6-14.6 [facility] Comment on above: Performed By: #### L 100.0100 #### [facility] Laboratory [address] [place], [address] Hematocrit (Bld) [Volume fraction] 42.2 % Normal 37-47 [facility] Comment on above: Performed By: #### L 100.0100 #### [facility] Laboratory [address] [place], [address] Hemoglobin (Bld) [Mass/Vol] 14.2 g/dL Normal 12.0-15.0 [facility] Comment on above: Performed By: #### L 100.0100 #### [facility] Laboratory [address] [place], [address] IG% 0.200 Normal 0.0-0.9 [facility] Comment on above: Result Comment: IG% - Immature Granulocytes (promyelocytes, myelocytes and metamyelocytes) > 1% indicates that a LEFT SHIFT is Present. Performed By: #### L 100.0100 #### [facility] Laboratory [address] [place], [address] Lymphocytes/100 WBC (Bld) 32.1 % Normal 19-41 [facility] Comment on above: Performed By: #### L 100.0100 #### [facility] Laboratory [address] [place], [address] MCH (RBC) [Entitic mass] 29.2 pg Normal 27.0-32.0 [facility] Comment on above: Performed By: #### L 100.0100 #### [facility] Laboratory [address] [place], [address] MCHC (RBC) [Mass/Vol] 33.6 g/dL Normal 32-36 [facility] Comment on above: Performed By: #### L 100.0100 #### [facility] Laboratory [address] [place], [address] MCV (RBC) [Entitic vol] 86.7 fL Normal 81-99 [facility] Comment on above: Performed By: #### L 100.0100 #### [facility] [facility] [address] [place], [address] Monocytes/100 WBC (Bld) 4.7 % Normal 0-10 [facility] Comment on above: Performed By: #### L 100.0100 #### [facility] [address] [place], [address] Neutrophils/100 WBC (Bld) 61.9 % Normal 47-70 [facility] Comment on above: Performed By: #### L 100.0100 #### [facility] [address] [place], [address] Nucleated RBC (Bld) [#/Vol] 0.2 10*3/uL Normal 0-5 [facility] Comment on above: Performed By: #### L 100.0100 #### [facility] [address] [place], [address] Platelet mean volume (Bld) [Entitic vol] 9.3 fL Normal 6.2-12.0 [facility] Comment on above: Performed By: #### L 100.0100 #### [facility] [address] [place], [address] Platelets (Bld) [#/Vol] 231 10*3/uL Normal 150-450 [facility] Comment on above: Performed By: #### L 100.0100 #### [facility] [address] [place], [address] RBC (Bld) [#/Vol] 4.87 10*6/uL Normal 4.2-5.4 [facility] Comment on above: Performed By: #### L 100.0100 #### [facility] [address] [place], [address] RDW SD 38.4 fl Normal 35.1-43.9 [facility] Comment on above: Performed By: #### L 100.0100 #### [facility] [address] [place], [address] WBC (Bld) [#/Vol] 9.4 10*3/uL Normal 4.4-11.0 [facility] Comment on above: Performed By: #### L 100.0100 #### [facility] [address] [place], [address] MR/[id number] 03-10-2024 MR/POSTOPAN2 [facility] Medical Records Department [address] [place] [address] Anesthesia Postop Eval II 03/10/24 0723 MR#: [id number] Acct: [id number] Name: NATY ROBERTS Rep #: [id number] : 2000 24 From: Alberto Peña MD PCP: Care Physician,No Primary Status:[facility] Y Race: C Location: [facility] Anesthesia Postop Eval I Sum Postop Eval Completion status Anesthesia document: Postop Eval 1 completed: Yes Anesthesia Postop Eval I Summary Anesthesia Postop Eval I Summary: Anesthesia Postop Eval I: Assessment Summary Airway patent Yes 03/09/24 14:50 [email or web address] Spontaneous unlabored Yes 03/09/24 14:50 [email or web address] respirations Mental status Awake 03/09/24 14:50 [email or web address] nausea No 03/09/24 14:50 [email or web address] Vomiting No 03/09/24 14:50 [email or web address] Anesthesia Postop Eval I: Fluid Summary Crystalloid volume administer 600 03/09/24 14:50 [email or web address] (ml) Colloids volume administered ( ml) Blood Product volume administered (ml) Total IV fluid infused 600 03/09/24 14:50 [email or web address] Anesthesia Postop Eval I: Summary Notes Anesthesia Complication No 03/09/24 14:50 [email or web address] Anesthesia Complication Comment: Post-operative progress note Anesthesia: Postop Eval II Evaluation Mental status: Awake Pain Level: 0 nausea: No Vomiting: No 03/10/24 0723 Date Alberto Sifuentesignzeyad Signature: Date CC: Signed Normal [facility] 12 Lead EKGon 03-09-2024 12 Lead EKG [facility] Cardiovascular Services [address] [place] [address] 12 Lead EKG 03/09/24 1019 MR#: [id number] Acct: [id number] Name: NATY ROBERTS Rep #: [id number] : 2000 24 From: Familia Cardozo MD Attending Dr: Dr. Jyothi Enrique MD Status: D EP [facility] Ordering Dr: Alberto Peña MD Date: 03/09/24 Location: [facility] Sex: F C Admitted: Test Reason : PREOP Blood Pressure : */* mmHG Vent. Rate : 83 BPM Atrial Rate : 83 BPM P-R Int : 174 ms QRS Dur : 80 ms QT Int : 372 ms P-R-T Axes : 52 60 44 degrees QTcB Int : 437 ms Normal sinus rhythm Normal ECG When compared with ECG of 1998 09:42, PREVIOUS ECG IS PRESENT Confirmed by LYNNE WAITE, FAMILIA ([id number]), sports editor FÁTIMA BOLAÑOS ([id number]) on 03/10/2024 1:56:49 PM Referred By: Jyothi Enrique Confirmed By: FAMILIA CARDOZO MD 03/10/24 8046 Date Familia Cardozo MD CC: Dr. Alberto Peña MD; Dr. Jyothi Enrique MD; No Primary Care Physician Signed Normal [facility] Cholangiogram/ O R,Initialon 03-09-2024 Cholangiogram/ O R,Initial [facility] Imaging Services [address] [place], [place] [address] Cholangiogram/ O R,Initial MR#: [id number] Acct: [id number] Name: NATY ROBERTS Rep #: [id number] : 2000 F 24 From: Nirmal gonzalez MD PCP: Care Physician,No Primary Status: [facility] Study: Cholangiogram/ O R,Initial Date of Exam: 03/09 Exam# [id number] Ordering Dr: Jyothi Enrique MD [id number] STUDY: INTRAOPERATIVE CHOLANGIOGRAM. REASON FOR EXAM: Female, 24 years old. Laparoscopic, cholecystectomy WITH IOC FLUOROSCOPY TIME (if supplied): ( 12 seconds ) minutes/seconds. 8.32 mGy. TECHNIQUE: An intraoperative cholangioma was performed by the surgeon. Imaging was submitted. COMPARISON: None. FINDINGS: Attempted cholangiogram. Non diagnostic study. RAD/Cholangiogram/ O R,Initial IMPRESSION: Non diagnostic study. Electronically Signed: Nirmal Otero MD at 12:30 EST , CC: Dr. Jyothi Enrique MD; No Primary Care Physician Maintenance Scheduler: Signed Normal [facility] Discharge Instructionon 02-20 Discharge Instruction [facility] Medical Records Department [address] [place] [address] Instructions for Home/Discharge Instructions 03/09/24 1424 MR#: [id number] Acct: [id number] Name: NATY ROBERTS Rep #: [id number] : 2000 24 From: Jyothi Enrique MD PCP: Leanna Physician,No Primary Status:REG [facility] Discharge Instructions Diet Discharge Diet: Light diet - advance as tolerated Activity Discharge Activity: May Not Drive (while taking narcotic pain medications.) May shower in (days): 1 Lifting Restrictions: no lifting >20 lbs x 2 wks, no strenuous exercise for 4 wks Dressing / Incision Call your doctor if your incision/area has: Continuous Slow Oozing, Sudden Increased Bleeding, Increased Pain/ Swelling, Increased Redness, Foul Smelling Discharge and Swelling at the incision site Call your doctor if you observe: Fever of 101 or Higher Remove Dressing in: 2 days Cleanse incision/area with: Soap Water Additional Dressing/Incision Instructions:: Steri-Strips will fall off in 7 to 10 days, if they do not fall off okay to remove after 10 days. Follow Up Care Please Follow Up With: Jyothi Enrique MD When: Call the office for a follow-up appointment 2 weeks; after 5 PM and on the weekends call [phone] with any concerns. Test Results: Test results from this visit will be discussed in further detail at your follow-up appointment, if applicable. Discharge Plan Admission Attending Provider: Jyothi Enrique Primary Care Provider: Leanna Physician,No Primary Instructions Print Language: Chinese Discharge Orders/Prescriptions Prescriptions: New oxycodone 5 mg capsule 5 mg PO Q6H PRN (Reason: pain) 3 Days Qty: 10 0RF Continued medroxyprogesterone [Depo-Provera] 150 mg/mL suspension 150 mg IM [id number] Qty: 1 3RF diazepam [Valium] 5 mg tablet 5 mg PO TID PRN (Reason: muscle spasm) 5 Days Qty: 15 0RF Referrals / Follow Up: Care Physician,No Primary [Primary Care Provider] - Disposition Disposition (needs filled in before D/C Order can be placed): Home, Self Care 03/09/24 6333 Jyothi Enrique MD CC: No Primary Care Physician Signed Normal [facility] MR/POSTOP.Osman 03-09-2024 MR/POSTOP.[facility] Medical Records Department [address] [place] [address] Anesthesia Postop Eval I 03/09/24 1449 MR#: [id number] Acct: [id number] Name: AGUSTÍNJOSESITONATY ABDULLAHI Rep #: [id number] : 2000 24 From: Marcos Almanzar PCP: Care Physician,No Primary Status:[facility] Y Race: C Location: [place] [address] Anesthesia: Postop Eval I Current Vital Signs Temperature: 98.5 F Pulse Rate: 96 Blood Pressure: 117/52 Respiratory Rate: 14 Pulse Ox: 98 Oxygen Delivery Method: Room Air Assessment Airway patent: Yes Spontaneous unlabored respirations: Yes Mental status: Awake nausea: No Vomiting: No Anesthesia Complication: No Fluid Hydration Crystalloid volume administer (ml): 600 Total IV fluid infused: 600 Progress Note Anesthesia document: Postop Eval 1 completed: Yes 03/09/24 1450 Date Marcos Barrera Signature: Date CC: Signed Normal [facility] Operative Reporton 4 Operative Report [facility] Medical Records Department [address] [place] [address] Operative Report 03/09/24 1423 MR#: [id number] Acct: [id number] Name: NATY ROBERTS Rep #: [id number] : 2000 24 From: Jyothi Enrique MD PCP: Care Physician,No Primary Status:[facility] Location: [facility] Operative Report (Standard) Operative Information Surgery/Procedure Performed: Laparoscopic cholecystectomy with attempted cholangiograms Surgeon: Jyothi Enrique Date of Procedure: 03/09/24 Procedure Start Time: 12:44 Procedure Stop Time: 14:34 Pre-Operative Diagnosis: Cholelithiasis, right upper quadrant pain Post-Operative Diagnosis: Same Select all DRAINS/GRAFTS/IMPLANT S that apply: None Type of Anesthesia: General/Supplemental Special Medications: Ancef 2 g IV x 1 Estimated Blood Loss: 10 cc Specimen collected: Yes Description of specimen(s) removed: Gallbladder and stones Description of surgery: Indications: this is a 24 year-old female who developed abdominal pain/nausea and on workup was found to have cholelithiasis, with a normal common bile duct and normal LFTs. Laparoscopic cholecystectomy was elected. Description procedure: The patient was placed on operating table in supine position. A timeout was completed verifying correct patient, procedure, site, position and special equipment prior to beg inning procedure. General Anesthesia was induced. The abdomen was prepped and draped in usual sterile fashion. An incision was made in the natural skin line above the umbilicus. The fascia was elevated and incised. The peritoneum was elevated and incised. Entry into the peritoneum was confirmed visually and no bowel was noted in the vicinity of the incision. Carvalho trocar was placed. The abdomen was insufflated with carbon dioxide to a pressure of 12-15 mmHg. Patient tolerated insufflation well. The laparoscope was then inserted and abdomen inspected. No injuries from initial trocar placement were noted. Additional trochars were then inserted in the following locations 5 mm trocar in the epigastrium and 2 more 5 mm trochars along the right costal margin. The abdomen was inspected no abnormalities were found. The table is placed in reverse Trendelenburg position with the right side up. The dome of the gallbladder was grasped with atraumatic grasper passed through the lateral port and retracted over the dome of the liver. Infundibulum was then grasped with atraumatic grasper through the midclavicular port and retracted to the right lower quadrant. This maneuver exposed Calot's triangle. The peritoneum overlying the gallbladder infundibulum was then incised and cystic duct and artery identified and circumferentially dissected. Arechiga catheter was used attempted to be used for cholangiograms. Due to unseen stones deep in the neck of the gallbladder there was a hole in the neck during cholangiograms. The neck of the gallbladder was noted to be longer than expected or the cystic duct was larger due to stones, dissection was completed distal. There is noted to be some purulent material from the gallbladder as well as stones which were all removed using endoscopic retrieval bag. The cystic duct and artery were then doubly clipped and divided close to the gallbladder. The gallbladder then dissected from its peritoneal attachments by electrocautery. Hemostasis was checked and the gallbladder and contained stones were removed using the endoscopic retrieval bag through the umbilical port. The gallbladder is passed off table as specimen. The gallbladder fossa was irrigated with saline and hemostasis obtained. There is no evidence of bleeding from the gallbladder fossa or cystic artery leakage of bile from the cystic duct stump. Secondary trochars removed under direct vision. No bleeding was noted the trocar sites. The laparoscope was withdrawn and umbilical trocar removed. The abdomen was allowed to collapse. The fascia of the 12 mm trocar was closed with a [id number] 0 Vicryl suture. The skin was closed with sutures of 4-0 Monocryl and Steri-Strips. The patient was extubated. The patient tolerated procedure well and was taken to the postanesthesia care unit in stable condition. Surgical Findings: Long neck of the gallbladder or larger cystic duct with purulent appearing fluid in the gallbladder. Consulting Hr Professional sodder: Yes Sensory Scientist: Jack Paniagua Tasks completed by first officer and flight instructor: Opening closing and Retracting Complications Complications: No 03/10/24 0844 Cosigner Signature (if applicable): CC: Dr. Jyothi Enrique MD; No Primary Care Physician Signed Normal [facility] ,Urineon 03-09-2024 Beta HCG ( test) Ql (U) Negative Normal [facility] Comment on above: Result Comment: Very dilute urine specimens, as indicated by a low specific gravity, may not contain outbound sales representative levels of hCG. If is still suspected, a first morning urine specimen should be collected 48 hours later and tested. Performed By: #### L 500.2500, L501.2450, L500.3400 #### [facility] [address] [place], [place], [address] Surgery Specimen Level IIIon 03-09-2024 Surgery Specimen Level III -------- Patient Age/Sex Location Account Attending Physician -------- AGUSTÍNNATY ORTIZ / [facility] [id number] Dr. Jyothi Enrique MD -------- Specimen: [id number] Received: 03/10/24 Status: SNEHAL Trevinomelonie Num: [id number] Spec Type: MERARY Ramirez Dr: Dr. Jyothi Enrique MD HEADER OPERATION: Laparoscopic, cholecystectomy with IOC PRE-OP DIAGNOSIS: TISSUE SUBMITTED: Gallbladder -------- MICROSCOPIC DIAGNOSIS Gallbladder, cholecystectomy: Chronic cholecystitis and cholelithiasis. Josie 03/11/2024 MICROSCOPIC DESCRIPTION Slides are reviewed. GROSS DESCRIPTION Received is one container labeled with the patient's name and designated gallbladder. The specimen consists of a gallbladder measuring 8.0 cm in length and up to 2.5 cm in diameter. The external surface is pink-lord, smooth and glistening for the most part. Focally it is granular, hemorrhagic and contains cautery artifact. The gallbladder contains a small amount of thick green mucoid bile. Present in the gallbladder and also in the container are multiple mulberry greenish-yellow stones and stone fragments measuring in aggregate 4.5 x 3.5 x 0.5cm and 0.3 to 0.8cm in greatest dimension. The mucosa is bile-stained and without any mass lesions. The gallbladder wall measures up to 0.3 cm in thickness. Solid State Tester sections from the gallbladder and the cystic duct are submitted in one cassette. / SJ:mr 03/10/2024 TC:3 CPT: 27188 -------- Patient Age/Sex Location Account Attending Physician -------- NATY ROBERTS [facility] [id number] Dr. Jyothi Enrique MD -------- Signed (signature on file) Dr. Felix Pena MD 03/11/24 1207 -------- Normal [facility] Comment on above: Performed By: #### L 500.2500, L501.2450, L500.3400 #### [facility] [address] [place], [address] Pelvic w/ Transvaginalon Pelvic w/ Transvaginal [facility] Imaging Services [address] [place] [address] Pelvic w/ Transvaginal MR#: [id number] Acct: [id number] Name: NATY ROBERTS Rep #: [id number] : 2000 F 24 From: Mohinder Jordan PCP: Care Physician,No Primary Status: REG CLI Study: Pelvic w/ Transvaginal Date of Exam: 02/28/24 Exam# [id number] Ordering Dr: Miladis Vega DEPUTY OF COUNTER INTELLIGENCE DEPUTY OF COUNTER INTELLIGENCE -C ADDENDUM by Dr. Mohinder Alcocer MD on 03/02/24 at 1509 ======== ADDENDUM ======== [id number] Voice-recognition error in the body of report. LEFT OVARY: 3.8 x 2.6 x 2 cm. The previously noted left ovarian cyst is not seen. There is normal arterial inflow and venous outflow present in the left ovary. Electronically Signed: Mohinder Alcocer MD at 15:09 EST , 03/02/24 1509 Date cc: CELIO Vega; No Primary Care Physician * Signed ADDENDUM by Dr. Mohinder Alcocer MD on 03/02/24 at 1509 US/Pelvic w/ Transvaginal IMPRESSION: undefined 03/02/24 1515 Date cc: CELIO Vega; No Primary Care Physician * Signed [id number] INDICATION: ovarian cyst follow up EXAMINATION: Ultrasound US Pelvis Non OB Complete With Transvaginal Imaging TECHNIQUE: Transabdominal and transvaginal pelvic ultrasound was performed. Grayscale, spectral waveform, and color flow Doppler evaluation of the adnexa. COMPARISON: Prior study dated: 02/14/2024 __ FINDINGS: UTERUS: Anteverted. The uterus measures 9.8 x 6.1 x 4.7 cm. There is no uterine mass. The endometrial stripe measures 7 mm in AP diameter which is within normal limits. Previously noted IUD is not seen. RIGHT OVARY: 4.7 x 2.6 x 2.4 cm. Non-enlarged, normal echogenicity. There is normal arterial inflow and venous outflow present in the right ovary. LEFT OVARY: 3.8 x 2.6 x 2 cm. We''ve is noted left ovarian cyst is not seen. There is normal arterial inflow and venous outflow present in the left ovary. FREE FLUID: None. US/Pelvic w/ Transvaginal IMPRESSION: Unremarkable pelvic ultrasound. Electronically Signed: Mohinder Alcocer MD at 16:06 EST , CC: CELIO Vega; No Primary Care Physician Maintenance Scheduler: Signed Normal [facility] Telephone Technician Office Visit Reporton 02-18-2024 Telephone Technician Office Visit Report [address], [address] [place] [address] OFFICE VISIT Date of Service: 02/18/24 MR#: [id number] Acct: [id number] Name: NATY ROBERTS Rep #: [id number] : 2000 Provider: CELIO valenzuela Age/Sex: 24/F Location: [facility] Status: Signed with Addenda ADDENDUM by Linda Noe on 02/18/24 at 1155 Office Procedure Documentation entered by Linda Noe 02/18/24 11:55: Office Meds Depo-Provera 150 mg/mL intramuscular syringe Performing Provider: CELIO Esparza NP Performing Location: [facility] Administered by: Linda Noe on 02/18/24 11:48 Dose Route Admin Location Dispensed Lot Number Expiration Date ND Man ufacturer 150 mg IM Right Gluteal 1 mL [id number] 06/19/25 [address]-2 AMNEAL PHARMACE Date cc: * Signed Intake Vital Signs 02/12/24 14:01 02/18/24 09:26 02/18/24 10:49 02/18/24 10:54 Height 5 ft 3 in 5 ft 3 in 5 ft 3 in 5 ft 3 in Weight: 236 lb 235 lb 4 oz BMI 41.8 41.6 BP 120/80 118/82 H Blood Pressure Location Rt brachial Position Sitting Respiration 17 Pulse 88 Pulse Source Monitor Pulse Oximetry (%) 97 Oxygen Delivery Method room air Intake Visit Reasons: IUD removal Chief Complaint: IUD removal Inner Layer Scrubber Tender Required: No Is patient in pain?: No Allergies morphine Allergy (Mild, Verified 02/18/24 10:48) Rash Medications ???Medication ???Instructions ???Recorded ???Confirmed ???Type diazepam 5 mg tablet (Valium) 5 mg PO TID PRN muscle spasm 5 02/11/24 02/18/24 Rx days #15 tabs medroxyprogesterone 150 mg/mL 150 mg IM [id number] #1 mL 02/18/24 02/18/24 Rx intramuscular suspension (Depo-Provera) omeprazole 40 mg capsule,delayed 40 mg PO QDAY #30 caps 02/18/24 02/18/24 Rx release Is last menstrual period known: No Post menopausal: No Patient : No : No PFSH Medical History Obesity (BMI 30-39.9) Anxiety Surgical History Status post History of tonsillectomy Family History Father Diabetes Hypertension Social History number of children: 2 current occupational status: employed current occupation: Works from home Smoking Status: Current every day smoker tobacco type: e-cigarettes Tobacco: How many years used: 6 alcohol intake: never substance use type: does not use seatbelt use: always do you feel safe at home: Yes additional social history: Dontrell- boyfriend HPI IUD removal Details: NATY ROBERTS is a 24 year old who presents for IUD removal. US indicates low lying. She has been having pain and irregular bleeding. US also indicates a left ovarian cyst 4.5cm. Patient has cholecystectomy scheduled for 03/09. Wonders if cyst needs removed and if does can we do with GB surgery. She also needs contraception. Does not remember to take pills. Wants depo again. History 3 Elective abortions Hx Para 3 Spontaneous abortions Hx # Term Pregnancies 3 Ectopic pregnancies Hx # Pregnancies Multiple births # of living children 3 Past Pregnancies Del. Date Name GA/Weeks Outcome Route Bth Weight Infant Gen Labor Lgth Anesthesia Del Locatn Provider FOB 05/16/14 Phong Urban 41 live - full term 8 lbs 8.3 oz. Male 20 hours epidural [facility] Dr. Rico Darling 08/31/19 Ethan 39 live - full term 8lb 4oz Male spinal [facility] S EM 06/25/23 Fenton 38 live - full term Male [facility] SE Ashli Jon Delivery Date: 08/31/19 Last Updated by: Claudia Borjas [facility] ROS Const Constitutional: Reports system reviewed and no additional complaints, except as documented Eyes Eyes: Reports system reviewed and no additional complaints, except as documented GI GI: Denies abdominal pain or change in bowel habits : Reports as per HPI Exam Const General: cooperative and no acute distress Orientation: oriented x3 General: bladder normal to palpation External Female Exam: normal external appearance and normal appearance of the urethra Urethra: normal appearance of the urethra Speculum Exam - Vagina: normal appearance of the vagina, normal vaginal discharge, no lesions and nontender Speculum Exam - Cervix: normal appearance of the cervix Bimanual Exam- Vagina Uterus: normal bimanual exam, uterine size normal, bladder normal to palpation, uterine shape normal, uterine mobility normal and non-tender Bimanual Exam- Adnexa, other: normal adnexae, no masses and non-tender Office Procedures (more content not included)... Normal [facility] Surgery Visit Reporton 02-17 Surgery Visit Report [facility] [address] [facility] [facility] [place] [address] OFFICE VISIT Date of Service: 02/18/24 MR#: [id number] Acct: [id number] Name: NATY ROBERTS Rep #: [id number] : 2000 Provider: Dr. Jyothi hannon MD Age/Sex: 24/F Location: [facility] Status: Signed Intake Vital Signs 02/12/24 14:01 02/18/24 09:26 Height 5 ft 3 in 5 ft 3 in Weight: 236 lb BMI 41.8 BP 120/80 Blood Pressure Location Rt brachial Position Sitting Respiration 17 Pulse 88 Pulse Source Monitor Pulse Oximetry (%) 97 Oxygen Delivery Method room air Intake Visit Reasons: GALLBLADDER Chief Complaint: gallbladder Is patient in pain?: Yes Allergies morphine Allergy (Mild, Verified 02/18/24 10:48) Rash Medications ???Medication ???Instructions ???Recorded ???Confirmed ???Type diazepam 5 mg tablet (Valium) 5 mg PO TID PRN muscle spasm 5 02/11/24 02/18/24 Rx days #15 tabs medroxyprogesterone 150 mg/mL 150 mg IM [id number] #1 mL 02/18/24 02/18/24 Rx intramuscular suspension (Depo-Provera) omeprazole 40 mg capsule,delayed 40 mg PO QDAY #30 caps 02/18/24 02/18/24 Rx release PFSH Medical History Obesity (BMI 30-39.9) Anxiety Surgical History Status post History of tonsillectomy Family History Father Diabetes Hypertension Social History number of children: 2 current occupational status: employed current occupation: Works from home Smoking Status: Current every day smoker tobacco type: e-cigarettes Tobacco: How many years used: 6 alcohol intake: never substance use type: does not use seatbelt use: always do you feel safe at home: Yes additional social history: Dontrell- boyfriend HPI HPI HPI: 24-year-old female presents due to gallstones and abdominal pain. Patient states that she did go to the ER on 02/12/2024 as she woke up at 2 AM and her pain was worse, but around her lower ribs. Patient did have an ultrasound showed gallstones normal wall patient's labs were normal at this time as well including LFTs. Patient states she does get pain after eating greasy [place] seafoods in the right upper quadrant. Also has some epigastric discomfort with acidic or tomato-based foods. Patient does have known ovarian cyst and is meeting with [employer] to discuss imaging later today. ROS General General: Yes weight change and fatigue; No appetite, colon cancer, breast cancer or weakness HEENT HEENT: No difficulty swallowing, eye injury, eye surgery, swollen glands or hoarseness Endo Endocrine: No thyroid disease, diabetes mellitus, thyroid cancer, Hair loss, heat intolerance or cold intolerance Skin Skin: No rash or changing moles Musc Musculoskeletal: Yes back problems; No arthritis, rheumatoid arthritis, gout or joint pain Cardio Cardiovascular: No murmur, pacemaker, heart disease, atrial fibrillation, high blood pressure, heart attack, heart stent, palpitations, shortness of breat with exertion or chest pain Psych Psychiatric: Yes depression and anxiety; No hearing voices Resp Respiratory: No shortness of breath, No sleep apnea, No cough, No COPD, No asthma, No emphysema and No wheezing Gastro Gastrointestinal: Yes abdominal pain, Yes nausea or vomiting, Yes diarrhea, No constipation, No blood in stool, Yes acid reflux, No hemorrhoids, No ulcers, Yes gallbladder problem and No black,tarry stools [place] Hematologic: No blood thinners, No blood disorders, No bleeding, Yes anemia and No blood clots Neuro Neurologic: No system reviewed and no additional complaints, except as documented, No as per HPI, No abnormal gait, No abnormal hearing, No abnormal movements, No abnormal speech, No behavioral changes, No burning sensations, No confusion, No convulsions, No disequilibrium, No dizziness, No localized weakness, No frequent falls, No headache(s), No lack of coordination, No loss of vision, No memory loss, No numbness, No other visual disturbances, No radicular pain, No restless legs, No sensory deficit, No syncope, No tingling, No tremor(s), No weakness and No other Exam Const General: cooperative, healthy appearing, comfortable and no acute distress HENMT Head: normocephalic and atraumatic Neck Neck: supple Resp Effort Inspection: normal respiratory effort Cardio Rate: regular rate GI Inspection: non-distended Palpation: soft and tender (Minimal left upper quadrant, mild tenderness bilateral lower quadrants) Skin General: no rashes or lesions noted Neuro General: CN's II-XI intact bilaterally Extrem General: normal to inspection Psy (more content not included)... Normal [facility] Pelvic w/ Transvaginalon Pelvic w/ Transvaginal [facility] Imaging Services [address] [place], [place] [id number] Pelvic w/ Transvaginal MR#: [id number] Acct: [id number] Name: NATY ROBERTS ELISEOXIAO Rep #: [id number] : 2000 F 24 From: Mohidner Jordan PCP: Care Physician,No Primary Status: REG CLI Study: Pelvic w/ Transvaginal Date of Exam: 02/14/24 Exam# [id number] Ordering Dr: Miladis Vega NP, NP [id number] INDICATION: IUD check -- PAINFUL LONG PERIODS EXAMINATION: Ultrasound US Pelvis Non OB Limited With Transvaginal Imaging TECHNIQUE: Transabdominal pelvic ultrasound was performed. Grayscale, spectral waveform, and color flow Doppler evaluation of the adnexa. COMPARISON: No relevant prior comparison study available _ FINDINGS: UTERUS: Anteverted. The uterus measures 10.6 x 6.2 x 4.8 cm. There is no uterine mass. The endometrial stripe measures 9 mm in AP diameter which is within normal limits. IUD is seen however it appears to be extending posterior to the endometrial canal within the myometrium. Distally, the IUD is seen within the endocervical canal. RIGHT OVARY: 4.3 x 4.3 x 2.3 cm. Non-enlarged, normal echogenicity. There is normal arterial inflow and venous outflow present in the right ovary. LEFT OVARY: 6.2 x 5.5 x 4.8 cm. Complex cyst is seen in the left ovary with debris measuring about 4.5 cm. There is normal arterial inflow and venous outflow present in the left ovary. FREE FLUID: None. US/Pelvic w/ Transvaginal IMPRESSION: Malposition of the IUD appears to be extending posterior to the endometrial canal in the posterior wall of uterus. Complex left ovarian cyst measuring about 4.5 cm. Electronically Signed: Mohinder Alcocer MD at 8:40 EDT , CC: CELIO Vega; No Primary Care Physician Maintenance Scheduler: Signed Normal [facility] Gallbladderon 02-12-2024 [facility] Imaging Services [address] [place] [address] [id number] Gallbladder MR#: [id number] Acct: [id number] Name: NATY ROBERTS Rep #: [id number] : 2000 F 24 From: Nirmal gonzalez MD PCP: Care Physician,No Primary Status: REG CLI Study: Gallbladder Date of Exam: 02/12/24 Exam# [id number] Ordering Dr: Pramod Cast DO [id number] STUDY: ABDOMINAL ULTRASOUND - RIGHT UPPER QUADRANT REASON FOR VISIT: Female, 24 years old RUQ abdominal pain two-week history of right upper quadrant pain. TECHNIQUE: Ultrasound evaluation of the right upper quadrant was performed with real-time and static agllardo-scale imaging. TECHNICAL QUALITY: Adequate. COMPARISON: None. FINDINGS: Liver: The liver is enlarged and measures 18.2 cm. There is increased echogenicity consistent with fatty infiltration. The bile ducts are within normal limits. There is hepatic color flow. The direction of portal flow is hepatopetal. There is no demonstrated mass lesion. Gallbladder: There is a distended gallbladder. The gallbladder wall measures 2.6 mm. There is a positive sonographic Sen''s sign. There is no pericholecystic fluid. There are multiple echogenic structures within the gallbladder, consistent with multiple gallstones. Tumefactive sludge is seen within the gallbladder lumen. Common Bile Duct (C.B.D.): The common bile duct measures 2.5 mm. Pancreas: Normal size of the head, body and tail of the pancreas. There is normal echogenicity of the pancreas. There is no demonstrated pancreatic mass or cyst. Right Kidney: Normal size of the right kidney. The right kidney measures 11.4 cm x 5.8 x 4.6 cm. Normal renal cortex. The right cortex measures 1.4 cm. There is no demonstrated renal mass or cyst. There is no right hydronephrosis. US/Gallbladder IMPRESSION: Mild hepatomegaly and fatty infiltration of the liver. Multiple gallstones. Tumefactive sludge is seen within the gallbladder lumen. Electronically Signed: Nirmal Otero MD at 13:31 EDT , CC: Pramod Cast DO; No Primary Care Physician Maintenance Scheduler: Signed Normal [facility] Telephone Technician Office Visit Reporton 02-12-2024 Telephone Technician Office Visit Report [facility] [address], [address] [place] [address] OFFICE VISIT Date of Service: 02/12/24 MR#: [id number] Acct: [id number] Name: NATY ROBERTS Rep #: [id number] : 2000 Provider: CELIO valenzuela Age/Sex: 24/F Location: [facility] Status: Signed Intake Vital Signs 09/19/23 10:05 02/11/24 02:50 02/12/24 13:55 02/12/24 14:01 Height 5 ft 3 in 5 ft 3 in 5 ft 3 in 5 ft 3 in Weight: 235 lb 2 oz BMI 41.6 BP 120/76 Intake Visit Reasons: heavy bleeding, cramping, wants iud checked Chief Complaint: Bleeding/ cramping- wants IUD checked [employer] Layer Scrubber Tender Required: No Is patient in pain?: No Allergies morphine Allergy (Mild, Verified 02/12/24 13:54) Rash Medications ???Medication ???Instructions ???Recorded ???Confirmed ???Type levonorgestrel 14 mcg/24 hr (up to 1 device intrauterine ONCE 02/07/24 02/11/24 History 3 yrs) 13.5 mg intrauterine device (Danika) diazepam 5 mg tablet (Valium) 5 mg PO TID PRN muscle spasm 5 02/11/24 02/12/24 Rx days #15 tabs Is last menstrual period known: No Post menopausal: No Patient : No : No Control Method: Danika [facility] Medical History Obesity (BMI 30-39.9) Anxiety Surgical History Status post History of tonsillectomy Family History Father Diabetes Social History number of children: 2 current occupational status: employed current occupation: Works from home Smoking Status: Current every day smoker tobacco type: e-cigarettes Tobacco: How many years used: 6 alcohol intake: never substance use type: does not use seatbelt use: always do you feel safe at home: Yes additional social history: Dontrell- boyfriend HPI heavy bleeding, cramping, wants iud checked Details: NATY ROBERTS is a 24 year old who presents for persistent bleeding since placement of danika IUD August 2023. Some cramping. Varies in amount, last menses was 16 days. Will have spotting every week History 3 Elective abortions Hx Para 3 Spontaneous abortions Hx # Term Pregnancies 3 Ectopic pregnancies Hx # Pregnancies Multiple births # of living children 3 Past Pregnancies Del. Date Name GA/Weeks Outcome Route Bth Weight Infant Gen Labor Lgth Anesthesia Del Locatn Provider FOB 05/16/14 Phong Urban 41 live - full term 8 lbs 8.3 oz. Male 20 hours epidural [facility] Dr. Rico Darling 08/31/19 Ethan 39 live - full term 8lb 4oz Male spinal [facility] S EM 06/25/23 Jai 38 live - full term Male [facility] SE M Dontrell Delivery Date: 08/31/19 Last Updated by: Claudia Borjas [facility] ROS Const Constitutional: Reports system reviewed and no additional complaints, except as documented Eyes Eyes: Reports system reviewed and no additional complaints, except as documented GI GI: Denies abdominal pain or change in bowel habits : Reports as per HPI Exam Const General: cooperative and no acute distress Orientation: oriented x3 General: bladder normal to palpation External Female Exam: normal external appearance and normal appearance of the urethra Urethra: normal appearance of the urethra Speculum Exam - Vagina: normal appearance of the vagina, normal vaginal discharge, no lesions and nontender Speculum Exam - Cervix: normal appearance of the cervix (short IUD strings noted at os) Bimanual Exam- Vagina Uterus: normal bimanual exam, uterine size normal, bladder normal to palpation, uterine shape normal, uterine mobility normal and non-tender Bimanual Exam- Adnexa, other: normal adnexae, no masses and non-tender Coding Level of Care Code Off vis,est,level 3 Diagnoses IUD check up Z30.431 Menorrhagia with irregular cycle N92.1 Assessment and Plan Assessment and Plan (1) IUD check up: Status: Acute (2) Menorrhagia with irregular cycle: Status: Acute Orders: Orders Pelvic w/ Transvaginal Today N92.1 - Excessive and frequent menstruation with irregular cycle, Z30.431 - Encounter for routine checking of intrauterine contraceptive device Plan Ultrasound and then will decide management 02/12/24 1414 Date Miladis Vega NP DEPUTY OF COUNTER INTELLIGENCE-C Cosigner Signature: Date (if applicable) CC: Normal [facility] Basic Metabolic Profile (BMP )on 02-11-2024 BUN/CRE 14.3 RATIO Normal - [facility] Comment on above: Performed By: #### L 100.0100, L500.2500, L500.3400, L501.2450, L300.8000 ####[facility] [address] [place], [address] CA,Total 9.1 mg/dL Normal 8.5-10.1 [facility] Comment on above: Performed By: #### L 100.0100, L500.2500, L500.3400, L501.2450, L300.8000 ####[facility] [address] [place], [address] Chloride [Moles/Vol] 108 mmol/L High 98-107 [facility] Comment on above: Performed By: #### L 100.0100, L500.2500, L500.3400, L501.2450, L300.8000 ####[facility] [address] [place], [address] CO2 [Moles/Vol] 26.0 mmol/L Normal 21.0-32.0 [facility] Comment on above: Performed By: #### L 100.0100, L500.2500, L500.3400, L501.2450, L300.8000 ####[facility] [address] [place], [address] Creatinine [Mass/Vol] 0.70 mg/dL Normal 0.55-1.02 [facility] Comment on above: Result Comment: The validity of the calculated GFR GFRAA in patients over 70 years has not been determined. Clinical correlation is essential. Performed By: #### L 100.0100, L500.2500, L500.3400, L501.2450, L300.8000 ####[facility] [address] [place], [address] ECRCL 142.58 ml/min Normal [facility] Comment on above: Performed By: #### L 100.0100, L500.2500, L500.3400, L501.2450, L300.8000 ####[facility] [address] [place], [address] EST GFR - AA 130 mL/min Normal >60 [facility] Comment on above: Result Comment: Afri can Chinese GFR Calc Performed By: #### L 100.0100, L500.2500, L500.3400, L501.2450, L300.8000 ####[facility] [address] [place], [address] GAP 4 Low 5-15 [facility] Comment on above: Performed By: #### L 100.0100, L500.2500, L500.3400, L501.2450, L300.8000 ####[facility] [address] [place], [address] GFR/1.73 sq M.predicted among non-blacks MDRD (S/P/Bld) [Vol rate/Area] 108 mL/min/{1.73_m2} Normal >60 [facility] Comment on above: Result Comment: Non- GFR Calc Performed By: #### L 100.0100, L500.2500, L500.3400, L501.2450, L300.8000 ####[facility] [address] [place], [address] Glucose [Mass/Vol] 104 mg/dL Normal 74-106 [facility] Comment on above: Result Comment: Fast ing Glucose result from 100 to 125 mg/dL suggests IMPAIRED HOMEOSTASIS per A.D.A. criteria. Performed By: #### L 100.0100, L500.2500, L500.3400, L501.2450, L300.8000 ####[facility] [address] [place], [address] Potassium [Moles/Vol] 3.5 mmol/L Normal 3.5-5.1 [facility] Comment on above: Performed By: #### L 100.0100, L500.2500, L500.3400, L501.2450, L300.8000 ####[facility] [address] [place], [address] Sodium [Moles/Vol] 137 mmol/L Normal 136-145 [facility] Comment on above: Performed By: #### L 100.0100, L500.2500, L500.3400, L501.2450, L300.8000 ####[facility] [address] [place], [address] Urea nitrogen [Mass/Vol] 10 mg/dL Normal 7-18 [facility] Comment on above: Performed By: #### L 100.0100, L500.2500, L500.3400, L501.2450, L300.8000 ####[facility] [address] [place], [address] CBC W/Diff, Automatedon 10-2 Absolute Lymph 2.61 X10 3/uL Normal 0.83-4.51 [facility] Comment on above: Performed By: #### L 100.0100, L500.2500, L500.3400, L501.2450, L300.8000 ####[facility] [address] [place], [address] Absolute Neut 7.2 X10 3/uL Normal 2.0-7.7 [facility] Comment on above: Performed By: #### L 100.0100, L500.2500, L500.3400, L501.2450, L300.8000 ####[facility] [address] [place], [address] Basophils/100 WBC (Bld) 0.4 % Normal 0-1 [facility] Comment on above: Performed By: #### L 100.0100, L500.2500, L500.3400, L501.2450, L300.8000 ####[facility] [address] [place], [address] Eosinophils/100 WBC (Bld) 0.6 % Normal 0-5 [facility] Comment on above: Performed By: #### L 100.0100, L500.2500, L500.3400, L501.2450, L300.8000 ####[facility] [address] [place], [address] Erythrocyte distribution width (RBC) [Ratio] 12.3 % Normal 11.6-14.6 [facility] Comment on above: Performed By: #### L 100.0100, L500.2500, L500.3400, L501.2450, L300.8000 ####[facility] [address] [place], [address] Hematocrit (Bld) [Volume fraction] 41.1 % Normal 37-47 [facility] Comment on above: Performed By: #### L 100.0100, L500.2500, L500.3400, L501.2450, L300.8000 ####[facility] [address] [place], [address] Hemoglobin (Bld) [Mass/Vol] 14.0 g/dL Normal 12.0-15.0 [facility] Comment on above: Performed By: #### L 100.0100, L500.2500, L500.3400, L501.2450, L300.8000 ####[facility] [address] [place], [address] IG% 0.400 Normal 0.0-0.9 [facility] Comment on above: Result Comment: IG% - Immature Granulocytes (promyelocytes, myelocytes and metamyelocytes) > 1% indicates that a LEFT SHIFT is Present. Performed By: #### L 100.0100, L500.2500, L500.3400, L501.2450, L300.8000 ####[facility] [address] [place], [address] Lymphocytes/100 WBC (Bld) 24.4 % Normal 19-41 [facility] Comment on above: Performed By: #### L 100.0100, L500.2500, L500.3400, L501.2450, L300.8000 ####[facility] [address] [place], [address] MCH (RBC) [Entitic mass] 29.4 pg Normal 27.0-32.0 [facility] Comment on above: Performed By: #### L 100.0100, L500.2500, L500.3400, L501.2450, L300.8000 ####[facility] [address] [place], [address] MCHC (RBC) [Mass/Vol] 34.1 g/dL Normal 32-36 [facility] Comment on above: Performed By: #### L 100.0100, L500.2500, L500.3400, L501.2450, L300.8000 ####[facility] [address] [place], [address] MCV (RBC) [Entitic vol] 86.3 fL Normal 81-99 [facility] Comment on above: Performed By: #### L 100.0100, L500.2500, L500.3400, L501.2450, L300.8000 ####[facility] [address] [place], [address] Monocytes/100 WBC (Bld) 6.5 % Normal 0-10 [facility] Comment on above: Performed By: #### L 100.0100, L500.2500, L500.3400, L501.2450, L300.8000 ####[facility] [address] [place], [address] Neutrophils/100 WBC (Bld) 67.7 % Normal 47-70 [facility] Comment on above: Performed By: #### L 100.0100, L500.2500, L500.3400, L501.2450, L300.8000 ####[facility] [address] [place], [address] Nucleated RBC (Bld) [#/Vol] 0 10*3/uL Normal 0-5 [facility] Comment on above: Performed By: #### L 100.0100, L500.2500, L500.3400, L501.2450, L300.8000 ####[facility] [address] [place], [address] Platelet mean volume (Bld) [Entitic vol] 9.6 fL Normal 6.2-12.0 [facility] Comment on above: Performed By: #### L 100.0100, L500.2500, L500.3400, L501.2450, L300.8000 ####[facility] [address] [place], [address] Platelets (Bld) [#/Vol] 242 10*3/uL Normal 150-450 [facility] Comment on above: Performed By: #### L 100.0100, L500.2500, L500.3400, L501.2450, L300.8000 ####[facility] [address] [place], [address] RBC (Bld) [#/Vol] 4.76 10*6/uL Normal 4.2-5.4 [facility] Comment on above: Performed By: #### L 100.0100, L500.2500, L500.3400, L501.2450, L300.8000 ####[facility] [address] [place], [address] RDW SD 38.9 fl Normal 35.1-43.9 [facility] Comment on above: Performed By: #### L 100.0100, L500.2500, L500.3400, L501.2450, L300.8000 ####[facility] [address] [place], [address] WBC (Bld) [#/Vol] 10.7 10*3/uL Normal 4.4-11.0 [facility] Comment on above: Performed By: #### L 100.0100, L500.2500, L500.3400, L501.2450, L300.8000 ####[facility] [address] [place], [address] Chest PA and Lateralon 02-10 Chest PA and Lateral [facility] Imaging Services [address] [place] [address] Chest PA and Lateral MR#: [id number] Acct: [id number] Name: NATY ROBERTS Rep #: [id number] : 2000 F 24 From: Shasha Jordan PCP: Care Physician,No Primary Status: REG ER Study: Chest PA and Lateral Date of Exam: 02/11/24 Exam# [id number] Ordering Dr: Pramod Cast DO [id number] INDICATION: PAINUPPER BACK AND BILATERAL RIB PAIN ON AND OFF X 2 WEEKS EXAMINATION/TECHNIQUE : X-RAY - XR Chest 2 Views COMPARISON: Prior study dated: 03/19/2011 __ FINDINGS: LINES/DEVICES: None. LUNGS: No consolidation. No pneumothorax. MEDIASTINUM: Unremarkable. CARDIAC SILHOUETTE: Not enlarged. BONES AND SOFT TISSUES: No acute abnormalities. __ RAD/Chest PA and Lateral IMPRESSION: No evidence of active intrathoracic disease. Electronically Signed: Shasha Croft MD at 4:51 EDT , CC: Pramod Cast DO; No Primary Care Physician Maintenance Scheduler: Signed Normal [facility] D-Dimer Quantitative (DVT/PE )on 02-11-2024 D-DIMER QUANT 0.42 FEU/ug/m Normal 0.27-0.49 [facility] Comment on above: Result Comment: NORM AL D-Dimer level (<0.50) indicates no DVT or PE. Performed By: #### L 100.0100, L500.2500, L500.3400, L501.2450, L300.8000 ####[facility] [address] [place], [address] Emergency Department Summary on 02-11-2024 Emergency Department Summary [facility] Medical Records Department [address] [place] [address] Emergency Department Summary 02/11/24 MR#: [id number] Acct: [id number] Name: NATY ROBERTS Rep #: [id number] : 2000 24 From: Pramod Cast DO PCP: Care Physician,No Primary Status:DEP ER Location: ED HPI History of Present Illness Chief Complaint: Chest Other Informant: patient Narrative Narrative: Patient is a 24-year-old female with past medical history of anxiety. She states over the past 2 weeks she has been having intermittent bouts of mid thoracic/back pain that wraps around towards her upper abdomen/chest. She states that she had a delivery roughly 6 months ago and following that had back pain that she underwent physical therapy for. She states the pain feels similar nature to that time but states she has been doing the stretches given to her by the physical therapist and has still not had any symptom improvement. She denies any fevers or chills she denies any cough or congestion any dysuria and she denies any recent travel surgery or history of DVT/PE. She states that she is having difficulty sleeping secondary to the recurrent pain and therefore comes in for evaluation [facility] Medical History Obesity (BMI 30-39.9) Anxiety Home Medications ???Medication ???Instructions ???Recorded ???Last Taken ???Type levonorgestrel 14 mcg/24 hr (up to 1 device intrauterine ONCE 02/07/24 Unknown History 3 yrs) 13.5 mg intrauterine device (Danika) diazepam 5 mg tablet (Valium) 5 mg PO TID PRN muscle spasm 5 02/11/24 Unknown Rx days #15 tabs Allergy/AdvReac Type Severity Reaction Status Date / Time morphine Allergy Mild Rash Verified 02/11/24 02:50 Family History Father Diabetes Surgical History Status post History of tonsillectomy Social History number of children: 2 current occupational status: employed current occupation: Works from home Smoking Status: Current every day smoker tobacco type: e-cigarettes Tobacco: How many years used: 6 alcohol intake: never substance use type: does not use seatbelt use: always do you feel safe at home: Yes additional social history: Dontrell- boyfriend ROS ROS ED Constitutional Constitutional ED: Denies chills or fever(s) Eyes Eyes: Denies blurry vision or change in vision ENT ENT ED: Denies sore throat Cardiovascular Cardiovascular: Denies chest pain, palpitations or racing heartbeat Respiratory/Chest Respiratory/Chest: Denies cough or dyspnea Gastrointestinal Gastrointestinal: Denies abdominal pain, diarrhea, nausea or vomiting Genitourinary Genitourinary ED: Denies dysuria or hematuria Musculoskeletal Musculoskeletal: Reports back pain; Denies myalgias Integumentary Denies rash Neurologic Neurologic: Denies headache(s) Hematologic/Lymphatic Hematologic/Lymphatic : Denies easy bleeding or easy bruising EXAM Physical Exam Const Vital Signs: 02/11/24 02:50 02/11/24 04:59 Temperature 97 F L Temperature Source Oral Pulse Rate 83 90 Respiratory Rate 16 16 Blood Pressure 143/93 H 142/60 H Blood Pressure Mean 109 87 Pulse Ox 100 Positive well nourished, well developed and obese General Appearance ED: well developed; Negative for pallor Nutritional Appearance: obese HEENT Reports moist mucous membranes HEENT Narrative: No signs of infection noted in the posterior pharynx Eyes PERRL and EOMs intact bilaterally General Eye ED: Negative for scleral icterus Neck supple Chest Wall palpation of chest normal Chest Narrative: No bony deformity or crepitance of the chest wall Resp normal respiratory effort and clear to auscultation bilaterally Cardio regular rate and regular rhythm Rate: other Other Details: Heart is regular rate and rhythm without murmurs rubs or gallop Radial and carotid pulses are equal and symmetric GI normal to inspection, nondistended, normoactive bowel sounds, non-tender, non-distended and no masses GI Narrative: No voluntary guarding or rigidity or pulsatile mass Negative Sen sign Auscultation: normoactive bowel sounds Palpation: soft Back/Spine Back/Spine Narrative: No bony deformity or step-off of the thoracic or lumbar spine no midline tenderness to palpation Extremity normal to inspection Extremity Narrative: No asymmetric edema no pitting edema negative Homans' sign bilaterally Neuro oriented x3, CN's II-XII intact bilaterally and no sensory deficits noted Sensorium / Orientation: alert Motor Exam: strength 5/5 throughout Psych mental status grossly normal (more content not included)... Normal [facility] Lipaseon 02-11-2024 Lipase [Catalytic activity/Vol] 22 U/L Normal 13-75 [facility] Comment on above: Result Comment: Violetta gonzalez note: LIPASE revised reference range effective 22. New Lipase methodology. Expected to produce lower values than the previous assay method. NEW Reference Range: 13 - 75 U/L Performed By: #### L 100.0100, L500.2500, L500.3400, L501.2450, L300.8000 ####[facility] [address] [place], [address] Liver Profileon 02-11-2024 Albumin [Mass/Vol] 3.8 g/dL Normal 3.2-5.0 [facility] Comment on above: Performed By: #### L 100.0100, L500.2500, L500.3400, L501.2450, L300.8000 ####[facility] [address] [place], [address] ALK P 74 U/L Normal 45-117 [facility] Comment on above: Performed By: #### L 100.0100, L500.2500, L500.3400, L501.2450, L300.8000 ####[facility] [address] [place], [address] ALT [Catalytic activity/Vol] 32 U/L Normal 13-56 [facility] Comment on above: Performed By: #### L 100.0100, L500.2500, L500.3400, L501.2450, L300.8000 ####[facility] [address] [place], [address] AST [Catalytic activity/Vol] 13 U/L Low 15-37 [facility] Comment on above: Performed By: #### L 100.0100, L500.2500, L500.3400, L501.2450, L300.8000 ####[facility] [address] [place], [address] Bilirubin [Mass/Vol] 0.40 mg/dL Normal 0.20-1.00 [facility] Comment on above: Result Comment: For patients on eltrombopag therapy, use of Dimension [place] TBIL is not recommended. Performed By: #### L 100.0100, L500.2500, L500.3400, L501.2450, L300.8000 ####[facility] [address] [place], [address] Bilirubin.direct [Mass/Vol] 0.14 mg/dL Normal 0.00-0.30 [facility] Comment on above: Performed By: #### L 100.0100, L500.2500, L500.3400, L501.2450, L300.8000 ####[facility] [address] [place], [address] Globulin (S) [Mass/Vol] 3.7 g/dL Normal 2.2-4.2 [facility] Comment on above: Performed By: #### L 100.0100, L500.2500, L500.3400, L501.2450, L300.8000 ####[facility] [address] [place], [address] T PROT 7.5 g/dL Normal 6.4-8.2 [facility] Comment on above: Performed By: #### L 100.0100, L500.2500, L500.3400, L501.2450, L300.8000 ####[facility] [address] [place], [address] ,Urineon 02-11-2024 Beta HCG ( test) Ql (U) Negative Normal [facility] Comment on above: Order Comment: CLEAN CATCH Result Comment: Very dilute urine specimens, as indicated by a low specific gravity, may not contain outbound sales representative levels of hCG. If is still suspected, a first morning urine specimen should be collected 48 hours later and tested. Performed By: #### L 500.2500, L501.2450, L500.3400 #### [facility] [address] [place], [address] Urinalysis, Completeon 02-10 BACTERIA RARE Normal None Seen [facility] Comment on above: Order Comment: CLEAN CATCH Performed By: #### L 500.2500, L501.2450, L500.3400 #### [facility] [address] [place], [address] EPI,SQUAMOUS 0-5 SEEN Normal 5-10 [facility] Comment on above: Order Comment: CLEAN CATCH Performed By: #### L 500.2500, L501.2450, L500.3400 #### [facility] [address] [place], [address] RBC 0-5 SEEN Normal 0-5 [facility] Comment on above: Order Comment: CLEAN CATCH Performed By: #### L 500.2500, L501.2450, L500.3400 #### [facility] [address] [place], [address] Mucus Ql (Urine sed) 0 SEEN Normal [facility] Comment on above: Order Comment: CLEAN CATCH Performed By: #### L 500.2500, L501.2450, L500.3400 #### [facility] [address] [place], [address] WBC 0 SEEN Normal 0-5 [facility] Comment on above: Order Comment: CLEAN CATCH Performed By: #### L 500.2500, L501.2450, L500.3400 #### [facility] [address] [place], [address] Cervical or vagninal specime n microscopic examination by cytology stain (reported asOrdered By: Karlene Hickey on 08-09-2023 Cytology report Cyto stain Doc (Cvx/Vag) Comment . [facility] Comment on above: The Pap smear is a s creening test designed to aid in thedetection of premalignant and malignant conditions of theuterine cervix. It is not a diagnostic procedure andshould not be used as the sole means of detecting cervicalcancer. Both false-positive and false-negative reports dooccur. Laboratory - CytologyOrdered By: Karlene Hickey on 08-09-2023 [employer] Cyto stain Nom (Cvx/Vag) [ID] Comment . [facility] Comment on above: Zoya Paredes-Ab dunn, Metal Door Assembler (ASCP) Laboratory - Miscellaneous t estsOrdered By: Karlene Hickey on 08-09-2023 Service comment (Unsp spec) [Interp] . . [facility] No Panel InformationOrdered By: Karlene Hickey on 08-09-2023 Human Papillomavirus Screen Comment . [facility] Comment on above: The HPV DNA reflex c riteria were not met with this specimenresult therefore, no HPV testing was performed.Performed at: [address] [id number] Director: Fela Yung MD, Phone: [phone] Thin prep Papanicolaou smear with manual screeningOrdered By: Karlene Hickey on 08-09-2023 Thin prep Papanicolaou smear with manual screening Comment . [facility] Comment on above: NEGATIVE FOR INTRAEP ITHELIAL LESION OR MALIGNANCY. This liquid based Th inPrep(R) pap test was screened withthe use of an image guided system. Basophil percentageOrdered B y: Karlene Hickey on 06-26-2023 Hemoglobin (Bld) [Mass/Vol] 11.9 g/dL 12.0-15.0 [facility] WBC (Bld) [#/Vol] 13.8 10*3/uL 4.4-11.0 [facility] Determination of erythrocyte mean corpuscular volume (MCV)Ordered By: Karlene Hickey on 06-26-2023 MCV (RBC) [Entitic vol] 87.7 fL 81-99 [facility] Erythrocyte distribution wid th ratioOrdered By: Karlene Hickey on 06-26-2023 Erythrocyte distribution width (RBC) [Ratio] 13.4 % 11.6-14.6 [facility] Erythrocyte distribution wid th standard deviationOrdered By: Karlene Hickey on 06-26-2023 Erythrocyte distribution width (RBC) [Entitic vol] 42.5 fL 35.1-43.9 [facility] Hematocrit Auto (Bld) [Volum e fraction]Ordered By: Karlene Hickey on 06-26-2023 Hematocrit (Bld) [Volume fraction] 35.7 % 37-47 [facility] Laboratory - Hematology and Cell countsOrdered By: Karlene Hickey on 06-26-2023 MCH (RBC) [Entitic mass] 29.2 pg 27.0-32.0 [facility] MCHC (RBC) [Mass/Vol] 33.3 g/dL 32-36 [facility] Platelet mean volume (Bld) [Entitic vol] 10.7 fL 6.2-12.0 [facility] Platelets (Bld) [#/Vol] 170 10*3/uL 150-450 [facility] RBC Auto (Bld) [#/Vol]Ordere d By: Karlene Hickey on 06-26-2023 RBC (Bld) [#/Vol] 4.07 10*6/uL 4.2-5.4 [facility] Thin prep Papanicolaou smear with manual screeningOrdered By: Karlene Hickey on 06-26-2023 Thin prep Papanicolaou smear with manual screening 78 mg/dL 74-106 [facility] Comment on above: MANAGEMENT OF PATIEN T CARE PER NURSING PROTOCOL Absolute lymphocyte countOrd ered By: Karlene Hickey on 06-25-2023 Lymphocytes Auto (Unsp spec) [#/Vol] 1.67 10*3/uL 0.83-4.51 [facility] Automated lymphocyte count a s percentage of total leukocytesOrdered By: Karlene Hickey on 06-25-2023 Lymphocytes/100 WBC Auto (Unsp spec) 11.1 % 19-41 [facility] Basophil percentageOrdered B y: Karlene Hickey on 06-25-2023 Basophils/100 WBC (Bld) 0.3 % 0-1 [facility] Eosinophils/100 WBC (Bld) 0.1 % 0-5 [facility] Monocytes/100 WBC (Bld) 6.5 % 0-10 [facility] Neutrophils (Bld) [#/Vol] 12.3 10*3/uL 2.0-7.7 [facility] Neutrophils/100 WBC (Bld) 81.5 % 47-70 [facility] Immature granulocytes/100 WB C Auto (Bld)Ordered By: Karlene Hickey on 06-25-2023 Immature granulocytes/100 WBC (Bld) 0.500 % 0.0-0.9 [facility] Comment on above: IG% - Immature Granu locytes (promyelocytes, myelocytes and metamyelocytes) > 1% indicates that a LEFT SHIFT is Present. Laboratory - Hematology and Cell countsOrdered By: Karlene Hickey on 06-25-2023 Nucleated RBC/100 WBC (Bld) [Ratio] 0 % 0-5 [facility] Serum Treponema species anti body detectionOrdered By: Karlene Hickey on 06-25-2023 Treponema sp Ab Ql (S) Non-Reactive [facility] Laboratory - Chemistry and C hemistry - challengeon 06-19-2023 Glucose Ql (U) Negative [facility] Laboratory - Urinalysison Protein Ql (U) Negative [facility] Laboratory - Chemistry and C hemistry - challengeon 06-13-2023 Glucose Ql (U) Negative [facility] Laboratory - Urinalysison Protein Ql (U) Trace [facility] Laboratory - Chemistry and C hemistry - challengeon 06-06-2023 Glucose Ql (U) Negative [facility] Laboratory - Urinalysison Protein Ql (U) Negative [facility] Laboratory - Chemistry and C hemistry - challengeon 05-29-2023 Glucose Ql (U) Negative [facility] Laboratory - Urinalysison Protein Ql (U) Negative [facility] Laboratory - Chemistry and C hemistry - challengeon 05-22-2023 Glucose Ql (U) Negative [facility] Laboratory - Urinalysison Protein Ql (U) Negative [facility] Laboratory - Chemistry and C hemistry - challengeon 04-30-2023 Glucose Ql (U) Negative [facility] Laboratory - Urinalysison Protein Ql (U) Negative [facility] Absolute lymphocyte countOrd ered By: Makeda Michaud on 04-16-2023 Lymphocytes Auto (Unsp spec) [#/Vol] 1.88 10*3/uL 0.83-4.51 [facility] Basophil percentageOrdered B y: Makeda Michaud on 04-16-2023 Basophils/100 WBC (Bld) 0.2 % 0-1 [facility] Eosinophils/100 WBC (Bld) 0.3 % 0-5 [facility] Neutrophils (Bld) [#/Vol] 8.0 10*3/uL 2.0-7.7 [facility] Neutrophils/100 WBC (Bld) 76.9 % 47-70 [facility] WBC (Bld) [#/Vol] 10.4 10*3/uL 4.4-11.0 [facility] Blood erythrocytes count (nu mber/volume)Ordered By: Makeda Michaud on 04-16-2023 RBC (Bld) [#/Vol] 4.29 10*6/uL 4.2-5.4 [facility] Blood hemoglobin measurement (mass/volume)Ordered By: Makeda Michaud on 04-16-2023 Hemoglobin (Bld) [Mass/Vol] 12.7 g/dL 12.0-15.0 [facility] Blood lymphocytes/100 leukoc ytesOrdered By: Makeda Michaud on 04-16-2023 Lymphocytes/100 WBC (Bld) 18.1 % 19-41 [facility] Blood monocytes/100 leukocyt esOrdered By: Makeda Michaud on 04-16-2023 Monocytes/100 WBC (Bld) 4.0 % 0-10 [facility] Blood platelet mean volumeOr dered By: Makeda Michaud on 04-16-2023 Platelet mean volume (Bld) [Entitic vol] 10.2 fL 6.2-12.0 [facility] Determination of erythrocyte mean corpuscular volume (MCV)Ordered By: Makeda Michaud on 04-16-2023 MCV (RBC) [Entitic vol] 87.6 fL 81-99 [facility] Gestational diabetes screen 1-hour screen with 50g oral glucose loadOrdered By: Makeda Michaud on 04-16-2023 Glucose 1 Hr post 50 g glucose PO [Mass/Vol] 180 mg/dL 70-140 [facility] HIV 1 and HIV-2 antibody ass ay with HIV-1 p24 antigen detectionOrdered By: Makeda Michaud on 04-16-2023 HIV 1+2 Ab+HIV1 p24 Ag IA Ql Non-Reactive Nonreactive [facility] Hematocrit Auto (Bld) [Volum e fraction]Ordered By: Makeda Michaud on 04-16-2023 Hematocrit (Bld) [Volume fraction] 37.6 % 37-47 [facility] Laboratory - Chemistry and C hemistry - challengeon 04-16-2023 Glucose Ql (U) Negative [facility] Laboratory - Hematology and Cell countsOrdered By: Makeda Michaud on 04-16-2023 Erythrocyte distribution width (RBC) [Entitic vol] 40.5 fL 35.1-43.9 [facility] Erythrocyte distribution width (RBC) [Ratio] 12.9 % 11.6-14.6 [facility] Immature granulocytes/100 WBC (Bld) 0.500 % 0.0-0.9 [facility] Comment on above: IG% - Immature Granu locytes (promyelocytes, myelocytes and metamyelocytes) > 1% indicates that a LEFT SHIFT is Present. MCH (RBC) [Entitic mass] 29.6 pg 27.0-32.0 [facility] Nucleated RBC/100 WBC (Bld) [Ratio] 0 % 0-5 [facility] Laboratory - Urinalysison Protein Ql (U) Negative [facility] MCHC Auto (RBC) [Mass/Vol]Or dered By: Makeda Michaud on 04-16-2023 MCHC (RBC) [Mass/Vol] 33.8 g/dL 32-36 [facility] Platelets bldOrdered By: Noemy Michaud on 04-16-2023 Platelets (Bld) [#/Vol] 181 10*3/uL 150-450 [facility] Serum Treponema species anti body detectionOrdered By: Makeda Michaud on 04-16-2023 Treponema sp Ab Ql (S) Non-Reactive [facility] Laboratory - Chemistry and C hemistry - challengeon 02-18-2023 Glucose Ql (U) Negative [facility] Laboratory - Urinalysison Protein Ql (U) Negative [facility] Whole blood hemoglobin A1c/t otal hemoglobin ratio (mass fraction)Ordered By: Nicolette Guadalupe on 01-24-2023 HbA1c (Bld) [Mass fraction] 4.7 % 3.8-5.6 [facility] Comment on above: Normal < 5.7 % Predi abetic 5.7 - 6.4 % Diabetic >or= 6.5 % Please note range changes. Laboratory - Chemistry and C hemistry - challengeon 01-02-2023 Bilirubin Ql (U) Negative [facility] Glucose Ql (U) Negative [facility] Ketones Ql (U) Negative [facility] pH (U) 5.0 [pH] [facility] Specific gravity (U) [Rel density] 1.010 [facility] Urobilinogen (U) [Mass/Vol] Negative [facility] Laboratory - Hematology and Cell countson 01-02-2023 Hemoglobin Ql (U) Negative [facility] Laboratory - Specimen inform ationon 01-02-2023 Clarity (U) Clear [facility] Color (U) Yellow [facility] Laboratory - Urinalysison Nitrite Ql (U) Negative [facility] Protein Ql (U) Negative [facility] No Panel Informationon 01-02 Urine Leukocytes Negatve [facility] Urine Non-Hemolyzed Blood Negative [facility] Laboratory - Chemistry and C hemistry - challengeon 12-28-2022 Glucose Ql (U) Negative [facility] Laboratory - Urinalysison Protein Ql (U) Negative [facility] Absolute lymphocyte countOrd ered By: Caro Zarco on 12-27-2022 Lymphocytes Auto (Unsp spec) [#/Vol] 2.06 10*3/uL 0.83-4.51 [facility] Basophil percentageOrdered B y: Caro Zarco on 12-27-2022 Basophils/100 WBC (Bld) 0.3 % 0-1 [facility] Eosinophils/100 WBC (Bld) 0.3 % 0-5 [facility] Neutrophils (Bld) [#/Vol] 6.4 10*3/uL 2.0-7.7 [facility] Neutrophils/100 WBC (Bld) 71.8 % 47-70 [facility] WBC (Bld) [#/Vol] 8.9 10*3/uL 4.4-11.0 [facility] Blood erythrocytes count (nu mber/volume)Ordered By: Caro Zarco on 12-27-2022 RBC (Bld) [#/Vol] 4.35 10*6/uL 4.2-5.4 [facility] Blood hemoglobin measurement (mass/volume)Ordered By: Caro Zarco on 12-27-2022 Hemoglobin (Bld) [Mass/Vol] 12.8 g/dL 12.0-15.0 [facility] Blood lymphocytes/100 leukoc ytesOrdered By: Caro Zarco on 12-27-2022 Lymphocytes/100 WBC (Bld) 23.0 % 19-41 [facility] Blood monocytes/100 leukocyt esOrdered By: Caro Zarco on 12-27-2022 Monocytes/100 WBC (Bld) 4.4 % 0-10 [facility] Blood platelet mean volumeOr dered By: Caro Zarco on 12-27-2022 Platelet mean volume (Bld) [Entitic vol] 9.6 fL 6.2-12.0 [facility] Determination of erythrocyte mean corpuscular volume (MCV)Ordered By: Caro Zarco on 12-27-2022 MCV (RBC) [Entitic vol] 89.7 fL 81-99 [facility] Gestational diabetes screen 1-hour screen with 50g oral glucose loadOrdered By: Caro Zarco on 12-27-2022 Glucose 1 Hr post 50 g glucose PO [Mass/Vol] 155 mg/dL 70-140 [facility] HIV 1 and HIV-2 antibody ass ay with HIV-1 p24 antigen detectionOrdered By: Caro Zarco on 12-27-2022 HIV 1+2 Ab+HIV1 p24 Ag IA Ql Non-Reactive Nonreactive [facility] Hematocrit Auto (Bld) [Volum e fraction]Ordered By: Caro Zarco on 12-27-2022 Hematocrit (Bld) [Volume fraction] 39.0 % 37-47 [facility] Laboratory - Hematology and Cell countsOrdered By: Caro Zarco on 12-27-2022 Erythrocyte distribution width (RBC) [Entitic vol] 39.4 fL 35.1-43.9 [facility] Erythrocyte distribution width (RBC) [Ratio] 12.0 % 11.6-14.6 [facility] Immature granulocytes/100 WBC (Bld) 0.200 % 0.0-0.9 [facility] Comment on above: IG% - Immature Granu locytes (promyelocytes, myelocytes and metamyelocytes) > 1% indicates that a LEFT SHIFT is Present. MCH (RBC) [Entitic mass] 29.4 pg 27.0-32.0 [facility] Nucleated RBC/100 WBC (Bld) [Ratio] 0 % 0-5 [facility] MCHC Auto (RBC) [Mass/Vol]Or dered By: Caro Zarco on 12-27-2022 MCHC (RBC) [Mass/Vol] 32.8 g/dL 32-36 [facility] No Panel InformationOrdered By: Caro Zarco on 12-27-2022 Miscellaneous Test Comment MAILED SPECIMEN [facility] Hepatitis B Surface Antigen Non-Reactive Nonreactive [facility] Hepatitis C Antibody Non-Reactive Nonreactive [facility] Comment on above: Non Reactive: < 0.8 Equivocal: >/= 0.8 to < 1.0 Reactive: >/= 1.0The CDC recommends that a reactive/equivocal HCV antibody result be followed up by the HCV Nucleic Acid Amplificationtest ([id number]) Rubella IgG Antibody Reactive Nonreactive [facility] Comment on above: Antibody Results Int erpretation of Immune Status Non Reactive Presumed Non-Immune Equivocal Equivocal Reactive Presumed Immune Platelets bldOrdered By: Argelia Zarco on 12-27-2022 Platelets (Bld) [#/Vol] 219 10*3/uL 150-450 [facility] Serum Treponema species anti body detectionOrdered By: Caro Zarco on 12-27-2022 Treponema sp Ab Ql (S) Non-Reactive [facility] Chlamydia trachomatis rRNA d etection by probe and target amplification methodOrdered By: Caro Zarco on 11-30-2022 C. trachomatis rRNA ELSI+probe Ql (Unsp spec) Negative Negative [facility] Culture, urineOrdered By: Mile Zarco on 11-30-2022 Bacteria identified Cx Nom (U) Streptococcus agalactiae (B) [facility] Bacteria identified Cx Nom (U) Positive [facility] Laboratory - Microbiology an d Antimicrobial susceptibilityOrdered By: Caro Zarco on 11-30-2022 N. gonorrhoeae DNA ELSI+probe Ql (Unsp spec) Negative Negative [facility] Comment on above: Performed at: =[facility] Сергей bermudez [address] [id number] Director: Fela Yung MD, Phone: [phone] ED NOTEon 09-05-2022 ED NOTE HNO ID: [id number] Author: Eliel Low DO Service: Emergency Medicine [...] was out in the sun here in [place] for about 4 hours during the day. She states that she has had worsening burning and ctrm-cxa-ofstzea sensation to the shoulders and upper back. [...] discussed. She is agreeable with plan. Normal [facility] Cervical or vagninal specime n microscopic examination by cytology stain (reported asOrdered By: Miladis Vega on 08-15-2022 Cytology report Cyto stain Doc (Cvx/Vag) Comment . [facility] Comment on above: The Pap smear is a s creening test designed to aid in thedetection of premalignant and malignant conditions of theuterine cervix. It is not a diagnostic procedure andshould not be used as the sole means of detecting cervicalcancer. Both false-positive and false-negative reports dooccur. Laboratory - CytologyOrdered By: Miladis Vega on 08-15-2022 [employer] Cyto stain Nom (Cvx/Vag) [ID] Comment . [facility] Comment on above: Zoya dunn, Metal Door Assembler (ASCP) Laboratory - Miscellaneous t estsOrdered By: Miladis Vega on 08-15-2022 Service comment (Unsp spec) [Interp] Comment . [facility] Comment on above: This liquid based Th inPrep(R) pap test was screened withthe use of an image guided system. Service comment (Unsp spec) [Interp] . . [facility] No Panel InformationOrdered By: Miladis Vega on 08-15-2022 Human Papillomavirus Screen Comment . [facility] Comment on above: The HPV DNA reflex c steven were not met with this specimenresult therefore, no HPV testing was performed.Performed at: [address] [id number] Director: Fela Yung MD, Phone: [phone] Pathology report final diagnosis Narrative Comment . [facility] Comment on above: NEGATIVE FOR INTRAEP ITHELIAL LESION OR MALIGNANCY.PREDOMINANCE OF COCCOBACILLI CONSISTENT WITH SHIFT IN VAGINAL ROSY ISPRESENT. ED Provider Noteon 2 ED Provider Note I did not participat e in care of this patient. Alexi Infante PA-C 01/02/22 1731 [facility] ED Provider Noteon 2 ED Provider Note EMERGENCY DEPARTMENT ENCOUNTER Pt Name: Naty Roberts Birthdate 2000 Date of evaluation: 11/16/2021 Provider: EDWARD WANG MD CHIEF COMPLAINT Chief Complaint Patient presents with Facial Swelling Right side of face near the nose and under eye swelling. Pt states this started yesterday and has increasingly gotten worse. Pt states she is having trouble eating. Pt is alert and oriented HISTORY OF PRESENT ILLNESS HPI Naty Roberts is a 21 y.o. female with [...] extraction. We will treat for now with gonsalo VILLEGAS. Recommended she find a dentist today to arrange close f/u. I discussed ED return precautions. CONSULTS: None PROCEDURES: Unless otherwise noted below, none Procedures FINAL IMPRESSION 1. Swelling of right side of face 2. Infected dental caries DISPOSITION/PLAN DISPOSITION PATIENT REFERRED TO: No follow-up provider specified. DISCHARGE MEDICATIONS: New Prescriptions No medications on file EDWARD WANG MD (electronically signed) Emergency Medicine Edward Wang MD 11/16/21 0840 Normal [facility] HCG,Urine Qualon 11-16-2021 Beta HCG ( test) Ql (U) Negative Normal Negative [facility] Comment on above: Result Comment: Plea se note: Very dilute urine specimens, as indicated by a low specific gravity, may not contain outbound sales representative levels of hCG. If is still suspected, a first morning urine specimen should be collected 48 hours later and tested. is the most common reason for HCG in urine, although choriocarcinoma, hydatidiform mole, and certain nontropho- blastic malignancies also result in detectable urinary HCG levels. Sensitivity = 20mIU/mL. Performed By: #### H CGUR #### [facility] [address] [place] [address] CURon 02-03-2019 CUR . MICRO - Microbiology [...] Locations *1: This test was performed at: [address], [address] [place] [address] ([place]) Comment on above: Performed By: #### C HARSHA MELENDEZ ANEU #### [place] [address] #### BMP, GFR #### [place] [address] UAon 02-01-2019 Color (U) Yellow Normal [facility] ([place]) Comment on above: Performed By: #### HARSHA SALCEDO ANEU #### [place] [address] #### BMP, GFR #### [place] [address] Glucose (U) [Mass/Vol] Negative Normal Negative [facility] ([place]) Comment on above: Performed By: #### C BCHARSHA ANEU #### [place] [id number] #### BMP, GFR #### [place] [address] Ketones Ql (U) Negative Normal Negative [facility] ([place]) Comment on above: Performed By: #### C BC, ADIFF, ANEU #### [address] [address] #### BMP, GFR #### [address] [address] UA Appear Clear Normal Clear [facility] ([place]) Comment on above: Performed By: #### C BC, ADIFF, ANEU #### [address] [address] #### BMP, GFR #### [address] [address] UA Blood Trace Negative [facility] ([place]) Comment on above: Performed By: #### C BC, ADIFF, ANEU #### [address] [address] #### BMP, GFR #### [address] [address] UA Leuk Est Negative Normal Negative [facility] ([place]) Comment on above: Performed By: #### C BC, ADIFF, ANEU #### [address] [address] #### BMP, GFR #### [address] [address] UA Nitrite Negative Normal Negative [facility] ([place]) Comment on above: Performed By: #### C BC, ADIFF, ANEU #### [address] [address] #### BMP, GFR #### [address] [address] UA pH 6.5 Normal 5.0 - 8.0 [facility] ([place]) Comment on above: Performed By: #### C BC, ADIFF, ANEU #### [address] [address] #### BMP, GFR #### [address] [address] UA Protein Negative Normal Negative [facility] ([place]) Comment on above: Performed By: #### C BC, ADIFF, ANEU #### [place] [address] #### BMP, GFR #### [place] [address] UA Spec Grav 1.025 Normal 1.015-1.025 [facility] ([place]) Comment on above: Performed By: #### C BC, ADIFF, ANEU #### [place] [address] #### BMP, GFR #### [place] [address] UA Specimen Type Clean Catch Normal [facility] ([place]) Comment on above: Performed By: #### C BC, ADIFF, ANEU #### [place] [address] #### BMP, GFR #### [place] [address] UA Urobilinogen 1.0 E.U./dL Normal 0.2-1.0 [facility] ([place]) Comment on above: Performed By: #### C BC, ADIFF, ANEU #### [place] [address] #### BMP, GFR #### [place] [address] Urobilinogen Qn (U) Negative Normal Negative [facility] ([place]) Comment on above: Performed By: #### C BC, ADIFF, ANEU #### [place] [address] #### BMP, GFR #### [place] [address] .Auto Diffon 01-14-2019 Ammonia (P) [Mass/Vol] 0.50 10 3/mcL Normal 0.15-1.00 [facility] ([place]) Comment on above: Performed By: #### C BC, ADIFF, ANEU #### [place] [address] #### BMP, GFR #### [address] [address] Basophils (Bld) [#/Vol] 0.10 10 3/mcL Normal 0.00-0.19 [facility] ([place]) Comment on above: Performed By: #### C BC, ADIFF, ANEU #### [address] [address] #### BMP, GFR #### [address] [address] Basophils/100 WBC (Bld) 0.9 % Normal 0.0-2.5 A [facility] ([place]) Comment on above: Performed By: #### C BC, ADIFF, ANEU #### [address] [address] #### BMP, GFR #### [address] [address] Eosinophils (Bld) [#/Vol] 0.00 10 3/mcL Normal 0.00-0.40 [facility] ([place]) Comment on above: Performed By: #### C BC, ADIFF, ANEU #### [address] [address] #### BMP, GFR #### [address] [address] Eosinophils/100 WBC (Bld) 0.3 % Normal 0.0-7.0 [facility] ([place]) Comment on above: Performed By: #### C AL, HARSHA, ANEU #### [address] [address] #### BMP, GFR #### [address] [address] Lymphocytes (Bld) [#/Vol] 2.50 10 3/mcL Normal 0.77-3.85 [facility] ([place]) Comment on above: Performed By: #### C BC, ADIFF, ANEU #### [address] [address] #### BMP, GFR #### [address] [address] Lymphocytes/100 WBC (Bld) 32.0 % Normal 10.0-50.0 [facility] ([place]) Comment on above: Performed By: #### C BC, ADIFF, ANEU #### [place] [address] #### BMP, GFR #### [address] [address] Monocytes/100 WBC (Bld) 5.9 % Normal 1.7-13.0 A [facility] ([place]) Comment on above: Performed By: #### C BC, ADIFF, ANEU #### [place] [address] #### BMP, GFR #### [address] [address] Neutrophils/100 WBC (Bld) 60.9 % Normal 37.0-80.0 [facility] ([place]) Comment on above: Performed By: #### C BC, ADIFF, ANEU #### [place] [address] #### BMP, GFR #### [address] [address] .NEUABSon 01-14-2019 Neutrophils (Bld) [#/Vol] 4.70 10 3/mcL Normal 2.85-6.16 [facility] ([place]) Comment on above: Performed By: #### C BC, ADIFF, ANEU #### [place] [address] #### BMP, GFR #### [address] [address] .Urinalysis Microscopic (AO) on 01-14-2019 RBC (U) [#/Vol] 5-10 None Seen [facility] ([place]) Comment on above: Performed By: #### C BC, ADIFF, ANEU #### [place] [address] #### BMP, GFR #### [address] [address] UA Bacteria Trace [facility] ([place]) Comment on above: Performed By: #### C BC, ADIFF, ANEU #### [address] [address] #### BMP, GFR #### [address] [address] UA Squam Epithelial LOADED None Seen [facility] ([place]) Comment on above: Performed By: #### C BC, ADIFF, ANEU #### [address] [address] #### BMP, GFR #### [address] [address] UA WBC 0-5 None Seen [facility] ([place]) Comment on above: Performed By: #### C BC, ADIFF, ANEU #### [place] [address] #### BMP, GFR #### [address] [address] CBCon 01-14-2019 Erythrocyte distribution width (RBC) [Ratio] 12.8 % Normal 11.5-14.5 [facility] ([place]) Comment on above: Performed By: #### C BC, ADIFF, ANEU #### [place] [address] #### BMP, GFR #### [place] [address] Hematocrit (Bld) [Volume fraction] 40.8 % Normal 37.0-47.0 [facility] ([place]) Comment on above: Performed By: #### C BC, ADIFF, ANEU #### [place] [address] #### BMP, GFR #### [place] [address] Hemoglobin (Bld) [Mass/Vol] 14.1 G/dL Normal 12.0-16.0 [facility] ([place]) Comment on above: Performed By: #### C BC, ADIFF, ANEU #### [place] [address] #### BMP, GFR #### [facility] [address] [place], [place] [address] MCH (RBC) [Entitic mass] 29.8 pg Normal 27.0-31.2 [facility] ([place]) Comment on above: Performed By: #### C HARSHA MELENDEZ, ANEU #### [address] [address] #### BMP, GFR #### [address] [address] MCHC (RBC) [Mass/Vol] 34.6 G/dL Normal 33.0-37.0 [facility] ([place]) Comment on above: Performed By: #### C HARSHA MELENDEZ, ANEU #### [place] [address] #### BMP, GFR #### [place] [address] MCV (RBC) [Entitic vol] 86.2 fL Normal 80.0-94.0 A [facility] ([place]) Comment on above: Performed By: #### C HARSHA MELENDEZ, ANEU #### [place] [address] #### BMP, GFR #### [place] [address] Platelet mean volume (Bld) [Entitic vol] 7.7 fL Normal 7.4-10.4 [facility] ([place]) Comment on above: Performed By: #### C HARSHA MELENDEZ, ANEU #### [place] [address] #### BMP, GFR #### [address] [address] Platelets (Bld) [#/Vol] 228 10 3/mcL Normal 130-400 [facility] ([place]) Comment on above: Performed By: #### C HARSHA MELENDEZ, ANEU #### [place] [address] #### BMP, GFR #### [place] [id number] RBC (Bld) [#/Vol] 4.74 10 6/mcL Normal 4.20-5.40 [facility] ([place]) Comment on above: Performed By: #### C BC, ADIFF, ANEU #### [address] [address] #### BMP, GFR #### [address] [address] WBC (Bld) [#/Vol] 7.80 10 3/mcL Normal 4.60-10.80 [facility] ([place]) Comment on above: Performed By: #### C BC, ADIFF, ANEU #### [address] [address] #### BMP, GFR #### [address] [address] Gel ABOon 01-14-2019 ABO/Rh Interp Positive [facility] ([place]) Comment on above: Performed By: #### C BC, ADIFF, ANEU #### [address] [address] #### BMP, GFR #### [address] [address] HCGQon 01-14-2019 hCG, quantitative [address].4 mIU/mL Normal [facility] ([place]) Comment on above: Result Comment: HCG Quantitative [...] 24,302.0 to 93,646.0 Performed By: #### C BC, ADIFF, ANEU #### [address] [address] #### BMP, GFR #### [address] [address] UAon 01-14-2019 Color (U) Yellow Normal [facility] ([place]) Comment on above: Performed By: #### C BC, ADIFF, ANEU #### [address] [address] #### BMP, GFR #### [address] [address] Glucose (U) [Mass/Vol] Negative Normal Negative [facility] ([place]) Comment on above: Performed By: #### C BC, ADIFF, ANEU #### [address] [address] #### BMP, GFR #### [address] [address] Ketones Ql (U) Negative Normal Negative [facility] ([place]) Comment on above: Performed By: #### C BC, ADIFF, ANEU #### [address] [address] #### BMP, GFR #### [address] [address] UA Appear Clear Normal Clear [facility] ([place]) Comment on above: Performed By: #### C BC, ADIFF, ANEU #### [address] [address] #### BMP, GFR #### [place] [address] UA Blood Large Negative [facility] ([place]) Comment on above: Performed By: #### C BC, ADIFF, ANEU #### [address] [address] #### BMP, GFR #### [address] [address] UA Leuk Est Trace Negative [facility] ([place]) Comment on above: Performed By: #### C BC, ADIFF, ANEU #### [place] [id number] #### BMP, GFR #### [place] [address] UA Nitrite Negative Normal Negative [facility] ([place]) Comment on above: Performed By: #### C BC, ADIFF, ANEU #### [address] [address] #### BMP, GFR #### [place] [address] UA pH 7.5 Normal 5.0 - 8.0 [facility] ([place]) Comment on above: Performed By: #### C BC, ADIFF, ANEU #### [place] [address] #### BMP, GFR #### [place] [address] UA Protein Negative Normal Negative [facility] ([place]) Comment on above: Performed By: #### C BC, ADIFF, ANEU #### [place] [address] #### BMP, GFR #### [place] [address] UA Spec Grav 1.020 Normal 1.015-1.025 [facility] ([place]) Comment on above: Performed By: #### C BC, ADIFF, ANEU #### [place] [address] #### BMP, GFR #### [place] [address] UA Specimen Type Clean Catch Normal [facility] ([place]) Comment on above: Performed By: #### C BC, ADIFF, ANEU #### [place] [address] #### BMP, GFR #### [place] [address] UA Urobilinogen 0.2 E.U./dL Normal 0.2-1.0 [facility] ([place]) Comment on above: Performed By: #### C BC, ADIFF, ANEU #### [address] [address] #### BMP, GFR #### [place] [address] Urobilinogen Qn (U) Negative Normal Negative [facility] ([place]) Comment on above: Performed By: #### C BC, ADIFF, ANEU #### [address] [address] #### BMP, GFR #### [place] [address] UAon 05-30-2018 Color (U) Yellow Normal [facility] ([place]) Comment on above: Performed By: #### U A #### [place] [address] Glucose (U) [Mass/Vol] Negative Normal Negative [facility] ([place]) Comment on above: Performed By: #### U A #### [place] [address] Ketones Ql (U) Negative Normal Negative [facility] ([place]) Comment on above: Performed By: #### U A #### [place] [address] UA Appear Clear Normal Clear [facility] ([place]) Comment on above: Performed By: #### U A #### [place] [address] UA Blood Trace Negative [facility] ([place] Comment on above: Performed By: #### U A #### [place] [address] UA Leuk Est Negative Normal Negative [facility] ([place]) Comment on above: Performed By: #### U A #### [place] [address] UA Nitrite Negative Normal Negative [facility] ([place]) Comment on above: Performed By: #### U A #### [place] [address] UA pH 6.0 Normal 5.0 - 8.0 [facility] ([place]) Comment on above: Performed By: #### U A #### [place] [address] [address] [place] [address] UA Protein Negative Normal Negative [facility] ([place]) Comment on above: Performed By: #### U A #### [address] [address] UA Spec Grav 1.020 Normal 1.015-1.025 [facility] ([place]) Comment on above: Performed By: #### U A #### [address] [address] UA Specimen Type Clean Catch Normal [facility] ([place]) Comment on above: Performed By: #### U A #### [address] [address] UA Urobilinogen 0.2 E.U./dL Normal 0.2-1.0 [facility] ([place]) Comment on above: Performed By: #### U A #### [place] [address] Urobilinogen Qn (U) Negative Normal Negative [facility] ([place]) Comment on above: Performed By: #### U A #### [address] [address] XR CHEST 2 VIEWSon 9 XR CHEST [...] PM Sign Date: 05/30/2018 1:24:01 PM Normal [facility] ([place]) .Auto Diffon 02-27-2018 Ammonia (P) [Mass/Vol] 0.60 10 3/mcL Normal 0.15-1.00 [facility] ([place]) Comment on above: Performed By: #### C BC, ADIFF, ANEU #### [address] [address] #### BMP, GFR #### [address] [address] Basophils (Bld) [#/Vol] 0.10 10 3/mcL Normal 0.00-0.19 [facility] ([place]) Comment on above: Performed By: #### C BC, ADIFF, ANEU #### [address] [address] #### BMP, GFR #### [address] [address] Basophils/100 WBC (Bld) 0.8 % Normal 0.0-2.5 A [facility] ([place]) Comment on above: Performed By: #### C BC, ADIFF, ANEU #### [address] [address] #### BMP, GFR #### [address] [address] Eosinophils (Bld) [#/Vol] 0.00 10 3/mcL Normal 0.00-0.40 [facility] ([place]) Comment on above: Performed By: #### C BC, ADIFF, ANEU #### [address] [address] #### BMP, GFR #### [address] [address] Eosinophils/100 WBC (Bld) 0.6 % Normal 0.0-7.0 [facility] ([place]) Comment on above: Performed By: #### C BC, ADIFF, ANEU #### [address] [address] #### BMP, GFR #### [address] [address] Lymphocytes (Bld) [#/Vol] 2.40 10 3/mcL Normal 0.77-3.85 [facility] ([place]) Comment on above: Performed By: #### C BC, ADIFF, ANEU #### [address] [address] #### BMP, GFR #### [address] [address] Lymphocytes/100 WBC (Bld) 29.4 % Normal 10.0-50.0 [facility] ([place]) Comment on above: Performed By: #### C BC, ADIFF, ANEU #### [address] [address] #### BMP, GFR #### [address] [address] Monocytes/100 WBC (Bld) 7.0 % Normal 1.7-13.0 A [facility] ([place]) Comment on above: Performed By: #### C BC, ADIFF, ANEU #### [address] [address] #### BMP, GFR #### [address] [address] Neutrophils/100 WBC (Bld) 62.2 % Normal 37.0-80.0 [facility] ([place]) Comment on above: Performed By: #### C BC, ADIFF, ANEU #### [address] [address] #### BMP, GFR #### [address] [address] .GFRon 02-27-2018 GFR Non- 94 ml/min/1.73sqm Normal [facility] ([place]) Comment on above: Result Comment: GFR Population [...] By: #### C BC, ADIFF, ANEU #### [address] [address] #### BMP, GFR #### [address] [address] GFR 114 ml/min/1.73sqm Normal [facility] ([place]) Comment on above: Result Comment: GFR Population [...] mL/min/1.73 square meters Performed By: #### C BCHARSHA, ANEU #### [place] [address] #### BMP, GFR #### [place] [address] .NEUABSon 02-27-2018 Neutrophils (Bld) [#/Vol] 5.10 10 3/mcL Normal 2.85-6.16 [facility] ([place]) Comment on above: Performed By: #### C HARSHA MELENDEZ, ANEU #### [place] [address] #### BMP, GFR #### [place] [address] .Urinalysis Microscopic (AO) on 02-27-2018 RBC (U) [#/Vol] None Seen Normal None Seen [facility] ([place] Comment on above: Performed By: #### U A, PREGU, UAMICAO #### [place] [address] UA Bacteria 1+ /hpf [facility] ([place]) Comment on above: Performed By: #### U A, PREGU, UAMICAO #### [place] [address] UA Mucous Trace Normal [facility] ([place]) Comment on above: Performed By: #### U A PREGU, UAMICAO #### [place] [address] UA Squam Epithelial 10-15 None Seen [facility] ([place]) Comment on above: Performed By: #### U A, PREGU, UAMICAO #### [place] [address] UA WBC 0-5 None Seen [facility] ([place] Comment on above: Performed By: #### U A PREGU, UAMICAO #### [place] [address] BMPon 02-27-2018 Calcium [Mass/Vol] 8.9 mg/dL Normal 8.4-10.2 [facility] ([place]) Comment on above: Performed By: #### C HARSHA MELENDEZ, ANEU #### [place] [address] #### BMP, GFR #### [address] [address] Chloride [Moles/Vol] 101 mmol/L Normal 98-107 [facility] ([place]) Comment on above: Performed By: #### Guillermo BCHARSHA, ANEU #### [place] [address] #### BMP, GFR #### [address] [address] CO2 [Moles/Vol] 27 mmol/L Normal 22-29 [facility] ([place]) Comment on above: Performed By: #### C BCJUDEIFF, ANEU #### [place] [address] #### BMP, GFR #### [address] [address] Creatinine [Mass/Vol] 0.78 mg/dL Normal 0.55-1.02 [facility] ([place]) Comment on above: Performed By: #### C BC ADIFF, ANEU #### [address] [address] #### BMP, GFR #### [address] [address] Electrolyte Balance 12.0 mEq/L Normal [facility] ([place]) Comment on above: Performed By: #### C BC, ADIFF, ANEU #### [address] [address] #### BMP, GFR #### [address] [address] Glucose [Mass/Vol] 95 mg/dL Normal 70-105 [facility] ([place]) Comment on above: Performed By: #### C BC, ADIFF, ANEU #### [address] [address] #### BMP, GFR #### [address] [address] Potassium [Moles/Vol] 4.0 mmol/L Normal 3.5-5.1 [facility] ([place]) Comment on above: Performed By: #### C BC, ADIFF, ANEU #### [address] [address] #### BMP, GFR #### [address] [address] Sodium [Moles/Vol] 140 mmol/L Normal 136-145 [facility] ([place]) Comment on above: Performed By: #### C BC, ADIFF, ANEU #### [address] [address] #### BMP, GFR #### [address] [address] Urea nitrogen [Mass/Vol] 10 mg/dL Normal 7-18 [facility] ([place]) Comment on above: Performed By: #### C BC, ADIFF, ANEU #### [address] [address] #### BMP, GFR #### [address] [address] Urea nitrogen/Creatinine [Mass ratio] 13 ratio Normal 7-27 [facility] ([place]) Comment on above: Performed By: #### C BC, ADIFF, ANEU #### [place] [address] #### BMP, GFR #### [address] [address] CBCon 02-27-2018 Erythrocyte distribution width (RBC) [Ratio] 13.2 % Normal 11.5-14.5 [facility] ([place]) Comment on above: Performed By: #### C BC, ADIFF, ANEU #### [place] [address] #### BMP, GFR #### [place] [address] Hematocrit (Bld) [Volume fraction] 45.4 % Normal 37.0-47.0 [facility] ([place]) Comment on above: Performed By: #### C BC, ADIFF, ANEU #### [place] [address] #### BMP, GFR #### [address] [address] Hemoglobin (Bld) [Mass/Vol] 15.2 G/dL Normal 12.0-16.0 [facility] ([place]) Comment on above: Performed By: #### C BC, ADIFF, ANEU #### [place] [address] #### BMP, GFR #### [address] [address] MCH (RBC) [Entitic mass] 28.8 pg Normal 27.0-31.2 [facility] ([place]) Comment on above: Performed By: #### C BC, ADIFF, ANEU #### [place] [id number] #### BMP, GFR #### [address] [address] MCHC (RBC) [Mass/Vol] 33.6 G/dL Normal 33.0-37.0 [facility] ([place]) Comment on above: Performed By: #### C BC, ADIFF, ANEU #### [address] [address] #### BMP, GFR #### [address] [address] MCV (RBC) [Entitic vol] 85.8 fL Normal 80.0-94.0 [facility] ([place]) Comment on above: Performed By: #### C BC, ADIFF, ANEU #### [address] [address] #### BMP, GFR #### [address] [address] Platelet mean volume (Bld) [Entitic vol] 7.8 fL Normal 7.4-10.4 [facility] ([place]) Comment on above: Performed By: #### C BC, ADIFF, ANEU #### [place] [address] #### BMP, GFR #### [address] [address] Platelets (Bld) [#/Vol] 234 10 3/mcL Normal 130-400 [facility] ([place]) Comment on above: Performed By: #### C BC, ADIFF, ANEU #### [place] [id number] #### BMP, GFR #### [address] [address] RBC (Bld) [#/Vol] 5.29 10 6/mcL Normal 4.20-5.40 [facility] ([place]) Comment on above: Performed By: #### C BC, ADIFF, ANEU #### [address] [address] #### BMP, GFR #### [address] [address] WBC (Bld) [#/Vol] 8.30 10 3/mcL Normal 4.60-10.80 [facility] ([place]) Comment on above: Performed By: #### C BC, ADIFF, ANEU #### [place] [address] #### BMP, GFR #### [place] [address] PREGUon 02-27-2018 HCG ( test) Ql (U) Negative Normal [facility] ([place]) Comment on above: Performed By: #### U A, PREGU, UAMICAO #### [place] [id number] test (u) int HCG not detected. [facility] ([place]) Comment on above: Performed By: #### U A, PREGU, UAMICAO #### [place] [address] UAon 02-27-2018 Color (U) Yellow Normal [facility] ([place]) Comment on above: Performed By: #### U A, PREGU, UAMICAO #### [place] [address] Glucose (U) [Mass/Vol] Negative Normal Negative [facility] ([place]) Comment on above: Performed By: #### U A, PREGU, UAMICAO #### [place] [address] Ketones Ql (U) Negative Normal Negative [facility] ([place]) Comment on above: Performed By: #### U A, PREGU, UAMICAO #### [place] [address] UA Appear Slightly Cloudy Clear [facility] ([place]) Comment on above: Performed By: #### U A, PREGU, UAMICAO #### [address] [address] UA Blood Negative Normal Negative [facility] ([place]) Comment on above: Performed By: #### U A, PREGU, UAMICAO #### [address] [address] UA Leuk Est Negative Normal Negative [facility] ([place]) Comment on above: Performed By: #### U A, PREGU, UAMICAO #### [place] [address] UA Nitrite Negative Normal Negative [facility] ([place]) Comment on above: Performed By: #### U A, PREGU, UAMICAO #### [address] [address] UA pH 6.5 Normal [facility] ([place]) Comment on above: Performed By: #### U A, PREGU, UAMICAO #### [address] [address] UA Protein Negative Normal Negative [facility] ([place]) Comment on above: Performed By: #### U A, PREGU, UAMICAO #### [place] [address] UA Spec Grav 1.015 Normal [facility] ([place]) Comment on above: Performed By: #### U A, PREGU, UAMICAO #### [place] [address] UA Specimen Type Clean Catch Normal [facility] ([place]) Comment on above: Performed By: #### U A, PREGU, UAMICAO #### [place] [address] UA Urobilinogen 0.2 E.U./dL Normal [facility] ([place]) Comment on above: Performed By: #### U A, PREGU, UAMICAO #### [place] [address] Urobilinogen Qn (U) Negative Normal Negative [facility] ([place]) Comment on above: Performed By: #### U A, PREGU, UAMICAO #### [place] [address] Vital Signs Date Time Vital Sign Value Performing Clinician Facility 12-30-2024 09:24-0400 Body height 161.3 cm Suni Mendez MD Work Phone: [facility] 12-30-2024 09:24-0400 Body mass index (BMI) [Ratio] 38.78 kg/m2 Suni Mendez MD Work Phone: [facility] 12-30-2024 09:24-0400 Body temperature 98.71 [degF] Suni Mendez MD Work Phone: [facility] 12-30-2024 09:24-0400 Body weight 100.88 kg Suni Mendez MD Work Phone: [facility] 12-30-2024 09:24-0400 Diastolic blood pressure 78 mm[Hg] Suni Mendez MD Work Phone: [facility] 12-30-2024 09:24-0400 Heart rate 92 /min Suni Mendez MD Work Phone: [facility] 12-30-2024 09:24-0400 Respiratory rate 16 /min Suni Mendez MD Work Phone: [facility] 12-30-2024 09:24-0400 SaO2% (BldA) [Mass fraction] 96 % Suni Mendez MD Work Phone: [facility] 12-30-2024 09:24-0400 Systolic blood pressure 112 mm[Hg] Suni Mendez MD Work Phone: [facility] 10-08-2024 11:27-0400 Body height 162.56 cm No Primary Care Physician [facility] 10-08-2024 11:20-0400 Body mass index (BMI) [Ratio] 36.4 kg/m2 No Primary Care Physician [facility] 10-08-2024 11:20-0400 Body weight 96.33 kg No Primary Care Physician [facility] 10-08-2024 11:20-0400 Diastolic blood pressure 74 mm[Hg] No Primary Care Physician [facility] 10-08-2024 11:20-0400 Systolic blood pressure 108 mm[Hg] No Primary Care Physician [facility] 08-20-2024 11:43-0400 Body mass index (BMI) [Ratio] 36.9 kg/m2 No Primary Care Physician [facility] 08-20-2024 11:43-0400 Body weight 97.69 kg No Primary Care Physician [facility] 08-20-2024 11:43-0400 Diastolic blood pressure 79 mm[Hg] No Primary Care Physician [facility] 08-20-2024 11:43-0400 Systolic blood pressure 125 mm[Hg] No Primary Care Physician [facility] 08-13-2024 13:51-0400 Body mass index (BMI) [Ratio] 37.1 kg/m2 No Primary Care Physician [facility] 08-13-2024 13:51-0400 Body weight 98.2 kg No Primary Care Physician [facility] 08-13-2024 13:51-0400 Diastolic blood pressure 81 mm[Hg] No Primary Care Physician [facility] 08-13-2024 13:51-0400 Systolic blood pressure 114 mm[Hg] No Primary Care Physician [facility] 03-22-2024 10:57-0500 Body mass index (BMI) [Ratio] 38.98 kg/m2 Lisa Praisler-David MUD CLEANER OPERATOR.LEADERSHIP RECRUITER Work Phone: [facility] 03-22-2024 10:57-0500 Body temperature 98.8 [degF] Lisa Praisler-Wood MUD CLEANER OPERATOR.LEADERSHIP RECRUITER Work Phone: [facility] 03-22-2024 10:57-0500 Body weight 103 kg Lisa Praisler-Wood MUD CLEANER OPERATOR.LEADERSHIP RECRUITER Work Phone: [facility] 03-22-2024 10:57-0500 Diastolic blood pressure 80 mm[Hg] Lisa Praisler-Wood MUD CLEANER OPERATOR.LEADERSHIP RECRUITER Work Phone: [facility] 03-22-2024 10:57-0500 Heart rate 92 /min Lisa Praisler-Wood MUD CLEANER OPERATOR.LEADERSHIP RECRUITER Work Phone: [facility] 03-22-2024 10:57-0500 Respiratory rate 16 /min Lisa Praisler-Wood MUD CLEANER OPERATOR.LEADERSHIP RECRUITER Work Phone: [facility] 03-22-2024 10:57-0500 SaO2% (BldA) [Mass fraction] 99 % Lisa Praisler-Wood MUD CLEANER OPERATOR.LEADERSHIP RECRUITER Work Phone: [facility] 03-22-2024 10:57-0500 Systolic blood pressure 110 mm[Hg] Lisa Praisler-Wood MUD CLEANER OPERATOR.LEADERSHIP RECRUITER Work Phone: [facility] 08-09-2023 10:08-0400 Body height 160.02 cm No Primary Care Physician [facility] 08-09-2023 10:05-0400 Body mass index (BMI) [Ratio] 38.2 kg/m2 No Primary Care Physician [facility] 08-09-2023 10:05-0400 Body weight 97.97 kg No Primary Care Physician [facility] 08-09-2023 10:05-0400 Diastolic blood pressure 77 mm[Hg] No Primary Care Physician [facility] 08-09-2023 10:05-0400 Systolic blood pressure 125 mm[Hg] No Primary Care Physician [facility] 07-15-2023 15:40-0400 Body height 162.6 cm Raudel Easley MD Work Phone: [facility] 07-15-2023 15:40-0400 Body temperature 97.59 [degF] Raudel Easley MD Work Phone: [facility] 07-15-2023 15:40-0400 Body weight 99.07 kg Raudel Easley MD Work Phone: [facility] 07-15-2023 15:40-0400 Diastolic blood pressure 72 mm[Hg] Raudel Easley MD Work Phone: [facility] 07-15-2023 15:40-0400 Heart rate 125 /min Raudel Easley MD Work Phone: [facility] 07-15-2023 15:40-0400 SaO2% (BldA) [Mass fraction] 98 % Raudel Easley MD Work Phone: [facility] 07-15-2023 15:40-0400 Systolic blood pressure 126 mm[Hg] Raudel Easley MD Work Phone: [facility] 07-15-2023 13:33-0400 Body temperature 97.59 [degF] Nida Julian APRN.LEADERSHIP RECRUITER Work Phone: [facility] 07-15-2023 13:33-0400 Body weight 99.1 kg Nida Julian APRN.LEADERSHIP RECRUITER Work Phone: [facility] 07-15-2023 13:33-0400 Diastolic blood pressure 76 mm[Hg] Nida Julian APRN.LEADERSHIP RECRUITER Work Phone: [facility] 07-15-2023 13:33-0400 Heart rate 109 /min Nida Julian APRN.LEADERSHIP RECRUITER Work Phone: [facility] 07-15-2023 13:33-0400 Respiratory rate 16 /min Nida Julian APRN.LEADERSHIP RECRUITER Work Phone: [facility] 07-15-2023 13:33-0400 SaO2% (BldA) [Mass fraction] 99 % Nida Julian APRN.LEADERSHIP RECRUITER Work Phone: [facility] 07-15-2023 13:33-0400 Systolic blood pressure 128 mm[Hg] Nida Julian APRN.LEADERSHIP RECRUITER Work Phone: [facility] 07-10-2023 10:05-0400 Body mass index (BMI) [Ratio] 38.7 kg/m2 No Primary Care Physician [facility] 07-10-2023 10:05-0400 Body weight 99.05 kg No Primary Care Physician [facility] 07-10-2023 10:05-0400 Diastolic blood pressure 75 mm[Hg] No Primary Care Physician [facility] 07-10-2023 10:05-0400 Systolic blood pressure 110 mm[Hg] No Primary Care Physician [facility] 06-26-2023 13:08-0500 Body temperature 97.2 [degF] No Primary Care Physician [facility] 06-26-2023 13:08-0500 Diastolic blood pressure 85 mm[Hg] No Primary Care Physician [facility] 06-26-2023 13:08-0500 Heart rate 84 /min No Primary Care Physician [facility] 06-26-2023 13:08-0500 Respiratory rate 16 /min No Primary Care Physician [facility] 06-26-2023 13:08-0500 SaO2% (BldA) [Mass fraction] 95 % No Primary Care Physician [facility] 06-26-2023 13:08-0500 Systolic blood pressure 125 mm[Hg] No Primary Care Physician [facility] 06-25-2023 12:26-0500 Body height 160.02 cm No Primary Care Physician [facility] 06-25-2023 12:26-0500 Body mass index (BMI) [Ratio] 42.5 kg/m2 No Primary Care Physician [facility] 06-25-2023 12:26-0500 Body weight 108.87 kg No Primary Care Physician [facility] 06-19-2023 14:42-0500 Body mass index (BMI) [Ratio] 41.8 kg/m2 No Primary Care Physician [facility] 06-19-2023 14:42-0500 Body weight 110.44 kg No Primary Care Physician [facility] 06-19-2023 14:42-0500 Diastolic blood pressure 81 mm[Hg] No Primary Care Physician [facility] 06-19-2023 14:42-0500 Systolic blood pressure 119 mm[Hg] No Primary Care Physician [facility] 06-13-2023 11:44-0500 Body mass index (BMI) [Ratio] 41.3 kg/m2 No Primary Care Physician [facility] 06-13-2023 11:44-0500 Body weight 109.31 kg No Primary Care Physician [facility] 06-13-2023 11:44-0500 Diastolic blood pressure 81 mm[Hg] No Primary Care Physician [facility] 06-13-2023 11:44-0500 Systolic blood pressure 115 mm[Hg] No Primary Care Physician [facility] 06-06-2023 13:37-0500 Body mass index (BMI) [Ratio] 41.5 kg/m2 No Primary Care Physician [facility] 06-06-2023 13:37-0500 Body weight 109.82 kg No Primary Care Physician [facility] 06-06-2023 13:37-0500 Diastolic blood pressure 78 mm[Hg] No Primary Care Physician [facility] 06-06-2023 13:37-0500 Systolic blood pressure 111 mm[Hg] No Primary Care Physician [facility] 05-29-2023 10:19-0500 Body mass index (BMI) [Ratio] 41.3 kg/m2 No Primary Care Physician [facility] 05-29-2023 10:19-0500 Body weight 109.08 kg No Primary Care Physician [facility] 05-29-2023 10:19-0500 Diastolic blood pressure 78 mm[Hg] No Primary Care Physician [facility] 05-29-2023 10:19-0500 Systolic blood pressure 112 mm[Hg] No Primary Care Physician [facility] 05-22-2023 10:00-0500 Body height 162.56 cm No Primary Care Physician [facility] 05-22-2023 10:00-0500 Body mass index (BMI) [Ratio] 40.9 kg/m2 No Primary Care Physician [facility] 05-22-2023 10:00-0500 Body weight 108.18 kg No Primary Care Physician [facility] 05-22-2023 10:00-0500 Diastolic blood pressure 73 mm[Hg] No Primary Care Physician [facility] 05-22-2023 10:00-0500 Systolic blood pressure 112 mm[Hg] No Primary Care Physician [facility] 05-06-2023 11:03-0500 Body weight 108.86 kg No Primary Care Physician [facility] 04-30-2023 14:09-0500 Body mass index (BMI) [Ratio] 41.2 kg/m2 No Primary Care Physician [facility] 04-30-2023 14:09-0500 Body weight 109.03 kg No Primary Care Physician [facility] 04-30-2023 14:09-0500 Diastolic blood pressure 74 mm[Hg] No Primary Care Physician [facility] 04-30-2023 14:09-0500 Systolic blood pressure 112 mm[Hg] No Primary Care Physician [facility] 04-16-2023 10:33-0500 Body height 162.56 cm No Primary Care Physician [facility] 04-16-2023 10:33-0500 Body mass index (BMI) [Ratio] 41.1 kg/m2 No Primary Care Physician [facility] 04-16-2023 10:33-0500 Body weight 108.86 kg No Primary Care Physician [facility] 04-16-2023 10:33-0500 Diastolic blood pressure 74 mm[Hg] No Primary Care Physician [facility] 04-16-2023 10:33-0500 Systolic blood pressure 120 mm[Hg] No Primary Care Physician [facility] 03-20-2023 10:30-0500 Body mass index (BMI) [Ratio] 40.6 kg/m2 No Primary Care Physician [facility] 03-20-2023 10:30-0500 Body weight 107.55 kg No Primary Care Physician [facility] 03-20-2023 10:30-0500 Diastolic blood pressure 76 mm[Hg] No Primary Care Physician [facility] 03-20-2023 10:30-0500 Systolic blood pressure 121 mm[Hg] No Primary Care Physician [facility] 02-18-2023 13:54-0400 Body mass index (BMI) [Ratio] 40.6 kg/m2 No Primary Care Physician [facility] 02-18-2023 13:54-0400 Body weight 107.21 kg No Primary Care Physician [facility] 02-18-2023 13:54-0400 Diastolic blood pressure 75 mm[Hg] No Primary Care Physician [facility] 02-18-2023 13:54-0400 Systolic blood pressure 110 mm[Hg] No Primary Care Physician [facility] 01-24-2023 14:23-0400 Body mass index (BMI) [Ratio] 39.6 kg/m2 No Primary Care Physician [facility] 01-24-2023 14:23-0400 Body weight 104.94 kg No Primary Care Physician [facility] 01-24-2023 14:23-0400 Diastolic blood pressure 78 mm[Hg] No Primary Care Physician [facility] 01-24-2023 14:23-0400 Systolic blood pressure 116 mm[Hg] No Primary Care Physician [facility] 01-02-2023 11:41-0400 Body mass index (BMI) [Ratio] 40.3 kg/m2 No Primary Care Physician [facility] 01-02-2023 11:41-0400 Body weight 106.59 kg No Primary Care Physician [facility] 01-02-2023 11:41-0400 Diastolic blood pressure 78 mm[Hg] No Primary Care Physician [facility] 01-02-2023 11:41-0400 Systolic blood pressure 132 mm[Hg] No Primary Care Physician [facility] 12-28-2022 16:03-0400 Body height 162.56 cm No Primary Care Physician [facility] 12-28-2022 16:02-0400 Body mass index (BMI) [Ratio] 39.9 kg/m2 No Primary Care Physician [facility] 12-28-2022 16:02-0400 Body weight 105.46 kg No Primary Care Physician [facility] 12-28-2022 16:02-0400 Diastolic blood pressure 68 mm[Hg] No Primary Care Physician [facility] 12-28-2022 16:02-0400 Systolic blood pressure 116 mm[Hg] No Primary Care Physician [facility] 11-30-2022 10:53-0400 Body height 162.56 cm No Primary Care Physician [facility] 11-30-2022 10:52-0400 Body mass index (BMI) [Ratio] 38.5 kg/m2 No Primary Care Physician [facility] 11-30-2022 10:52-0400 Body weight 104.94 kg No Primary Care Physician [facility] 11-30-2022 10:52-0400 Diastolic blood pressure 70 mm[Hg] No Primary Care Physician [facility] 11-30-2022 10:52-0400 Systolic blood pressure 122 mm[Hg] No Primary Care Physician [facility] 08-15-2022 13:09-0400 Body height 162.56 cm No Primary Care Physician [facility] 08-15-2022 13:00-0400 Body mass index (BMI) [Ratio] 38 kg/m2 No Primary Care Physician [facility] 08-15-2022 13:00-0400 Body weight 100.47 kg No Primary Care Physician [facility] 08-15-2022 13:00-0400 Diastolic blood pressure 74 mm[Hg] No Primary Care Physician [facility] 08-15-2022 13:00-0400 Systolic blood pressure 130 mm[Hg] No Primary Care Physician [facility] 01-02-2022 16:02-0400 Body temperature 99.1 [degF] [facility] 01-02-2022 16:02-0400 Body weight 89.81 kg [facility] 01-02-2022 16:02-0400 Diastolic blood pressure 83 mm[Hg] [facility] 01-02-2022 16:02-0400 Heart rate 96 /min [facility] 01-02-2022 16:02-0400 Respiratory rate 16 /min [facility] 01-02-2022 16:02-0400 SaO2% (BldA) [Mass fraction] 99 % [facility] 01-02-2022 16:02-0400 Systolic blood pressure 123 mm[Hg] [facility] Encounters Encounter Date Encounter Type Care Provider Facility Start: 12-30-2024 End: 12-30-2024 Office outpatient visit 40 minutes Suni Mendez MD Work Phone: [facility] Comment on above: Annual physical exam (Primary Dx); Encounter for screening examination for other mental health and behavioral disorders; Screening for depression; NELL (generalized anxiety disorder); Depression, unspecified depression type; Chronic left-sided low back pain with left-sided sciatica Start: 12-30-2024 End: 12-30-2024 Patient encounter procedure Suni Mendez MD Work Phone: [facility] Start: 12-30-2024 ambulatory SUNI MENDEZ Facility:[facility] Start: 10-12-2024 End: 10-12-2024 ambulatory No Primary Care Physician [facility] Work Phone: Start: 10-12-2024 End: 10-12-2024 Patient encounter procedure Nicolette Guadalupe CNM -[facility] Work Phone: Start: 10-12-2024 End: 10-12-2024 ambulatory No Primary Care Physician Facility:[facility] Start: 10-08-2024 End: 10-08-2024 Patient encounter procedure Nicolette Guadalupe CNM -[facility] Work Phone: Start: 10-08-2024 End: 10-08-2024 ambulatory No Primary Care Physician [facility] Work Phone: Start: 10-08-2024 End: 10-08-2024 ambulatory No Primary Care Physician Facility:[facility] Start: 08-24-2024 Patient encounter procedure No Primary Care Physician [facility] Start: 08-20-2024 End: 08-20-2024 Patient encounter procedure Nicolette Guadalupe CNM -[facility] Work Phone: Start: 08-20-2024 End: 08-20-2024 ambulatory No Primary Care Physician Facility:[facility] Start: 08-13-2024 End: 08-13-2024 Patient encounter procedure Nicolette Guadalupe CNM -[facility] Work Phone: Start: 08-13-2024 End: 08-13-2024 ambulatory No Primary Care Physician Facility:[facility] Start: 06-15-2024 Encounter for other preprocedural examination Dallasgennaro Kunz [facility] Start: 06-03-2024 ambulatory Dallas Kunz Facility :[facility] Start: 06-03-2024 End: 06-03-2024 ambulatory Dallas Kunz Facility:[facility] Start: 05-19-2024 End: 05-19-2024 ambulatory Miladis Barbers Facility:[facility] Start: 03-23-2024 End: 03-23-2024 ambulatory Fátima KELLER Facility:[facility] Start: 03-22-2024 End: 03-23-2024 ambulatory Fátima KELLER Facility:[facility] Start: 03-22-2024 End: 03-22-2024 Patient encounter procedure Lisa Sue APRN.LEADERSHIP RECRUITER Work Phone: [facility] Comment on above: Otitis media with ef fusion, right (Primary Dx) Start: 03-16-2024 ambulatory Dallas Kunz Facility :[facility] Start: 03-16-2024 End: 03-16-2024 ambulatory Pop [place] Facility:[facility] Start: 03-15-2024 ambulatory Dallas Kunz Facility :[facility] Start: 03-15-2024 End: 03-16-2024 Evaluation and management of inpatient Pop Santiago Facility:[facility] Start: 03-15-2024 ambulatory Pop Santiago Facility: [facility] Start: 03-11-2024 End: 03-12-2024 Emergency department patient visit Pramod Cast Facility:[facility] Start: 03-09-2024 ambulatory Jyothi Enrique Facilit y:[facility] Start: 03-09-2024 End: 03-09-2024 [facility] Start: 02-28-2024 End: 02-28-2024 ambulatory Miladis [place] Facility:[facility] Start: 02-18-2024 End: 02-18-2024 ambulatory Miladis Elizaldetings Facility:[facility] Start: 02-18-2024 End: 02-18-2024 ambulatory [facility] Facility:[facility] Start: 02-14-2024 End: 02-14-2024 ambulatory Miladis Silvia Facility:[facility] Start: 02-12-2024 End: 02-12-2024 ambulatory No Primary Care Physician Facility:[facility] Start: 02-12-2024 End: 02-12-2024 ambulatory No Primary Care Physician Facility:[facility] Start: 02-11-2024 End: 02-11-2024 Emergency department patient visit No Primary Care Physician Facility:[facility] Start: 08-09-2023 End: 08-09-2023 ambulatory No Primary Care Physician [facility] Work Phone: Start: 08-09-2023 End: 08-09-2023 Patient encounter procedure No Primary Care Physician [facility] Work Phone: Start: 08-09-2023 End: 08-09-2023 Patient encounter procedure No Primary Care Physician [facility] Work Phone: Start: 07-15-2023 End: 07-15-2023 Patient encounter procedure Raudel Easley MD Work Phone: General Surgery Comment on above: Pilonidal cyst Start: 07-15-2023 End: 07-15-2023 Patient encounter procedure Nida Julian APRN.[facility] Work Phone: [facility] Comment on above: Pilonidal cyst (Prim megan Dx) Start: 07-10-2023 End: 07-10-2023 Patient encounter procedure No Primary Care Physician [facility] Work Phone: Start: 06-26-2023 Non-patient / Non-visit No Jo joiner [facility] Phys[facility] Start: 06-25-2023 Non-patient / Non-visit No Jo joiner [facility] Physician [facility] Start: 06-25-2023 End: 06-26-2023 Evaluation and management of inpatient No [facility] Work Phone: Start: 06-19-2023 End: 06-19-2023 Patient encounter procedure No Primary Care Physician [facility] Work Phone: Start: 06-13-2023 End: 06-13-2023 Patient encounter procedure No Primary Care Physician [facility] Work Phone: Start: 06-06-2023 End: 06-06-2023 Patient encounter procedure No Primary Care Physician [facility] Work Phone: Start: 05-29-2023 End: 05-29-2023 Patient encounter procedure No Primary Care Physician [facility] Work Phone: Start: 05-27-2023 End: 05-27-2023 ambulatory ENEDINA GAMBINO [facility] Start: 05-22-2023 End: 05-22-2023 Patient encounter procedure No Primary Care Physician [facility] Work Phone: Start: 05-07-2023 End: 05-07-[facility] Start: 04-30-2023 End: 05-22-2023 ambulatory No Primary Care Physician [facility] Work Phone: Start: 04-30-2023 End: 05-22-2023 Discharged Recurring No Primary Care Physician [facility] Work Phone: Start: 04-30-2023 End: 04-30-2023 Patient encounter procedure No Primary Care Physician [facility] Work Phone: Start: 04-16-2023 End: 04-16-2023 ambulatory No Primary Care Physician [facility] Work Phone: Start: 04-16-2023 End: 04-16-2023 Patient encounter procedure No Primary Care Physician [facility] Work Phone: Start: 04-09-2023 End: 04-09-2023 ambulatory [facility] Start: 03-20-2023 End: 03-20-2023 Patient encounter procedure No Primary Care Physician [facility] Work Phone: Start: 03-01-2023 End: 03-01-2023 ambulatory ELIZ BRIGGS [facility] Start: 02-26-2023 End: 02-26-2023 ambulatory KARLENE HICKEY [facility] Start: 02-18-2023 End: 02-18-2023 Patient encounter procedure No Primary Care Physician [facility] Work Phone: Start: 02-12-2023 End: 02-12-2023 ambulatory MILADIS VEGA [facility] Start: 01-24-2023 End: 01-24-2023 Patient encounter procedure No Primary Care Physician [facility] Work Phone: Start: 01-02-2023 End: 01-02-2023 Patient encounter procedure No Primary Care Physician [facility] Work Phone: Start: 12-28-2022 End: 12-28-2022 Patient encounter procedure No Primary Care Physician [facility] Work Phone: Start: 12-27-2022 End: 12-27-2022 ambulatory No Primary Care Physician [facility] Work Phone: Start: 12-27-2022 End: 12-27-2022 Patient encounter procedure No Primary Care Physician [facility] Start: 11-30-2022 End: 11-30-2022 ambulatory No Primary Care Physician [facility] Work Phone: Start: 11-30-2022 End: 11-30-2022 Patient encounter procedure No Primary Care Physician [facility] Work Phone: Start: 11-30-2022 End: 11-30-2022 Patient encounter procedure No Primary Care Physician [facility] Work Phone: Start: 09-05-2022 Emergency department patient visit PB ROMEO Facility:[facility] Start: 08-15-2022 End: 08-15-2022 ambulatory No Primary Care Physician [facility] Work Phone: Start: 08-15-2022 End: 08-15-2022 Patient encounter procedure No Primary Care Physician [facility] Start: 08-15-2022 End: 08-15-2022 Patient encounter procedure No Primary Care Physician [facility] Start: 01-02-2022 End: 01-02-2022 Emergency department patient visit Sundar Melara [facility] Start: 01-02-2022 End: 01-02-2022 Emergency department patient visit [facility] Start: 11-16-2021 End: 11-16-2021 Emergency department patient visit EDWARD BONILLA W[facility] Procedures Date Procedure Procedure Detail Performing Clinician Start: 12-30-2024 Adult depression screening assessment Suni Mendez MD Work Phone: Start: 10-12-2024 Transvaginal echography No Primary Care Physician Start: 11-30-2022 Urine culture No Primar y Care Physician H/O: section History of C-sectio n No Primary Care Physician Comment on above: unsure of mode of de livery, RC/S scheduled for 3-7-24 SM History of cholecystectomy Status post laparoscopic cholecystectomy No Primary Care Physician History of cholecystectomy S/P cholecystectomy No Primary Care Physician Plan of Treatment Date Care Activity Detail Author Start: 06-04-2029 Urine microalbumin profile [facility] Start: 12-30-2025 Anxiety Screening Anxiety Screening [facility] Start: 12-30-2025 Depression Screening Depression Scre ening [facility] Start: 10-19-2025 Influenza vaccination Influenza Vacc ine (#1) [facility] Comment on above: Postponed from 12/21 (Declined at this time) Start: 02-01-2025 End: 02-01-2025 Patient encounter procedure 02/01/2025 11:20 AM EDT Office Visit [facility] [address] [place], [place] [id number] Suni Mendez MD [address] [place], [place] [id number] 1 month follow up [facility] Comment on above: 1 month follow up Start: 01-05-2025 End: 01-05-2025 ambulatory 01/05/2025 9:45 AM EDT OT/PT/Speech Visit [facility] Physical Therapy [address] [place] [address] Keren Conway, PT If I have anxiety and depression or bipolar [facility] Physical Therapy Comment on above: If I have anxiety an d depression or bipolar Start: 12-30-2024 End: 03-31-2025 CBC panel - Blood by Automated count COMPLETE BLOOD COUNT Lab Routine Encounter for screening examination for other mental health and behavioral disorders Screening for depression Expected: 12/30/2024, Expires: 03/31/2025 [facility] Comment on above: Expected: 12/30/2024 , Expires: 03/31/2025 Start: 12-30-2024 End: 03-31-2025 Chronic hepatitis differentiation between hepatitis B and C virus panel - Serum or Plasma HEP REMOTE PANEL BL Lab Routine Annual physical exam Expected: 12/30/2024, Expires: 03/31/2025 [facility] Comment on above: Expected: 12/30/2024 , Expires: 03/31/2025 Start: 12-30-2024 End: 03-31-2025 Comprehensive metabolic 2000 panel - Serum or Plasma COMPREHENSIVE METABOLIC PANEL Lab Routine Encounter for screening examination for other mental health and behavioral disorders Screening for depression Expected: 12/30/2024, Expires: 03/31/2025 [facility] Comment on above: Expected: 12/30/2024 , Expires: 03/31/2025 Start: 12-30-2024 End: 03-31-2025 Hemoglobin A1c in Blood HEMOGLOBIN A1C Lab Routine Annual physical exam Expected: 12/30/2024, Expires: 03/31/2025 [facility] Work Phone: Comment on above: Expected: 12/30/2024 , Expires: 03/31/2025 Start: 12-30-2024 End: 03-31-2025 LIPID PANEL, NONFASTING LIPID PANEL, NONFASTING Lab Routine Annual physical exam Expected: 12/30/2024, Expires: 03/31/2025 [facility] Comment on above: Expected: 12/30/2024 , Expires: 03/31/2025 Start: 10-08-2024 CBC W Auto Different ial panel - Blood [facility] Start: 10-08-2024 Thyroid stimulating hormone measurement [facility] Start: 02-18-2024 DTaP/Tdap/Td vaccine (2 - Td or Tdap) DTaP/Tdap/Td vaccine (2 - Td or Tdap) [facility] Start: 12-22-2023 Covid-19 Vaccine ( season) Covid-19 Vaccine () [facility] Start: 12-22-2023 Influenza vaccination Influenza Vacc ine (#1) [facility] Start: 06-26-2023 Consultation [facility] Start: 06-26-2023 Patient discharge [facility] Start: 06-25-2023 Application of intermittent pneumatic compression device [facility] Start: 06-25-2023 Administration of medication [facility] Start: 06-25-2023 Ambulation therapy management [facility] Start: 06-25-2023 Application of device [facility] Start: 06-25-2023 Application of intermittent pneumatic compression device [facility] Start: 06-25-2023 Assessment of risk o f venous thromboembolism [facility] Start: 06-25-2023 Catheterization of vein [facility] Start: 06-25-2023 Deep breathing and coughing exercises [facility] Start: 06-25-2023 Exercises [facility] Start: 06-25-2023 Measuring intake and output [facility] Start: 06-25-2023 Notification of physician [facility] Start: 06-25-2023 Procedure discontinued [facility] Start: 06-25-2023 Provision of activit y privileges [facility] Start: 06-25-2023 Skin care [facility] Start: 06-25-2023 Vital signs measurements [facility] Start: 06-25-2023 Wound care [facility] Start: 06-25-2023 [facility] Start: 06-25-2023 Application of abdom inal corset [facility] Start: 06-25-2023 Admission procedure [facility] Start: 06-25-2023 Application of intermittent pneumatic compression device [facility] Start: 06-25-2023 External monit or surveillance [facility] Start: 06-25-2023 Preoperative care [facility] Start: 06-25-2023 [facility] Start: 04-22-2023 Depression Assessment Depression Ass essment [facility] Start: 12-21-2022 Covid-19 Vaccine () Covid-19 Vaccine () [facility] Start: 08-15-2022 Liquid based cervica l cytology screening [facility] Start: 12-21-2021 Influenza vaccination Flu vaccine (# 1) [facility] Start: 2019 Screening for malign ant neoplasm of cervix [facility] Start: 01-23-2016 Anxiety Screening Anxiety Screening [facility] Start: 01-23-2016 Depression Screening Depression Scre ening [facility] Start: 01-23-2016 Hepatitis C screening Hepatitis C Sc reening [facility] Start: 2013 HPV Vaccine (1 - 3-d ose series) HPV Vaccine (1 - 3-dose series) [facility] Start: 01-23-2012 Peds To Adult Transi tion Annual Assessment Peds To Adult Transition Annual Assessment [facility] Start: 2010 Peds To Adult Transi tion Initial Discussion Peds To Adult Transition Initial Discussion [facility] Start: 1998 COVID-19 Vaccine (#1) COVID-19 Vacci ne (#1) [facility] CBC W Auto Different ial panel - Blood [facility] Erythrocyte mean corpuscular volume determination [facility] Glucose [Mass/volume ] in Serum or Plasma --1 hour post 50 g glucose PO [facility] Hematocrit [Volume Fraction] of Blood [facility] Hemoglobin [Mass/vol ume] in Blood [facility] Hepatitis B surface antigen measurement [facility] Hepatitis C antibody measurement [facility] HIV 1+2 Ab+HIV1 p24 Ag [Presence] in Serum or Plasma by Immunoassay [facility] Leukocytes [#/volume ] in Blood [facility] Mean corpuscular hemoglobin concentration determination [facility] Mean corpuscular hemoglobin determination [facility] Neutrophil count [facility] Neutrophil percent differential count [facility] Path report.final Dx Spec Wo carin [facility] Patient Education After a [facility] r [facility] Work Phone: Patient referral [facility] Work Phone: Platelets [#/volume] in Blood [facility] Red blood cell count [facility] Red cell distributio n width determination [facility] Rubella IgG measurement [facility] Treponema sp Ab [Presence] in Serum [facility] US Pelvis transvaginal [facility] End: 01-29-2026 XR Lumbar spine 3 Views XR LUMBAR GENERAL 3V AP/LAT/L5-S1 Radiology Routine Chronic left-sided low back pain with left-sided sciatica 1 Occurrences starting 12/30/2024 until 01/29/2026 [facility] Comment on above: 1 Occurrences starti ng 12/30/2024 until 01/29/2026 General acute hospital [facility] Immunizations Immunization Date Immunization Notes Care Provider [facility] 04-16-2023 influenza, injectabl e, quadrivalent, preservative free No Primary Care Physician [facility] 04-16-2023 influenza virus vacc ine, unspecified formulation Lisa Sue APRN.[employer] Work Phone: [facility] 06-04-2019 diphtheria, tetanus toxoids and acellular pertussis vaccine, unspecified formulation Suni Mendez MD Work Phone: [facility] 06-04-2019 tetanus toxoid, redu phill diphtheria toxoid, and acellular pertussis vaccine, adsorbed No Primary Care Physician [facility] 03-26-2018 hepatitis A vaccine, adult dosage Suni Mendez MD Work Phone: [facility] 02-17-2014 tetanus toxoid, redu phill diphtheria toxoid, and acellular pertussis vaccine, adsorbed Nida Julian APRN.[employer] Work Phone: [facility] 06-29-2010 hepatitis A vaccine, pediatric/adolescent dosage, 2 dose schedule Suni Mendez MD Work Phone: [facility] 06-29-2010 measles, mumps and rubella virus vaccine Suni Mendez MD Work Phone: [facility] 06-29-2010 poliovirus vaccine, inactivated Suni Mendez MD Work Phone: [facility] 06-29-2010 tetanus toxoid, redu phill diphtheria toxoid, and acellular pertussis vaccine, adsorbed Suni Mendez MD Work Phone: [facility] 03-03-2009 meningococcal polysaccharide (groups A, C, Y and W-135) diphtheria toxoid conjugate vaccine (MCV4P) Suni Mendez MD Work Phone: [facility] 08-30-1999 diphtheria, tetanus toxoids and acellular pertussis vaccine, unspecified formulation Suni Mendez MD Work Phone: [facility] 08-30-1999 haemophilus influenz ae type b vaccine, conjugate unspecified formulation Suni Mendez MD Work Phone: [facility] 08-30-1999 trivalent poliovirus vaccine, live, oral Suni Mendez MD Work Phone: [facility] 05-03-1999 measles, mumps and rubella virus vaccine Suni Mendez MD Work Phone: [facility] 1998 DTP-Haemophilus influenzae type b conjugate vaccine Suni Mendez MD Work Phone: [facility] 1998 hepatitis B vaccine, pediatric or pediatric/adolescent dosage Suni Mendez MD Work Phone: [facility] 1998 DTP-Haemophilus influenzae type b conjugate vaccine Suni Mendez MD Work Phone: [facility] 1998 poliovirus vaccine, inactivated Suni Mendez MD Work Phone: [facility] 1998 DTP-Haemophilus influenzae type b conjugate vaccine Suni Mendez MD Work Phone: [facility] 1998 poliovirus vaccine, inactivated Suni Mendez MD Work Phone: [facility] 1998 hepatitis B vaccine, pediatric or pediatric/adolescent dosage Suni Mendez MD Work Phone: [facility] 1998 hepatitis B vaccine, pediatric or pediatric/adolescent dosage Suni Mendez MD Work Phone: [facility] Payers Date Payer Category Payer Self-pay [id number] 2022 Medicaid [id number] 2022 Medicaid [id number] 2022 Unknown [id number] [address] [facility] COMMUN[facility] PLAN [id number] 1998 Unknown [id number] 2.16. [id number] 1998 Unknown [id number] 2.16 840.1.823622.3.579.2.668 1998 Unknown [id number] 2.16. 840.1.005710.3.579.2.479 1998 Unknown [id number] 2.16. 840.1.203317.3.579.2.479 1998 Unknown [id number] 2.16. 840.1.605235.3.579.2.479 1998 Unknown [id number] 2.16. 840.1.239746.3.579.2.479 1998 Unknown [id number] 2.16. 840.1.418341.3.579.2.479 1998 Unknown [id number] 2.16. 840.1.962718.3.579.2.479 Unknown Unknown [id number] 2.16.8 40.1.410480.3.579.2.462 Unknown [id number] 2.16.8 40.1.942232.3.579.2.462 Unknown [id number] 2.16.8 40.1.623537.3.579.2.462 Unknown [id number] 2.16.8 40.1.049594.3.579.2.462 Unknown [id number] 2.16.8 40.1.795905.3.579.2.462 Unknown [id number] 2.16.8 40.1.183594.3.579.2.462 Unknown [id number] 2.16.8 40.1.083325.3.579.2.462 Unknown [id number] 2.16.8 40.1.960204.3.579.2.462 Unknown [id number] 2.16.8 40.1.203391.3.579.2.462 Unknown [id number] 2.16.8 40.1.196074.3.579.2.462 Unknown [id number] 2.16.8 40.1.320807.3.579.2.462 Unknown [id number] 2.16.8 40.1.909437.3.579.2.462 Unknown [id number] 2.16.8 40.1.504052.3.579.2.462 Unknown [id number] 2.16.8 40.1.577981.3.579.2.462 Unknown [id number] 2.16.8 40.1.605494.3.579.2.462 Unknown [id number] 2.16.8 40.1.841367.3.579.2.462 Unknown [id number] 2.16.8 40.1.972805.3.579.2.462 Unknown [id number] 2.16.8 40.1.952910.3.579.2.462 Unknown [id number] 2.16.8 40.1.173164.3.579.2.462 Unknown [id number] 2.16.8 40.1.359635.3.579.2.462 Unknown [id number] 2.16.8 40.1.143027.3.579.2.462 Unknown [id number] 2.16.8 40.1.625084.3.579.2.462 Unknown [id number] 2.16.8 40.1.243752.3.579.2.462 Unknown [id number] 2.16.8 40.1.162624.3.579.2.462 Unknown [id number] 2.16.8 40.1.456066.3.579.2.462 Unknown [id number] 2.16.8 40.1.332991.3.579.2.462 Unknown [id number] 2.16.8 40.1.208042.3.579.2.462 Social History Date Type Detail Facility Start: 11-16-2021 End: 06-02-2024 Tobacco smoking status NHIS Smokes tobacco daily [facility] History of tobacco use Cigarette Smoker [employer] Work Phone: Start: 11-16-2021 End: 12-30-2024 Tobacco use and exposure Smokeless tobacco non-user [employer] Work Phone: Start: 01-02-2022 Alcohol intake Lifetime non-d latasha (finding) [email or web address] Phone: Start: 2000 Sex Assigned At Not on file [employer] Work Phone: Start: 12-23-2021 End: 01-02-2022 Exposure to SARS-CoV-2 (event) Not sure [employer] Work Phone: Start: 08-15-2022 End: 08-09-2023 Tobacco smoking status [facility] Unknown if ever smoked [facility] Start: 2000 Sex Assigned At Female W [facility] Start: 07-15-2023 End: 12-30-2024 Tobacco smoking status [facility] Ex-smoker [facility] History of tobacco use Current smoker [facility] Start: 07-15-2023 End: 12-30-2024 Cigarettes smoked current (pack per day) - Reported 0.5 [facility] Start: 07-15-2023 End: 12-30-2024 Alcohol intake Current non-drinker of alcohol (finding) [facility] Start: 03-11-2020 End: 12-30-2024 Social connection and isolation panel [facility] Start: 03-23-2012 Frequency of Social Gatherings with Friends and Family Not on file [facility] Do you belong to any clubs or organizations such as episcopalian groups, unions, fraternal or athletic groups, or school groups? Yes [facility] How often to you hav e a drink containing alcohol? Monthly or less [facility] How many standard dr inks containing alcohol do you have on a typical day? 1 or 2 [facility] How often do you hav e 6 or more drinks on 1 occasion? Less than monthly [facility] How hard is it for y ou to pay for the very basics like food, housing, medical care, and heating Not very hard [facility] Work Phone: Do you feel stress - tense, restless, nervous, or anxious, or unable to sleep at night because your mind is troubled all the time - these days [OSQ] Rather much [facility] The food that (I/we) bought just didn't last, and (I/we) didn't have money to get more. Never true [facility] In the past 12 month s, was there a time when you were not able to pay the mortgage or rent on time? No [facility] Start: 01-07-2020 Education 11 [facility] Start: 11-15-2019 Gender identity Identifies as female gender (finding) [facility] Start: 11-15-2019 Sexual orientation Bisexual (finding ) [facility] Start: 12-30-2024 Tobacco Comment 10 yrs. About a pack per day. Vape, nicotine [facility] Medical Equipment Procedure Code Equipment Code Equipment Origin al Text Equipment Identifier Dates Total cholecystectomy with exploration of common bile duct CLIP,[email or web address] FDA Start: 03-09-2024 Total cholecystectomy with exploration of common bile duct CLIP,[email or web address] FDA Start: 03-09-2024 Total cholecystectomy with exploration of common bile duct CLIP,[email or web address] FDA Start: 03-09-2024 Total cholecystectomy with exploration of common bile duct CLIP,[email or web address] FDA Start: 03-09-2024 Total cholecystectomy with exploration of common bile duct CLIP,[email or web address] FDA Start: 03-09-2024 Total cholecystectomy with exploration of common bile duct CLIP,HEMOLOCK AMRITA HARPERCK FDA Start: 03-09-2024 ERCP (endoscopic retrograde cholangiopancreatograph y) STENT,ADVANX PANC [id number] FDA Start: 03-16-2024 ERCP (endoscopic retrograde cholangiopancreatograph y) STENT,RX PLASTIC BILIARY 10X7 FDA Start: 03-16-2024 ERCP (endoscopic retrograde cholangiopancreatograph y) STENT,ADVANX PANC [id number] FDA Start: 03-16-2024 ERCP (endoscopic retrograde cholangiopancreatograph y) STENT,RX PLASTIC BILIARY 10X7 FDA Start: 03-16-2024 ERCP (endoscopic retrograde cholangiopancreatograph y) STENT,ADVANX PANC [id number] FDA Start: 03-16-2024 ERCP (endoscopic retrograde cholangiopancreatograph y) STENT,RX PLASTIC BILIARY 10X7 FDA Start: 03-16-2024 Blood Sugar Diagnostic (Blood Glucose Test) strip Start: 04-18-2023 Lancets Start: 04-18-2023 Blood Sugar Diagnostic (Blood Glucose Test) strip Start: 04-18-2023 [facility]ets Start: 04-18-2023 Blood Sugar Diagnostic (Blood Glucose Test) strip Start: 04-18-2023 [facility]ets Start: 04-18-2023 Blood Sugar Diagnostic (Blood Glucose Test) strip Start: 04-18-2023 End: 08-09-2023 [facility]ets Start: 04-18-2023 End: 08-09-2023 Blood Sugar Diagnostic (Blood Glucose Test) strip Start: 04-18-2023 End: 08-09-2023 Lancets misc Start: 04-18-2023 End: 08-09-2023 Blood Sugar Diagnostic (Blood Glucose Test) strip Start: 04-18-2023 End: 08-09-2023 Lancets misc Start: 04-18-2023 End: 08-09-2023 Blood Sugar Diagnostic (Blood Glucose Test) strip Start: 04-18-2023 End: 08-09-2023 [employer] Start: 04-18-2023 End: 08-09-2023 Goals Date Patient Goal Desired Activity /State Functional Status Date Assessment Result Facility 11-15-2014 Are you deaf, or do you have serious difficulty hearing No 11/15/2014 2:05 PM EDT Sarah Peterson LPN No [facility] 11-15-2014 Are you blind, or do you have serious difficulty seeing, even when wearing glasses No 11/15/2014 2:05 PM EDT Sarah Peterson LPN No [facility] 11-15-2014 Do you have serious difficulty walking or climbing stairs No 11/15/2014 2:05 PM EDT Sarah Peterson LPN No [facility] 11-15-2014 Do you have difficul ty dressing or bathing No 11/15/2014 2:05 PM EDT Sarah Peterson LPN No [facility] 11-15-2014 Because of a physica l, mental, or emotional condition, do you have difficulty doing errands alone such as visiting a physician's office or shopping No 11/15/2014 2:05 PM EDT Sarah Peterson LPN No [facility] Mental Status Date Assessment Result Facility 11-15-2014 Because of a physica l, mental, or emotional condition, do you have serious difficulty concentrating, remembering, or making decisions No 11/15/2014 2:05 PM EDT Sarah Peterson LPN No [facility] Clinical Notes 08-15-2022 to 12-30-2024 Patient InstructionsSuni Mendez MD - 12/30/2024 9:46 AM EDT Note Date & Type Note Facility 12-30-2024 Instructions Suni Mendez MD - 12/30/2024 10:16 AM EDT Take anti inflammatory, muscle relaxant and physical therapy Please see psychology and psychiatry Please get blood work Please get HPV records. Follow up in 1 month documented in this encounter [facility] 12-30-2024 Note HNO ID: [id number] Author: SUNI MENDEZ MD Service: ? Author Type: Physician Type: Progress Notes Filed: 12/30/2024 12:36 Note Text: Family Medicine OUTPATIENT VISIT December 30, 2024 CC: Annual physical HPI: 24 year old female patient with a history of Obesity Tobacco use Depression Anxiety Gestational diabetes Here to establish care Anxiety and depression are both poorly controlled right now. Did do therapy [place], but states she did not fully engage with it as she was at the time and so was handling a lot of competing responsibilities at the time. She thinks that she might have had manic episodes in the past. She was on celexa before and reports it was helpful. Reports when she was on celexa she reports she felt she could do everything and everything. She reports mom has bipolar. She reports she has episodes of persistent elevated high mood, decreased sleep, racing thoughts, grandiose thoughts, hyperactivity for prolonged periods of time. Not currently endorsing manic symptoms. Some TSH. Some SI without planning. Thoughts of driving her car off a road but no actual planning, just passive fleeting thoughts. Does not think she would follow through on that, saying I have three beautiful boys so she would never carry through on these thoughts. If thoughts became planning, she would seek help by talking to someone, close friend or family Back pain since 2-1.5 years since delivery her last child. Stiffness and shooting pains down left leg. Some leg weakness. No stool changes, urine incontinence or genital numbness. No hx of trauma. She did do PT before which helped. She kept up with the home PT. No wt loss or fevers. Taking tylenol OTC for her back pain. 2500mg-3,000mg for her back pain for last 2 months. Thinks she had thyroid tested a few months ago at [place] and was WNL. No hx of IVDU Review of Systems PAIN ASSESSMENT: as above GENERAL: No weight loss, or fevers HEENT: Negative for frequent or significant headaches RESPIRATORY: Negative for cough, wheezing, shortness of breath CARDIOVASCULAR: Negative for chest pain, palpitations, PND or orthopnea GI: No nausea, vomiting, or diarrhea or abdominal pain. No HI bleeding or melana : No history of dysuria, frequency, urgency, or change in urine appearance NEURO:As above Health maintenance: HPV Vaccine(1 - 3-dose series) Never done Hepatitis C Screening Never done Cervical Cancer Screening Never done Allergies: ALLERGIES Allergen Reactions Dust Swelling Morphine Rash Pollen Swelling Ragweed Swelling Medications: cyclobenzaprine (FLEXERIL) 10 mg tablet Take 1 tablet by mouth three times a day as needed. naproxen (NAPROSYN) 250 mg tablet Take 1 tablet by mouth two times a day as needed. Past Medical History: PAST MEDICAL HISTORY Diagnosis Date Anemia Antepartum drug dependence (HCC) Generalized anxiety disorder History of depression Irregular heart beat as only Obesity Social History: SOCIAL HISTORY[1] Family History: Family History Problem Relation Age of Onset Colon Cancer Mother Hypertension Father Diabetes Father Heart Father Hyperlipidemia Father Dementia Maternal Grandmother Heart disease Maternal Grandfather Hypertension Maternal Grandfather Parkinson?s Disease Maternal Grandfather Stroke Maternal Grandfather Hypertension Paternal Grandmother BP 112/78 Pulse 92 Temp 37.1 ?C (98.7 ?F) (Temporal) Resp 16 Ht 161.3 cm (5' 3.5) Wt 100.9 kg (222 lb 6.4 oz) LMP 06/25/2023 (Approximate) SpO2 96% No BMI 38.78 kg/m? General: Awake, alert, not in acute distress CRUSHER: Answering questions appropriately. No abnormal posturing or positioning. Speech is normal. Strength grossly intact. She has no midline tenderness along entire spine. Gait is normal. No saddle anesthesia. She has pain on palpation to left of her lumbar spine. Straight leg test positive on left. Normal LE reflexes RESP: Clear lungs bilateral with good air entry, No increased work of breathing CVS: RRR, No murmur. Pulses 2+. GI: Abdomen is soft, non distended, non tender. No masses or hepatomegaly appreciated. Skin/Other: No rashes or lesions. HEENT: pupils equal Extremities: No peripheral edema, swelling or erythema of lower extremities. Labs: Reviewed the following: No recent pertinent Imaging: Reviewed the following: No recent pertinent Assessment/Plan: ASSESSMENT/PLAN: 1. Annual physical exam - ICD9: V70.0, ICD10: Z00.00 (primary diagnosis) - Counseled on healthy diet and regular exercise - Recommend vitamin containing 0.4 mg of folic acid - vaping cessation encouraged; discussed health risks and quitting strategies. Patient is not ready to quit - Counseled on alcohol intake and health risks - Follow up for annual exam in one year - HEMOGLOBIN A1C - LIPID PANEL, NONFAST (more content not included)... [facility] 12-30-2024 History of Present illness Narrative Images from the original note were not included. Family Medicine OUTPATIENT VISIT December 30, 2024 CC: Annual physical HPI: 24 year old female patient with a history of Obesity Tobacco use Depression Anxiety Gestational diabetes Here to establish care Anxiety and depression are both poorly controlled right now. Did do therapy [place], but states she did not fully engage with it as she was at the time and so was handling a lot of competing responsibilities at the time. She thinks that she might have had manic episodes in the past. She was on celexa before and reports it was helpful. Reports when she was on celexa she reports she felt she could do everything and everything. She reports mom has bipolar. She reports she has episodes of persistent elevated high mood, decreased sleep, racing thoughts, grandiose thoughts, hyperactivity for prolonged periods of time. Not currently endorsing manic symptoms. Some TSH. Some SI without planning. Thoughts of driving her car off a road but no actual planning, just passive fleeting thoughts. Does not think she would follow through on that, saying I have three beautiful boys so she would never carry through on these thoughts. If thoughts became planning, she would seek help by talking to someone, close friend or family Back pain since 2-1.5 years since delivery her last child. Stiffness and shooting pains down left leg. Some leg weakness. No stool changes, urine incontinence or genital numbness. No hx of trauma. She did do PT before which helped. She kept up with the home PT. No wt loss or fevers. Taking tylenol OTC for her back pain. 2500mg-3,000mg for her back pain for last 2 months. Thinks she had thyroid tested a few months ago at [place] and was WNL. No hx of IVDU Review of Systems PAIN ASSESSMENT: as above GENERAL: No weight loss, or fevers HEENT: Negative for frequent or significant headaches RESPIRATORY: Negative for cough, wheezing, shortness of breath CARDIOVASCULAR: Negative for chest pain, palpitations, PND or orthopnea GI: No nausea, vomiting, or diarrhea or abdominal pain. No HI bleeding or melana : No history of dysuria, frequency, urgency, or change in urine appearance NEURO:As above Health maintenance: HPV Vaccine(1 - 3-dose series) Never done Hepatitis C Screening Never done Cervical Cancer Screening Never done Allergies: ALLERGIES Allergen Reactions Dust Swelling Morphine Rash Pollen Swelling Ragweed Swelling Medications: cyclobenzaprine (FLEXERIL) 10 mg tablet Take 1 tablet by mouth three times a day as needed. naproxen (NAPROSYN) 250 mg tablet Take 1 tablet by mouth two times a day as needed. Past Medical History: PAST MEDICAL HISTORY Diagnosis Date Anemia Antepartum drug dependence (HCC) Generalized anxiety disorder History of depression Irregular heart beat as only Obesity Social History: SOCIAL HISTORY[1] Family History: Family History Problem Relation Age of Onset Colon Cancer Mother Hypertension Father Diabetes Father Heart Father Hyperlipidemia Father Dementia Maternal Grandmother Heart disease Maternal Grandfather Hypertension Maternal Grandfather Parkinson s Disease Maternal Grandfather Stroke Maternal Grandfather Hypertension Paternal Grandmother BP 112/78 Pulse 92 Temp 37.1 C (98.7 F) (Temporal) Resp 16 Ht 161.3 cm (5' 3.5) Wt 100.9 kg (222 lb 6.4 oz) LMP 06/25/2023 (Approximate) SpO2 96% No BMI 38.78 kg/m General: Awake, alert, not in acute distress CRUSHER: Answering questions appropriately. No abnormal posturing or positioning. Speech is normal. Strength grossly intact. She has no midline tenderness along entire spine. Gait is normal. No saddle anesthesia. She has pain on palpation to left of her lumbar spine. Straight leg test positive on left. Normal LE reflexes RESP: Clear lungs bilateral with good air entry, No increased work of breathing CVS: RRR, No murmur. Pulses 2+. GI: Abdomen is soft, non distended, non tender. No masses or hepatomegaly appreciated. Skin/Other: No rashes or lesions. HEENT: pupils equal Extremities: No peripheral edema, swelling or erythema of lower extremities. Labs: Reviewed the following: No recent pertinent Imaging: Reviewed the following: No recent pertinent Assessment/Plan: ASSESSMENT/PLAN: 1. Annual physical exam - ICD9: V70.0, ICD10: Z00.00 (primary diagnosis) - Counseled on healthy diet and regular exercise - Recommend vitamin containing 0.4 mg of folic acid - vaping cessation encouraged; discussed health risks and quitting strategies. Patient is not ready to quit - Counseled on alcohol intake and health risks - Follow up for annual exam in one year - HEMOGLOBIN A1C - LIPID PANEL, NONFASTING - HEP REMOTE PANEL BL 2. Encounter for screening examination for other mental health and behavioral disorders - ICD9: V79.8, ICD10: Z13.39 As below - ANXIETY SCREENING - COMPLETE BLOOD COUNT - TSH W/REFLEX FT4 - COMPREHENSIVE METABOLIC PANEL 3. Screening for depression - ICD9: V79.0, ICD10: Z13.31 As below - DEPRESSION SCREENING - COMPLETE BLOOD COUNT - TSH W/REFLEX FT4 - COMPREHENSIVE METABOLIC PANEL 4. NELL (generalized anxiety disorder) - ICD9: 300.02, ICD10: F41.1 5. Depression, unspecified depression type - ICD9: 311, ICD10: F32.A Endorsing hx of NELL and depression, uncontrolled with some passive transients thoughts of harm to self without any actual planning, stating she would never harm herself. She is able to state that if thoughts were to become planning, she would tell her partner and would present to an ED. She endorses past symptoms c/w manic episodes in past, c/f possible Bipolar. Will therefore consult psychology for CBT, but also refer to psychiatry for evaluation for bipolar to determine if mood stabilizer would be more appropriate rather than resumption of prior SSRI therapy. - CONSULT TO PSYCHOLOGY - CONSULT TO PSYCHIATRY 6. Chronic left-sided low back pain with left-sided sciatica - ICD9: 724.2, 724.3, 338.29, ICD10: M54.42, G89.29 Exam today c/w both muscular pain as well as sciatica, which is relapsing remiting. Has had some improvement with PT. Will resume PT, muscle relaxant and NSAIDs. Discussed side effects of NSAIDS. Also is carrygn her son on that hip, so discussed avoidant of provoking factors. XR and if not improved at follow up consider MRI given duration of symptoms Discussed s/s/ that should prompt ED evaluation - CONSULT TO PHYSICAL THERAPY - XR LUMBAR GENERAL 3V AP/LAT/L5-S1 Suni Mendez Remainder of plan including medications to be continued as prior to this visit unless noted above. I will reach out if lab testing or imaging is abnormal and requires a change in the plan discussed above. Otherwise, we can review results at follow up. I discussed this with the patient and they are in agreement. Discussed with patient the importance of continuity of care. Follow up appointments as scheduled below. We discussed returning sooner if symptoms should worsen or not improve as expected as discussed during our appointment. Symptoms that should prompt escalation of care that we discussed include s/s cauda equina Seek emergency care for any severe or sudden onset headache or any sudden weakness or numbness of a limb, speech changes, facial drooping, confusion, difficulty walking and loss of balance, sensation of the room spinning, or fainting. Suni Mendez MD Internal Medicine and Pediatrics [facility] 12/30/2024 12:31 PM Portions of note generated prior to visit. History of illness, past medical and surgical history, family and social history, medications, allergies, labs and imaging reviewed during visit and are updated as appropriate following visit. I spent 40 minutes in the visit, with more than 50% of the total [id number] time of the visit in counseling / coordination of care. Future Appointments Date Time Provider Department Center 12/30/2024 4:45 PM LAB [facility] LAB [facility] 01/05/2025 9:45 AM Keren Conway, PT PTWS [facility] 02/01/2025 11:20 AM Suni Mendez MD FAMPWS [facility] [1] Social History Tobacco Use Smoking status: Former Current packs/day: 0.50 Average packs/day: 0.5 packs/day for 2.0 years (1.0 ttl pk-yrs) Types: Cigarettes Smokeless tobacco: Never Tobacco comments: 10 yrs. About a pack per day. Vape, nicotine Vaping Use Vaping status: current everyday user Substances: Nicotine Substance Use Topics Alcohol use: No Drug use: Yes Types: Marijuana Comment: Marijuana-last used 2 weeks ago. documented in this encounter [facility] 10-12-2024 Radiology Diagnostic study note [facility] Imaging Services [address], [place] [address] Transvaginal Non- MR#: [id number] Acct: [id number] Name: NATY ROBERTS Rep #: [id number] : 2000 F 24 From: Nicolas Otero MD PCP: Care Physician,No Primary Status: REG CLI Study:Transvaginal Non- Date of Exam: 10/12/24 Exam# [id number] Ordering Dr: Nicolette Guadalupe CNM PROCEDURE: TRANSVAGINAL NON- 10/12/2024 REASON FOR EXAM: IUD PLACEMENT TECHNIQUE: TRANSVAGINAL NON- COMPARISON: None FINDINGS: LMP: August 20, 2024. Measurements: Uterus: 9.2 cm x 5.2 cm x 4.4 cm with a volume of 109.24 mL Endometrial Thickness: 5 mm. IUD is seen within the fundal portion of the uterus. Right Ovary: 4.1 cm x 2.1 cm x 2.2 cm with a volume of 10.04 mL. Left Ovary: 2.8 cm x 1.8 cm x 1.7 cm with a volume of 4.59 mL. Uterus: Normal size, myometrial echotexture, and contour. Endometrium: Unremarkable.. The IUD is seen within the fundal portion of the endometrium. Right ovary: Normal size and echotexture. Left ovary: Normal size and echotexture. Other: No large pelvic mass identified. US/Transvaginal Non- IMPRESSION: The IUD is seen within the fundal portion of the endometrium. Reading Location: [id number] CC: FÉLIX Guadalupe; No Primary Care Physician ~ Maintenance Scheduler: Signed [facility] 10-08-2024 Progress note [facility] 08-13-2024 Evaluation note Diagnosis Onset Date Resolution Encounter for well woman exam with routine gynecological exam acute August 13 1:45pm Contraceptive management acute August 20, 2024 11:42am Abnormal uterine bleeding acute October 08, 2024 11:18am [facility] Work Phone: 1(874) 305-293604-24-2025 Evaluation note* Diagnosis Onset Date Resolution Status Admit Date Encounter for well woman exa m with routine gynecological exam deleted August 13, 2024 1:45pm Contraceptive management acute August 20, 2024 11:42am Abnormal uterine bleeding acute October 08, 2024 11:18am [facility] Work Phone: 1(852) 351-450702-12-2025 [facility] Medical Records Department [address] [place] [address] [place] [address] History Physical Exam 06/03/24 1158 MR#: [id number] Acct: [id number] Name: NATY ROBERTS Rep #: [id number] : 2000 24 From: Dallas Kunz DO PCP: Care Physician,No Primary Status:REG [facility] Location: [place] [address] HPI - General General Date of Admission: 06/03/24 Date of Service: 06/03/24 HPI Narrative NATY ROBERTS, is a 24 F who presents for ercp with stent removal. She is s/p laparoscopic cholecystectomy with attempted intraoperative cholangiograms by Dr. Enrique on 03/09/24. Patient tolerated the procedure well. Patient returned to the ED twice post-operatively due to increased abdominal pain and noticing her eyes turned Jaundice. Patient had an ERCP performed and two stents were placed at that time. She notes today feeling very well. She denies any nausea, vomiting, fever. She notes appetite is slowly returning to normal. She notes bowel habits have returned to normal. Pathology demonstrated chronic cholecystitis and cholelithiasis. [facility] Medical History History of biliary stent insertion Depression Fatty liver Back pain Gastric reflux Vapes nicotine containing substance History of edema Obesity (BMI 30-39.9) Anxiety Home Medications ???Medication ???Instructions ???Recorded ???Last Taken ???Type medroxyprogesterone 150 mg/mL 150 mg IM [id number] #1 mL 05/19/24 Unknown Rx intramuscular suspension (Depo-Provera) Allergy/AdvReac Type Severity Reaction Status Date / Time morphine Allergy Mild Rash Verified 06/03/24 11:07 Family History Father Diabetes Hypertension Surgical History Hx laparoscopic cholecystectomy History of ERCP Status post History of tonsillectomy Social History number of children: 2 current occupational status: employed current occupation: Works from home Smoking Status: Current every day smoker tobacco type: cigarettes Tobacco: How many years used: 6 alcohol intake: never substance use type: does not use seatbelt use: always do you feel safe at home: Yes additional social history: Dontrell- boyfriend ROS Constitutional Constitutional: Reports systems reviewed and no addt'l complaints, except as documented Eyes Eyes: Denies change in vision ENT HEENT: Reports systems reviewed and no addt'l complaints, except as documented; Denies headache(s) Cardiovascular Cardiovascular: Reports systems reviewed and no addt'l complaints, except as documented; Denies chest pain or dyspnea Respiratory/Chest Respiratory/Chest: Reports systems reviewed and no addt'l complaints, except as documented Gastrointestinal Gastrointestinal: Reports systems reviewed and no addt'l complaints, except as documented; Denies abdominal pain Genitourinary Genitourinary: Reports systems reviewed and no addt'l complaints, except as documented, contractions Details: present (irregular) and movement Details: present; Denies dysuria or genital lesions Musculoskeletal Musculoskeletal: Reports systems reviewed and no addt'l complaints, except as documented Neurologic Neurologic: Reports systems reviewed and no addt'l complaints, except as documented Endocrine Endocrinology: Reports systems reviewed and no addt'l complaints, except as documented Vital Signs Vital Signs Vital Signs: 06/03/24 11:08 06/03/24 11:08 06/03/24 11:21 Temperature 98.3 F 98.3 F Temperature Source Temporal Pulse Rate 87 87 Respiratory Rate 16 16 Respiratory Pattern Normal Blood Pressure 110/72 110/72 Blood Pressure Mean 84 Blood Pressure Source Monitor Blood Pressure Position Sitting Blood Pressure Location Left Arm Pulse Ox 99 99 Oxygen Delivery Method Room Air Weight Weight: 224 lb 13.944 oz Body Mass Index (BMI) 38.6 Physical Exam Const oriented x3 and no apparent distress Resp normal respiratory effort Cardio regular rate GI soft to palpation GI Narrative: Tender epigastric incisions healing well clean dry intact with Steri-Strips Results Lab / Micro Data Labs: Laboratory Results - last 24 hr 06/03/24 11:00: Urine Test Negative Assessment Plan Assessment/Plan (1) Status post laparoscopic cholecystectomy: (2) Encounter for removal of biliary stent: PLAN: Plan She will undergo ERCP with stent removal. She was explained alternatives, risk and benefits include not withstanding bleeding, infection, sepsis, perforation, need for surgery . She will have an ASA of 3. 06/03/24 1201 Cosigner Signature (if (more content not included)...[facility] 03-22-2024 Instructions* Patient Instructions* Lisa Sue APRN.FLORES - 03/22/2024 11:06 AM EST ASSESSMENT/PLAN: 1. Otitis media with effusion, right - ICD9: 381.4, ICD10: H65.91 - Will begin treatment with as per antibiotic as written, see orders - Supportive care with plenty of fluids, rest, and analgesia prn. - AMOXICILLIN 875 MG TABLET - Follow-up with your PCP in 3-5 days if symptoms have not improved or sooner if symptoms worsen - Discussed red flags and need for immediate medical evaluation if any occur. - Discussed supportive care treatment with fluids, rest and analgesia. - Discussed expected course of illness Lisa Sue APRN.[employer] RECRUITER OTITIS MEDIA GENERAL INFORMATION: Otitis media is an infection of the middle ear. The middle ear sits behind the eardrum. This infection may be caused by a virus or bacteria and often follows a cold. Children often have repeat ear infections. Otitis media is not contagious. INSTRUCTIONS: 1. An antibiotic has been prescribed. It should be taken exactly as prescribed. Do not stop the medicine even if the symptoms go away. 2. Kkdr-qyy-pxcwwqd pain medication may be taken or other pain medication as prescribed by the doctor. 3. Nothing should be placed in the ear unless instructed by your doctor. 4. The patient may return to school/daycare or work when the temperature is normal (98.6 F or 37 C). 5. The patient should not swim while the ear is infected. CONTACT YOUR DOCTOR IF YOU OR YOUR CHILD: 1. Does not feel better within 36 hours. 2. Develops a temperature over 102E F (39E C). 3. Starts vomiting or has diarrhea. 4. Develops drainage from the affected ear. 5. Has any new problem that may be related to the medicine prescribed. RETURN TO THE ED IF: 1. You or your child has a severe headache or pain around the ear. 2. You or your child notice swelling around the ear. 3. You or your child has a seizure (convulsion), twitching of the facial muscles, or passes out. 4. You or your child is dizzy, has a stiff neck, or cannot walk or talk normally. 5. Your child becomes more irritable or listless (not interested in his or her surroundings, does not get soothed by you holding him or her). [facility] NoteHNO ID: [id number] Author: LISA SUE APRN.FLORES Service: ? Author Type: Nurse Practitioner Type: Progress Notes Filed: 03/22/2024 11:06 Note Text: Subjective HPI Naty Roberts is a 24 year old female who presents with right ear pain for the past 5 days. She has had nasal congestion and drainage for the past week. She has not had a fever. She rates her ear pain 3 out of 10. She states her ear pops occasionally and the pain is worse and her hearing seems different. The has been taking tylenol for pain. Review of Systems Constitutional: Negative for chills, fever and malaise/fatigue. HENT: Positive for congestion, ear pain, hearing loss and tinnitus. Negative for sore throat. Respiratory: Negative for cough. Cardiovascular: Negative for chest pain. Gastrointestinal: Negative for diarrhea, nausea and vomiting. Musculoskeletal: Negative for myalgias. BP 110/80 Pulse 92 Temp 37.1 ?C (98.8 ?F) (Left Tympanic) Resp 16 Wt 103 kg (227 lb 1.2 oz) LMP 12/27/2014 (Approximate) SpO2 99% BMI 38.98 kg/m? PAST MEDICAL HISTORY Diagnosis Date Anemia Antepartum drug dependence (HCC) History of depression Irregular heart beat as only PAST SURGICAL HISTORY Procedure Laterality Date TONSILLECTOMY HX 12/07/2014 ALLERGIES Dust, Morphine, Pollen, Ragweed, and Soap MEDICATIONS medroxyPROGESTERone (DEPO-PROVERA) 150 mg/mL injection Inject 150 mg intramuscularly every 12 weeks. citalopram (CELEXA) 40 mg tablet Take 40 [...] Father Social History Tobacco Use Smoking status: Former Current packs/day: 0.50 Average packs/day: 0.5 packs/day for 2.0 years (1.0 ttl pk-yrs) Types: Cigarettes Smokeless tobacco: Never Vaping Use Vaping status: current everyday user Substances: Nicotine Substance Use Topics Alcohol use: No Drug use: Yes Types: Marijuana Comment: Marijuana-last used 2 weeks ago Objective Physical Exam Vitals and nursing note reviewed. Constitutional: General: She is not in acute distress. Appearance: Normal appearance. She is not ill-appearing. HENT: Right Ear: Ear canal and external ear normal. A middle ear effusion is present. Tympanic membrane is injected. Left Ear: Tympanic membrane, ear canal and external ear normal. Nose: Nose normal. Mouth/Throat: Pharynx: Uvula midline. No oropharyngeal exudate or posterior oropharyngeal erythema. Cardiovascular: Rate and Rhythm: Normal rate and regular rhythm. Heart sounds: Normal heart sounds. Pulmonary: Effort: Pulmonary effort is normal. No respiratory distress. Breath sounds: Normal breath sounds. No wheezing or rales. Musculoskeletal: Cervical back: Neck supple. Lymphadenopathy: Cervical: No cervical adenopathy. Skin: General: Skin is warm and dry. Findings: No erythema or rash. Neurological: Mental Status: She is alert. ASSESSMENT/PLAN: 1. Otitis media with effusion, right - ICD9: 381.4, ICD10: H65.91 - Will begin treatment with as per antibiotic as written, see orders - Supportive care with plenty of fluids, rest, and analgesia prn. - AMOXICILLIN 875 MG TABLET - Follow-up with your PCP in 3-5 days if symptoms have not improved or sooner if symptoms worsen - Discussed red flags and need for immediate medical evaluation if any occur. - Discussed supportive care treatment with fluids, rest and analgesia. - Discussed expected course of illness Lisa Sue APRN.[facility] History of Present illness Narrative* Lisa Sue APRN.FLORES - 03/22/2024 11:03 AM EST Subjective HPI Naty Roberts is a 24 year old female who presents with right ear pain for the past 5 days. She has had nasal congestion and drainage for the past week. She has not had a fever. She rates her ear pain 3 out of 10. She states her ear pops occasionally and the pain is worse and her hearing seems different. The has been taking tylenol for pain. Review of Systems Constitutional: Negative for chills, fever and malaise/fatigue. HENT: Positive for congestion, ear pain, hearing loss and tinnitus. Negative for sore throat. Respiratory: Negative for cough. Cardiovascular: Negative for chest pain. Gastrointestinal: Negative for diarrhea, nausea and vomiting. Musculoskeletal: Negative for myalgias. BP 110/80 Pulse 92 Temp 37.1 C (98.8 F) (Left Tympanic) Resp 16 Wt 103 kg (227 lb 1.2 oz) LMP 12/27/2014 (Approximate) SpO2 99% BMI 38.98 kg/m PAST MEDICAL HISTORY Diagnosis Date Anemia Antepartum drug dependence (HCC) History of depression Irregular heart beat as only PAST SURGICAL HISTORY Procedure Laterality Date TONSILLECTOMY HX 12/07/2014 ALLERGIES Dust, Morphine, Pollen, Ragweed, and Soap MEDICATIONS medroxyPROGESTERone (DEPO-PROVERA) 150 mg/mL injection Inject 150 mg intramuscularly every 12 weeks. citalopram (CELEXA) 40 mg tablet Take 40 [...] Father Social History Tobacco Use Smoking status: Former Current packs/day: 0.50 Average packs/day: 0.5 packs/day for 2.0 years (1.0 ttl pk-yrs) Types: Cigarettes Smokeless tobacco: Never Vaping Use Vaping status: current everyday user Substances: Nicotine Substance Use Topics Alcohol use: No Drug use: Yes Types: Marijuana Comment: Marijuana-last used 2 weeks ago Objective Physical Exam Vitals and nursing note reviewed. Constitutional: General: She is not in acute distress. Appearance: Normal appearance. She is not ill-appearing. HENT: Right Ear: Ear canal and external ear normal. A middle ear effusion is present. Tympanic membrane is injected. Left Ear: Tympanic membrane, ear canal and external ear normal. Nose: Nose normal. Mouth/Throat: Pharynx: Uvula midline. No oropharyngeal exudate or posterior oropharyngeal erythema. Cardiovascular: Rate and Rhythm: Normal rate and regular rhythm. Heart sounds: Normal heart sounds. Pulmonary: Effort: Pulmonary effort is normal. No respiratory distress. Breath sounds: Normal breath sounds. No wheezing or rales. Musculoskeletal: Cervical back: Neck supple. Lymphadenopathy: Cervical: No cervical adenopathy. Skin: General: Skin is warm and dry. Findings: No erythema or rash. Neurological: Mental Status: She is alert. ASSESSMENT/PLAN: 1. Otitis media with effusion, right - ICD9: 381.4, ICD10: H65.91 - Will begin treatment with as per antibiotic as written, see orders - Supportive care with plenty of fluids, rest, and analgesia prn. - AMOXICILLIN 875 MG TABLET - Follow-up with your PCP in 3-5 days if symptoms have not improved or sooner if symptoms worsen - Discussed red flags and need for immediate medical evaluation if any occur. - Discussed supportive care treatment with fluids, rest and analgesia. - Discussed expected course of illness Lisa Sue APRN.LEADERSHIP RECRUITER documented [facility] this encounterMar[facility]11-25-[facility]24 [facility] Medical Records Department [address] [place] [address] Discharge Summary 03/16/24 1540 MR#: [id number] Acct: [id number] Name: NATY ROBERTS Rep #: [id number] : 2000 24 From: Jyothi Enrique MD PCP: Care Physician,No Primary Status:ADM IN Location: [place] [id number] Providers Date of Admission: 03/15/24 Primary Care Physician: No Primary Care Phys Consultations 03/15/24 08:58 Consult: Gastroenterology Routine Consulting Provider: [facility] Reason for Consult: need for ERCP EMERGENT Consult: Yes Notified: Yes Date Notified: 03/15/24 Time Notified: 08:58 Method of Notification: Verbal Reason For Visit: CHOLEDOCHOLITHIASIS Diagnosis Discharge Diagnosis (1) Choledocholithiasis with obstruction: Status: Acute Code(s): K80.51 - Calculus of bile duct without cholangitis or cholecystitis with obstruction (2) Jaundice: Status: Acute Code(s): R17 - Unspecified jaundice (3) Status post laparoscopic cholecystectomy: Status: Acute Code(s): Z90.49 - Acquired absence of other specified parts of digestive tract (4) Malnutrition of moderate degree: Status: Acute Code(s): E44.0 - Moderate protein-calorie malnutrition Plan: moderate malnutrition with 3.8% weight loss in one week and less than 50% of estimate needs during that time due to cholelithasis/choledocholithiasis. Plan ERCP today. will advance diet after ERCP. continue jacquiesyn Jyothi Enrique M.D. Pager: [phone] [facility] [address] [place] [address], [address] [place] [address] Office: [phone] Medications at Discharge Home Medications medroxyprogesterone 150 mg/mL intramuscular suspension (Depo-Provera) 150 mg IM [id number] #1 mL 02/18/24 ondansetron 4 mg disintegrating tablet 4 mg PO TID PRN nausea and vomiting #21 tabs 03/12/24 oxycodone-acetaminophen 5 mg-325 mg tablet (Percocet) 1 tab PO Q6H PRN pain 3 days #12 tabs 03/12/24 Hospital Course Operations ERCP (With temporary stent placement and removal of 3 stones) Summary of Care Provided Minutes Spent on Discharge: 15 Hospital Course: Patient came to the ER due to jaundice 03/15. Labs are consistent with biliary obstruction. Ultrasound was done which showed some dilated mild intra and extrahepatic ducts- no obvious choledocholithiasis was seen. Patient was kept n.p.o. started on Zosyn IV. Patient underwent ERCP on 03/16/2024???sphincterotomy and temporary stent was placed and 3 stones removed. Patient will was able to have her diet advanced to full liquids if able to tolerate patient would be able to be DC'd home. Medical Records Data Medical Nutrition Assessment Dietitian: Malnutrition Criteria Met Start: 03/15/24 16:48 Freq: Status: Active Protocol: Document 03/15/24 16:48 MAIK (Rec: 03/15/24 16:48 [facility] [id number]) Nutrition Malnutrition Evidence of Malnutrition Exists Yes Malnutrition (severe): Acute Illness/Injury Evidenced By Suboptimal Energy Intake ( Severe),Weight Loss (Severe) Clinical Problem Acute Disease or Injury Related Malnutrition Etiology related to physiological changes limiting oral intakes Signs/Symptoms as evidenced by significant weight loss of 9lb or 3.8% in less than 1 week based upon wt of 234lb as well as oral intakes meeting less than 50% of estimated nutrient needs for 1 week. Status Active Problem Recommendation Dietitian Recommendations/Changes Recommend diet advancement following ERCP to a Low Fat diet as appropriate for in line with Gallbladder Nutrition Therapy recommendations. Will order EPHP 120mL 4x/day with medpass to help increase oral intakes at this time. Will continue to follow, monitor oral intakes and modify nutrition interventions as needed. Weight / BMI Weight Weight: 225 lb 8 oz Body Mass Index (BMI) 38.7 ABG / Lab / Microbiology Data 03/16/24 05:22 03/16/24 05:22 Laboratory: Laboratory Results - last 24 hr 03/15/24 16:00: Urine Test Negative 03/16/24 05:22: WBC 5.3, RBC 4.66, Hgb 13.7, Hct 41.2, MCV 88.4, MCH 29.4, MCHC 33.3, RDW Std Deviation 42.1, RDW Coeff of Tenisha 13.1, Plt Count 246, MPV 9.5, Immature Gran % (Auto) 0.400, Neut % (Auto) 47.2, Lymph % (Auto) 36.9, Shasta % (Auto) 10.3 H, Eos % (Auto) 4.3, Baso % (Auto) 0.9, Absolute Neuts (auto) 2.5, Absolute Lymphs (auto) 1.97, Nucleated RBC % 0, Sodium 136, Potassium 4.0, Chloride 107, Carbon Dioxide 24.0, Anion Gap 6, BUN 4 L, Creatinine 0.83, Estim Creat Clear Calc 119.56, Est GFR (MDRD) Af Amer 107, Est GFR (MDRD) Non-Af 88, BUN/Creatinine Ratio 4.8 L, G lucose 118 H, Calcium 9.1, Total Bilirubin 3.00 H, AST 61 H, ALT 352 H, Alkaline Phosphatase 205 H, Total Protein 7.2, Albumin 3.6, Globulin 3.6, Albumin/Globulin Ratio 1.0 D/C Instr (more content not included)...[facility]11-24-2024 [facility] Medical Records Department [address] [place] [address] History Physical Exam 03/15/24 0855 MR#: [id number] Acct: [id number] Name: NATY ROBERTS Rep #: [id number] : 2000 24 From: Pop Santiago MD PCP: Care Physician,No Primary Status:ADM KATHARINA Location: [place] [address] HPI - General General Date of Admission: 03/15/24 Chief Complaint: Itchiness and yellowing of the skin HPI Narrative NATY ROBERTS, is a 24 F, who presents to [facility] with complaints of persistent diffuse itchiness and new observation of yellowing of her skin. 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 During the course of the conversation she related that she had experienced some darkening of her urine and they had asked her about any itchiness. When she answered in the affirmative I suggested we work to resolve her constipation but also informed her to be on the look out for any signs of jaundice. When she noted this at approximately 230 this morning she decided to present for further evaluation. Patient's emergency room workup initially included CBC and CMP???the latter showing evidence of transaminitis and a cholestatic pattern with hyperbilirubinemia. Right upper quadrant ultrasound was obtained later this morning which showed dilation of the common bile duct but no discrete evidence of a obstructing stone. Patient is postoperative day 6 from a laparoscopic cholecystectomy with aborted cholangiogram reviewed by Dr. Enrique. She had 1 postoperative ER visit on 03/12/2024 where workup was conducted but she was advised her postoperative pain complaints at that time were most likely related to trapped gas. [facility] Medical History Depression Fatty liver Back pain Gastric reflux Vapes nicotine containing substance History of edema Obesity (BMI 30-39.9) Anxiety Home Medications ???Medication ???Instructions ???Recorded ???Last Taken ???Type medroxyprogesterone 150 mg/mL 150 mg IM [id number] #1 mL 02/18/24 Unknown Rx intramuscular suspension (Depo-Provera) ondansetron 4 mg disintegrating 4 mg PO TID PRN nausea and 03/12/24 Unknown Rx tablet vomiting #21 tabs oxycodone-acetaminophen 5 mg-325 1 tab PO Q6H PRN pain 3 days #12 03/12/24 Unknown Rx mg tablet (Percocet) tabs Allergy/AdvReac Type Severity Reaction Status Date / Time morphine Allergy Mild Rash Verified 03/15/24 02:45 Family History Father Diabetes Hypertension Surgical History Status post History of tonsillectomy Social History number of children: 2 current occupational status: employed current occupation: Works from home Smoking Status: Current every day smoker tobacco type: cigarettes Tobacco: How many years used: 6 alcohol intake: never substance use type: does not use seatbelt use: always do you feel safe at home: Yes additional social history: Dontrell- boyfriend Vital Signs Vital Signs Vital Signs: 03/15/24 02:45 03/15/24 04:45 03/15/24 06:00 Temperature 98.7 F Temperature Source Oral Pulse Rate 90 78 79 Respiratory Rate 18 19 H 18 Blood Pressure 130/81 H 133/84 H 124/90 H Blood Pressure Mean 97 100 101 Pulse Ox 97 98 Oxygen Delivery Method Room Air Room Air 03/15/24 08:00 Temperature Temperature Source Pulse Rate 69 Respiratory Rate 16 Blood Pressure 124/90 H Blood Pressure Mean 101 Pulse Ox 99 Oxygen Delivery Method Weight Weight: 230 lb 6.129 oz Body Mass Index (BMI) 39.5 Physical Exam Const alert, oriented x3 and well nourished Resp normal respiratory effort GI GI Narrative: Operative port sites are examined and Steri-Strips remain intact. There is no ny-incisional erythema or drainage. Patient's abdomen is soft, nondistended, and nontender to palpation Skin General Skin Exam: jaundice Results Lab / Micro Data 03/15/24 03:00 03/15/24 03:00 Labs: Laboratory Results - last 24 hr 03/15/24 03:00: WBC 6.3, RBC 4.95, Hgb 14.5, Hct 42.6, MCV 86.1, MCH 29.3, MCHC 34.0, RDW Std Deviation 39.1, RDW Coeff of Tenisha 12.5, Plt Count 251, MPV 9.5, Immature Gran % (Auto) 0.200, Neut % (Auto) 48.1, Lymph % (Auto) 38.7, Shasta % (Auto) 9.7, Eos % (Auto) 2.5, Baso % (Auto) 0.8, Absolute Neuts (auto) 3.0, Absolute Lymphs (auto) 2.44, Nucleated RBC % 0, Sodium 137, Potassium 3.5, Chloride 105, Carbon Dioxide 24.0, Anion Gap 7, BUN 5 L, Creatinine 0.87, Estim Creat Clear Calc 115.43, (more content not included)...[facility]11-18-2024 Note [facility] Medical Records Department [address] [place] [address] History Physical Exam 03/09/24 1043 MR#: [id number] Acct: [id number] Name: NATY ROBERTS Rep #: [id number] : 2000 24 From: Jyothi Enrique MD PCP: Care Physician,No Primary Status:[facility] Location: [place] [address] History and Physical Date of Admission: 03/09/24 Date of Service: 02/18/24 MR#: [id number] Acct: [id number] Name: NATY ROBERTS Rep #: [id number] : 2000 Provider: Dr. Jyothi Enrique MD Age/Sex: 24/F Location: [facility] Status: Signed Intake Vital Signs 02/11/2414:01 02/17/2409:26 Height 5 ft 3 in 5 ft 3 in Weight: 236 lb BMI 41.8 BP 120/80 Blood Pressure Location Rt brachial Position Sitting Respiration 17 Pulse 88 Pulse Source Monitor Pulse Oximetry (%) 97 Oxygen Delivery Method room air Intake Visit Reasons: GALLBLADDER Chief Complaint: gallbladder Is patient in pain?: Yes Allergies morphine Allergy (Mild, Verified 02/18/24 10:48) Rash Medications ???Medication ???Instructions ???Recorded ???Confirmed ???Type diazepam 5 mg tablet (Valium) 5 mg PO TID PRN muscle spasm 5 02/11/24 02/18/24 Rx days #15 tabs medroxyprogesterone 150 mg/mL 150 mg IM [id number] #1 mL 02/18/24 02/18/24 Rx intramuscular suspension (Depo-Provera) omeprazole 40 mg capsule,delayed 40 mg PO QDAY #30 caps 02/18/24 02/18/24 Rx release PFSH Medical History Obesity (BMI 30-39.9) Anxiety Surgical History Status post History of tonsillectomy Family History Father Diabetes Hypertension Social History number of children: 2 current occupational status: employed current occupation: Works from home Smoking Status: Current every day smoker tobacco type: e-cigarettes Tobacco: How many years used: 6 alcohol intake: never substance use type: does not use seatbelt use: always do you feel safe at home: Yes additional social history: Dontrell- boyfriend HPI HPI HPI: 24-year-old female presents due to gallstones and abdominal pain. Patient states that she did go to the ER on 02/12/2024 as she woke up at 2 AM and her pain was worse, but around her lower ribs. Po lr did have an ultrasound showed gallstones normal wall patient's labs were normal at this time as well including LFTs. Patient states she does get pain after eating greasy in the right upper quadrant. Also has some epigastric discomfort with acidic or tomato-based foods. Patient does have known ovarian cyst and is meeting with [employer] to discuss imaging later today. ROS General General: Yes weight change and fatigue; No appetite, colon cancer, breast cancer or weakness HEENT HEENT: No difficulty swallowing, eye injury, eye surgery, swollen glands or hoarseness Endo Endocrine: No thyroid disease, diabetes mellitus, thyroid cancer, Hair loss, heat intolerance or cold intolerance Skin Skin: No rash or changing moles Musc Musculoskeletal: Yes back problems; No arthritis, rheumatoid arthritis, gout or joint pain Cardio Cardiovascular: No murmur, pacemaker, heart disease, atrial fibrillation, high blood pressure, heart attack, heart stent, palpitations, shortness of breat with exertion or chest pain Psych Psychiatric: Yes depression and anxiety; No hearing voices Resp Respiratory: No shortness of breath, No sleep apnea, No cough, No COPD, No asthma, No emphysema and No wheezing Gastro Gastrointestinal: Yes abdominal pain, Yes nausea or vomiting, Yes diarrhea, No constipation, No blood in stool, Yes acid reflux, No hemorrhoids, No ulcers, Yes gallbladder problem and No black,tarry stools [place] Hematologic: No blood thinners, No blood disorders, No bleeding, Yes anemia and No blood clots Neuro Neurologic: No system reviewed and no additional complaints, except as documented, No as per HPI, No abnormal gait, No abnormal hearing, No abnormal movements, No abnormal speech, No behavioral c hanges, No burning sensations, No confusion, No convulsions, No disequilibrium, No dizziness, No localized weakness, No frequent falls, No headache(s), No lack of coordination, No loss of vision, No memory loss, No numbness, No other visual disturbances, No radicular pain, No restless legs, No sensory deficit, No syncope, No tingling, No tremor(s), No weakness and No other Exam Const General: cooperative, healthy appearing, comfortable and no acute distress [facility] Head: normoce (more content not included)...[facility]04-19-2024 NotePap Smear Specimen AdequacyApril 2023 5:05pmComment.Satisfactory for evaluation. Endocervical and/or squamous metaplasticcells (endocervical component)are present.[facility] A#[id number] Comment on above:Satisfactory for evaluation. Endocervical and/or squamous metaplasticcells (endocervical component)are present.07-23-2023 History of Present illness Narrative* Raudel Easley MD - 07/23/2023 7:47 AM EDT HISTORY AND PHYSICAL Naty Roberts 2000 REFERRING PHYSICIAN: Nida Julian APRN.* CHIEF COMPLAINT: Consult (Pilonidal cyst/) HPI: [...] me today at the request of Dr. Julian for my opinion and advice regarding Pilonidal [...] failure, other cardiac issues, denies claudication, denies coldfeet, denies peripheral arterial stent. Respiratory: The patient [...] back pain/injury, denies back problems, denies sciatica, deniesknee/foot trouble, denies arthritis, or denies gout. When was patient's last Mammogram screening? N/A Last Colonoscopy: NONE Corazon Henderson RN PHYSICAL EXAMINATION: General: The patient is 23 year old female, well nourished, well hydrated in no acute distress. Thepatient is oriented to time, place, and person. VITALS: Blood pressure 126/72, pulse (!) 125, temperature 36.4 C (97.6 F), height 162.6 cm (5' 4),weight 99.1 kg (218 lb 6.4 oz), last menstrual period 12/27/2014, SpO2 98%, currently . HEENT: Normal cephalic, ataumatic, pupils are equally round, sclera are anicteric, mucous membranesare moist, oropharynx is clear. Neck has no [...] determine whether or not we should be openingthis up. She will remain on her Augmentin. Diagnoses: (L05.91) Pilonidal cyst My findings have been communicated to Dr. Julian via shared medical record. This note will be forwarded to Dr. Chester primary care provider on file.. Return to Clinic: The patient is instructed to follow-up with me in 2 weeks. Raudel Easley III, MD documented in this encounterMarion Hospital03-25-2024 Nurse Note* Corazon Henderson RN - 07/15/2023 3:36 PM EDT REVIEW OF SYSTEMS: General: The patient denies [...] failure, other cardiac issues, denies claudication, denies coldfeet, denies peripheral arterial stent. Respiratory: The patient [...] back pain/injury, denies back problems, denies sciatica, deniesknee/foot trouble, denies arthritis, or denies gout. When was patient's last Mammogram screening? N/A Last Colonoscopy: NONE ALBINO Houstonally signed by Corazon Henderson RN at 07/15/2023 3:40 PM EDT documented in this encounterMarion Hospital03-25-2024 History of Present illness Narrative* Nida Julian APRN.LEADERSHIP RECRUITER - 07/15/2023 1:42 PM EDT Images from the original note were not included. Subjective She came in with complaints of pain in the coccyx area. Patient says is getting worse over the lastcouple days. Patient just had a baby several weeks ago. Patient says she does not have any fever chills nausea vomiting. Patient says this is never happened before. The history is provided by the patient. No foreign language professor was used. Review of Systems Constitutional: Negative. Skin: Negative. Objective Physical Exam Constitutional: Appearance: Normal appearance. Pulmonary: Effort: Pulmonary effort is normal. Skin: Comments: Patient is tender in the area marked above. Firm lump noted little larger than a quarter.Mild erythema as well believed to be a [...] this care plan. Nothing was done at [facility] care due to location of cyst. Nida Julian APRN.LEADERSHIP RECRUITER documented in this encounterMarion Hospital03-06-2024 Progress note Author Miladis Vega [facility] June 26, 2023 7:54am Note Date/Time June 26, 2023 7:54 am [facility] Medical Records Department [address] [place] [address] Progress Note - OBGYN 06/26/23 0753 MR#: [id number] Acct: [id number] Name: NATY ROBERTS Rep #:[id number] : 2000 From: Miladis Vega [employer] COUNTER INTELL[employer] DEPUTY OF COUNTER INTELLIGENCE-C PCP: Care Physician,No Primary Status :ADM IN Location: [place] [address] Subjective Subjective Patient doing well without complaints. Tolerating PO. Ambulating and voiding without difficulty. Feeding well. Denies chest pain, shortness of breath, calf pain/swelling, fevers, chills, lightheadedness. Objective Data Objective Data Vital Signs: Vital Signs Temp Pulse Resp BP Pulse Ox O2 Del Method 97.3 F L 89 16 131/85 H 97 Room Air 06/26/23 07:43 06/26/23 07:43 06/26/23 07:43 06/26/23 07:43 06/26/23 07:43 06/26/23 07:43 Oxygen Delivery Method Room Air Weight: 240 lb 0.4 oz Body Mass Index (BMI) 42.5 Intake & Output: Intake and Output for Last 24 Hours 06/24/23 06/25/23 06/26/23 23:59 23:59 23:59 Intake Total 1487.5 / 1487.5 1000 / 1000 Output Total 1700 / 1700 850 / 850 Balance -212.5 / -212.5 150 / 150 Lab / Micro Data 06/26/23 06:30 Labs: Laboratory Results - last 24 hr 06/25/23 12:35: WBC 15.0 H, RBC 4.64, Hgb 13.7, Hct 40.2, MCV 86.6, MCH 29.5, MCHC 34.1, RDW Std Deviation 41.2, RDW Coeff of Tenisha 13.2, Plt Count 202, MPV 11.0, Immature Gran % (Auto) 0.500, Neut % (Auto) 81.5 H, Lymph % (Auto) 11.1 L,Shasta % (Auto) 6.5, Eos % (Auto) 0.1, Baso % (Auto) 0.3, Absolute Neuts (auto) 12.3 H, Absolute Lymphs (auto) 1.67, Nucleated RBC % 0, Syphilis Total Ab Non-reactive, Blood Type A POSITIVE, Antibody Screen NEGATIVE 06/25/23 13:06: POC Glucose 73 L 06/25/23 17:01: POC Glucose 90 06/26/23 06:30: WBC 13.8 H, RBC 4.07 L, Hgb 11.9 L, Hct 35.7 L, MCV 87.7, MCH 29.2, MCHC 33.3, RDW Std Deviation 42.5, RDW Coeff of Tenisha 13.4, Plt Count 170, MPV 10.7 06/26/23 07:25: POC Glucose 78 Physical Exam Const alert and oriented x3 HEENT normocephalic Eyes PERRL Neck full ROM Resp normal respiratory effort GI soft to palpation GI Narrative: FF below U. Dressing dry and intact Palpation: tender other (appropriately) Assessment & Plan (1) delivery delivered: COMMENT: YOUSIF Vergara (2) History of gestational diabetes: COMMENT: 3rd preg and controlled w metformin PLAN: Plan s/p LTCS PPD # 1 1. routine post care 2. breast feeding- support given 3. rh positive 4. rubella immune 5. glucose stable 6. plans home today 06/26/23 [id number] <Electronically signed by Miladis Vega NP [employer]LL[employer]-C> Cosigner Signature (if applicable): CC: ~ Signed [facility] Work Phone: 1(147) 952-828603-05-2024 Discharge summary Author Karlene Hickey [facility] June 25, 2023 4:26pm Note Date/Time June 25, 2023 4:23 pm [facility] Medical Records Department [facility] [place] [address] Instructions for Home/Discharge Instructions 06/25/23 1622 MR#: [id number] Acct: [id number] Name: NATY ROBERTS Rep #:[id number] : 2000 23 From: Karlene stanton MD PCP: Leanna Physician,No Primary Status :ADM IN Discharge Instructions Diet Discharge Diet: No restrictions Activity Discharge Activity: May Not Drive (for 2 weeks or while taking narcotic pain medications.), May Shower and May Take a Tub Bath (in 7 days) May shower in (days): 0 May resume sexual activity in: 4-6 weeks Weight Bearing Status: Full weight bearing Lifting Restrictions: 20 pounds Dressing / Incision Call your doctor if your incision/area has: Continuous Slow Oozing, Sudden Increased Bleeding, Increased Pain/ Swelling, Increased Redness and Foul Smelling Discharge Call your doctor if you observe: Fever of 101 or Higher and Using more than 1 pad per hour (for 2 hours) Suture Line Care: Avoid Pulling/Pushing and Avoid Pinching/Bending Cleanse incision/area with: Soap & Water and Keep Dressing Clean & Dry Follow Up Care Please Follow Up With: Karlene Hickey MD When: Call [phone] to make an appointment for an incision check in 1-2 weeks. Test Results: Test results from this visit will be discussed in further detail at your follow- up appointment, if applicable. Discharge Plan Admission Admit Date/Time: 06/25/23 12:15 Attending Provider: Karlene Hickey Primary Care Provider: Leanna Physician,No Primary Discharge Orders/Prescriptions Prescriptions: New oxycodone-acetaminophen [Percocet] 5-325 mg tablet 1 tab PO Q6H PRN (Reason: pain) 7 Days Qty: 20 0RF naproxen [naproxen] 500 mg tablet 500 mg PO BID PRN PRN (Reason: Pain) Qty: 30 1RF No Action citalopram [Celexa] 20 mg tablet 20 mg PO DAILY Qty: 90 4RF ondansetron 4 mg tablet,disintegrating 4 mg PO Q8H PRN (Reason: nausea and vomiting) Qty: 30 0RF famotidine [Pepcid] 20 mg tablet 20 mg PO DAILY Qty: 30 3RF metformin 500 mg tablet 500 mg PO BID Qty: 60 0RF Complete DHA 29 mg iron- 1 mg-200 mg combo pack 1 pkg PO DAILY Qty: 60 12RF (DME) blood-glucose meter Misc See Rx Instructions .MEDSUPPLY Qty: 1 0RF Rx Instructions: As directed- Test fasting and 2 hours after meals (DME) lancets Misc See Rx Instructions .MEDSUPPLY Qty: 200 4RF Rx Instructions: As directed-fasting & 2 hr post meals (DME) Blood Glucose Test Strip See Rx Instructions .Route Qty: 120 4RF Rx Instructions: As directed-fasting & 2 hr post meals amoxicillin-pot clavulanate 875-125 mg tablet 1 tab PO BID Qty: 14 0RF Referrals / Follow Up: Care Physician,No Primary [Primary Care Provider] - 06/25/23 1626<Electronically signed by Karlene Hickey MD>Karlene Hickey MD CC: No Primary Care Physician ~ Signed [facility] Work Phone: 1(508) 734-903503-05-2024 History and physical note Author Karlene Hickey [facility] June 25, 2023 4:21pm Note Date/Time June 25, 2023 4:21 pm [facility] Medical Records Department [address] [place] [address] H&P Exam - SENIOR PARTNER 06/25/23 1620 MR#: [id number] Acct: [id number] Name: NATY ROBERTS Rep #:[id number] : 2000 23 From: Karlene stanton MD PCP: Care Physician,No Primary Status :ADM IN Location: GM142-2 HPI - General General Date of Admission: 06/25/23 HPI Narrative NATY ROBERTS, is a 23 F who presents for delivery due to dropping VIKA now 5 cm and decreased movement. she was seen by MFM today and scanned, then sent over for delivery. Maternal Data Information HELENE Calculator Estimated Delivery Date Method Current WG Current Estimate 07/04/23 LMP (Certain) 38w 5d PFSH PFS Medical History Anxiety Obesity (BMI 30-39.9) Home Medications citalopram 20 mg tablet (Celexa) 20 mg PO DAILY #90 tabs 08/15/22 [Rx Last Taken Unknown] ondansetron 4 mg disintegrating tablet 4 mg PO Q8H PRN nausea and vomiting #30 tabs 11/30/22 [Rx Last Taken Unknown] PNV-iron 29 mg-folic acid 1 ne-ppotq-0-dha 200 mg oral combo pack (Complete DHA) 1 pkg PO DAILY #60 ea 01/10/23 [Rx Last Taken Unknown] famotidine 20 mg tablet (Pepcid) 20 mg PO DAILY #30 tabs 01/24/23 [Rx Last Taken Unknown] blood sugar diagnostic (Blood Glucose Test strips) #120 ea 04/18/23 [Rx Last Taken Unknown] blood-glucose meter #1 ea 04/18/23 [Rx Last Taken Unknown] lancets #200 ea 04/18/23 [Rx Last Taken Unknown] metformin 500 mg tablet 500 mg PO BID #60 tabs 06/06/23 [Rx Last Taken Unknown] amoxicillin 875 mg-potassium clavulanate 125 mg tablet 1 tab PO BID #14 tabs 06/24/23 [Rx Last Taken Unknown] Allergy/AdvReac Type Severity Reaction Status Date / Time morphine Allergy Mild Rash Verified 06/13/23 11:51 Family History Father Diabetes Surgical History History of tonsillectomy Status post Social History number of children: 1 current occupational status: employed current occupation: Works from home Smoking Status: Former smoker Tobacco: How many years used: 6 alcohol intake: never substance use type: does not use seatbelt use: always do you feel safe at home: Yes additional social history: Dontrell- boyfriend History 2 Elective abortions Hx Para 2 Spontaneous abortions Hx # Term Pregnancies 2 Ectopic pregnancies Hx # Pregnancies Multiple births # of living children 2 Past Pregnancies Del. Date Name GA/Weeks Outcome Route Bth Weight Infant Gen Labor Lgth Anesthesia Del Locatn Provider FOB 05/16/14 Phong Urban 41 live - full term 8 lbs 8.3 oz . Male 20 hours epidural [facility] Dr. Rico Darling 08/31/19 Ethan 39 live - full term 8lb 4oz Male spinal [facility] Delivery Date: 08/31/19 Last Updated by: Claudia Borjas [facility] Visit Details Expected Delivery Route/Plan patient counseled regarding risks/benefits of trial of labor versus repeat . ACOG/uptodate education given to patient. [] % likelihood of success per calculator TOLAC consent form signed: [] Labor Preferences- CB/BF classes: no labor support person: Dontrell labor intervention preferences: [] pain management options preferred: epidural cut cord/dad catch: cord if vaginal delivery : yes PP control planned: discussed: og sin discussed possible routes of delivery and associated risks: [] special requests: [] Plans Covid status: discussed Flu vaccine: given 04/16/23 Tdap vaccine: [] Rhogam: NA LARC form signed: yes Problem list reviewed and updated with the most current plan of care details and appropriate orders placed. Relevant counseling for the gestational age provided. Continue routine care and follow up unless otherwise noted in visit notes/problem list details OB Flowsheet Initial Weight: 231 lb Date -?-?-?-?-?-?-?-?-?-?-?-?- EGA Weight BP Urine Prot -?-?-?-?-?-?-?-?-?-?-?-?- Glucose FHR FuHt Pres Dilation -?-?-?-?-?-?-?-?-?-?-?-?- Effaced St Visit Note 11/30/22 -?-?-?-?-?-?-?-?-?-?-?-?- 9w 1d 231 lb 6 oz (+6 oz) 122/70 -?-?-?-?-?-?-?-?-?-?-?-?- 168 -?-?-?-?-?-?-?-?-?-?-?-?- LC- CRL con with LMP. HELENE 07/04/2023. 1 hr early glucose. nipt. LC- CRL 26mm con with LMP. E DD 07/04/2023. 1 hr early glucose. nipt. 12/28/22 -?-?-?-?-?-?-?-?-?-?-?-?- 13w 1d 232 lb 8 oz (+1 lb 8 oz) 116/68 Negative -?-?-?-?-?-?-?-?-?-?-?-?- Negative 150 -?-?-?-?-?-?-?--?-?-?-?-?- SM- no vb crampi ng needs 3 hr gtt 01/02/23 -?-?-?-?-?-?-?-?-?-?-?-?- 13w 6d 235 lb (+4 lb) 132/78 Negative -?--?-?-?-?-?-?-?-?-?-?-?- Negative 162 -?-?-?-?-?-?-?-?-?-?-?-?- -work in for F HT. Had brown discharge yesterday. None today. Easily note FHT, active IUP with handheld US. MFM anatomy order sent 01/24/23 -?-?-?-?-?-?-?-?-?-?-?-?- 17w 0d 231 lb 6 oz (+6 oz) 116/78 -?-?-?-?-?-?-?-?-?-?-?-?- 152 -?-?-?-?-?-?-?-?-?-?-?-?- KW- no vb/lof/ct x. good fm. Anatomy scan needs scheduled. does not have phone at this time 02/18/23 -?-?-?-?-?-?-?-?-?-?-?-?- 20w 4d 236 lb 6 oz (+5 lb 6 oz) 110/75 Negative -?-?-?-?-?-?-?-?-?-?-?-?- Negative 143 -?-?-?-?-?-?-?-?-?-?-?-?- JV- no lof, vagi nal bleeding, or dec fm. planning rpt cs. rpt gct at 26-28 weeks 03/20/23 -?-?-?-?-?-?-?-?-?-?-?-?- 24w 6d 237 lb 2 oz (+6 lb 2 oz) 121/76 -?-?-?-?-?-?-?-?-?-?-?-?- 150 29 -?-?-?-?-?-?-?-?-?-?-?-?- JV- no lof, vagi nal bleeding, or dec fm. has rpt cs scheduled 06/28/23 04/16/23 -?-?-?-?-?-?-?-?-?-?-?-?- 28w 5d 240 lb (+9 lb) 120/74 Negative -?-?-?-?-?-?-?-?-?-?-?-?- Negative 132 30 -?-?-?-?-?-?-?-?-?-?-?--?- MH-NO VB, LOF. G ood FM. Planning wkly BPP w MFM at 34 wk, growth US Q4wk. flu. larc. 28 wk labs pending 04/30/23 -?-?-?-?-?-?-?-?-?-?-?-?- 30w 5d 240 lb 6 oz (+9 lb 6 oz) 112/74 Negative -?-?-?-?-?-?-?-?-?-?-?-?- Negative 140 31 -?-?-?-?-?-?-?-?-?-?-?-?- kw-no vb/lof/ctx . good fm. blood sugars remain stable. 05/22/23 -?-?-?-?-?-?-?-?-?-?-?-?- 33w 6d 238 lb 8 oz (+7 lb 8 oz) 112/73 Negative -?-?-?-?-?-?-?-?-?-?-?-?- Negative 144 38 -?-?-?-?-?-?-?-?-?-?-?-?- JV- no lof, vagi nal bleeding, or dec fm. pt is upset that is not on 06/27 (day before her bff's birthday) she states that she does not care who does it, but wants 05/29/23 -?-?-?-?-?-?-?-?-?-?-?-?- 34w 6d 240 lb 8 oz (+9 lb 8 oz) 112/78 Negative -?-?-?-?-?-?-?-?-?-?-?-?- Negative 130 35 -?-?-?-?-?-?-?-?-?-?-?-?- JV- glucose leve ls are only over parameters when she eats something that she knows she should not (this happened 7 times since 05/15 when looking at monitor) today we discussed avoiding those foods for a week and if not sustainable, will recommend metformin as some levels are as high as 150 2 hrs after meal. 06/06/23 -?-?-?-?-?-?-?-?-?-?-?-?- 36w 0d 242 lb 2 oz (+11 lb 2 oz) 111/78 Negative -?-?-?-?-?-?-?-?-?-?-?-?- Negative 120 -?-?-?-?-?-?-?-?-?-?-?-?- KW- NST only ulisses ctive. reports elevated BS even after adjusting meals and avoiding trigger foods. per JV note will start metformin. 06/19/23 -?-?-?-?-?-?-?-?-?-?-?-?- 37w 6d 243 lb 8 oz (+12 lb 8 oz) 119/81 Negative -?-?-?-?-?-?-?-?-?-?-?-?- Negative 130 37.5 -?-?-?-?-?-?-?-?-?-?-?-?- JV- no lof ,vagi nal bleeding, or dec fm. reactive NST. NST FHR Rate Baby A Baseline: 130 Variability:: Moderate Accelerations:: 15 x 15 Decelerations:: Prolonged NST Reactive:: Yes FHR Category:: Category II Uterine Activity:: irregular ROS Constitutional Constitutional: Reports systems reviewed and no addt'l complaints, except as documented Eyes Eyes: Denies change in vision ENT HEENT: Reports systems reviewed and no addt'l complaints, except as documented; Denies headache(s) Cardiovascular Cardiovascular: Reports systems reviewed and no addt'l complaints, except as documented; Denies chest pain or dyspnea Respiratory/Chest Respiratory/Chest: Reports systems reviewed and no addt'l complaints, except as documented Gastrointestinal Gastrointestinal: Reports systems reviewed and no addt'l complaints, except as documented; Denies abdominal pain Genitourinary Genitourinary: Reports systems reviewed and no addt'l complaints, except as documented, contractions Details: present (irregular) and movement Details: present; Denies dysuria or genital lesions Musculoskeletal Musculoskeletal: Reports systems reviewed and no addt'l complaints, except as documented Neurologic Neurologic: Reports systems reviewed and no addt'l complaints, except as documented Endocrine Endocrinology: Reports systems reviewed and no addt'l complaints, except as documented Vital Signs Vital Signs Vital Signs: 06/25/23 12:58 06/25/23 14:56 06/25/23 15:15 Temperature 97.6 F L 97.0 F L 97.1 F L Temperature Source Temporal Temporal Temporal Pulse Rate 90 82 75 Respiratory Rate 17 15 16 Respiratory Pattern Normal Blood Pressure 129/85 H 89/59 L 117/59 L Blood Pressure Mean 99 69 78 Blood Pressure Source Monitor Monitor Monitor Blood Pressure Position Semi-Fowlers Semi-Fowlers Semi-Fowlers Blood Pressure Location Right Arm Right Arm Right Arm Baseline BP 129/85 129/85 Pulse Ox 97 98 98 Oxygen Delivery Method Room Air Room Air Room Air 06/25/23 15:30 06/25/23 15:41 06/25/23 16:03 Temperature 97.0 F L 97.0 F L 97.0 F L Temperature Source Temporal Temporal Temporal Pulse Rate 82 79 80 Respiratory Rate 15 16 16 Respiratory Pattern Blood Pressure 114/74 125/77 H 124/76 H Blood Pressure Mean 87 93 92 Blood Pressure Source Monitor Monitor Blood Pressure Position Semi-Fowlers Semi-Fowlers Blood Pressure Location Right Arm Right Arm Baseline BP 129/85 129/85 129/85 Pulse Ox 97 97 Oxygen Delivery Method Room Air Room Air Room Air 06/25/23 16:11 Temperature 97.0 F L Temperature Source Temporal Pulse Rate 87 Respiratory Rate 16 Respiratory Pattern Blood Pressure 122/81 H Blood Pressure Mean 94 Blood Pressure Source Monitor Blood Pressure Position Semi-Fowlers Blood Pressure Location Right Arm Baseline BP 129/85 Pulse Ox 97 Oxygen Delivery Method Room Air Weight Weight: 240 lb 0.4 oz Body Mass Index (BMI) 42.5 Physical Exam Const alert, oriented x3, no apparent distress and healthy appearing HEENT normocephalic and moist oral mucous membranes Head and Scalp: atraumatic Neck full ROM, no lymphadenopathy, supple and thyroid normal General: trachea midline Lymph Lymphatic: no lymphadenopathy noted Chest inspection of chest normal Resp normal respiratory effort Cardio regular rate GI normal to inspection, nondistended, normoactive bowel sounds, soft to palpation and non-tender Inspection: gravid external exam normal Manual OB Exam: estimated gestational size appropriate, presentation cephalic, dilated, effaced and station Extremity normal to inspection General Extremity: Negative for edema Skin no rashes or lesions noted Neuro no focal motor deficits and deep tendon reflexes 2+ bilaterally Motor Exam: strength 5/5 throughout and clonus absent Psych mental status grossly normal Labs Labs Labs: Blood Type A POSITIVE Antibody Screen NEGATIVE Hct 40.2 % (37-47) Hgb 13.7 g/dL (12.0-15.0) Obstetrics Ultrasound Syphilis Total Ab Non-reactive Rubella IgG Antibody Reactive (Nonreactive) Hep Bs Antigen Non-Reactive (Nonreactive) Hepatitis C Antibody Non-Reactive (Nonreactive) Chlamydia DNA (ELSI) Negative (Negative) N.gonorrhoeae DNA (ELSI) Negative (Negative) HIV 1&2 Antibody Non-Reactive (Nonreactive) Glucose 1 Hr 50 gm 180 mg/dL (70-140) H Rhogam given: No Miscellaneous Test Assessment & Plan (1) Supervision of high-risk : QUALIFIERS: Trimester: second trimester Qualified Code(s): O09.92 - Supervision of high risk , unspecified, second trimester COMMENT: PRR HELENE 07/04/2023. Jai PC: Ethan Darling. BF: DONTRELL (different FOB than previous children) (2) : QUALIFIERS: Weeks of gestation: 37 weeks Qualified Code(s): Z3A.37 - 37 weeks gestation of COMMENT: MFM recommend echo NIPT low risk, RC/S scheduled for 3-24 (3) Anxiety: COMMENT: not taking celexa. Stable (4) Obesity (BMI 30-39.9): COMMENT: Per MFM needs growth US Q4wk weekly NST at 34 wk early glucose, Failed 1 hr gtt, 01/03 3 hr: refused. HA1C ordered- normal. repeat at 28 weeks 04/09 74% (5) GBS (group B streptococcus) UTI complicating : QUALIFIERS: Trimester: first trimester Qualified Code(s): O23.41 - Unspecified infection of urinary tract in , first trimester; B95.1 - Streptococcus, group B, as the cause of diseases classified elsewhere COMMENT: low colony count-treat in labor (6) Contraceptive management: QUALIFIERS: Contraceptive encounter type: other general counseling and advice Qualified Code(s): Z30.09 - Encounter for other general counseling and advice on contraception COMMENT: wants danika IUD No PA required (7) Gestational diabetes: COMMENT: metformin (8) Placental abnormality: COMMENT: placental lakes (9) Decreased movements in third trimester: COMMENT: decreased VIKA proceed with delivery PLAN: Plan TCS 06/25/23 1621 <Electronically signed by Karlene Hickey MD> Cosigner Signature (if applicable): CC: Dr. Karlene Hickey MD; No Primary Care Physician~ Signed [facility] Work Phone: 1(415) [phone] Procedure [facility] 03-01-2023 NotePediatric Cardiology Echocardiogram Visit: Consultation REASON FOR CONSULTATION: Naty Roberts is a 23 y.o. old female being seen today in our Cardiology Clinic at the request of Tonya Guaman for our opinion or medical advice regarding echocardiogram due to difficulty visualizing the heart. HPI: Naty Roberts is a 23 y.o. year old female who is referred for echocardiogram today due to difficulty visualizing the heart well on obstetrical ultrasound due to maternal obesity. The patient's chart and all pertinent notes, labs, and studies were reviewed today as part of this visit. Naty Roberts attended today's visit by herself. The [...] performed in visit on 03/01/23 Echo [facility] [place] [address] [email or web address] Echocardiogram Report M-mode, complete 2D, complete spectral Doppler, and color Doppler PATIENT: Naty Roberts STUDY Mar 01 2023 8:33AM [place] DATE/TIME: HEIGHT: : 2000 WEIGHT: AGE: 23year(s) BSA/BMI: / GENDER: F BP: 117 / 69 LOCATION: [facility] REFERRING PHYSICIAN: Rebecca Guaman Candice F ORDERING PROVIDER: Tonya Guaman READING PHYSICIAN: Eliz Briggs MD BEATER DUMPER: Di Stubbs RDCS SUMMARY: No significant congenital [...] The patient is . Procedure Description: New ([id number]) . Study status: Routine. Location: lab. Procedure: Transabdominal echocardiogram was performed for congenital heart disease evaluation. The study was technically challenging due to maternal body habitus. Patient status: Outpatient. Blood pressure: 117/69 FINDINGS: DESCRIPTION One fetus is present. Normal three vessel view, main pulmo (more content not included)...[facility] 08-15-2022 NotePap Smear Specimen AdequacyApril 2022 4:44pmComment. Satisfactory for evaluation. Endocervical and/or squamous metaplasticcells (endocervical component)are present.[facility] INTER[facility]ACED A#[id number] Medical Specialty Hospital - CincinnatiComment on above:Satisfactory for evaluation. Endocervical and/or squamous metaplasticcells (endocervical component)are present.Evaluation note* Diagnosis Onset Date Resolution Status Anxiety acute Routine gynecological examination noneactive Encounter for IUD removal no neactive [facility] Work Phone: Evaluation note* Diagnosis Onset Date Resolution Status Anxiety acute Routine gynecological examination noneactive Encounter for IUD removal no neactive Anxiety acute History of acute Nausea and vomiting during acute Obesity (BMI 30-39.9) acute Supervision of high-risk acute [id number] resolved History of depression resolved resolved [facility] Work Phone: Evaluation note* Diagnosis Onset Date Resolution Status Anxiety acute History of acute Obesity (BMI 30-39.9) acute Supervision of high-risk acute [id number] resolved History of depression resolved Nausea and vomiting during resolved resolved Anxiety acute GBS (group B streptococcus) UTI complicating acute History of acute Obesity (BMI 30-39.9) acute acute Supervision of high-risk acute [facility] Work Phone: Evaluation note* Diagnosis Onset Date Resolution Status Anxiety acute GBS (group B streptococcus) UTI complicating acute History of acute Obesity (BMI 30-39.9) acute acute Supervision of high-risk acute Anxiety acute GBS (group B streptococcus) UTI complicating acute History of acute Obesity (BMI 30-39.9) acute acute Supervision of high-risk acute Anxiety acute GBS (group B streptococcus) UTI complicating acute History of acute Obesity (BMI 30-39.9) acute acute Supervision of high-risk acute Anxiety acute GBS (group B streptococcus) UTI complicating acute History of acute Obesity (BMI 30-39.9) acute acute Supervision of high-risk acute Low lying placenta, antepartum resolved Anxiety acute GBS (group B streptococcus) UTI complicating acute History of acute Obesity (BMI 30-39.9) acute acute Supervision of high-risk acute Low lying placenta, antepartum resolved Anxiety acute Contraceptive management acu te GBS (group B streptococcus) UTI complicating acute History of acute Obesity (BMI 30-39.9) acute acute Supervision of high-risk acute [facility] Work Phone: Evaluation note* Diagnosis Onset Date Resolution Status Anxiety acute GBS (group B streptococcus) UTI complicating acute History of acute Obesity (BMI 30-39.9) acute acute Supervision of high-risk acute Anxiety acute GBS (group B streptococcus) UTI complicating acute History of acute Obesity (BMI 30-39.9) acute acute Supervision of high-risk acute Low lying placenta, antepartum resolved Anxiety acute GBS (group B streptococcus) UTI complicating acute History of acute Obesity (BMI 30-39.9) acute acute Supervision of high-risk acute Low lying placenta, antepartum resolved Anxiety acute Contraceptive management acu te GBS (group B streptococcus) UTI complicating acute History of acute Obesity (BMI 30-39.9) acute acute Supervision of high-risk acute Anxiety acute Contraceptive management acu te GBS (group B streptococcus) UTI complicating acute Gestational diabetes acute History of acute Obesity (BMI 30-39.9) acute Placental abnormality acute acute Supervision of high-risk acute Anxiety acute Contraceptive management acu te GBS (group B streptococcus) UTI complicating acute Gestational diabetes acute History of acute Obesity (BMI 30-39.9) acute Placental abnormality acute acute Supervision of high-risk acute [facility] Work Phone: Evaluation note* Diagnosis Onset Date Resolution Status Anxiety resolved GBS (group B streptococcus) UTI complicating resolved History of resolve d Low lying placenta, antepartum resolved Obesity (BMI 30-39.9) resolv ed resolved Supervision of high-risk resolved Anxiety resolved Contraceptive management res olved GBS (group B streptococcus) UTI complicating resolved History of resolve d Obesity (BMI 30-39.9) resolv ed resolved Supervision of high-risk resolved Anxiety resolved Contraceptive management res olved GBS (group B streptococcus) UTI complicating resolved Gestational diabetes resolve d History of resolve d Obesity (BMI 30-39.9) resolv ed Placental abnormality resolv ed resolved Supervision of high-risk resolved Anxiety resolved Contraceptive management res olved GBS (group B streptococcus) UTI complicating resolved Gestational diabetes resolve d History of resolve d Obesity (BMI 30-39.9) resolv ed Placental abnormality resolv ed resolved Supervision of high-risk resolved Anxiety resolved Contraceptive management res olved GBS (group B streptococcus) UTI complicating resolved Gestational diabetes resolve d History of resolve d Obesity (BMI 30-39.9) resolv ed Placental abnormality resolv ed resolved Supervision of high-risk resolved Anxiety resolved Contraceptive management res olved GBS (group B streptococcus) UTI complicating resolved Gestational diabetes resolve d History of resolve d Obesity (BMI 30-39.9) resolv ed Placental abnormality resolv ed resolved Supervision of high-risk resolved Anxiety resolved Contraceptive management res olved GBS (group B streptococcus) UTI complicating resolved Gestational diabetes resolve d History of resolve d Obesity (BMI 30-39.9) resolv ed Placental abnormality resolv ed resolved Supervision of high-risk resolved Anxiety resolved Contraceptive management res olved GBS (group B streptococcus) UTI complicating resolved Gestational diabetes resolve d History of resolve d Obesity (BMI 30-39.9) resolv ed Placental abnormality resolv ed resolved Supervision of high-risk resolved delivery delivered acute History of gestational diabetes acute Anxiety resolved Contraceptive management res olved Decreased movements in third trimester resolved GBS (group B streptococcus) UTI complicating resolved Gestational diabetes resolve d Obesity (BMI 30-39.9) resolv ed Placental abnormality resolv ed resolved Supervision of high-risk resolved [facility] Work Phone: Evaluation note* Diagnosis Pilonidal cyst- Primary Pilonidal cyst without mention of abscess [facility] Pilonidal cyst Pilonidal cyst without mention of abscess [facility] Diagnosis Onset Date Resolution Status Contraceptive management acu te Anxiety resolved GBS (group B streptococcus) UTI complicating resolved Gestational diabetes resolve d History of resolve d Obesity (BMI 30-39.9) resolv ed Placental abnormality resolv ed resolved Supervision of high-risk resolved Contraceptive management acu te Anxiety resolved GBS (group B streptococcus) UTI complicating resolved Gestational diabetes resolve d History of resolve d Obesity (BMI 30-39.9) resolv ed Placental abnormality resolv ed resolved Supervision of high-risk resolved Contraceptive management acu te Anxiety resolved GBS (group B streptococcus) UTI complicating resolved Gestational diabetes resolve d History of resolve d Obesity (BMI 30-39.9) resolv ed Placental abnormality resolv ed resolved Supervision of high-risk resolved Contraceptive management acu te Anxiety resolved GBS (group B streptococcus) UTI complicating resolved Gestational diabetes resolve d History of resolve d Obesity (BMI 30-39.9) resolv ed Placental abnormality resolv ed resolved Supervision of high-risk resolved Contraceptive management acu te Anxiety resolved GBS (group B streptococcus) UTI complicating resolved Gestational diabetes resolve d History of resolve d Obesity (BMI 30-39.9) resolv ed Placental abnormality resolv ed resolved Supervision of high-risk resolved Contraceptive management acu te Anxiety resolved GBS (group B streptococcus) UTI complicating resolved Gestational diabetes resolve d History of resolve d Obesity (BMI 30-39.9) resolv ed Placental abnormality resolv ed resolved Supervision of high-risk resolved delivery delivered acute Contraceptive management acu te History of gestational diabetes acute Anxiety resolved Decreased movements in third trimester resolved GBS (group B streptococcus) UTI complicating resolved Gestational diabetes resolve d Obesity (BMI 30-39.9) resolv ed Placental abnormality resolv ed resolved Supervision of high-risk resolved delivery delivered acute Impaired wound healing acute Contraceptive management acu te Routine Follow-Up noneactive [facility] Work Phone: Evaluation note* Diagnosis Supervision of normal first teen in second trimester- Primary High risk due to smoking in second trimester Drug use complicating Mental disorders of mother, complicating , childbirth, or the puerperium, unspecified as to episode of care Late care complicating in second trimester Otitis media with effusion, right- Primary [facility] Diagnosis Supervision of normal first teen in second trimester (HCC)- Primary High risk due to smoking in second trimester (HCC) Drug use complicating (HCC) Mental disorders of mother, complicating , childbirth, or the puerperium, unspecified as to episode of care Late care complicating in second trimester (HCC) Annual physical exam- Primary Routine general medical examination at a health care facility Encounter for screening examination for other mental health and behavioral disorders Screening for depression NELL (generalized anxiety disorder) Generalized anxiety disorder Depression, unspecified depression type Chronic left-sided low back pain with left-sided sciatica [facility] Author Nicolette Guadalupe [facility] Note Date/Time October 08, 2024 11:5 [facility] [address], [address] [place] [address] OFFICE VISIT Date of Service: 10/08/24 MR#: [id number] Acct: [id number] Name: AGUSTÍNNATY ORTIZ Rep #: [id number] : 2000 Provider: FÉLIX Guadalupe Age/Sex: 24/F Location: [facility] Status: Signed Intake Vital Signs 08/20/24 11:43 10/08/24 11:20 10/08/24 11:27 Height 5 ft 4 in 5 ft 4 in 5 ft 4 in Weight: 215 lb 6 oz 212 lb 6 oz BMI 36.9 36.4 BP 125/79 H 108/74 Intake Visit Reasons: 6wk string check Chief Complaint: 6 Week String check 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 Layer 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 Tender Required: No Is patient in pain?: No Allergies morphine Allergy (Mild, Verified 10/08/24 11:19) Rash Medications ?Medication ?Instructions ?Recorded ?Confirmed ?Type levonorgestrel 14 mcg/24 hr (up to 1 device intrauteri ne ONCE 10/08/24 10/08/24 History 3 yrs) 13.5 mg intrauterine device (Danika) Is last menstrual period known: No Post menopausal: No Patient : No : No Control Method: Danika [facility] Medical History History of biliary stent insertion Depression Fatty liver Back pain Gastric reflux Vapes nicotine containing substance History of edema Obesity (BMI 30-39.9) Anxiety Surgical History Hx laparoscopic cholecystectomy History of ERCP Status post History of tonsillectomy Family History Father Diabetes Hypertension Social History number of children: 2 current occupational status: employed current occupation: Works from home Smoking Status: Current every day smoker tobacco type: cigarettes Tobacco: How many years used: 6 alcohol intake: never substance use type: does not use seatbelt use: always do you feel safe at home: Yes additional social history: Dontrell- boyfriend HPI 6wk string check Details: NATY ROBERTS is a 24 year old who presents for IUD string check. not having any pain but having daily bleeding-occasional clots with bowel movements. Was onthe depo previously. is feeling fatigued with the daily bleeding. History 3 Elective abortions Hx Para 3 Spontaneous abortions Hx # Term Pregnancies 3 Ectopic pregnancies Hx # Pregnancies Multiple births # of living children 3 Past Pregnancies Del. Date Name GA/Weeks Outcome Route Bth Weight Infant Gen Labor Lgth Anesthesia Del Locatn Provider FOB 05/16/14 Phong Urban 41 live - full term 8 lbs 8.3 oz . Male 20 hours epidural [facility] Dr. Rico Darling 08/31/19 Ethan 39 live - full term 8lb 4oz Male spinal [facility] BOYD 06/25/23 Jai 38 live - full term Male [facility] BOYD [place] Delivery Date: 08/31/19 Last Updated by: Claudia [facility] ROS Const Constitutional: Reports system reviewed and no additional complaints, except as documented Cardio Card: Reports system reviewed and no additional complaints, except as documented Resp Resp: Reports system reviewed and no additional complaints, except as documented GI GI: Reports system reviewed and no additional complaints, except as documented : Reports system reviewed and no additional complaints, except as documented; Denies difficulty voiding, dysuria or urinary frequency Skin Skin/Breast: Reports system reviewed and no additional complaints, except as documented Neuro Neuro: Reports system reviewed and no additional complaints, except as documented Psych Psych: Reports system reviewed and no additional complaints, except as documented; Denies anhedonia, anxiety or depression Exam Const General: cooperative, healthy appearing, comfortable and no acute distress Orientation: alert, awake and oriented x3 Resp Effort & Inspection: normal respiratory effort, able to speak in complete sentences and symmetric chest movement GI Inspection: normal to inspection Palpation: soft Rectal Exam: visual inspection normal External Female Exam: normal external appearance and normal appearance of the urethra Urethra: normal appearance of the urethra Speculum Exam - Vagina: normal appearance of the vagina and normal vaginal discharge Speculum Exam - Cervix: normal appearance of the cervix (strings noted) and nontender Bimanual Exam- Vagina & Uterus: normal bimanual exam, normal palpation and No tender Bimanual Exam- Adnexa, other: normal Pelvic Support: normal Skin General: no rashes or lesions noted Neuro General: patient alert, patient awake and patient oriented x3 Cognition: normal cognition Speech: speech normal Gait: normal gait Extrem General: normal to inspection and full ROM Psych Appearance: grossly normal and well kempt Mental Status: mental status grossly normal Affect: normal affect Speech and Movement: speech and movement normal Attitude: cooperative Thought Process: normal Thought Content: normal Judgment: judgment good Coding Level of Care Code Off vis,est,level 3 Diagnoses Abnormal uterine bleeding N93.9 Assessment and Plan Assessment and Plan (1) Abnormal uterine bleeding: Status: Acute Plan: TSH CBC TVUS for IUD placement Orders: Orders Thyroid Stim Hormone (TSH) Today N93.9 - Abnormal uterine and vaginal bleeding,unspecified CBC W/Diff, Automated Today N93.9 - Abnormal uterine and vaginal bleeding, unspecified Transvaginal Non- Today N93.9 - Abnormal uterine and vaginal bleeding, unspecified 10/08/24 0196 <Electronically signed by Nicolette cuevas CNM> Date _ Nicolette Guadalupe CNM Cosigner Signature: Date (if applicable) CC: ~ [facility] Work Phone: Reason for referral (narrative)No reason for referral information availableTor[facility] Work Phone: Summary Purpose Family History No Family History Records Found Relationship Condition Age at Onset Recorded Date/T robert father Diabetes mellitus Unknown Relationship Condition Age at Onset Recorded Date/T robert father Diabetes mellitus Unknown Hypertension Unknown Advance Directives No Advanced Directives Records Found Advance Directive Response Recorded Date/ Time Living Will No August 31, 2019 1 0:32am Power of Pipeline Inspector No August 31, 2019 10:32am Advance Directive Response Recorded Date/ Time Living Will No August 31, 2019 9 :32am Power of Pipeline Inspector No August 31, 2019 9:32am Advance Directive Response Recorded Date/ Time Living Will No June 25, 2023 12:43pm Power of Pipeline Inspector No June 24 12:43pm Advance Directive Response Recorded Date/ Time Living Will No June 25, 2023 1:43pm Power of Pipeline Inspector No June 24 1:43pm Chief Complaint and Reason for Visit Chief Complaint 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) , 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 ENCOUNTER FOR SCREENING FOR MALIGNANT NEOPLASM OF Reason for Visit Anxiety Routine gynecological examination Encounter for IUD removal Chief Complaint 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) , 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 ENCOUNTER FOR SCREENING FOR MALIGNANT NEOPLASM OF NOB LMP: 10/03 Reason for Visit Anxiety Routine gynecological examination Encounter for IUD removal Anxiety History of Nausea and vomiting during Obesity (BMI 30-39.9) Supervision of high-risk [id number] History of depression Chief Complaint NOB LMP: 10/03 13 WK OB Reason for Visit Anxiety History of Obesity (BMI 30-39.9) Supervision of high-risk [id number] History of depression Nausea and vomiting during Anxiety GBS (group B streptococcus) UTI complicating History of Obesity (BMI 30-39.9) Supervision of high-risk Chief Complaint 13 WK OB heart tones check 17 WK OB 20 WK OB 24 WK OB 28 WK OB/GLUCOSE Reason for Visit Anxiety GBS (group B streptococcus) UTI complicating History of Obesity (BMI 30-39.9) Supervision of high-risk Anxiety GBS (group B streptococcus) UTI complicating History of Obesity (BMI 30-39.9) Supervision of high-risk Anxiety GBS (group B streptococcus) UTI complicating History of Obesity (BMI 30-39.9) Supervision of high-risk Anxiety GBS (group B streptococcus) UTI complicating History of Obesity (BMI 30-39.9) Supervision of high-risk Low lying placenta, antepartum Anxiety GBS (group B streptococcus) UTI complicating History of Obesity (BMI 30-39.9) Supervision of high-risk Low lying placenta, antepartum Anxiety Contraceptive management GBS (group B streptococcus) UTI complicating History of Obesity (BMI 30-39.9) Supervision of high-risk Chief Complaint 17 WK OB 20 WK OB 24 WK OB 28 WK OB/GLUCOSE 30 WK OB GESTATIONAL DIABETES 33 WK OB Reason for Visit Anxiety GBS (group B streptococcus) UTI complicating History of Obesity (BMI 30-39.9) Supervision of high-risk Anxiety GBS (group B streptococcus) UTI complicating History of Obesity (BMI 30-39.9) Supervision of high-risk Low lying placenta, antepartum Anxiety GBS (group B streptococcus) UTI complicating History of Obesity (BMI 30-39.9) Supervision of high-risk Low lying placenta, antepartum Anxiety Contraceptive management GBS (group B streptococcus) UTI complicating History of Obesity (BMI 30-39.9) Supervision of high-risk Anxiety Contraceptive management GBS (group B streptococcus) UTI complicating Gestational diabetes History of Obesity (BMI 30-39.9) Placental abnormality Supervision of high-risk Anxiety Contraceptive management GBS (group B streptococcus) UTI complicating Gestational diabetes History of Obesity (BMI 30-39.9) Placental abnormality Supervision of high-risk Chief Complaint 24 WK OB 28 WK OB/GLUCOSE 30 WK OB GESTATIONAL DIABETES 33 WK OB 34 WK OB/NST 35 WK NST ONLY 36 WK OB/NST 37 WK OB/NST REPEAT REPEAT REPEAT Reason for Visit Anxiety GBS (group B streptococcus) UTI complicating History of Low lying placenta, antepartum Obesity (BMI 30-39.9) Supervision of high-risk Anxiety Contraceptive management GBS (group B streptococcus) UTI complicating History of Obesity (BMI 30-39.9) Supervision of high-risk Anxiety Contraceptive management GBS (group B streptococcus) UTI complicating Gestational diabetes History of Obesity (BMI 30-39.9) Placental abnormality Supervision of high-risk Anxiety Contraceptive management GBS (group B streptococcus) UTI complicating Gestational diabetes History of Obesity (BMI 30-39.9) Placental abnormality Supervision of high-risk Anxiety Contraceptive management GBS (group B streptococcus) UTI complicating Gestational diabetes History of Obesity (BMI 30-39.9) Placental abnormality Supervision of high-risk Anxiety Contraceptive management GBS (group B streptococcus) UTI complicating Gestational diabetes History of Obesity (BMI 30-39.9) Placental abnormality Supervision of high-risk Anxiety Contraceptive management GBS (group B streptococcus) UTI complicating Gestational diabetes History of Obesity (BMI 30-39.9) Placental abnormality Supervision of high-risk Anxiety Contraceptive management GBS (group B streptococcus) UTI complicating Gestational diabetes History of Obesity (BMI 30-39.9) Placental abnormality Supervision of high-risk delivery delivered History of gestational diabetes Anxiety Contraceptive management Decreased movements in third trimester GBS (group B streptococcus) UTI complicating Gestational diabetes Obesity (BMI 30-39.9) Placental abnormality Supervision of high-risk Chief Complaint 30 WK OB GESTATIONAL DIABETES 33 WK OB 34 WK OB/NST 35 WK NST ONLY 36 WK OB/NST 37 WK OB/NST REPEAT REPEAT REPEAT 2 WK INCISION CHECK visit (obstetrics) Reason for Visit Contraceptive manage ment Anxiety GBS (group B streptococcus) UTI complicating Gestational diabetes History of Obesity (BMI 30-39.9) Placental abnormality Supervision of high-risk Contraceptive management Anxiety GBS (group B streptococcus) UTI complicating Gestational diabetes History of Obesity (BMI 30-39.9) Placental abnormality Supervision of high-risk Contraceptive management Anxiety GBS (group B streptococcus) UTI complicating Gestational diabetes History of Obesity (BMI 30-39.9) Placental abnormality Supervision of high-risk Contraceptive management Anxiety GBS (group B streptococcus) UTI complicating Gestational diabetes History of Obesity (BMI 30-39.9) Placental abnormality Supervision of high-risk Contraceptive management Anxiety GBS (group B streptococcus) UTI complicating Gestational diabetes History of Obesity (BMI 30-39.9) Placental abnormality Supervision of high-risk Contraceptive management Anxiety GBS (group B streptococcus) UTI complicating Gestational diabetes History of Obesity (BMI 30-39.9) Placental abnormality Supervision of high-risk delivery delivered Contraceptive management History of gestational diabetes Anxiety Decreased movements in third trimester GBS (group B streptococcus) UTI complicating Gestational diabetes Obesity (BMI 30-39.9) Placental abnormality Supervision of high-risk delivery delivered Impaired wound healing Contraceptive management Routine Follow-Up Chief Complaint Admit Date 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 August 13, 2024 1:4 5pm Danika Insertion August 20, 2024 11:42a m 6wk string check October 08, 2024 11:1 8am INT LAB ORDERS October 08, 2024 12:0 5pm Reason for Visit Admit Date Encounter for well woman exam with aiden pedro gynecological exam August 13, 2024 1:45pm Contraceptive management August 20, 2024 1 1:42am Abnormal uterine bleeding October 08 11:18am Chief Complaint Admit Date 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 August 13, 2024 1:4 5pm Danika Insertion August 20, 2024 11:42a m 6wk string check October 08, 2024 11:1 8am INT LAB ORDERS October 08, 2024 12:0 5pm IUD PLACEMENT October 12, 2024 9:47 am Reason for Referral Specialty Diagnoses / Procedures Referred By Contac t Referred To Contact General Surgery Diagnoses Pilonidal cyst Procedures CONSULT TO GENERAL SURGERY OFFICE/OUTPATIENT [facility] 60 MINUTES Nida Julian, GABE.LEADERSHIP RECRUITER [address] [place] [address] Referral ID Status Reason Start Date Expiration Date V isits Requested Visits Authorized [id number] Closed PCP Requested Referral 07/15/2023 07/14/2024 1 1 Additional Source Comments INFORMATION SOURCE (unrecogn ized section and content) DATE CREATED AUTHOR 02/03/2019 [facility] ([place]) DATE CREATED AUTHOR AUTHOR'S ORGANIZ ATION 01/19/2022 [facility] DATE CREATED AUTHOR AUTHOR'S ORGANIZ ATION 09/05/2022 [facility] DATE CREATED AUTHOR AUTHOR'S ORGANIZ ATION 05/28/2023 [facility] DATE CREATED AUTHOR AUTHOR'S ORGANIZ ATION 10/17/2024 [facility] DATE CREATED AUTHOR AUTHOR'S ORGANIZ ATION 01/01/2025 [facility] Reason for Visit (unrecogniz ed section and content) Reason Comments Abdominal Pain Reason Comments Pain Pt reported recent d elivery x3 wks, c/o pain rated 4, tailbone with swelling. Reason Comments Consult Pilonidal cyst Specialty Diagnoses / Procedures Referred By Contac t Referred To Contact General Surgery Diagnoses Pilonidal cyst Procedures CONSULT TO GENERAL SURGERY OFFICE/OUTPATIENT [facility] 60 MINUTES Nida Julian APRN.LEADERSHIP RECRUITER [address] [place] [address] Referral ID Status Reason Start Date Expiration Date V isits Requested Visits Authorized [id number] Closed PCP Requested Referral 07/15/2023 07/14/2024 1 1 Reason Comments Right ear pain X5 days Reason Comments Establish Care Care Teams (unrecognized sec tion and content) Team Status: Active Member Role Status Dates No Primary Care Physician Family Provider Active No Primary Care Physician Primary Care Provider Active Team Status: Inactive Member Role Status Dates No Primary Care Physician Primary Care Provider, Refer ring Provider Active Miladis Vega DEPUTY OF COUNTER INTELLIGENCE, DEPUTY OF COUNTER INTELLIGENCE-C Attending Provider Active Team Status: Inactive Member Role Status Dates No Primary Care Physician Primary Care Provider Active Miladis Vega DEPUTY OF COUNTER INTELLIGENCE, DEPUTY OF COUNTER INTELLIGENCE-C Attending Provider, Referring Provider Active Team Status: Inactive Member Role Status Dates No Primary Care Physician Primary Care Provider, Refer ring Provider Active Caro Zarco CNM Attending Provider Active Team Status: Inactive Member Role Status Dates No Primary Care Physician Primary Care Provider Active Caro Zarco CNM Attending Provider, Referring Pr ovider Active Team Status: Inactive Member Role Status Dates No Primary Care Physician Primary Care Provider, Refer ring Provider Active Dr. Karlene Hickey MD Attending Provider Active Team Status: Inactive Member Role Status Dates No Primary Care Physician Primary Care Provider, Refer ring Provider Active Nicolette Guadalupe CNM Attending Provider Active Team Status: Inactive Member Role Status Dates No Primary Care Physician Primary Care Provider, Refer ring Provider Active Dr. Makeda Kerr DO Attending Provider Activ e Team Status: Inactive Member Role Status Dates No Primary Care Physician Primary Care Provider Active Dr. Makeda Kerr DO Attending Provider, Refe rring Provider Active Team Status: Inactive Member Role Status Dates No Primary Care Physician Primary Care Provider Active Nicolette Guadalupe CNM Attending Provider, Referring Pro vider Active Team Status: Active Member Role Status Dates No Primary Care Physician Primary Care Provider Active Dr. Karlene Hickey MD Admit Provid er, Attending Provider, Other Provider Active Team Status: Active Member Role Status Dates No Primary Care Physician Primary Care Provider Active Dr. Karlene Hickey MD Admit Provider, Other Prov ider Active Miladis Vega DEPUTY OF COUNTER INTELLIGENCE, DEPUTY OF COUNTER INTELLIGENCE-C Attending Provider Active Team Status: Inactive Member Role Status Dates No Primary Care Physician Primary Care Provider Active Dr. Karlene Hickey MD Admit Provider, Attending Provider Active Team Status: Inactive Member Role Status Dates No Primary Care Physician Primary Care Provider Active Dr. Karlene Hickey MD Attending Provider, Referr ing Provider Active Team Status: Active Member Role Status Dates No Primary Care Physician Primary Care Provider Active Team Status: Inactive Member Role Status Dates No Primary Care Physician Primary Care Provider Active Start: August 13, 2024 End: August 13, 2024 No Primary Care Physician Referring Provider Active Start: August 13, 2024 End: August 13, 2024 Nicolette Guadalupe CNM Attending Provider Active S tart: August 13, 2024 End: August 13, 2024 Team Status: Inactive Member Role Status Dates No Primary Care Physician Primary Care Provider Active Start: August 20, 2024 End: August 20, 2024 No Primary Care Physician Referring Provider Active Start: August 20, 2024 End: August 20, 2024 Nicolette Guadalupe CNM Attending Provider Active S tart: August 20, 2024 End: August 20, 2024 Team Status: Inactive Member Role Status Dates No Primary Care Physician Primary Care Provider Active Start: October 08, 2024 End: October 08, 2024 No Primary Care Physician Referring Provider Active Start: October 08, 2024 End: October 08, 2024 Nicolette Guadalupe CNM Attending Provider Active S tart: October 08, 2024 End: October 08, 2024 Team Status: Active Member Role Status Dates No Primary Care Physician Primary Care Provider Active Start: October 08, 2024 Nicolette Guadalupe CNM Attending Provider Active S tart: October 08, 2024 Nicolette Guadalupe CNM Referring Provider Active S tart: October 08, 2024 Team Status: Inactive Member Role Status Dates No Primary Care Physician Primary Care Provider Active Start: October 08, 2024 End: October 08, 2024 Nicolette Guadalupe CNM Attending Provider Active S tart: October 08, 2024 End: October 08, 2024 Nicolette Guadalupe CNM Referring Provider Active S tart: October 08, 2024 End: October 08, 2024 Team Status: Active Member Role Status Dates No Primary Care Physician Primary Care Provider Active Start: October 12, 2024 Nicolette Guadalupe CNM Attending Provider Active S tart: October 12, 2024 Nicolette Guadalupe CNM Referring Provider Active S tart: October 12, 2024 Team Status: Inactive Member Role Status Dates No Primary Care Physician Primary Care Provider Active Start: October 12, 2024 End: October 12, 2024 Nicolette Guadalupe CNM Attending Provider Active S tart: October 12, 2024 End: October 12, 2024 Nicolette Guadalupe CNM Referring Provider Active S tart: October 12, 2024 End: October 12, 2024 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 Relationship Specialty Start Date End Date Suni Mendez MD [address] [place] [address] PCP - General Internal Medicine 12/30/24 Goals (unrecognized section and content) Goals may be documented in a n alternate sectionGoals may be documented in an alternate sectionGoals may be documented in an alternate sectionGoals may be documented in an alternate sectionGoals may be documented in an alternate sectionGoals may be documented in an alternate sectionGoals may be documented in an alternate sectionGoals may be documented in an alternate section Source Comments (unrecognize d section and content) In the event this informatio n is protected by the Federal Confidentiality of Alcohol and Drug Abuse Patient Records regulations: The Federal rules restrict any use of the information to criminally investigate or prosecute any alcohol or drug abuse patient.[facility] the event this information is protected by the Federal Confidentiality of Alcohol and Drug Abuse Patient Records regulations: The Federal rules restrict any use of the information to criminally investigate or prosecute any alcohol or drug abuse patient.[facility] the event this information is protected by the Federal Confidentiality of Alcohol and Drug Abuse Patient Records regulations: The Federal rules restrict any use of the information to criminally investigate or prosecute any alcohol or drug abuse patient.[facility] the event this information is protected by the Federal Confidentiality of Alcohol and Drug Abuse Patient Records regulations: The Federal rules restrict any use of the information to criminally investigate or prosecute any alcohol or drug abuse patient.[facility] FOR RECORDS PERTAINING TO PATIENTS WHO [...] BE BASED ON THE PRIMARY CLINICAL RECORDS. [facility]. provides no warranty or guarantee of the accuracy or completeness of information in this document.
--- NOTE | 2025-01-02 12:20 | RAD_ITS ---
PROCEDURE: LUMBAR SPINE 2 OR 3 VIEWS 01/02/2025 REASON FOR EXAM: PAIN/INJURY TECHNIQUE: Procedure Code: RADSPLL Modality: DX Procedure: LUMBAR SPINE 2 OR 3 VIEWS COMPARISON: None FINDINGS: Vertebrae: No demonstrated fracture or suspicious osseous lesion Discs: Well-preserved except for mild narrowing at L5/S1 Alignment: Alignment is anatomic Other: IUD noted RAD/Lumbar Spine 2 or 3 Views IMPRESSION: Mild narrowing of the disc space at L5/S1, otherwise unremarkable lumbar spine. Reading Location: [id number]
[2025-01-02 13:59] VITALS: BP 108/77; PULSE 72; RESP 14; TEMP 36.6; O2SAT 100
== END 2025-01-02 14:00 | disposition home or self-care (01) ==
LOC: ED 12:16
PROVIDERS: Emergency Provider Emergency Medicine; PCP Pediatrics; Visit Provider Emergency Medicine
DX: M54.42 Lumbago with sciatica, left side (principal); X50.1XXA Overexertion from prolonged static or awkward postures, initial encounter; F17.210 Nicotine dependence, cigarettes, uncomplicated
CPT/HCPCS: 72100; 99282